=== PATIENT | male | born 1950 | race Caucasian/White ===

== ENCOUNTER → 2018-06-29 19:28 | Outpatient (REF) | payer MEDICARE, SELFPAY ==
[2018-06-29 20:46] LABS: ALT 40 U/L (12-78); AST 42 U/L (15-37); Albumin 3.5 g/dL (3.4-5.0); Alkaline Phosphatase 82 U/L (46-116); Anion Gap 8.3 mmol/L (3-11); BUN 4 mg/dL (7-18); Bilirubin, Total 0.6 mg/dL (0.2-1.0); CO2 26.7 mmol/L (21.0-32.0); CREATININE 0.82 mg/dL (0.70-1.30); Chloride 97 mmol/L (98-107); Cholesterol 141 mg/dL (50-200); Glucose 97 mg/dL (70-100); HDL Cholesterol 43 mg/dL (40-60); LDL CHOLESTEROL 88 mg/dL (<100); Potassium 4.3 mmol/L (3.5-5.1); Sodium 132 mmol/L (136-145); Total Protein 7.6 g/dL (6.4-8.2); Triglyceride 96 mg/dL (30-150)
[2018-07-01 10:02] LABS: Hepatitis C Ab w Rflx HCV PCR Negative (NEGAT)
== END ==
LOC: LBN 19:28
PROVIDERS: PCP Internal Medicine; Visit Provider Internal Medicine
DX: E78.5 Hyperlipidemia, unspecified (principal); I10 Essential (primary) hypertension; K76.89 Other specified diseases of liver; Z11.59 Encounter for screening for other viral diseases
CPT/HCPCS: 80053; 80061; 83721; 86803

== ENCOUNTER 2019-02-22 00:32 | Outpatient (CLI) | payer MEDICARE, SELFPAY ==
--- NOTE | 2019-02-22 07:14 | DI.US_ITS ---
SYMPTOM/DIAGNOSIS: SCREENING FOR AAA, MEDICARE ANNUAL WELLNESS VISIT, Z00.00 AORTA ULTRASOUND: The proximal abdominal aorta measures 2.5 by 2.2 cm. The mid abdominal aorta measures 2 by 2.4 cm. and the distal aorta measures 1.8 by 2 cm. The right iliac measures 1.3 by 1.2 cm. and the left iliac measures 1.1 by 1.1 cm. IMPRESSION: No evidence of an aortic aneurysm.
== END 2019-02-22 00:52 ==
PROVIDERS: PCP Internal Medicine; Visit Provider Internal Medicine
DX: Z13.6 Encounter for screening for cardiovascular disorders (principal)
CPT/HCPCS: 76706

== ENCOUNTER 2019-05-31 10:32 | Outpatient (REF) | payer MEDICARE, SELFPAY ==
[2019-05-31 12:36] LABS: HCT 44.7 % (40.0-50.0); HGB 14.8 g/dL (13.5-17.5); Mean Corp. HGB Concentration 33.1 g/dL (32.0-36.0); Mean Corpuscular Volume 99.8 fL (80-95); Mean Platelet Volume 10.9 fL (8.0-11.0); Platelet Count 333 x1000/uL (130-400); RBC 4.48 m/cumm (4.50-6.00); RBC Distribution Width 13.3 % (11.8-14.1); White Blood Cell Count 7.79 k/cumm (4.4-10.8)
[2019-05-31 13:27] LABS: ALT 42 U/L (12-78); AST 38 U/L (15-37); Albumin 3.5 g/dL (3.4-5.0); Alkaline Phosphatase 87 U/L (46-116); Anion Gap 11.5 mmol/L (3-11); BUN 4 mg/dL (7-18); Bilirubin, Total 0.5 mg/dL (0.2-1.0); CO2 23.5 mmol/L (21.0-32.0); CREATININE 0.72 mg/dL (0.70-1.30); Calculated LDL 75 mg/dL; Chloride 102 mmol/L (98-107); Cholesterol 139 mg/dL (50-200); Glucose 96 mg/dL (70-100); HDL Cholesterol 47 mg/dL (40-60); Potassium 4.6 mmol/L (3.5-5.1); Sodium 137 mmol/L (136-145); TSH 1.24 uIU/mL (0.36-3.74); Total Protein 7.5 g/dL (6.4-8.2); Triglyceride 85 mg/dL (30-150); Vitamin B12 289 pg/mL (193-986)
== END 2019-05-31 10:52 ==
LOC: LBN 10:32
PROVIDERS: PCP Internal Medicine; Visit Provider Internal Medicine
DX: E78.5 Hyperlipidemia, unspecified (principal); I10 Essential (primary) hypertension; F10.10 Alcohol abuse, uncomplicated; K76.89 Other specified diseases of liver; L30.9 Dermatitis, unspecified; R20.0 Anesthesia of skin; R20.2 Paresthesia of skin; E78.00 Pure hypercholesterolemia, unspecified
CPT/HCPCS: 80053; 80061; 83721; 85027; 82607; 84443

== ENCOUNTER 2019-08-31 10:23 | Outpatient (CLI) | payer MEDICARE, SELFPAY ==
--- NOTE | 2019-09-04 08:25 | W.HOLTRPT ---
Holter Monitor Report Holter Monitor Note: Is a 48-hour Holter monitor ordered for indication of syncope. ?Patient was predominantly normal sinus rhythm with an average heart rate of 85 bpm. ?There were 5 episodes of supraventricular tachycardia. The longest lasted 23 beats at a rate of 171 bpm. ?There were moderate (2%) PACs with no runs of multiple PACs in a row. ?There were no episodes of ventricular tachycardia. There were moderate (3%) single ventricular ectopic beats and 380 couplets. ?There was one episode of atrial fibrillation lasting 2 minutes and 1 second. ?There were no pauses greater than 3 seconds and no evidence of high degree heart block. ?There were no patient triggered events Date of service: 09/04/19 Time of Service: 08:25
== END 2019-08-31 10:43 ==
PROVIDERS: PCP Internal Medicine; Visit Provider Internal Medicine
DX: R55 Syncope and collapse (principal); I48.91 Unspecified atrial fibrillation; I47.1 Supraventricular tachycardia; I49.1 Atrial premature depolarization; I49.3 Ventricular premature depolarization
CPT/HCPCS: 93225

== ENCOUNTER 2019-09-03 15:04 | Outpatient (CLI) | payer MEDICARE, SELFPAY | END 2019-09-03 15:24 | PROVIDERS: PCP Internal Medicine; Visit Provider Internal Medicine | DX: R55 Syncope and collapse (principal); I47.1 Supraventricular tachycardia; I49.1 Atrial premature depolarization; I49.3 Ventricular premature depolarization; I48.91 Unspecified atrial fibrillation | CPT/HCPCS: 93226 ==

== ENCOUNTER 2019-09-04 08:25 | Outpatient (CLI) | payer MEDICARE, SELFPAY | END 2019-09-04 08:45 | PROVIDERS: PCP Internal Medicine; Referring Provider Internal Medicine; Visit Provider Internal Medicine Cardiovascular Disease | DX: R55 Syncope and collapse (principal); I47.1 Supraventricular tachycardia; I49.1 Atrial premature depolarization; I49.3 Ventricular premature depolarization; I48.91 Unspecified atrial fibrillation | CPT/HCPCS: 93227 ==

== ENCOUNTER 2019-09-18 01:20 | Outpatient (CLI) | payer MEDICARE, SELFPAY ==
--- NOTE | 2019-09-18 08:15 | DI.US_ITS ---
EXAM: US CAROTID CLINICAL HISTORY: syncope, R55 TECHNIQUE: Ultrasound performed using standard protocol. COMPARISON: No exams were available for comparison FINDINGS: Calcific plaque is seen in both common carotid bulbs and extending into the external carotid artery o n the right. There is mild diastolic velocity elevation in the right distal internal carotid artery. There is no stenosis greater than 50 percent in either internal carotid artery. The right vertebra l artery shows antegrade flow. The left vertebral artery shows retrograde flow. IMPRESSION: Calcific plaque in the common carotid bulbs. No significant internal carotid artery stenosis. Retro grade flow is demonstrated in the left vertebral artery.
--- NOTE | 2019-09-18 10:05 | DI.MRI_ITS ---
EXAM: MR LUMBAR SPINE WO CLINICAL HISTORY: radicular pain, previous back surgery, M54.10, Z98.890. TECHNIQUE: Multiplanar multisequence MRI was performed. COMPARISON: MRI - LUMBAR SPINE WO CONTRAST from 04/26/2009 FINDINGS: Loss of disc height, disc desiccation and broad-based disc osteophytes are again noted at L1-2. Find ings appear more prominent when compared to the previous exam. There is mild central canal stenosis and mild right neural foraminal narrowing. At L2-3, there is disc desiccation, broad-based disc bulging and loss of disc height eccentric to the right. There are facet degenerative changes and ligamentous hypertrophy, which combine to produce a severe amount of central canal stenosis. There is also severe bilateral neural foraminal narrowing. At L3-4, there are broad-based disc osteophytes projecting circumferentially. There are facet degene rative changes combining to produce severe central canal stenosis and severe bilateral neural foramin al narrowing. At L4-5, there is a right laminectomy. There is moderate loss of disc height and broad-based disc os teophytes. There are facet degenerative changes combining to produce a mild degree of central canal stenosis. There is severe bilateral neural foraminal narrowing. At L5-S1, there is a left laminectomy. There is loss of disc height and broad-based disc osteophytes . There is severe bilateral neural foraminal narrowing but no significant central canal stenosis. IMPRESSION: Severe central canal stenosis L2-3 and L3-4. Severe bilateral neural foraminal narrowing from L2-3 t hrough L5-S1.
== END 2019-09-18 01:40 ==
PROVIDERS: PCP Internal Medicine; Visit Provider Internal Medicine
DX: M54.17 Radiculopathy, lumbosacral region (principal); M48.061 Spinal stenosis, lumbar region without neurogenic claudication; M51.17 Intervertebral disc disorders with radiculopathy, lumbosacral region; M25.78 Osteophyte, vertebrae; R55 Syncope and collapse; I65.23 Occlusion and stenosis of bilateral carotid arteries
CPT/HCPCS: 72148; 93880

== ENCOUNTER 2019-11-29 01:17 | Outpatient (CLI) | payer MEDICARE, SELFPAY ==
--- NOTE | 2019-11-29 08:35 | DI.RAD_ITS ---
EXAM: XR RIBS RT W PA LAT CHEST INDICATION: right chest pain, wheezing, R07.9, R06.2. COMPARISON: No exams were available for comparison TECHNIQUE: 2D digital imaging was performed. FINDINGS: Heart size is within normal limits. The aorta is tortuous. Lungs are clear. No pneumothorax is se en. Four views of the right ribs were performed. There is a mildly displaced 8th rib fracture. Dege nerative changes are noted at the AC joint. There is a small calcification near the greater tuberosi ty which could indicate calcific tendinosis. There are no thoracic compression fractures. IMPRESSION: Right 8th rib fracture.
== END 2019-11-29 01:37 ==
PROVIDERS: PCP Internal Medicine; Visit Provider Internal Medicine
DX: R07.9 Chest pain, unspecified (principal); R06.2 Wheezing; S22.31XA Fracture of one rib, right side, initial encounter for closed fracture
CPT/HCPCS: 71046; 71100

== ENCOUNTER 2019-11-29 12:27 | Outpatient (REF) | payer MEDICARE, SELFPAY ==
[2019-11-29 19:30] LABS: HCT 41.2 % (40.0-50.0); HGB 13.7 g/dL (13.5-17.5); Mean Corp. HGB Concentration 33.3 g/dL (32.0-36.0); Mean Corpuscular Hemoglobin 33.1 pg (27.0-33.0); Mean Corpuscular Volume 99.5 fL (80-95); Mean Platelet Volume 10.7 fL (8.0-11.0); Platelet Count 456 x1000/uL (130-400); RBC 4.14 m/cumm (4.50-6.00); RBC Distribution Width 13.2 % (11.8-14.1); White Blood Cell Count 7.48 k/cumm (4.4-10.8)
[2019-11-29 19:43] LABS: ALT 22 U/L (16-63); AST 26 U/L (15-37); Albumin 2.9 g/dL (3.4-5.0); Alkaline Phosphatase 66 U/L (46-116); BUN 8 mg/dL (7-18); Bilirubin, Total 0.2 mg/dL (0.2-1.0); CREATININE 0.65 mg/dL (0.70-1.30); Calcium 8.7 mg/dL (8.5-10.1); Chloride 105 mmol/L (98-107); Glucose 93 mg/dL (74-106); Potassium 4.8 mmol/L (3.5-5.1); Sodium 140 mmol/L (136-145); Total Protein 6.7 g/dL (6.4-8.2)
== END 2019-11-29 12:47 ==
LOC: LBN 12:27
PROVIDERS: PCP Internal Medicine; Visit Provider Internal Medicine
DX: R55 Syncope and collapse (principal); I95.9 Hypotension, unspecified
CPT/HCPCS: 80053; 85027

== ENCOUNTER 2019-12-30 01:32 | Outpatient (CLI) | payer MEDICARE, SELFPAY ==
--- NOTE | 2019-12-30 10:30 | DI.US_ITS ---
APPROVED REPORT EXAM: Comprehensive 2D, Doppler, and color-flow Echocardiogram Patient Location: Out-Patient Telecommunications Field Engineer: Vaishali Walsh RDCS (AE) Indications: Syncope, New Hypotension, Assess for WMA Conclusion Left Ventricle : The left ventricle is normal size. Left ventricular systolic function is mildly dec reased. There is normal left ventricular wall thickness. There are segmental wall motion abnormalit ies as described below. The left ventricular diastolic function is normal. LVEF is 45-49%. Right Ventricle : Right ventricle is not well visualized. Atria : The left atrium size is normal. The right atrium size is normal. Valves: There are no hemodynamically significant valvular lesions. Great Vessels : The ascending aorta is normal in size. The ascending aorta size is dilated. IVC is n ormal in size and collapses >50% with inspiration. Mid RVSP is 21-24 mmHg. There is no prior echocardiogram available for comparison. Wall motion Left Ventricle The left ventricle is normal size. Left ventricular systolic function is mildly decreased. There is n ormal left ventricular wall thickness. The basal anteroseptal wall is mildly hypokinetic. The basal a nterior wall is mildly hypokinetic. The basal inferoseptal wall is mildly hypokinetic. The mid horace septal wall is mildly hypokinetic. The mid anterior wall is mildly hypokinetic. The mid inferoseptal wall is mildly hypokinetic. The left ventricular diastolic function is normal. LVEF is 45-49%. Right Ventricle Right ventricle is not well visualized. Atria The left atrium size is normal. The right atrium size is normal. Aortic Valve Aortic valve is grossly normal in structure. Aortic valve is probably trileaflet. There is no aortic valvular stenosis. No aortic regurgitation is present. Mitral Valve The mitral valve is normal in structure. Mild mitral regurgitation. Tricuspid Valve The tricuspid valve is normal in structure. There is no tricuspid valve stenosis. Trace tricuspid reg urgitation. Pulmonic Valve Pulmonic valve is not well visualized. There is no pulmonic valvular stenosis. Trace pulmonic regurgi tation. Great Vessels The aortic root is normal in size. The aortic root size is normal. The ascending aorta is normal in s ize. The ascending aorta size is dilated. IVC is normal in size and collapses >50% with inspiration. Mid RVSP is 21-24 mmHg. Pericardium There is no pericardial effusion. 2D Dimensions IVSD d PLAX 1.03 cm M: 0.6-1.2 LV Vol A2C d MOD 96.4 mL LVPW d PLAX 1.02 cm M: 0.6 - 1.2 LV Vol A4C d MOD 107.6 mL LVID d PLAX 4.83 cm M: 4.2 - 5.8 LA vol/ BSA A2C s A-L 26.9 mL/m2 LVDs 3.80 cm M: 2.5 - 4.0 LA vol/ BSA A4C s A-L 32.1 mL/m2 Ao Root d 3.65 cm M: 3.1 - 3.7 LA Vol/ BSA Biplane s A-L 31.5 mL/m2 RA Area A4C 17.74 cm2 LA Area A4C s MOD 22.27 cm2 RA Vol/ BSA A4C s A-L 20.4 mL/m2 LA Area A2C s MOD 18.97 cm2 Ao Asc Diam d 3.80 cm M: 2.6 - 3.4 LV EF A4C MOD 49.9 % LV EF Teichholz 42.5 % LV EF A2C MOD 47.1 % LVEF (Elliott's) 48.38 % M: 52 - 72 LV EF Biplane MOD 48.4 % LV Volume 75.30 mL M: 62 - 150 LV Volume Index 32.59 mL/m2 M: 34 - 74 LV Vol Biplane MOD 105.2 mL FS 20.90 % LV Diastology MV E' medial 0.069 (>0.07 m/s) E/A Ratio 0.6 LV E/e MED 8.60 (<14) MV E Vmax 0.60 (0.4-1.3 m/s) MV E' lateral 0.045 (>0.1 m/s) MV A Vmax 1.00 (0.4-1.3 m/s) LV E/e LAT 13.30 (<14) MV E/A Ratio 0.59 MV E/E' medial 8.63 MV E/E' lateral 13.32 Aortic Valve LVOT Area 3.70 cm2 AoV Area Vmax 2.25 cm2 LVOT Vmax 1.05 m/s AoV Area/ BSA (Vmax) 0.97 cm2/m2 LVOT Mean Kvng. 0.67 m/s SOBIA Mean Kvng. 1.99 cm2 LVOT Peak Grad 4.4 mmHg SOBIA Mean Kvng. Index 0.86 cm2/m2 LVOT Mean Grad 2.1 mmHg LVOT VTI 0.208 m LVOT Diam s 2.15 cm (M/F) 1.5-2.5 AoV Vmax 1.73 (0.5-1.3 m/s) Velocity Ratio 0.60 AoV Mean Kvng. 1.24 m/s AoV Peak Grad 11.9 mmHg LVOT SV 76.77 mL AoV Mean Grad 6.8 (<5 mmHg) AoV VTI 0.345 (0.18-0.25 m) AoV Area VTI 2.23 (2.5-4.5 cm2) AoV Area/ BSA (VTI) 0.96 cm/m2 Mitral Valve MV DT 416 (160-240 msec) MV PHT 121 msec MV Area PHT 1.82 cm2 Pulmonary Valve PV Vmax 0.88 (0.5-1.5 m/s) RVOT Peak Gr. 1.25 mmHg PV Peak Grad 3.1 mmHg RVOT Mean Gr. 0.65 mmHg PV Mean Grad 1.4 mmHg RVOT VTI 0.101 m PV VTI 0.156 m RVOT Vmax 0.56 m/s Tricuspid Valve TR Peak Grad 21.4 mmHg TR Vmax 2.31 m/s RA Pressure 3.00 mmHg RVSP (TR) 24.4 mmHg
== END 2019-12-30 01:52 ==
PROVIDERS: PCP Internal Medicine; Visit Provider Internal Medicine
DX: R55 Syncope and collapse (principal); I95.9 Hypotension, unspecified; I50.1 Left ventricular failure, unspecified
CPT/HCPCS: 93306

== ENCOUNTER 2020-07-16 14:37 | Outpatient (REF) | payer MEDICARE, SELFPAY | END 2020-07-16 14:57 | LOC: LBO 14:37 | PROVIDERS: PCP Internal Medicine; Visit Provider Internal Medicine | DX: N39.0 Urinary tract infection, site not specified (principal) | CPT/HCPCS: 87086 ==

== ENCOUNTER 2020-07-24 01:26 | Outpatient (CLI) | payer MEDICARE, SELFPAY ==
--- NOTE | 2020-07-24 07:00 | DI.CT_ITS ---
EXAM: CT ABDOMEN PELVIS WO CLINICAL HISTORY: gross hematuria,R31.0. TECHNIQUE: Imaging Protocol: Axial computed tomography images with coronal and sagittal reformatted images were created and reviewed. COMPARISON: No exams were available for comparison FINDINGS: Mild patient motion artifact. ABDOMEN: Lung Bases: No acute process is seen in the lung bases. Liver: Normal density. No measurable mass. Gallbladder and biliary tract: No radiodense calculus or biliary ductal dilation. Pancreas: Normal density, no abnormal calcifications or inflammatory process. Spleen: Normal. Kidneys: Normal size, contour and axis.There is a 3 mm calcification in the right renal pelvis. This may represent a nonobstructing stone or vascular calcification. No other renal calculi are identifi ed. There is no evidence of hydronephrosis. No masses seen. Adrenal glands: No mass is seen. Nonspecific calcification is seen at the right adrenal gland. Lymph nodes: Within normal limits. Abdominal Aorta: Abdominal portion non-dilated. Atherosclerosis. PELVIS: Bladder:The urinary bladder is distended. There is diffuse thickening of the wall of the urinary iris dder. There does appear to be some asymmetric thickening of the wall of the urinary bladder anterior ly and to the right. Mass cannot be excluded. Bowel: No obstruction or bowel wall thickening. Normal appendix is visualized. Colonic diverticulosi s but no evidence of acute diverticulitis. Peritoneal cavity: No ascites, collection or mesenteric inflammatory response Reproductive organs: Within normal limits. Bones: Degenerative changes. Soft Tissues: Small fat containing umbilical hernia. Bilateral fat containing inguinal hernia. IMPRESSION: 1. 3 mm calcification in the right renal pelvis. Nonobstructing stone versus vascular calcification. 2. No hydronephrosis. 3. Question of asymmetric thickening of the wall of the urinary bladder anteriorly and to the right. Mass cannot be excluded. Ultrasound or CT urography should be considered for further evaluation. RADIATION DOSE DELIVERED: 1,040.15mGy.cm Total DLP DATA REPOSITORY: All CT scans at this facility are submitted to the National Radiology Data Registry (NRDR) Dose Index Registry (DIR) with the [employer] (A[employer]). RADIATION OPTIMIZATION: All CT scans at this facility use at least one of these dose optimization te chniques: automated exposure control; mA and/or kV adjustment per patient size (includes targeted exa ms where dose is matched to clinical indication); or iterative reconstruction.
== END 2020-07-24 01:46 ==
PROVIDERS: PCP Internal Medicine; Visit Provider Internal Medicine
DX: R93.41 Abnormal radiologic findings on diagnostic imaging of renal pelvis, ureter, or bladder (principal); N32.89 Other specified disorders of bladder
CPT/HCPCS: 74176

== ENCOUNTER 2020-09-09 00:37 | Outpatient (CLI) | payer MEDICARE, SELFPAY ==
--- NOTE | 2020-09-09 08:15 | DI.CTLCSR_ITS ---
EXAM: CT CHEST LUNG CANCER SCREEN CLINICAL HISTORY: Screening for lung cancer,CURRENT SMOKER, F17.210 TECHNIQUE: COMPARISON: No exams were available for comparison FINDINGS: CT examination of the chest was performed utilizing low-dose lung cancer screening protocol. Images obtained through the upper show unremarkable appearance of visualized portions liver, spleen pancreas adrenals, kidneys. Note is made of coronary artery calcification. There is ectasia of the ascending aorta 44 millimeter s. There is no significant mediastinal or hilar adenopathy. There are emphysematous changes of the lungs and a few areas of scarring in the lung bases. There ar e a couple of 4 millimeter pulmonary nodules in the right lung. These are noncalcified. No pleural effusion. No pleural based mass. IMPRESSION: 4 millimeter intrapulmonary nodules, noncalcified, in the right lung. Lung RADS Cat 2 - Benign Appearance / Behavior: Nodules with a very low likelihood of becoming a clin ically active cancer due to size or lack of growth Continue annual screening with LD CT in 12 months. RADIATION DOSE DELIVERED: 109.66mGy.cm Total DLP
== END 2020-09-09 00:57 ==
PROVIDERS: PCP Internal Medicine; Visit Provider Internal Medicine
DX: F17.210 Nicotine dependence, cigarettes, uncomplicated (principal); R91.8 Other nonspecific abnormal finding of lung field
CPT/HCPCS: G0297

== ENCOUNTER → 2020-09-24 15:06 | Outpatient (BNVA) | payer MEDICARE, SELFPAY | PROVIDERS: PCP Internal Medicine; Referring Provider Internal Medicine; Visit Provider Nurse Practitioner Gerontology | DX: R31.0 Gross hematuria (principal); Z11.59 Encounter for screening for other viral diseases; I10 Essential (primary) hypertension | CPT/HCPCS: 99204 ==

== ENCOUNTER 2020-10-07 02:19 | Outpatient (CLI) | payer MEDICARE, SELFPAY ==
[2020-10-08 23:24] LABS: COVID-19 RT-PCR Result NEGATIVE (Negative)
== END 2020-10-07 02:39 ==
PROVIDERS: PCP Internal Medicine; Visit Provider Nurse Practitioner Gerontology
DX: Z11.59 Encounter for screening for other viral diseases (principal)
CPT/HCPCS: U0003

== ENCOUNTER 2020-10-18 03:30 | Outpatient (CLI) | payer MEDICARE, SELFPAY ==
[2020-10-21 12:09] LABS: COVID-19 RT-PCR Result NEGATIVE (Negative)
== END 2020-10-18 03:50 ==
PROVIDERS: PCP Internal Medicine; Visit Provider Internal Medicine Cardiovascular Disease
DX: Z11.59 Encounter for screening for other viral diseases (principal); Z01.810 Encounter for preprocedural cardiovascular examination
CPT/HCPCS: U0003

== ENCOUNTER → 2020-10-22 00:25 | Outpatient (CLI) | payer MEDICARE, SELFPAY ==
--- NOTE | 2020-10-22 07:30 | DI.NM_ITS ---
APPROVED REPORT Exam: Pharmacologic Patient Location: Out-Patient Room/Bed: Stress Nurse: Shannan Avila RN BMI: 30.07 Baseline Rhythm: Sinus Rhythm Comment: frequent PACs, occasional PVC Indications: Pre-op, angina, h/o abnormal echocardiogram, syncopal episodes. Medical History Medical History: HTN, HLD, Smoker, Orthostatic hypotension, Syncope, Angina, Arthritis, Chronic back pain. Cardiac Medications: Albuterol sulfate PRN, Budesonide-formoterol inhaler, Aspirin, Atorvastatin, Lis inopril. Allergies: No known drug allergies Cardiac Risk Factors: HTN, Hyperlipidemia, FHX of CAD, Smoking (current) Previous Cardiac Procedures: None. Pretest Chest Pain Characteristics: No chest pain Exercise History: Sedentary Physical Disabilities: Back, Legs Lung Sounds: Diminished, end-expiratory rhonchi Heart Sounds: Irregular Stress Test Details Test: Exercise stress converted to pharmacologic stress due to failure to obtain a diagnostic stress test. Reason for pharmacologic stress test: physical limitation. Nuclear Acquisition: Rest Tc-99m/Stress Tc-99m 1 day Rest Isotope: Tc-99m Sestamibi. Dose: 10.9 Date: 10/22/2020 Injection Time: 1035 Stress Isotope: Tc-99m Sestamibi. Dose: 32.1 Date: 10/22/2020 Injection Time: 1155 HR Resting HR Supine: 71 bpm Max Heart Rate (APMHR): 152 bpm Resting HR Standin bpm Target HR (85% APMHR): 129 bpm Max HR Achieved: 124 bpm % of APMHR: 81 Recovery HR: 95 bpm HR response to stress: Normal HR response to stress BP Resting BP Supine: 136/80 mmHg Resting BP Standin/76 mmHg Max BP: 144/86 mmHg Recovery BP: 132/80 mmHg BP response to stress: Normal blood pressure response to stress. ECG Resting ECG: Sinus Rhythm Ectopy: frequent PACs, occasional PVC, fusion beats Stress ECG: Sinus Tachycardia, Sinus Bradycardia, Sinus Rhythm, Clear, ST Change: No significant ST segment changes noted. Arrhythmia: frequent PACs, occasional PVC, fusion beats Recovery ECG: Sinus Rhythm Recovery ST Change: No significant ST segment changes noted. Recovery Arrhythmia: frequent PACs, occasional PVC, fusion beats Clinical Reason for Termination: Leg pain, dyspnea Stress Symptoms: Leg Fatigue, Dyspnea Exercise duration: 2 min33 sec Highest Stage Reached: Stage 1: 1.7 mph at 10% grade. Exercise capacity: 4.64 METs Stress ECG Conclusion 1. The patient exercised for 2 minutes and 30 seconds (5 METS). This was converted to a pharmacologi nuria stress test. 2. The patient no symptoms suggestive of ischemia. 3. The EKG portion of this exam is nondiagnostic. Stress Test Summary STAGE Time (mins) Speed (mph) Grade (%) HR BP SYMPTOMS METS Supine 71 136/80 Standing 88 118/76 1 3 1.7 10 119 4.6 1 min post Lexiscan injection 100 144/86 3 min post Lexiscan injection 95 130/78 6 min post Lexiscan injection 95 132/80 MPI Conclusion The patient's ejection fraction was 49% with stress. There were no wall motion abnormalities. There is no evidence of ischemia on the imaging portion of the exam. This represents a normal SPECT stress test.
[2020-10-22] MEDS: Regadenoson 0.4 MG/5 ML SYR IVP (12:22)
== END ==
PROVIDERS: PCP Internal Medicine; Visit Provider Family Medicine
DX: I20.8 Other forms of angina pectoris (principal); R55 Syncope and collapse; Z01.818 Encounter for other preprocedural examination; R93.1 Abnormal findings on diagnostic imaging of heart and coronary circulation; I10 Essential (primary) hypertension; E78.5 Hyperlipidemia, unspecified; Z82.49 Family history of ischemic heart disease and other diseases of the circulatory system; F17.210 Nicotine dependence, cigarettes, uncomplicated
CPT/HCPCS: 78452; 93016; 93018; 93017; J2785

== ENCOUNTER 2020-11-25 04:45 | Outpatient (CLI) | payer MEDICARE, SELFPAY ==
[2020-11-26 14:37] LABS: COVID-19 RT-PCR UVMMC Result Negative (Negative)
== END 2020-11-25 05:05 ==
PROVIDERS: PCP Internal Medicine; Visit Provider Nurse Practitioner Gerontology
DX: Z11.52 Encounter for screening for COVID-19 (principal)
CPT/HCPCS: U0003

== ENCOUNTER 2020-11-28 08:16 | Day surgery (SDC) | payer MEDICARE, SELFPAY ==
--- NOTE | 2020-11-27 09:05 | NUR.NOTE ---
Pt. pre-op call completed, pt. educated to be NPO after midnight, water until 0500am. Informed patient that he may take his Gabapentin, Tamsulosin, Fluoxetine, with a small sip of water and his symbicort inhaler. Pt. educated come in thru main entrance, make sure he has a mask on, and to have a ride home set up in place prior to arrival. Pt. informed that he will have to be dropped off, and cannot have anybody accompany him due to COVID restrictions. Pt. stated understand on all that was stated above. Nursing Note:
[2020-11-28] VITALS (8 sets, daily range): BP systolic 62–112; BP diastolic 42–77; PULSE 66–78; RESP 12–20; TEMP 36.2–36.8; O2SAT 91–99
--- NOTE | 2020-11-28 08:34 | HPE_ITS ---
Date of service: 11/28/20 Time of Service: 08:35 Assessment and Plan Assessment and plan (1) Gross hematuria: Status: Acute Assessment and plan: For cystoscopy with bilateral retrograde pyelogram and possible TUR bladder tumor History of Present Illness History of Present Illness Chief Complaint: Gross hematuria Narrative: Juan Jose is a 70-year-old male referred to urology by [facility] internal medicine for gross hematuria. Patient reports that he had one episode of gross hematuria about a month ago. He reports there is no clots with the gross hematuria. He notes he has not seen any in his urine since but has been tested with urinalysis and has been found to have large quantities of microscopic hematuria. He notes that he has also had an abnormal weight loss over the past year. He does not report any long bone pain. He is not having any abnormal bleeding or bruising. He notes that he has some daytime and nighttime frequency but does not have trouble initiating his stream or feel that he does not empty completely. Juan Jose reports that he had imaging done through his primary care's office. Juan Jose states that his PCP did talk to him about the results and there is concern for further investigation of the bladder wall. Review of Systems Narrative: No fevers or chills No vision change. 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 (01/19/12) Tongue cancer Has had tongue resection x 2014 Per patient they took about half the tongue Surgical History History of back surgery 1988 Family History (Updated 10/07/20 @ 15:03 by Rashaun Jain) Mother , Pt reports mother of Old Age Diabetes Lung cancer Father Diabetes Stroke Sister Diabetes Brother Diabetes Social History Smoking/Tobacco Use Status: Current every day Tobacco Type: cigarettes Tobacco: How many years used: 53 Quit status: not considering quitting Smoking risk assessment performed?: Yes Alcohol Intake: current Alcohol Intake frequency: 3 or more drinks per day Alcohol type: beer and hard liquor Drug use: Occasionally Substance use type: marijuana Adopted: No Caregiver/Support person: No Foster care: No Household members: none Housing: house Number of Children: 0 Communication Needs: Corrective Lenses Education Level: high school current occupation: disabled Current gender identity: male What is your relationship status?: How often do you talk on the phone with friends or family?: three or more times per week Panel score (0-1 are the most socially isolated patients): 1 What type of physical activity do you participate in: none Seatbelt use: always 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 Working smoke detector in home: Yes Fire extinguisher in home: Yes Carbon monox detector in home: Yes Do you feel safe at home: Yes Additional Social history: lives alone Meds Home Medications and Allergies Home Medications Medication Instructions Recorded Confirmed Type diphenhydramine HCl [Benadryl] 25 mg PO PRN cap 05/03/17 11/27/20 History inhalational spacing device #1 each 11/21/19 11/27/20 Rx albuterol sulfate 90 mcg/actuation 2 puff IH QID PRN #3 unit 01/11/20 11/27/20 Rx aerosol inhaler budesonide-formoterol HFA 160 2 puff IH BID #3 unit 03/12/20 11/27/20 Rx mcg-4.5 mcg/actuation aerosol inhaler blood pressure monitor #1 each 03/13/20 11/27/20 Rx aspirin 81 mg tablet,delayed 81 mg PO DAILY #90 tab 05/15/20 11/27/20 Rx release atorvastatin 40 mg tablet 40 mg PO DAILY #90 tab-cap 05/15/20 11/27/20 Rx fluoxetine 40 mg capsule 40 mg PO DAILY #90 tab-cap 05/15/20 11/27/20 Rx gabapentin 600 mg tablet 600 mg PO QID #150 tab 05/15/20 11/27/20 Rx lisinopril 20 mg tablet 20 mg PO DAILY #90 tab-cap 05/15/20 11/27/20 Rx thiamine HCl (vitamin B1) 100 mg 100 mg PO DAILY #90 tab 05/15/20 11/27/20 Rx tablet tamsulosin 0.4 mg capsule 0.4 mg PO DAILY #90 tab-cap 05/22/20 11/27/20 Rx triamcinolone acetonide 0.1 % 1 applic TOPICAL BID #30 gm 07/16/20 11/27/20 Rx topical cream Allergies Allergy/AdvReac Type Severity Reaction Status Date / Time No Known Drug Allergies Allergy Verified 11/28/20 08:48 Exam Narrative Exam Narrative: I reviewed his noncontrast CT scan on the PACS system. There is no evidence of a solid renal mass. There is thickening of the bladder but no definite mass. There are vascular calcifications and a possible very small nonobstructing stone in the right kidney. Const General: cooperative and not in distress Resp Effort & Inspection: normal respiratory effort Auscultation: clear to auscultation bilaterally Cardio Rate: regular rate Rhythm: regular rhythm Neuro General: patient alert, patient awake and patient oriented x3 COVID-19 Screening Have you, or household traveled for leisure in last 14 days?: No Had IN PERSON contact w/suspected or confirmed C-19 person: No
[2020-11-28] MEDS: Lactated Ringers 1,000 ML 80 ML IV (09:08)
[2020-11-28] MEDS: ceFAZolin 1 GM/50 ML BAG IVPB (09:31)
[2020-11-28] MEDS: Lidocaine 2% Jelly 6 ML SYR (09:44)
--- NOTE | 2020-11-28 09:45 | PAPNONF_PTH ---
PATIENT: Juan Jose Lowe LOC: [facility] U#:[id number] AGE/SX: 70/M ROOM: RE11/28/[address]: Chinmay Freitas MD : 1950 BED: DIS: 11/28/2020 SPEC #: [id number] RECD: 11/28/20 12:42 STATUS: SABAS REElizabeth #: [id number] MARK: 11/28/20 09:[address]: Chinmay Freitas DEPT: [facility] Cytology RECD BY: Milagros Boudreaux ENTERED: 11/28/20 12:42 SP TYPE: LUCY HICKMAN DR: Yovana Wade MD Tissues: 1 - BODY FLUID CYTO(SPUTUM/URINE)[facility] Procedures: BODY FLUID CYTO(URINE/SPUTUM) Comments: [id number] (TOTAL VOLUME = 100 ml's) (50 ml's URINE & 50 ml's CYTOLYT ADDED IN 2 CONTAINERS)
--- NOTE | 2020-11-28 09:55 | DI.RAD_ITS ---
EXAM: XR RETROGRADE IN OR CLINICAL HISTORY: Gross hematuria. TECHNIQUE: 2D digital imaging was performed. COMPARISON: No exams were available for comparison FINDINGS: Fluoroscopy was provided during urologic procedure. Image reveals bilateral retrograde injections wi th no hydronephrosis nor hydroureter. Total Hollis B time 26 seconds; total cumulative dose 6.85mGy IMPRESSION: DATA REPOSITORY: RADIATION DOSE DELIVERED:
--- NOTE | 2020-11-28 09:59 | BLADDER_PTH ---
PATIENT: Juan Jose Lowe LOC: [facility] U#:[id number] AGE/SX: 70/M ROOM: RE11/28/[address]: Chinmay Freitas MD : 1950 BED: DIS: 11/28/2020 SPEC #: [id number] RECD: 11/28/20 12:37 STATUS: LUIS ALFREDOHema REQ #: [id number] MARK: 11/28/20 09:[address]: Chinmay Freitas DEPT: Surgical Specimen RECD BY: Milagros Boudreaux ENTERED: 11/28/20 12:38 SP TYPE: Bladder OTHR DR: Yovana Wade MD Tissues: 1 - BLADDER BIOPSY Procedures: GROSS AND MICRO LEVEL 4 Comments: [id number]
[2020-11-28] MEDS: Omnipaque 300 MG/ML 50 ML BTL (10:00)
--- NOTE | 2020-11-28 10:09 | W.PM.DSUDISC ---
Discharge Plan Disposition Patient Disposition: HOME Condition: Stable Discharge Details Reason For Visit: Hematuria Attending Provider: Chinmay Freitas Primary Care Provider: Yovana Wade Home Meds and New Rx's Prescriptions: No Action triamcinolone acetonide 0.1 % cream 1 applic Topical BID Qty: 30 RF: 1 (DME) Aerochamber MV Spacer See Rx Instructions .ROUTE .MEDSUPPLY Qty: 1 RF: 0 budesonide-formoterol [Symbicort] 160-4.5 mcg/actuation HFA aerosol inhaler 2 puff IH BID Qty: 3 RF: 3 (DME) blood pressure monitor [Blood Pressure Kit] Kit See Rx Instructions .ROUTE .MEDSUPPLY Qty: 1 RF: 0 tamsulosin 0.4 mg capsule 0.4 mg PO DAILY Qty: 90 RF: 3 diphenhydramine HCl [Benadryl] 25 MG capsule 25 mg PO PRN RF: 0 albuterol sulfate 90 mcg/actuation HFA aerosol inhaler 2 puff IH QID PRN (Reason: shortness of breath or wheezing) Qty: 3 RF: 3 aspirin 81 mg tablet,delayed release (DR/EC) 81 mg PO DAILY Qty: 90 RF: 3 atorvastatin 40 mg tablet 40 mg PO DAILY Qty: 90 RF: 3 lisinopril 20 mg tablet 20 mg PO DAILY Qty: 90 RF: 3 thiamine HCl (vitamin B1) 100 mg tablet 100 mg PO DAILY Qty: 90 RF: 3 fluoxetine 40 mg capsule 40 mg PO DAILY Qty: 90 RF: 3 gabapentin 600 mg tablet 600 mg PO QID Qty: 150 RF: 11 Discharge Instructions Additional Instructions: Followup 2 weeks for surgical pathology (cytology and bladder biopsy - both reports need to be available) Activity:: Activity as Tolerated Shower/Bathe:: 24 hours Diet:: As Tolerated Discharge Orders Discharge Orders: Discharge Order (Routine); Ordered 11/28/20 Ordered By: Chinmay Freitas Discharge Data Discharge Comment: pt must void prior to discharge DS: Diagnosis Discharge Diagnosis (1) Gross hematuria: Status: Acute
--- NOTE | 2020-11-28 10:14 | W.PM.OP ---
Date of service: 11/28/20 Time of Service: 10:14 Operative Note Operative Note DATE OF PROCEDURE: 11/28/20 PRE-OP DIAGNOSIS: Gross hematuria POST-OP DIAGNOSIS: same PROCEDURE: Cystoscopy, bilateral retrograde pyelogram, bladder biopsy with fulguration SURGEON: Chinmay Freitas ANESTHESIA: other (General without intubation) ESTIMATED BLOOD LOSS: 25 PATHOLOGY: other (1. Urine for cytology 2. Bladder biopsies) COMPLICATIONS: None Patient was transported to: same day Patient's condition: stable Indications: This is a 70-year-old gentleman who has a history of gross hematuria. He had a noncontrast CT scan which showed thickening of the bladder wall. The patient has a long history of tobacco abuse. He presents now for cystoscopy with bilateral retrograde pyelograms to complete his hematuria work-up. We are prepared to do transurethral resection of any visible bladder tumor. Findings: Diffuse erythema and cobblestone appearance of right sided bladder mucosa Procedure Description: Patient was brought to the operating room on 11/28/2020. After successful induction of general anesthesia without intubation, he was placed in the dorsal lithotomy position. He was given preoperative IV antibiotics. His genitalia was prepped and draped. 2% Xylocaine jelly was instilled into the urethra to act as a local anesthetic. A 23 [place]an rigid cystoscope was passed through the urethra into the bladder. The urine that was initially encountered was collected and sent to the lab for cytology exam. The urethra and bladder were inspected with a 30 degree lens. The pendulous, bulbous and membranous urethra was appeared normal with no strictures. The prostatic urethra showed some lateral lobe enlargement but no mucosal abnormalities. The bladder neck was entered and the bladder mucosa was inspected. Both ureteral orifice ease appeared normal. No blood was seen coming from either side. Each ureteral orifice was cannulated with a 6 [place]an access catheter. Retrograde films were obtained by injecting Omnipaque through the access catheter under fluoroscopic guidance. No filling defects were seen in either ureter or in the collecting systems. The remainder of the bladder was then inspected. On the right side of the bladder, there was diffuse erythema and cobblestone appearance worrisome for carcinoma in situ. We then used a cold cup biopsy forceps to biopsy 3 separate areas of the erythematous mucosa. The biopsy sites and the remainder of the mucosa was then cauterized using bipolar Bugbee electrode. Each of the biopsies was sent to pathology for permanent section. Patient tolerated this procedure well with no complications. His follow-up plans will depend on the cytology and biopsy results.
[2020-11-28] MEDS: Phenazopyridine 200 MG TAB PO ×2 (11:20)
== END 2020-11-28 12:15 | disposition home or self-care (01) ==
PROVIDERS: PCP Internal Medicine; Visit Provider Urology
PROC: (CPT 74450; principal; 2020-11-28 09:15)
PROC: 0TBB8ZZ Excision of Bladder, Via Natural or Artificial Opening Endoscopic (ICD-10-PCS; CPT 52224; 2020-11-28 09:15)
DX: R31.0 Gross hematuria (principal); D41.4 Neoplasm of uncertain behavior of bladder
CPT/HCPCS: 52224; 52005; 88305; NC; 74420; 88104; J0690; J1885; J2001; J2405; J2704; Q9967

== ENCOUNTER → 2020-12-13 15:04 | Outpatient (BNVA) | payer MEDICARE, SELFPAY | PROVIDERS: PCP Internal Medicine; Referring Provider Internal Medicine; Visit Provider Urology | DX: C67.9 Malignant neoplasm of bladder, unspecified (principal); Z86.008 Personal history of in-situ neoplasm of other site | CPT/HCPCS: 99214 ==

== ENCOUNTER → 2021-01-06 14:01 | Outpatient (BNVA) | payer MEDICARE, SELFPAY | PROVIDERS: PCP Internal Medicine; Referring Provider Internal Medicine; Visit Provider Nurse Practitioner Gerontology | DX: C67.9 Malignant neoplasm of bladder, unspecified (principal); Z51.11 Encounter for antineoplastic chemotherapy | CPT/HCPCS: 51720; 81003; J9031 ==

== ENCOUNTER → 2021-01-14 14:06 | Outpatient (BNVA) | payer MEDICARE, SELFPAY | PROVIDERS: PCP Internal Medicine; Referring Provider Internal Medicine; Visit Provider Nurse Practitioner Gerontology | DX: C67.9 Malignant neoplasm of bladder, unspecified (principal) | CPT/HCPCS: 51720; J9031 ==

== ENCOUNTER → 2021-01-21 14:05 | Outpatient (BNVA) | payer MEDICARE, SELFPAY | PROVIDERS: PCP Internal Medicine; Referring Provider Internal Medicine; Visit Provider Nurse Practitioner Gerontology | DX: C67.9 Malignant neoplasm of bladder, unspecified (principal); Z51.11 Encounter for antineoplastic chemotherapy | CPT/HCPCS: 51720; 81003; J9031 ==

== ENCOUNTER → 2021-01-28 14:09 | Outpatient (BNVA) | payer MEDICARE, SELFPAY | PROVIDERS: PCP Internal Medicine; Referring Provider Internal Medicine; Visit Provider Nurse Practitioner Gerontology | DX: C67.9 Malignant neoplasm of bladder, unspecified (principal) | CPT/HCPCS: 51720; 81003; 99214; J9031 ==

== ENCOUNTER → 2021-02-04 14:06 | Outpatient (BNVA) | payer MEDICARE, SELFPAY | PROVIDERS: PCP Internal Medicine; Referring Provider Internal Medicine; Visit Provider Urology | DX: C67.9 Malignant neoplasm of bladder, unspecified (principal) | CPT/HCPCS: 51720; 81003; 99213; J9031 ==

== ENCOUNTER → 2021-02-11 14:01 | Outpatient (BNVA) | payer MEDICARE, SELFPAY | PROVIDERS: PCP Internal Medicine; Referring Provider Internal Medicine; Visit Provider Urology | DX: C67.9 Malignant neoplasm of bladder, unspecified (principal) | CPT/HCPCS: 51720; 81003; 99213; J9031 ==

== ENCOUNTER 2021-03-14 08:56 | Day surgery (SDC) | payer MEDICARE, SELFPAY ==
[2021-03-14 09:32] VITALS: BP 109/70; PULSE 86; RESP 16; TEMP 36.5; O2SAT 93
--- NOTE | 2021-03-14 09:52 | W.ANESPRE ---
General Info Date of Service Date Performed: 03/14/21 Height: 6 ft 0.25 in Weight: 102.6 kg Body Mass Index (BMI): 30.4 Surgical Procedure: Operation Date: 03/14/21 11:40 Proposed Procedures Side Surgeon p Cataract Extraction with IOL Implant Left Vitor Argueta MD Meds Allergies and Home Medications Allergies Allergy/AdvReac Type Severity Reaction Status Date / Time No Known Drug Allergies Allergy Verified 03/14/21 09:25 Home Medication Medication Instructions Recorded diphenhydramine HCl [Benadryl] 25 mg PO PRN cap 05/03/17 inhalational spacing device #1 each 11/21/19 blood pressure monitor #1 each 03/13/20 aspirin 81 mg tablet,delayed 81 mg PO DAILY #90 tab 05/15/20 release atorvastatin 40 mg tablet 40 mg PO DAILY #90 tab-cap 05/15/20 fluoxetine 40 mg capsule 40 mg PO DAILY #90 tab-cap 05/15/20 gabapentin 600 mg tablet 600 mg PO QID #150 tab 05/15/20 thiamine HCl (vitamin B1) 100 mg 100 mg PO DAILY #90 tab 05/15/20 tablet triamcinolone acetonide 0.1 % 1 applic TOPICAL BID #30 gm 07/16/20 topical cream albuterol sulfate 90 mcg/actuation 2 puff IH QID PRN #3 unit 02/18/21 aerosol inhaler budesonide-formoterol HFA 160 2 puff IH BID #3 unit 02/18/21 mcg-4.5 mcg/actuation aerosol inhaler tamsulosin 0.4 mg capsule 0.4 mg PO DAILY #90 tab-cap 02/18/21 lisinopril 10 mg PO DAILY 03/14/21 Current Visit Medications: Current Medications Generic Name Dose Route Start Last Admin Trade Name Freq PRN Reason Stop Dose Admin Acetaminophen 1,000 mg 03/14/21 06:00 Acetaminophen 500 Mg Tab PO Q4H PRN PRN Miscellaneous Medication 0 ml 03/14/21 06:00 Prednisolone 1%, Moxifloxacin 0.5%, Nepafenac 0.1% 5ml Btl OS DIRECTED [facility] Miscellaneous Medication 0 ml 03/14/21 06:00 03/14/21 09:42 Tropicam./Phenyleph. 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 Bladder cancer C67.9 Hypertensive retinopathy of both eyes H35.033 Abnormal liver function 09/14/13 K76.89 Alcohol abuse 11/29/14 F10.10 Depressive disorder, not elsewhere classified 01/19/12 F32.9 Essential hypertension 02/10/13 I10 Lumbago 02/03/13 M54.5 Lichen simplex chronicus 11/26/16 L28.0 Neurodermatitis 11/12/15 L28.0 Obesity, unspecified 01/19/12 E66.9 Other abnormal glucose 01/19/12 R73.09 Other and unspecified hyperlipidemia 02/03/13 E78.5 Tobacco dependence syndrome 01/19/12 F17.200 Radicular pain M54.10 Syncope R55 Central stenosis of spinal canal M48.00 Foraminal stenosis of lumbosacral region M48.07 Regional wall motion abnormality of heart R93.1 BPH loc w urin obs/LUTS N40.1 Medical History Medical History Bladder cancer Heel bone fracture with ORIF, and Hx of revision History of carcinoma in situ of bladder Low back pain without sciatica (02/03/13) 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 states he recently had a 3 minute episode of right eye blindness. He did see his PCP for this. He states question of heart or mini stroke that he is following up with PCP. I advised him if he has these symptoms, he should seek immediate medical care as stroke may be a higher risk for him. His recent carotid study was normal. Surgical History Surgical History History of back surgery 1988 History of right cataract surgery 2012 Dr Argueta (per pt) Hx of inguinal hernia surgery 1970 Hx of lumbosacral spine surgery x 2 per pt. date not known Tobacco Smoking/Tobacco Use Status: Current every day Tobacco Type: cigarettes Tobacco: How many years used: 53 Quit Status: not considering quitting Alcohol Alcohol Intake: current Alcohol intake frequency: 3 or more drinks per day Alcohol type: beer and hard liquor Substance Use Substance use: Occasionally Substance use type: marijuana Details: 8-10 beers a day; no marijauna today Vital Signs and Lab Results Vital Signs Most Recent Vital Signs in EMR: Most Recent Vital Signs Temp Pulse Resp BP Pulse Ox 36.5 C 86 16 109/70 93 03/14/21 09:32 03/14/21 09:32 03/14/21 09:32 03/14/21 09:32 03/14/21 09:32 Lab Results Blood Type / Crossmatch: No Data to Display Complete Blood Count: No Data to Display Complete Metabolic Panel: No Data to Display Liver Function Panel: No Data to Display Coagulation Panel: No Data to Display Cardiac Panel: No Data to Display Arterial Blood Gas: No Data to Display Venous Blood Gas: No Data to Display Pancreas Panel: No Data to Display Thyroid Panel: No Data to Display Infectious Disease: No Data to Display Blood Cultures: No Data to Display Toxicology Panel: No Data to Display Imaging and Studies Imaging and Studies EKG Summary:: 10/08/20: Conclusion Sinus rhythm...normal P axis, V-rate? 60- 99 Paired ventricular premature complexes...sequence of 2 V complexes Stress Test Summary:: 10/22/20: MPI Conclusion The patient's ejection fraction was 49% with stress. There were no wall motion abnormalities. There is no evidence of ischemia on the imaging portion of the exam. This represents a normal SPECT stress test. Echocardiogram Summary:: 12/30/19: Conclusion Left Ventricle : The left ventricle is normal size.? Left ventricular systolic function is mildly decreased.? There is normal left ventricular wall thickness.? There are segmental wall motion abnormalities as described below. The left ventricular diastolic function is normal. LVEF is 45-49%. Right Ventricle : Right ventricle is not well visualized. Atria : The left atrium size is normal. The right atrium size is normal. Valves: There are no hemodynamically significant valvular lesions. Great Vessels : The ascending aorta is normal in size. The ascending aorta size is dilated.? IVC is normal in size and collapses >50% with inspiration.? Mid RVSP is 21-24 mmHg. There is no prior echocardiogram available for comparison. Anesthesia Assessment and Plan Anesthesia History Personal History: No History of Anesthesia Complications Family History: No Family History of Anesthesia Complications Exercise Tolerance Exercise Tolerance: Metabolic Equivalents>4 Pertinent Negatives Pertinent Negatives: No Symptoms of GERD Cardiac & Pulmonary Exam Cardiac Exam: Normal S1/S2 Heart Sounds Pulmonary Exam: Clear Bilateral Breath Sounds Airway Exam Known Difficult Airway: No Mallampati Class: 2 Mouth Opening: Normal (> 3cm) Thyromental Distance: Greater than 3 cm Neck Range of Motion: Full ROM Neck Circumference: Thick Teeth Condition: Normal Dentition and Other (Missing teeth) ASA Classification ASA Score: ASA 3 Emergency Case?: No NPO Status NPO Status: NPO Clears >2 hours, Solids >8 hours Anesthesia Plan Resuscitation Status: Full Code Anesthesia Technique: MAC Anesthesia Airway Planned: Natural Airway Monitors Used: Standard Monitors
[2021-03-14 10:19] VITALS: BMI 30.4
[2021-03-14] MEDS: Povidone-Iodine Ophth 30 ML BTL (10:36)
[2021-03-14] MEDS: Lidocaine 2% Jelly 6 ML SYR (10:37)
[2021-03-14] MEDS: Lidocaine 1% Pres-Free 5 ML VIAL (10:38)
[2021-03-14] MEDS: Duovisc Viscoelastic System EACH 1 EACH (10:38)
[2021-03-14] MEDS: Balanced Salt Soln.-PLUS 500 ML BAG (10:39)
[2021-03-14] MEDS: Tetracaine 0.5% 4 ML BTL OS (10:39)
[2021-03-14 11:05] VITALS: BP 155/94; PULSE 69; RESP 18; TEMP 36.4; O2SAT 94
--- NOTE | 2021-03-14 11:05 | W.PM.DSUDISC ---
Discharge Plan Disposition Patient Disposition: HOME Condition: Good Discharge Details Attending Provider: Vitor Argueta Primary Care Provider: Yovana Wade Home Meds and New Rx's Prescriptions: No Action triamcinolone acetonide 0.1 % cream 1 applic Topical BID Qty: 30 RF: 1 (DME) Aerochamber MV Spacer See Rx Instructions .ROUTE .MEDSUPPLY Qty: 1 RF: 0 (DME) blood pressure monitor [Blood Pressure Kit] Kit See Rx Instructions .ROUTE .MEDSUPPLY Qty: 1 RF: 0 tamsulosin 0.4 mg capsule 0.4 mg PO DAILY Qty: 90 RF: 3 albuterol sulfate 90 mcg/actuation HFA aerosol inhaler 2 puff IH QID PRN (Reason: shortness of breath or wheezing) Qty: 3 RF: 3 diphenhydramine HCl [Benadryl] 25 MG capsule 25 mg PO PRN RF: 0 aspirin 81 mg tablet,delayed release (DR/EC) 81 mg PO DAILY Qty: 90 RF: 3 atorvastatin 40 mg tablet 40 mg PO DAILY Qty: 90 RF: 3 thiamine HCl (vitamin B1) 100 mg tablet 100 mg PO DAILY Qty: 90 RF: 3 fluoxetine 40 mg capsule 40 mg PO DAILY Qty: 90 RF: 3 gabapentin 600 mg tablet 600 mg PO QID Qty: 150 RF: 11 budesonide-formoterol [Symbicort] 160-4.5 mcg/actuation HFA aerosol inhaler 2 puff IH BID Qty: 3 RF: 3 lisinopril 20 mg tablet 10 mg PO DAILY RF: 0 Discharge Instructions Stand Alone Forms: Post-op Block Cataract, Post-op Topical Cataract, Press Ganey (DSU) Discharge Orders Discharge Orders: Discharge Order (Routine); Ordered 03/14/21 Ordered By: Vitor Argueta DS: Diagnosis Discharge Diagnosis (1) Cortical cataract of left eye: Status: Resolved (2) Nuclear sclerotic cataract of left eye: Status: Resolved (3) Posterior subcapsular age-related cataract of left eye: Status: Resolved
--- NOTE | 2021-03-14 11:06 | ROE_ITS ---
Date of service: 03/14/21 Time of Service: 11:06 Operative Note Operative Note DATE OF PROCEDURE: 03/14/21 PRE-OP DIAGNOSIS: Nuclear/cortical/posterior subcapsular cataract, left eye POST-OP DIAGNOSIS: same PROCEDURE: Cataract extraction using phacoemulsification with intraocular lens implant, left eye SURGEON: Vitor Argueta ANESTHESIA TYPE: Local By Surgeon and MAC Refer to Anesthesia Record PATHOLOGY: none sent COMPLICATIONS: None Patient was transported to: same day Patient's condition: stable Implants: Miguel A and Miguel A Vision / [employer] Tecnis [id number] Indications: Progressive decreased vision due to cataract, left eye Procedure Description: CATARACT SURGERY OPERATIVE REPORT PREOPERATIVE DIAGNOSIS: Nuclear/cortical/posterior subcapsular cataract, left eye POSTOPERATIVE DIAGNOSIS: Same OPERATION: Cataract extraction using phacoemulsification with posterior chamber intraocular lens implant, left eye. IOL: IOL Immigration Law Specialist/Model: [employer] / TAM Tecnis ZCB00 IOL Power: + 22.0 diopters IOL Serial Number: [id number] Optic Diameter: 6.0mm Haptic/Overall Diameter: 13.0mm PHACO INFO: [employer] Vision System with OZil and Active Fluidics Cumulative Dispersed Energy (CDE): 13.57 seconds SURGEON: Vitor Argueta MD, ROSALIND ANESTHESIA: Monitored Anesthesia Care (MAC), with local sub-tenon's anesthetic infiltration COMPLICATIONS: None SPECIMENS: None INDICATIONS FOR PROCEDURE: The patient is a 70-year-old gentleman with history of diminished visual acuity in his left eye who was noted to have a significant nuclear/cortical/posterior subcataract in the left eye. The option of cataract surgery was offered to the patient and he felt he was symptomatic enough that he wished to proceed. PROCEDURE: The correct surgical eye was identified and marked as the left eye and the pupil was dilated in the preoperative area using mydriatics and cycloplegics. The dilated pupil size was 7.0 mm. He elected to proceed without oral sedation. The patient was brought to the operating room where cardiopulmonary monitoring was instituted and surgical time-out was performed, confirming the correct operative eye and IOL power. Topical anesthesia was administered and ophthalmic povidone-iodine 5% was instilled into the conjunctival fornices. Lidocaine gel was applied to the cornea and the lawson-ocular area was prepped with Betadine 10% solution and draped in the usual sterile fashion for intraocular surgery, including an aperture drape. A Tegaderm transparent film dressing was cut in half and used to cover the lashes and lid margins. Care was taken to sequester the lashes and lid margins under the Tegaderm dressing. A lid speculum was placed between the lids of the operative eye and the Arielle-Ryley operating microscope was maneuvered into position. Hoang scissors were then used to make a conjunctival buttonhole approximately 6mm posterior to the limbus in the inferonasal quadrant. Blunt dissection was carried out to expose bare sclera, and a blunt-tipped sub-tenon?s anesthesia cannula was introduced and passed posteriorly along the globe where non- preserved plain lidocaine was injected into posterior sub-Tenon?s space. A sideport knife was used to make a paracentesis port superior/superiortemporally. Intraocular phenylephrine/lidocaine was injected into the anterior chamber. The anterior chamber was then filled with viscoelastic. A 2.4mm keratome knife was used to create a half-thickness groove at the limbus and then to construct a three-plane near-clear corneal tunnel extending 2.0mm into clear cornea in the temporal position. . A flap was raised on the anterior capsule and capsulorhexis forceps were used to complete a continuous curvilinear capsulorhexis of 5.0 mm. Balanced salt solution was then used to perform cortical cleaving hydr odissection and nuclear hydrodelineation until the lens could be freely rotated within the capsular bag. The lens nucleus was then disassembled and removed within the capsular bag and iris plane using phacoemulsification. Residual cortical material was removed using the 45-degree angled silicone I/A tip with 0.3mm port. The posterior capsule was carefully polished to remove as much residual lens epithelial cells as safely possible. The capsular bag was then inflated and the anterior chamber deepened with viscoelastic. The lens implant described above was inserted into the capsular bag using the TAM [place] Injector. A Kuglen hook was used to dial the IOL into position. Residual viscoelastic was then removed first from posterior to the IOL, then from the anterior chamber using the I/A handpiece. The lens implant was noted to center nicely within the capsular bag. The incisions were stromally hydrated, and the anterior chamber was reformed using BSS. Then 0.5cc of moxifloxacin 1 .0mg/ml were injected into the capsular bag and anterior chamber. The incisions were checked with a Weck spear and found to be secure. Several drops of ophthalmic povidone-iodine 5% were then applied to the eye followed by two drops of Imprimis combination prednisolone/moxifloxacin/nepafenac solution. The drapes were removed and a clear plastic protective eye shield was placed over the eye. The patient was then returned to Same Day Surgery in stable condition.
--- NOTE | 2021-03-14 11:08 | W.ANESPOSTOP ---
Postoperative Evaluation Date, Time and Location Date Performed: 03/14/21 Time Performed: 11:08 Patient Location: Day Surgery Unit Vital Signs Most Recent Imported Vital Signs: Most Recent Vital Signs Temp Pulse Resp BP Pulse Ox 36.5 C 86 16 109/70 93 03/14/21 09:32 03/14/21 09:32 03/14/21 09:32 03/14/21 09:32 03/14/21 09:32 Most Recent Manually Entered Vital Signs: Adult Blood Pressure: 155/94 Heart Rate: 69 Respirations: 18 Oxygen Saturation (%): 94 Temperature (C): 36.4 C Pain Score (0-10 Scale): 0 Pain Score Most Recent Pain Score: Most Recent Pain Score Pain Level 2 03/14/21 09:32 Assessment Mental Status: Awake (Alert & Oriented to Patient Baseline) Airway and Respiratory Function: Patent airway with normal (patient baseline) respiratory exam Cardiovascular Function: Hemodynamically Stable Hydration Status: Adequately Hydrated Nausea & Vomiting: No Nausea or Vomiting Pain: Pt. Denies Any Pain Peripheral Nerve Block: Patient did not receive a nerve block
[2021-03-14 11:09] VITALS: BP 155/94; PULSE 69; RESP 18; TEMPC 36.4; O2SAT 94
== END 2021-03-14 11:40 | disposition home or self-care (01) ==
PROVIDERS: PCP Internal Medicine; Visit Provider Ophthalmology
PROC: (CPT 66984; principal; 2021-03-14 11:30)
DX: H25.042 Posterior subcapsular polar age-related cataract, left eye (principal); I10 Essential (primary) hypertension; E78.5 Hyperlipidemia, unspecified; F17.210 Nicotine dependence, cigarettes, uncomplicated
CPT/HCPCS: 66984; V2632

== ENCOUNTER 2021-04-15 01:44 | Outpatient (CLI) | payer MEDICARE, SELFPAY ==
[2021-04-15 11:50] LABS: Source Nasal/Nares
[2021-04-15 17:47] LABS: COVID-19 PCR Negative (Negative)
== END 2021-04-15 01:45 | disposition home or self-care (01) ==
PROVIDERS: PCP Internal Medicine; Visit Provider Urology
DX: Z20.822 Contact with and (suspected) exposure to COVID-19 (principal); Z01.818 Encounter for other preprocedural examination
CPT/HCPCS: 87635

== ENCOUNTER 2021-04-17 06:07 | Day surgery (SDC) | payer MEDICARE, SELFPAY ==
[2021-04-17 06:25] VITALS: BP 140/84; PULSE 77; RESP 16; TEMP 36.9; O2SAT 95
[2021-04-17] MEDS: Lactated Ringers 1,000 ML 80 ML IV (06:50)
--- NOTE | 2021-04-17 06:51 | W.PM.HP.N ---
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 On his initial transurethral resection, the initial pathology interpretation was done with carcinoma in situ with no involvement of muscularis. Additional studies were more consistent with high-grade urothelial cell carcinoma involving the lamina propria. Muscularis propria was not identified in the specimen. The patient elected not to have a repeat transurethral resection immediately. He was treated with an induction series of intravesical BCG. He presents now for cystoscopy with transurethral resection of any visible tumor and of his previous tumor site. He is not seeing any gross hematuria Review of Systems Narrative: No fevers or chills Vision changes related to cataracts. No dysphasia No diabetes or thyroid dysfunction Chronic cough. No sputum production or hemoptysis No chest pain or palpitations No nausea, vomiting, hepatitis, ulcers, jaundice, diarrhea or constipation No seizures, strokes or peripheral neuropathy No bleeding disorders or anemia Chronic back pain managed with gabapentin. 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 date not known Family History Mother , Pt reports mother of Old Age Diabetes Lung cancer Father Diabetes Stroke Sister Diabetes Brother Diabetes Social History (Updated 03/04/21 @ 13:42 by Michelle Petit LPN) Smoking/Tobacco Use Status: Current every day Tobacco Type: cigarettes Tobacco: How many years used: 53 Quit status: not considering quitting Smoking risk assessment performed?: Yes Alcohol Intake: current Alcohol Intake frequency: 3 or more drinks per day Alcohol type: beer and hard liquor Drug use: Occasionally Substance use type: marijuana Adopted: No Caregiver/Support person: No Foster care: No Household members: none Housing: house Number of Children: 0 Communication Needs: Corrective Lenses Education Level: high school current occupation: disabled Current gender identity: male What is your relationship status?: How often do you talk on the phone with friends or family?: three or more times per week Panel score (0-1 are the most socially isolated patients): 1 What type of physical activity do you participate in: none Seatbelt use: always Drive intox or ride w/intox recycle driver: No Working smoke detector in home: Yes Fire extinguisher in home: Yes Carbon monox detector in home: Yes Do you feel safe at home: Yes Additional Social history: lives alone Meds Allergies and Home Medications Allergies Allergy/AdvReac Type Severity Reaction Status Date / Time No Known Drug Allergies Allergy Verified 04/15/21 15:16 Home Medications Medication Instructions Recorded Confirmed Type diphenhydramine HCl [Benadryl] 25 mg PO PRN cap 05/03/17 04/17/21 History inhalational spacing device #1 each 11/21/19 04/15/21 Rx blood pressure monitor #1 each 03/13/20 04/15/21 Rx aspirin 81 mg tablet,delayed 81 mg PO DAILY #90 tab 05/15/20 04/17/21 Rx release atorvastatin 40 mg tablet 40 mg PO DAILY #90 tab-cap 05/15/20 04/17/21 Rx fluoxetine 40 mg capsule 40 mg PO DAILY #90 tab-cap 05/15/20 04/17/21 Rx gabapentin 600 mg tablet 600 mg PO QID #150 tab 05/15/20 04/17/21 Rx thiamine HCl (vitamin B1) 100 mg 100 mg PO DAILY #90 tab 05/15/20 04/17/21 Rx tablet triamcinolone acetonide 0.1 % 1 applic TOPICAL BID #30 gm 07/16/20 04/17/21 Rx topical cream albuterol sulfate 90 mcg/actuation 2 puff IH QID PRN #3 unit 02/18/21 04/17/21 Rx aerosol inhaler budesonide-formoterol HFA 160 2 puff IH BID #3 unit 02/18/21 04/17/21 Rx mcg-4.5 mcg/actuation aerosol inhaler tamsulosin 0.4 mg capsule 0.4 mg PO DAILY #90 tab-cap 02/18/21 04/17/21 Rx lisinopril 10 mg PO DAILY 03/14/21 04/17/21 History Exam Narrative Exam Narrative: Current distress. He is cooperative. His vital signs are documented elsewhere His chest wall motion is normal. He is not short of breath at rest. His lungs are clear His abdomen is obese but soft with no masses Cardiac exam shows a regular rate and rhythm. He is awake and alert Results Last Vital Signs Temp 36.9 C 04/17/21 06:25 Pulse 77 04/17/21 06:25 Resp 16 04/17/21 06:25 BP 140/84 04/17/21 06:25 Pulse Ox 95 04/17/21 06:25
--- NOTE | 2021-04-17 07:10 | W.ANESPRE ---
General Info Date of Service Date Performed: 04/17/21 Height: 6 ft 1 in Weight: 102.6 kg Body Mass Index (BMI): 29.8 Surgical Procedure: Operation Date: 04/17/21 07:40 Proposed Procedures Side Surgeon p Transurethral Resection Bladder Tumor Chinmay Freitas MD Meds Allergies and Home Medications Allergies Allergy/AdvReac Type Severity Reaction Status Date / Time No Known Drug Allergies Allergy Verified 04/15/21 15:16 Home Medication Medication Instructions Recorded diphenhydramine HCl [Benadryl] 25 mg PO PRN cap 05/03/17 inhalational spacing device #1 each 11/21/19 blood pressure monitor #1 each 03/13/20 aspirin 81 mg tablet,delayed 81 mg PO DAILY #90 tab 05/15/20 release atorvastatin 40 mg tablet 40 mg PO DAILY #90 tab-cap 05/15/20 fluoxetine 40 mg capsule 40 mg PO DAILY #90 tab-cap 05/15/20 gabapentin 600 mg tablet 600 mg PO QID #150 tab 05/15/20 thiamine HCl (vitamin B1) 100 mg 100 mg PO DAILY #90 tab 05/15/20 tablet triamcinolone acetonide 0.1 % 1 applic TOPICAL BID #30 gm 07/16/20 topical cream albuterol sulfate 90 mcg/actuation 2 puff IH QID PRN #3 unit 02/18/21 aerosol inhaler budesonide-formoterol HFA 160 2 puff IH BID #3 unit 02/18/21 mcg-4.5 mcg/actuation aerosol inhaler tamsulosin 0.4 mg capsule 0.4 mg PO DAILY #90 tab-cap 02/18/21 lisinopril 10 mg PO DAILY 03/14/21 Current Visit Medications: Current Medications Generic Name Dose Route Start Last Admin Trade Name Freq PRN Reason Stop Dose Admin Ringer's Solution 1,000 mls @ 80 mls/hr 04/17/21 06:00 04/17/21 06:50 IV 05/16/21 23:59 80 mls/hr INFUSION REAGAN Administration Cefazolin Sodium/Dextrose 2 gm in 50 mls @ 100 mls/hr 04/17/21 06:00 Ancef Duplex IVPB 04/17/21 16:00 PREOP REAGAN IV Miscellaneous Supplies 1 each 04/17/21 06:00 Iv Access IV 05/16/21 23:59 DIRECTED REAGAN Sodium Chloride 0 ml 04/17/21 06:00 Normal Saline Flush 10 Ml Syr IV 05/16/21 23:59 PRN PRN Sodium Chloride 0 ml 04/17/21 06:00 Normal Saline 10 Ml Vial IJ 05/16/21 23:59 DIRECTED PRN Sterile Water 0 ml 04/17/21 06:00 Water,Injection,Sterile 10 Ml Vial IJ 05/16/21 23:59 DIRECTED PRN PFSH Active Problems Active Problems: Problem Status Onset Code Posterior subcapsular age-related cataract of left eye H25.042 Nuclear sclerotic cataract of left eye H25.12 Cortical cataract of left eye H26.9 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 Z86.008 Bladder cancer C67.9 Hypertensive retinopathy of both eyes H35.033 Abnormal liver function 09/14/13 K76.89 Alcohol abuse 11/29/14 F10.10 Depressive disorder, not elsewhere classified 01/19/12 F32.9 Essential hypertension 02/10/13 I10 Lumbago 02/03/13 M54.5 Lichen simplex chronicus 11/26/16 L28.0 Neurodermatitis 11/12/15 L28.0 Obesity, unspecified 01/19/12 E66.9 Other abnormal glucose 01/19/12 R73.09 Other and unspecified hyperlipidemia 02/03/13 E78.5 Tobacco dependence syndrome 01/19/12 F17.200 Radicular pain M54.10 Syncope R55 Central stenosis of spinal canal M48.00 Foraminal stenosis of lumbosacral region M48.07 Regional wall motion abnormality of heart R93.1 BPH loc w urin obs/LUTS N40.1 Medical History Medical History Bladder cancer Heel bone fracture with ORIF, and Hx of revision History of carcinoma in situ of bladder Low back pain without sciatica (02/03/13) 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 date not known Tobacco Smoking/Tobacco Use Status: Current every day Tobacco Type: cigarettes Tobacco: How many years used: 53 Quit Status: not considering quitting Alcohol Alcohol Intake: current Alcohol intake frequency: 3 or more drinks per day Alcohol type: beer and hard liquor Substance Use Substance use: Occasionally Substance use type: marijuana Vital Signs and Lab Results Vital Signs Most Recent Vital Signs in EMR: Most Recent Vital Signs Temp Pulse Resp BP Pulse Ox 36.9 C 77 16 140/84 95 04/17/21 06:25 04/17/21 06:25 04/17/21 06:25 04/17/21 06:25 04/17/21 06:25 Lab Results Blood Type / Crossmatch: No Data to Display Complete Blood Count: No Data to Display Complete Metabolic Panel: No Data to Display Liver Function Panel: No Data to Display Coagulation Panel: No Data to Display Cardiac Panel: No Data to Display Arterial Blood Gas: No Data to Display Venous Blood Gas: No Data to Display Pancreas Panel: No Data to Display Thyroid Panel: No Data to Display Infectious Disease: Coronavirus (COVID-19)(PCR) Negative (Negative) 04/15/21 11:03 04/15/21 Coronavirus 2019 Source Nasal/nares 04/15/21 11:03 04/15/21 Blood Cultures: No Data to Display Toxicology Panel: No Data to Display Imaging and Studies Imaging and Studies EKG Summary: DATE/TIME OF SERVICE: 10/08/20 1433 Conclusion Sinus rhythm...normal P axis, V-rate 60- 99 Paired ventricular premature complexes...sequence of 2 V complexes Stress Test Summary: 10/22/20: Stress ECG Conclusion 1. The patient exercised for 2 minutes and 30 seconds (5 METS). This was converted to a pharmacological stress test. 2. The patient no symptoms suggestive of ischemia. 3. The EKG portion of this exam is nondiagnostic. Echocardiogram Summary: Date of Exam: 12/30/19 Indications: Syncope, New Hypotension, Assess for WMA Conclusion Left Ventricle : The left ventricle is normal size. Left ventricular systolic function is mildly decreased. There is normal left ventricular wall thickness. There are segmental wall motion abnormalities as described below. The left ventricular diastolic function is normal. LVEF is 45-49%. Right Ventricle : Right ventricle is not well visualized. Atria : The left atrium size is normal. The right atrium size is normal. Valves: There are no hemodynamically significant valvular lesions. Great Vessels : The ascending aorta is normal in size. The ascending aorta size is dilated. IVC is normal in size and collapses >50% with inspiration. Mid RVSP is 21-24 mmHg. There is no prior echocardiogram available for comparison. Carotid Artery Summary:: Date of Exam: 09/18/19 IMPRESSION: Calcific plaque in the common carotid bulbs. No significant internal carotid artery stenosis. Retrograde flow is demonstrated in the left vertebral artery. Anesthesia Assessment and Plan Anesthesia History Personal History: No History of Anesthesia Complications Family History: No Family History of Anesthesia Complications Exercise Tolerance Exercise Tolerance: Metabolic Equivalents>4 Pertinent Negatives Pertinent Negatives: No Symptoms of GERD Cardiac & Pulmonary Exam Cardiac Exam: Normal S1/S2 Heart Sounds Pulmonary Exam: Clear Bilateral Breath Sounds Airway Exam Known Difficult Airway: No Mallampati Class: 2 Mouth Opening: Normal (> 3cm) Thyromental Distance: Greater than 3 cm Neck Range of Motion: Full ROM Neck Circumference: Thick Teeth Condition: Normal Dentition and Other (Missing teeth) ASA Classification ASA Score: ASA 3 Emergency Case?: No NPO Status NPO Status: NPO Clears >2 hours, Solids >8 hours Anesthesia Plan Resuscitation Status: Full Code Anesthesia Technique: General Anesthesia Airway Planned: Natural Airway Monitors Used: Standard Monitors
[2021-04-17 07:17] VITALS: BMI 29.8
[2021-04-17] MEDS: ceFAZolin 2 GM/50 ML BAG IVPB (07:36)
--- NOTE | 2021-04-17 07:59 | BLADDER_PTH ---
PATIENT: Juan Jose Lowe LOC: [facility] U#:[id number] AGE/SX: 71/M ROOM: RE04/17/[address]: Chinmay Freitas MD : 1950 BED: DIS: 04/17/2021 SPEC #: [id number] RECD: 04/17/21 12:18 STATUS: SABAS RE #: [id number] MARK: 04/17/21 07:[address]: Chinmay Freitas DEPT: Surgical Specimen RECD BY: Milagros Boudreaux ENTERED: 04/17/21 12:26 SP TYPE: Bladder OTHR DR: Yovana Wade MD Tissues: 1 - BLADDER BIOPSY Procedures: GROSS AND MICRO LEVEL 5 Comments: [id number]
[2021-04-17] MEDS: Lidocaine 2% Jelly 6 ML SYR (08:00)
--- NOTE | 2021-04-17 08:06 | W.PM.DSUDISC ---
Discharge Plan Disposition Patient Disposition: HOME Condition: Stable Discharge Details Reason For Visit: bladder cancer Attending Provider: Chinmay Freitas Primary Care Provider: Yovana Wade Home Meds and New Rx's Prescriptions: No Action triamcinolone acetonide 0.1 % cream 1 applic Topical BID Qty: 30 RF: 1 (DME) Aerochamber MV Spacer See Rx Instructions .ROUTE .MEDSUPPLY Qty: 1 RF: 0 (DME) blood pressure monitor [Blood Pressure Kit] Kit See Rx Instructions .ROUTE .MEDSUPPLY Qty: 1 RF: 0 tamsulosin 0.4 mg capsule 0.4 mg PO DAILY Qty: 90 RF: 3 albuterol sulfate 90 mcg/actuation HFA aerosol inhaler 2 puff IH QID PRN (Reason: shortness of breath or wheezing) Qty: 3 RF: 3 diphenhydramine HCl [Benadryl] 25 MG capsule 25 mg PO PRN RF: 0 aspirin 81 mg tablet,delayed release (DR/EC) 81 mg PO DAILY Qty: 90 RF: 3 atorvastatin 40 mg tablet 40 mg PO DAILY Qty: 90 RF: 3 thiamine HCl (vitamin B1) 100 mg tablet 100 mg PO DAILY Qty: 90 RF: 3 fluoxetine 40 mg capsule 40 mg PO DAILY Qty: 90 RF: 3 gabapentin 600 mg tablet 600 mg PO QID Qty: 150 RF: 11 budesonide-formoterol [Symbicort] 160-4.5 mcg/actuation HFA aerosol inhaler 2 puff IH BID Qty: 3 RF: 3 lisinopril 20 mg tablet 10 mg PO DAILY RF: 0 Discharge Instructions Additional Instructions: followup 1 to 2 weeks for pathology results Activity:: Activity as Tolerated Shower/Bathe:: 24 hours Diet:: As Tolerated Discharge Orders Discharge Orders: Discharge Order (Routine); Ordered 04/17/21 Ordered By: Chinmay Freitas DS: Diagnosis Discharge Diagnosis (1) Bladder cancer: Status: Acute (2) History of carcinoma in situ of bladder: Status: Acute
--- NOTE | 2021-04-17 08:09 | W.PM.OP ---
Date of service: 04/17/21 Time of Service: 08:09 Operative Note Operative Note DATE OF PROCEDURE: 04/17/21 PRE-OP DIAGNOSIS: Bladder cancer POST-OP DIAGNOSIS: same PROCEDURE: cystoscopy with transurethral resection bladder tumor SURGEON: Chinmay Freitas ANESTHESIA TYPE: General:No Airway Refer to Anesthesia Record ESTIMATED BLOOD LOSS: 10 PATHOLOGY: other (bladder tumor) COMPLICATIONS: None Patient was transported to: same day Patient's condition: stable Indications: This is a 71-year-old gentleman who was previously seen with hematuria. When I did his initial cystoscopy, we identified edematous changes to the bladder mucosa on the right anterior bladder wall. I took biopsies from this area then cauterized the remainder. The initial biopsies were interpreted as carcinoma in situ with no involvement of muscularis. Reexamination of these areas were felt to be more senior account representative of high-grade urothelial cell carcinoma involving the lamina propria. Muscularis was not identified. We recommended a repeat transurethral resection, but the patient elected to have an induction series of BCG before being agreeable to a repeat resection. He presents for cystoscopy with transurethral resection of bladder tissue. Findings: necrotic tissue at site of previous biopsy and fulguration (right anterior bladder wall) measuring @ 3 cm in largest dimension Procedure Description: Patient was brought to the operating room on 04/17/2021. After successful induction of general anesthesia without intubation, he was placed in the dorsal lithotomy position. His genitalia was prepped and draped. He was given preoperative IV antibiotics. 2% Xylocaine jelly was instilled into the urethra to act as a local anesthetic. A 26 [place] resectoscope sheath was then passed through the urethra into the bladder the urethra and bladder were inspected with a 30 degree lens and visual obturator. The pendulous, bulbar and membranous urethra's appeared normal with no strictures. The prostatic urethra showed some lateral lobe enlargement but no papillary or nodular lesions on the prostatic urethra. The bladder neck was entered and the bladder mucosa was inspected. No papillary or nodular lesions were identified. There was a necrotic area of mucosa on the right anterior bladder wall at the site of his previous resection. The tissue surrounding this area appeared thickened. I then used an [employer] resectoscope to perform transurethral resection of the necrotic area and the surrounding tissue. A 3 cm section bladder was excised transurethrally. The resected tissue was evacuated and sent to pathology for permanent section. I then cauterized the base of the resection site. No active bleeding was seen. The bladder was then emptied and the scope was removed. He tolerated this procedure well with no complications.
[2021-04-17 08:13] VITALS: BP 88/67; PULSE 74; RESP 17; TEMP 36.3; O2SAT 94
[2021-04-17] MEDS: Phenazopyridine 200 MG TAB PO (08:30)
[2021-04-17 08:43] VITALS: BP 125/78; PULSE 77; RESP 20; TEMP 36.4; O2SAT 98
--- NOTE | 2021-04-17 09:10 | W.ANESPOSTOP ---
Postoperative Evaluation Date, Time and Location Date Performed: 04/17/21 Time Performed: 09:11 Patient Location: Day Surgery Unit Vital Signs Most Recent Imported Vital Signs: Most Recent Vital Signs Temp Pulse Resp BP Pulse Ox 36.3 C L 74 17 88/67 L 94 04/17/21 08:13 04/17/21 08:13 04/17/21 08:13 04/17/21 08:13 04/17/21 08:13 Pain Score Most Recent Pain Score: Most Recent Pain Score Pain Level 0 04/17/21 08:13 Assessment Mental Status: Awake (Alert & Oriented to Patient Baseline) Airway and Respiratory Function: Patent airway with normal (patient baseline) respiratory exam Cardiovascular Function: Hemodynamically Stable Hydration Status: Adequately Hydrated Nausea & Vomiting: No Nausea or Vomiting Pain: Pt. Denies Any Pain Peripheral Nerve Block: Patient did not receive a nerve block
== END 2021-04-17 09:30 | disposition home or self-care (01) ==
PROVIDERS: PCP Internal Medicine; Visit Provider Urology
PROC: 0TBB8ZZ Excision of Bladder, Via Natural or Artificial Opening Endoscopic (ICD-10-PCS; CPT 52235; principal; 2021-04-17 07:30)
DX: C67.3 Malignant neoplasm of anterior wall of bladder (principal)
CPT/HCPCS: 52235; 88305; 88307; J0690; J1100; J1885; J2405; J2704

== ENCOUNTER → 2021-05-02 14:56 | Outpatient (BNVA) | payer MEDICARE, SELFPAY | PROVIDERS: PCP Internal Medicine; Referring Provider Internal Medicine; Visit Provider Urology | DX: C67.9 Malignant neoplasm of bladder, unspecified (principal) | CPT/HCPCS: 99213; 99214 ==

== ENCOUNTER 2021-05-20 01:52 | Outpatient (CLI) | payer MEDICARE, SELFPAY ==
--- NOTE | 2021-05-20 07:00 | DI.CT_ITS ---
Exam(s) CT CHEST/ABD/PEL W EXAM: CT CHEST/ABD/PEL W CLINICAL HISTORY: r/o mets,muscle invasive bladder cancer,C67.9. TECHNIQUE: Imaging Protocol: Axial computed tomography images with coronal and sagittal reformatted images were created and reviewed CONTRAST MATERIAL: Intravenous: Omnipaque 350 Contrast volume:100 ml Oral: yes / COMPARISON: CT CT ABDOMEN PELVIS WO from 07/24/[address] CHEST LUNG CANCER SCREEN from 09/09/2020 FINDINGS: CHEST: Exam is somewhat limited by respiratory motion and poor pulmonary inflation. Tracheobronchial tree: Patent where visualized. Mediastinum and Cindy: No dominant adenopathy or fluid collection. Pulmonary parenchyma: No consolidation or dominant measurable mass. Stable 4 millimeter nodule right middle lobe. Mild emphysematous changes with some posterior blebs. Pleura: No effusion or pneumothorax. Lymph nodes: Within normal limits. Aorta: Thoracic portion non-dilated. Heart: Tott-lp-ppqvspog enlargement. Moderate to severe coronary artery calcifications. Bones: Prominent flowing osteophytes.. No lytic or blastic lesions. ABDOMEN: Liver: Normal density. No measurable mass. Gallbladder and biliary tract: No radiodense calculus or dilation. Pancreas: Normal density, no abnormal calcifications or inflammatory process. Spleen: Normal. Kidneys: Normal size, contour and axis. No radiodense stones or obstructive uropathy. No masses seen. Adrenal glands: No masses seen. Aorta: Abdominal portion non-dilated. Moderate to severe atherosclerotic changes. Lymph nodes: A few tiny periaortic lymph nodes are seen, largest measuring 10 millimeters. Soft tissues: Small fatty containing umbilical hernia. PELVIS: Bladder: Bladder wall thickening with an irregular appearance, eccentric toward the anterior and rig ht, consistent with patient's history of invasive bladder cancer. No stones. Bowel: Diverticulosis descending and sigmoid colon. Appendix normal. No obstruction or bowel wall thi ckening. Peritoneal cavity: No ascites, collection or mesenteric inflammatory response. Bones: Severe degenerative disc changes and facet degenerative changes... Reproductive organs: Within normal limits. Small fatty containing bilateral inguinal hernias, right greater than left. IMPRESSION: 1. Stable 4 millimeter nodule in the right middle lobe. No new nodules. No adenopathy or infiltrates. 2. Irregular bladder wall thickening consistent with the patient's history of invasive bladder carcin josh. Minimally enlarged para-aortic lymph nodes, equivocal for metastatic disease. RADIATION DOSE DELIVERED: 2,184.37mGy.cm Total DLP DATA REPOSITORY: All CT scans at this facility are submitted to the National Radiology Data Registry (NRDR) Dose Index Registry (DIR) with the [employer] (A[employer]). RADIATION OPTIMIZATION: All CT scans at this facility use at least one of these dose optimization te chniques: automated exposure control; mA and/or kV adjustment per patient size (includes targeted exa ms where dose is matched to clinical indication); or iterative reconstruction.
[2021-05-20 07:56] LABS: CREATININE 0.9 mg/dL (0.70-1.30)
[2021-05-20] MEDS: Omnipaque 350 MG/ML 100 ML BTL IJ (09:30)
[2021-05-20] MEDS: Normal Saline - Diluent 50 ML VIAL IV (09:31)
== END 2021-05-20 02:12 ==
LOC: DI 01:52
PROVIDERS: PCP Internal Medicine; Visit Provider Urology
DX: R59.0 Localized enlarged lymph nodes (principal); R91.1 Solitary pulmonary nodule; N32.89 Other specified disorders of bladder; C67.9 Malignant neoplasm of bladder, unspecified
CPT/HCPCS: 74177; 99214; 71260; 82565; J3490

== ENCOUNTER 2021-08-12 03:36 | Outpatient (CLI) | payer MEDICARE, SELFPAY ==
[2021-08-12 13:49] LABS: Abs Immature Grans 0.02 10^3/uL (0.0-0.06); Absolute Basophil Count 0.07 10^3/uL (0.0-0.2); Absolute Eosinophil Count 0.13 10^3/uL (0.0-0.7); Absolute Lymphocyte Count 2.08 10^3/uL (1.2-3.4); Absolute Monocyte Count 0.92 10^3/uL (0.1-0.8); Basophils % 0.9; Eosinophils % 1.6; HCT 45.1 % (40.0-50.0); HGB 14.9 g/dL (13.5-17.5); Immature Grans % 0.2; Lymphocytes % 25.9; MPV 10.4 fL (8.0-11.0); Monocytes % 11.5; Neutrophils % 59.9; Nucleated RBC 0 %; Platelet Count 240 10^3/uL (130-400); RBC 4.51 10^6/uL (4.36-5.78); RDW 12.8 % (11.8-14.1); RDW-SD 47.1 fL; WBC 8.02 10^3/uL (4.4-10.8)
[2021-08-12 14:02] LABS: ALT 29 U/L (16-63); AST 26 U/L (15-37); Albumin 3.3 g/dL (3.4-5.0); Alkaline Phosphatase 69 U/L (46-116); Anion Gap 5.8 mmol/L (3-11); BUN 7 mg/dL (7-18); CO2 27.2 mmol/L (21.0-32.0); CREATININE 0.9 mg/dL (0.70-1.30); Calcium 8.5 mg/dL (8.5-10.1); Chloride 104 mmol/L (98-107); Glucose 101 mg/dL (74-106); Potassium 4.3 mmol/L (3.5-5.1); Sodium 137 mmol/L (136-145); Total Protein 7.6 g/dL (6.4-8.2)
[2021-08-12 14:06] LABS: Bilirubin, Total < 0.1 mg/dL (0.2-1.0)
== END 2021-08-12 03:37 | disposition home or self-care (01) ==
LOC: LBO 03:36
PROVIDERS: PCP Internal Medicine; Visit Provider Internal Medicine
DX: C67.9 Malignant neoplasm of bladder, unspecified (principal)
CPT/HCPCS: 36415; 80053; 85025

== ENCOUNTER 2021-08-26 01:06 | Outpatient (RCR) | payer MEDICARE, SELFPAY ==
[2021-08-19] MEDS: Normal Saline Flush 10 ML SYR IVP (08:30)
[2021-08-19 08:45] LABS: Abs Immature Grans 0.04 10^3/uL (0.0-0.06); Absolute Basophil Count 0.07 10^3/uL (0.0-0.2); Absolute Eosinophil Count 0.19 10^3/uL (0.0-0.7); Absolute Lymphocyte Count 2.19 10^3/uL (1.2-3.4); Absolute Monocyte Count 0.92 10^3/uL (0.1-0.8); Absolute Neutrophil Count 5.02 10^3/uL (1.2-6.7); Basophils % 0.8; Eosinophils % 2.3; HCT 43.8 % (40.0-50.0); HGB 14.3 g/dL (13.5-17.5); Immature Grans % 0.5; MCH 32.8 pg (27.0-33.0); MCHC 32.6 % (32.0-36.0); MCV 100.5 fL (80-95); MPV 10.7 fL (8.0-11.0); Monocytes % 10.9; Neutrophils % 59.5; Nucleated RBC 0 %; Platelet Count 220 10^3/uL (130-400); RBC 4.36 10^6/uL (4.36-5.78); RDW 12.6 % (11.8-14.1); RDW-SD 46.8 fL; WBC 8.43 10^3/uL (4.4-10.8)
[2021-08-19 09:08] LABS: ALT 26 U/L (16-63); AST 23 U/L (15-37); Albumin 3.3 g/dL (3.4-5.0); Alkaline Phosphatase 68 U/L (46-116); Anion Gap 6.7 mmol/L (3-11); BUN 8 mg/dL (7-18); Bilirubin, Total 0.3 mg/dL (0.2-1.0); CO2 28.3 mmol/L (21.0-32.0); CREATININE 1.1 mg/dL (0.70-1.30); Calcium 8.6 mg/dL (8.5-10.1); Chloride 105 mmol/L (98-107); Glucose 103 mg/dL (74-106); Magnesium 2.2 mg/dL (1.8-2.4); Potassium 4.5 mmol/L (3.5-5.1); Sodium 140 mmol/L (136-145); Total Protein 7.3 g/dL (6.4-8.2)
[2021-08-26 13:27] LABS: Abs Immature Grans 0.02 10^3/uL (0.0-0.06); Absolute Basophil Count 0.05 10^3/uL (0.0-0.2); Absolute Eosinophil Count 0.09 10^3/uL (0.0-0.7); Absolute Lymphocyte Count 1.81 10^3/uL (1.2-3.4); Absolute Monocyte Count 0.39 10^3/uL (0.1-0.8); Absolute Neutrophil Count 2.88 10^3/uL (1.2-6.7); Eosinophils % 1.7; HCT 43.5 % (40.0-50.0); HGB 14.5 g/dL (13.5-17.5); Immature Grans % 0.4; Lymphocytes % 34.5; MCH 32.7 pg (27.0-33.0); MCHC 33.3 % (32.0-36.0); MCV 98.2 fL (80-95); Monocytes % 7.4; Nucleated RBC 0 %; Platelet Count 165 10^3/uL (130-400); RBC 4.43 10^6/uL (4.36-5.78); RDW 12.2 % (11.8-14.1); RDW-SD 44.3 fL; WBC 5.24 10^3/uL (4.4-10.8)
[2021-08-26] MEDS: Normal Saline Flush 10 ML SYR IVP (13:28)
[2021-08-26 14:36] LABS: ALT 68 U/L (16-63); AST 45 U/L (15-37); Albumin 3.5 g/dL (3.4-5.0); Alkaline Phosphatase 71 U/L (46-116); Anion Gap 9.8 mmol/L (3-11); BUN 11 mg/dL (7-18); Bilirubin, Total 0.4 mg/dL (0.2-1.0); CO2 26.2 mmol/L (21.0-32.0); CREATININE 0.8 mg/dL (0.70-1.30); Calcium 9.1 mg/dL (8.5-10.1); Chloride 101 mmol/L (98-107); Glucose 92 mg/dL (74-106); Magnesium 1.9 mg/dL (1.8-2.4); Potassium 4.5 mmol/L (3.5-5.1); Sodium 137 mmol/L (136-145); Total Protein 7.8 g/dL (6.4-8.2)
== END 2021-08-31 23:59 | disposition home or self-care (01) ==
LOC: INF 01:06
PROVIDERS: PCP Internal Medicine; Visit Provider Internal Medicine
DX: C67.9 Malignant neoplasm of bladder, unspecified (principal); Z45.2 Encounter for adjustment and management of vascular access device
CPT/HCPCS: 36591; 80053; 83735; 85025

== ENCOUNTER 2021-09-24 13:31 | Outpatient (CLI) | payer OTHER, SELFPAY ==
--- NOTE | 2021-09-24 11:15 | DI.RAD_ITS ---
Exam(s) XR CERVICAL SPINE COMP 4-5V EXAM: XR CERVICAL SPINE COMP 4-5V CLINICAL HISTORY: Neck pain M54.2 CERVICALGIA TECHNIQUE: COMPARISON: No exams were available for comparison FINDINGS: Eight views were obtained. There are severe hypertrophic endplate degenerative changes of the cervic al spine, most prominent in lower cervical region where anterior osteophytes appear fused from C4 thr ough C7. There is marked loss of disc height at C5-6 and C6-7 and also at C7-T1. There are associat ed moderate facet hypertrophic changes throughout the cervical region. Neural foramina appear mostly well maintained, with question of mild narrowing of neural foramina bilaterally at C5-6 and C6-7. No erosive or destructive lesion seen. No fracture identified. IMPRESSION: Severe hypertrophic degenerative changes of lower cervical spine as described above. The anterior hy pertrophic bone appears fused from C4 through C7. RADIATION DOSE DELIVERED: Total DLP
== END 2021-09-24 13:51 ==
PROVIDERS: PCP Internal Medicine; Visit Provider Internal Medicine
DX: M54.2 Cervicalgia (principal); M47.812 Spondylosis without myelopathy or radiculopathy, cervical region
CPT/HCPCS: 72050

== ENCOUNTER 2021-09-30 02:08 | Outpatient (RCR) | payer OTHER, SELFPAY ==
[2021-09-09] MEDS: Normal Saline Flush 10 ML SYR IVP (08:36)
[2021-09-09 08:42] LABS: RBC 4.07 10^6/uL (4.36-5.78); WBC 5.99 10^3/uL (4.4-10.8)
[2021-09-09 08:43] LABS: Absolute Basophil Count 0.04 10^3/uL (0.0-0.2); Absolute Lymphocyte Count 2.21 10^3/uL (1.2-3.4); Absolute Neutrophil Count 2.52 10^3/uL (1.2-6.7); Basophils % 0.7; Eosinophils % 1.7; HCT 40.6 % (40.0-50.0); HGB 13.3 g/dL (13.5-17.5); Immature Grans % 0.3; Lymphocytes % 36.9; MCH 32.7 pg (27.0-33.0); MCHC 32.8 % (32.0-36.0); MCV 99.8 fL (80-95); MPV 9.7 fL (8.0-11.0); Monocytes % 18.4; Platelet Count 399 10^3/uL (130-400); RDW 13.2 % (11.8-14.1); RDW-SD 46.6 fL
[2021-09-09 08:44] LABS: Abs Immature Grans 0.02 10^3/uL (0.0-0.06)
[2021-09-09 08:56] LABS: Albumin 3.4 g/dL (3.4-5.0); BUN 9 mg/dL (7-18); Bilirubin, Total 0.2 mg/dL (0.2-1.0); CREATININE 0.9 mg/dL (0.70-1.30); Calcium 8.8 mg/dL (8.5-10.1); Glucose 97 mg/dL (74-106); Total Protein 7.5 g/dL (6.4-8.2)
[2021-09-09 08:57] LABS: ALT 34 U/L (16-63); AST 25 U/L (15-37); Alkaline Phosphatase 67 U/L (46-116); Anion Gap 9.4 mmol/L (3-11); CO2 26.6 mmol/L (21.0-32.0); Chloride 102 mmol/L (98-107); Magnesium 1.9 mg/dL (1.8-2.4); Potassium 4.5 mmol/L (3.5-5.1); Sodium 138 mmol/L (136-145)
[2021-09-16] MEDS: Normal Saline Flush 10 ML SYR IVP (13:18)
[2021-09-16 13:39] LABS: Abs Immature Grans 0.03 10^3/uL (0.0-0.06); Absolute Basophil Count 0.07 10^3/uL (0.0-0.2); Absolute Eosinophil Count 0.02 10^3/uL (0.0-0.7); Absolute Lymphocyte Count 1.96 10^3/uL (1.2-3.4); Absolute Monocyte Count 0.49 10^3/uL (0.1-0.8); Absolute Neutrophil Count 2.81 10^3/uL (1.2-6.7); Basophils % 1.3; Eosinophils % 0.4; HCT 37.4 % (40.0-50.0); HGB 12.5 g/dL (13.5-17.5); Immature Grans % 0.6; Lymphocytes % 36.4; MCHC 33.4 % (32.0-36.0); MCV 98.7 fL (80-95); MPV 10.3 fL (8.0-11.0); Monocytes % 9.1; Neutrophils % 52.2; Nucleated RBC 0 %; Platelet Count 362 10^3/uL (130-400); RBC 3.79 10^6/uL (4.36-5.78); RDW 13.2 % (11.8-14.1); RDW-SD 46.5 fL; WBC 5.38 10^3/uL (4.4-10.8)
[2021-09-16 13:48] LABS: ALT 49 U/L (16-63); AST 32 U/L (15-37); Albumin 3.1 g/dL (3.4-5.0); Alkaline Phosphatase 70 U/L (46-116); Anion Gap 7.2 mmol/L (3-11); BUN 7 mg/dL (7-18); Bilirubin, Total 0.4 mg/dL (0.2-1.0); CO2 27.8 mmol/L (21.0-32.0); CREATININE 0.8 mg/dL (0.70-1.30); Calcium 8.7 mg/dL (8.5-10.1); Chloride 103 mmol/L (98-107); Glucose 90 mg/dL (74-106); Magnesium 1.9 mg/dL (1.8-2.4); Potassium 4.6 mmol/L (3.5-5.1); Sodium 138 mmol/L (136-145); Total Protein 7.2 g/dL (6.4-8.2)
[2021-09-30] MEDS: Normal Saline Flush 10 ML SYR IVP (08:29)
[2021-09-30 08:32] LABS: Abs Immature Grans 0.02 10^3/uL (0.0-0.06); Absolute Basophil Count 0.04 10^3/uL (0.0-0.2); Absolute Eosinophil Count 0.16 10^3/uL (0.0-0.7); Absolute Lymphocyte Count 1.99 10^3/uL (1.2-3.4); Basophils % 0.8; Eosinophils % 3.1; HCT 36.6 % (40.0-50.0); Immature Grans % 0.4; Lymphocytes % 38.2; MCH 32.8 pg (27.0-33.0); MCHC 32.8 % (32.0-36.0); MPV 10.7 fL (8.0-11.0); Monocytes % 17.3; Neutrophils % 40.2; Nucleated RBC 0 %; Platelet Count 214 10^3/uL (130-400); RBC 3.66 10^6/uL (4.36-5.78); RDW 14.5 % (11.8-14.1); RDW-SD 51.4 fL; WBC 5.21 10^3/uL (4.4-10.8)
[2021-09-30 08:47] LABS: ALT 19 U/L (16-63); AST 19 U/L (15-37); Albumin 3.2 g/dL (3.4-5.0); Alkaline Phosphatase 65 U/L (46-116); Anion Gap 7.8 mmol/L (3-11); BUN 6 mg/dL (7-18); Bilirubin, Total 0.2 mg/dL (0.2-1.0); CO2 27.2 mmol/L (21.0-32.0); CREATININE 0.8 mg/dL (0.70-1.30); Calcium 8.6 mg/dL (8.5-10.1); Chloride 103 mmol/L (98-107); Glucose 113 mg/dL (74-106); Potassium 4.1 mmol/L (3.5-5.1); Sodium 138 mmol/L (136-145)
== END 2021-09-30 23:59 | disposition home or self-care (01) ==
LOC: INF 02:08
PROVIDERS: PCP Internal Medicine; Visit Provider Internal Medicine
DX: C67.9 Malignant neoplasm of bladder, unspecified (principal); Z45.2 Encounter for adjustment and management of vascular access device
CPT/HCPCS: 36591; 80053; 83735; 85025

== ENCOUNTER 2021-10-22 15:21 | Outpatient (REF) | payer OTHER, SELFPAY ==
[2021-10-24 16:02] LABS: COVID-19 RT-PCR UVMMC Result Negative (Negative)
== END 2021-10-22 15:22 | disposition home or self-care (01) ==
LOC: LBN 15:21
PROVIDERS: PCP Internal Medicine; Visit Provider Internal Medicine
DX: Z20.822 Contact with and (suspected) exposure to COVID-19 (principal)
CPT/HCPCS: U0003

== ENCOUNTER 2021-10-28 02:23 | Outpatient (RCR) | payer OTHER, SELFPAY ==
[2021-10-07] MEDS: Normal Saline Flush 10 ML SYR IVP (09:43)
[2021-10-07 10:30] LABS: Abs Immature Grans 0.04 10^3/uL (0.0-0.06); Absolute Basophil Count 0.06 10^3/uL (0.0-0.2); Absolute Eosinophil Count 0.05 10^3/uL (0.0-0.7); Absolute Lymphocyte Count 1.57 10^3/uL (1.2-3.4); Absolute Monocyte Count 0.33 10^3/uL (0.1-0.8); Absolute Neutrophil Count 1.17 10^3/uL (1.2-6.7); Basophils % 1.9; Eosinophils % 1.6; HCT 36.9 % (40.0-50.0); Immature Grans % 1.2; Lymphocytes % 48.8; MCHC 32.5 % (32.0-36.0); MCV 101.4 fL (80-95); Monocytes % 10.2; Neutrophils % 36.3; Nucleated RBC 0 %; Platelet Count 272 10^3/uL (130-400); RBC 3.64 10^6/uL (4.36-5.78); RDW 14.3 % (11.8-14.1); RDW-SD 52.1 fL; WBC 3.22 10^3/uL (4.4-10.8)
[2021-10-07 10:41] LABS: ALT 29 U/L (16-63); AST 29 U/L (15-37); Albumin 3.2 g/dL (3.4-5.0); Alkaline Phosphatase 62 U/L (46-116); Anion Gap 8.2 mmol/L (3-11); BUN 6 mg/dL (7-18); Bilirubin, Total 0.3 mg/dL (0.2-1.0); CO2 27.8 mmol/L (21.0-32.0); CREATININE 0.7 mg/dL (0.70-1.30); Calcium 8.7 mg/dL (8.5-10.1); Chloride 103 mmol/L (98-107); Glucose 111 mg/dL (74-106); Magnesium 1.9 mg/dL (1.8-2.4); Potassium 4.2 mmol/L (3.5-5.1); Sodium 139 mmol/L (136-145); Total Protein 7.1 g/dL (6.4-8.2)
[2021-10-13] MEDS: Heparin 500 UNITS/5 ML SYRINGE IV (12:45)
[2021-10-13] MEDS: Normal Saline Flush 10 ML SYR IVP (12:45)
[2021-10-13 13:01] LABS: Abs Immature Grans 0.02 10^3/uL (0.0-0.06); Absolute Basophil Count 0.07 10^3/uL (0.0-0.2); Absolute Eosinophil Count 0.09 10^3/uL (0.0-0.7); Absolute Lymphocyte Count 1.79 10^3/uL (1.2-3.4); Absolute Monocyte Count 0.76 10^3/uL (0.1-0.8); Absolute Neutrophil Count 2.75 10^3/uL (1.2-6.7); Basophils % 1.3; Eosinophils % 1.6; HGB 11.9 g/dL (13.5-17.5); Immature Grans % 0.4; Lymphocytes % 32.7; MCH 32.8 pg (27.0-33.0); MCHC 32.2 % (32.0-36.0); MCV 101.9 fL (80-95); MPV 11.2 fL (8.0-11.0); Monocytes % 13.9; Neutrophils % 50.1; Nucleated RBC 0 %; Platelet Count 165 10^3/uL (130-400); RBC 3.63 10^6/uL (4.36-5.78); RDW 15.5 % (11.8-14.1); RDW-SD 57.2 fL; WBC 5.48 10^3/uL (4.4-10.8)
[2021-10-13 13:22] LABS: ALT 19 U/L (16-63); AST 19 U/L (15-37); Albumin 3.3 g/dL (3.4-5.0); Alkaline Phosphatase 60 U/L (46-116); Anion Gap 6.4 mmol/L (3-11); BUN 7 mg/dL (7-18); Bilirubin, Total 0.3 mg/dL (0.2-1.0); CO2 26.6 mmol/L (21.0-32.0); CREATININE 0.8 mg/dL (0.70-1.30); Calcium 8.8 mg/dL (8.5-10.1); Chloride 103 mmol/L (98-107); Glucose 99 mg/dL (74-106); Potassium 4.6 mmol/L (3.5-5.1); Sodium 136 mmol/L (136-145)
[2021-10-21] MEDS: Normal Saline Flush 10 ML SYR IVP (08:14)
[2021-10-21 08:20] LABS: Abs Immature Grans 0.01 10^3/uL (0.0-0.06); Absolute Basophil Count 0.05 10^3/uL (0.0-0.2); Absolute Eosinophil Count 0.16 10^3/uL (0.0-0.7); Absolute Lymphocyte Count 1.69 10^3/uL (1.2-3.4); Absolute Neutrophil Count 1.57 10^3/uL (1.2-6.7); Basophils % 1.4; Eosinophils % 4.3; HCT 34.5 % (40.0-50.0); Immature Grans % 0.3; Lymphocytes % 45.9; MCH 33.1 pg (27.0-33.0); MCHC 31.9 % (32.0-36.0); MCV 103.9 fL (80-95); Monocytes % 5.4; Neutrophils % 42.7; Nucleated RBC 0 %; Platelet Count 177 10^3/uL (130-400); RBC 3.32 10^6/uL (4.36-5.78); RDW 15.3 % (11.8-14.1); RDW-SD 58.2 fL; WBC 3.68 10^3/uL (4.4-10.8)
[2021-10-21 08:33] LABS: ALT 17 U/L (16-63); AST 18 U/L (15-37); Albumin 3.2 g/dL (3.4-5.0); Alkaline Phosphatase 64 U/L (46-116); Anion Gap 5.8 mmol/L (3-11); BUN 8 mg/dL (7-18); Bilirubin, Total 0.3 mg/dL (0.2-1.0); CO2 28.2 mmol/L (21.0-32.0); CREATININE 0.9 mg/dL (0.70-1.30); Calcium 8.6 mg/dL (8.5-10.1); Chloride 104 mmol/L (98-107); Glucose 155 mg/dL (74-106); Potassium 4.3 mmol/L (3.5-5.1); Sodium 138 mmol/L (136-145); Total Protein 6.9 g/dL (6.4-8.2)
[2021-10-28] MEDS: Normal Saline Flush 10 ML SYR IVP (08:17)
[2021-10-28 08:25] LABS: Abs Immature Grans 0.02 10^3/uL (0.0-0.06); Absolute Basophil Count 0.03 10^3/uL (0.0-0.2); Absolute Eosinophil Count 0.25 10^3/uL (0.0-0.7); Absolute Lymphocyte Count 1.86 10^3/uL (1.2-3.4); Absolute Monocyte Count 0.81 10^3/uL (0.1-0.8); Absolute Neutrophil Count 2.21 10^3/uL (1.2-6.7); Basophils % 0.6; Eosinophils % 4.8; HCT 34.8 % (40.0-50.0); Immature Grans % 0.4; Lymphocytes % 35.9; MCH 32.9 pg (27.0-33.0); MCHC 31.6 % (32.0-36.0); MCV 104.2 fL (80-95); MPV 10.8 fL (8.0-11.0); Monocytes % 15.6; Neutrophils % 42.7; Nucleated RBC 0 %; Platelet Count 155 10^3/uL (130-400); RBC 3.34 10^6/uL (4.36-5.78); RDW 16.9 % (11.8-14.1); RDW-SD 64.2 fL; WBC 5.18 10^3/uL (4.4-10.8)
[2021-10-28 08:43] LABS: AST 15 U/L (15-37); Alkaline Phosphatase 63 U/L (46-116); Anion Gap 7.3 mmol/L (3-11); BUN 6 mg/dL (7-18); Bilirubin, Total 0.2 mg/dL (0.2-1.0); CO2 27.7 mmol/L (21.0-32.0); CREATININE 0.8 mg/dL (0.70-1.30); Calcium 8.4 mg/dL (8.5-10.1); Chloride 105 mmol/L (98-107); Glucose 128 mg/dL (74-106); Magnesium 2.1 mg/dL (1.8-2.4); Potassium 4.2 mmol/L (3.5-5.1); Sodium 140 mmol/L (136-145); Total Protein 6.8 g/dL (6.4-8.2)
[2021-10-28 08:55] LABS: ALT 12 U/L (16-63)
== END 2021-10-31 23:59 | disposition home or self-care (01) ==
LOC: INF 02:23
PROVIDERS: PCP Internal Medicine; Visit Provider Internal Medicine
DX: C67.9 Malignant neoplasm of bladder, unspecified (principal); Z45.2 Encounter for adjustment and management of vascular access device
CPT/HCPCS: 36591; 80053; 83735; 85025

== ENCOUNTER 2021-11-24 03:19 | Outpatient (CLI) | payer OTHER, SELFPAY ==
[2021-11-24 21:52] LABS: COVID-19 RT-PCR UVMMC Result Negative (Negative)
== END 2021-11-24 03:20 | disposition home or self-care (01) ==
LOC: LBO 03:19
PROVIDERS: PCP Internal Medicine; Visit Provider Family Medicine
DX: Z20.822 Contact with and (suspected) exposure to COVID-19 (principal); Z01.818 Encounter for other preprocedural examination
CPT/HCPCS: U0003; U0005

== ENCOUNTER 2021-12-19 17:27 | Outpatient (REF) | payer OTHER, SELFPAY ==
[2021-12-19 15:19] LABS: Absolute Eosinophil Count 0.63 10^3/uL (0.0-0.7); Absolute Monocyte Count 0.81 10^3/uL (0.1-0.8); Basophils % 0.8; Eosinophils % 8.4; HGB 11.4 g/dL (13.5-17.5); Immature Grans % 0.4; Lymphocytes % 19.9; MCH 34.8 pg (27.0-33.0); MCHC 32.6 % (32.0-36.0); MCV 106.7 fL (80-95); Monocytes % 10.8; Neutrophils % 59.7; Nucleated RBC 0 %; Platelet Count 301 10^3/uL (130-400); RBC 3.28 10^6/uL (4.36-5.78); RDW-SD 55.4 fL; WBC 7.53 10^3/uL (4.4-10.8)
[2021-12-19 15:33] LABS: Absolute Basophil Count 0.03 10^3/uL (0.0-0.2); Anion Gap 7.6 mmol/L (3-11); BUN 9 mg/dL (7-18); CO2 24.4 mmol/L (21.0-32.0); Calcium 8.4 mg/dL (8.5-10.1); Chloride 103 mmol/L (98-107); Glucose 86 mg/dL (74-106); Potassium 4.5 mmol/L (3.5-5.1); Sodium 135 mmol/L (136-145)
[2021-12-19 15:34] LABS: Diff Comment Agrees w/ Instrument; Macrocytosis 1+
== END 2021-12-19 17:28 | disposition home or self-care (01) ==
LOC: LBN 17:27
PROVIDERS: PCP Internal Medicine; Visit Provider Internal Medicine
DX: E87.1 Hypo-osmolality and hyponatremia (principal); C79.10 Secondary malignant neoplasm of unspecified urinary organs
CPT/HCPCS: 80048; 85025

== ENCOUNTER 2022-01-27 02:19 | Outpatient (RCR) | payer OTHER, SELFPAY ==
[2021-12-30] MEDS: Normal Saline Flush 10 ML SYR IVP (08:32)
[2021-12-30 08:45] LABS: Abs Immature Grans 0.02 10^3/uL (0.0-0.06); Absolute Basophil Count 0.03 10^3/uL (0.0-0.2); Absolute Eosinophil Count 0.49 10^3/uL (0.0-0.7); Absolute Lymphocyte Count 1.55 10^3/uL (1.2-3.4); Absolute Monocyte Count 0.63 10^3/uL (0.1-0.8); Absolute Neutrophil Count 3.96 10^3/uL (1.2-6.7); Basophils % 0.4; Eosinophils % 7.3; HCT 37.2 % (40.0-50.0); HGB 11.9 g/dL (13.5-17.5); Immature Grans % 0.3; Lymphocytes % 23.2; MCV 106.3 fL (80-95); MPV 10.8 fL (8.0-11.0); Monocytes % 9.4; Neutrophils % 59.4; Nucleated RBC 0 %; Platelet Count 183 10^3/uL (130-400); RDW 14.1 % (11.8-14.1); RDW-SD 55.4 fL; WBC 6.68 10^3/uL (4.4-10.8)
[2021-12-30 09:07] LABS: ALT 15 U/L (16-63); AST 26 U/L (15-37); Albumin 2.7 g/dL (3.4-5.0); Alkaline Phosphatase 93 U/L (46-116); Anion Gap 7.2 mmol/L (3-11); BUN 8 mg/dL (7-18); Bilirubin, Total 0.2 mg/dL (0.2-1.0); CO2 26.8 mmol/L (21.0-32.0); CREATININE 1.2 mg/dL (0.70-1.30); Calcium 8.6 mg/dL (8.5-10.1); Chloride 106 mmol/L (98-107); FREE T4 0.88 ng/dL (0.76-1.46); Glucose 114 mg/dL (74-106); Potassium 4.5 mmol/L (3.5-5.1); Sodium 140 mmol/L (136-145); TSH 2.19 uIU/mL (0.36-3.74); Total Protein 6.5 g/dL (6.4-8.2)
[2022-01-27] MEDS: Normal Saline Flush 10 ML SYR IVP (12:17)
[2022-01-27 12:24] LABS: Abs Immature Grans 0.03 10^3/uL (0.0-0.06); Absolute Basophil Count 0.05 10^3/uL (0.0-0.2); Absolute Eosinophil Count 0.16 10^3/uL (0.0-0.7); Absolute Lymphocyte Count 1.99 10^3/uL (1.2-3.4); Absolute Monocyte Count 0.72 10^3/uL (0.1-0.8); Absolute Neutrophil Count 3.11 10^3/uL (1.2-6.7); Basophils % 0.8; Eosinophils % 2.6; HCT 40.2 % (40.0-50.0); HGB 12.7 g/dL (13.5-17.5); Immature Grans % 0.5; Lymphocytes % 32.8; MCH 33.7 pg (27.0-33.0); MCHC 31.6 % (32.0-36.0); MCV 106.6 fL (80-95); MPV 10.5 fL (8.0-11.0); Monocytes % 11.9; Neutrophils % 51.4; Nucleated RBC 0 %; Platelet Count 211 10^3/uL (130-400); RBC 3.77 10^6/uL (4.36-5.78); RDW 13.4 % (11.8-14.1); RDW-SD 53.2 fL; WBC 6.06 10^3/uL (4.4-10.8)
[2022-01-27 12:51] LABS: ALT 20 U/L (16-63); AST 21 U/L (15-37); Alkaline Phosphatase 91 U/L (46-116); Anion Gap 4.2 mmol/L (3-11); BUN 10 mg/dL (7-18); Bilirubin, Total 0.4 mg/dL (0.2-1.0); CO2 27.8 mmol/L (21.0-32.0); Calcium 8.5 mg/dL (8.5-10.1); Chloride 105 mmol/L (98-107); Glucose 114 mg/dL (74-106); Potassium 4.4 mmol/L (3.5-5.1); Sodium 137 mmol/L (136-145); TSH 1.19 uIU/mL (0.36-3.74); Total Protein 7.3 g/dL (6.4-8.2)
== END 2022-01-29 23:59 | disposition home or self-care (01) ==
LOC: INF 02:19
PROVIDERS: PCP Internal Medicine; Visit Provider Internal Medicine
DX: C67.9 Malignant neoplasm of bladder, unspecified (principal); Z45.2 Encounter for adjustment and management of vascular access device
CPT/HCPCS: 36591; 80053; 84439; 84443; 85025

== ENCOUNTER 2022-02-24 04:47 | Outpatient (RCR) | payer OTHER, SELFPAY ==
[2022-02-24 09:54] LABS: Abs Immature Grans 0.03 10^3/uL (0.0-0.06); Absolute Basophil Count 0.06 10^3/uL (0.0-0.2); Absolute Eosinophil Count 0.14 10^3/uL (0.0-0.7); Absolute Lymphocyte Count 2.34 10^3/uL (1.2-3.4); Absolute Monocyte Count 0.74 10^3/uL (0.1-0.8); Absolute Neutrophil Count 4.14 10^3/uL (1.2-6.7); Basophils % 0.8; Eosinophils % 1.9; HCT 43.1 % (40.0-50.0); HGB 13.9 g/dL (13.5-17.5); Immature Grans % 0.4; Lymphocytes % 31.4; MCH 33.5 pg (27.0-33.0); MCHC 32.3 % (32.0-36.0); MCV 103.9 fL (80-95); MPV 10.9 fL (8.0-11.0); Monocytes % 9.9; Neutrophils % 55.6; Platelet Count 232 10^3/uL (130-400); RBC 4.15 10^6/uL (4.36-5.78); RDW 13.6 % (11.8-14.1); RDW-SD 52.4 fL; WBC 7.45 10^3/uL (4.4-10.8)
[2022-02-24] MEDS: Normal Saline Flush 10 ML SYR IVP (10:13)
[2022-02-24 10:16] LABS: ALT 24 U/L (16-63); AST 27 U/L (15-37); Albumin 3.4 g/dL (3.4-5.0); Alkaline Phosphatase 88 U/L (46-116); Anion Gap 7.3 mmol/L (3-11); BUN 9 mg/dL (7-18); Bilirubin, Total 0.6 mg/dL (0.2-1.0); CO2 27.7 mmol/L (21.0-32.0); CREATININE 0.8 mg/dL (0.70-1.30); Chloride 102 mmol/L (98-107); FREE T4 0.83 ng/dL (0.76-1.46); Glucose 134 mg/dL (74-106); Potassium 4.2 mmol/L (3.5-5.1); Sodium 137 mmol/L (136-145); TSH 2.02 uIU/mL (0.36-3.74); Total Protein 7.8 g/dL (6.4-8.2)
== END 2022-02-28 23:59 | disposition home or self-care (01) ==
LOC: INF 04:47
PROVIDERS: PCP Internal Medicine; Visit Provider Internal Medicine
DX: C67.9 Malignant neoplasm of bladder, unspecified (principal); Z45.2 Encounter for adjustment and management of vascular access device
CPT/HCPCS: 36591; 80053; 84439; 84443; 85025

== ENCOUNTER 2022-03-24 02:27 | Outpatient (RCR) | payer OTHER, SELFPAY ==
[2022-03-24] MEDS: Normal Saline Flush 10 ML SYR IVP (10:39)
[2022-03-24 10:56] LABS: Abs Immature Grans 0.03 10^3/uL (0.0-0.06); Absolute Basophil Count 0.04 10^3/uL (0.0-0.2); Absolute Eosinophil Count 0.12 10^3/uL (0.0-0.7); Absolute Lymphocyte Count 1.98 10^3/uL (1.2-3.4); Absolute Monocyte Count 0.75 10^3/uL (0.1-0.8); Absolute Neutrophil Count 4.57 10^3/uL (1.2-6.7); Basophils % 0.5; Eosinophils % 1.6; HCT 42.6 % (40.0-50.0); HGB 13.7 g/dL (13.5-17.5); Immature Grans % 0.4; Lymphocytes % 26.4; MCH 33.3 pg (27.0-33.0); MCHC 32.2 % (32.0-36.0); MCV 103 fL (80-95); MPV 11.2 fL (8.0-11.0); Neutrophils % 61.1; Platelet Count 244 10^3/uL (130-400); RBC 4.12 10^6/uL (4.36-5.78); RDW 14.2 % (11.8-14.1); RDW-SD 53.8 fL; WBC 7.49 10^3/uL (4.4-10.8)
[2022-03-24 11:17] LABS: ALT 31 U/L (16-63); AST 31 U/L (15-37); Albumin 3.3 g/dL (3.4-5.0); Alkaline Phosphatase 93 U/L (46-116); Anion Gap 6.1 mmol/L (3-11); BUN 12 mg/dL (7-18); Bilirubin, Total 0.4 mg/dL (0.2-1.0); CO2 27.9 mmol/L (21.0-32.0); CREATININE 1.2 mg/dL (0.70-1.30); Calcium 8.7 mg/dL (8.5-10.1); Chloride 107 mmol/L (98-107); FREE T4 0.73 ng/dL (0.76-1.46); Glucose 111 mg/dL (74-106); Potassium 4.4 mmol/L (3.5-5.1); Sodium 141 mmol/L (136-145); TSH 1.09 uIU/mL (0.36-3.74); Total Protein 7.7 g/dL (6.4-8.2)
== END 2022-03-31 23:59 | disposition home or self-care (01) ==
LOC: INF 02:27
PROVIDERS: PCP Internal Medicine; Visit Provider Internal Medicine
DX: C67.9 Malignant neoplasm of bladder, unspecified (principal); Z45.2 Encounter for adjustment and management of vascular access device
CPT/HCPCS: 36591; 80053; 84439; 84443; 85025

== ENCOUNTER 2022-03-26 02:26 | Outpatient (CLI) | payer OTHER, SELFPAY ==
--- NOTE | 2022-03-26 08:45 | DI.US_ITS ---
Exam(s) US HERNIA EXAM: US HERNIA CLINICAL HISTORY: possible hernia, K46.9. TECHNIQUE: Ultrasound was performed using standard protocol. COMPARISON: CT CT CHEST/ABD/PEL W from 05/20/2021 FINDINGS: Sonographic assessment utilizing grayscale and color Doppler imaging was performed and targeted to th e area of clinical concern. There is a complex cystic lesion in the right inguinal region measuring 9 x 2.3 x 4.6 cm. No interna l blood flow is seen. This was not present on the CT scan from 05/20/2021. The CT scan did show a mo derate size fat containing right inguinal hernia. IMPRESSION: 9 cm complex cystic lesion in the right inguinal region. This appears to be new since 05/20/2021. A CT scan of the pelvis should be considered for further evaluation. DATA REPOSITORY:
== END 2022-03-26 02:46 ==
PROVIDERS: PCP Internal Medicine; Visit Provider Internal Medicine
DX: R19.03 Right lower quadrant abdominal swelling, mass and lump; K46.9 Unspecified abdominal hernia without obstruction or gangrene
CPT/HCPCS: 76857

== ENCOUNTER 2022-04-21 00:40 | Outpatient (RCR) | payer OTHER, SELFPAY ==
[2022-04-21] MEDS: Normal Saline Flush 10 ML SYR IVP (09:52)
[2022-04-21 10:03] LABS: Abs Immature Grans 0.04 10^3/uL (0.0-0.06); Absolute Basophil Count 0.04 10^3/uL (0.0-0.2); Absolute Eosinophil Count 0.12 10^3/uL (0.0-0.7); Absolute Lymphocyte Count 2.07 10^3/uL (1.2-3.4); Absolute Monocyte Count 0.71 10^3/uL (0.1-0.8); Absolute Neutrophil Count 4.45 10^3/uL (1.2-6.7); Basophils % 0.5; Eosinophils % 1.6; HCT 41.8 % (40.0-50.0); HGB 13.9 g/dL (13.5-17.5); Immature Grans % 0.5; Lymphocytes % 27.9; MCH 34.3 pg (27.0-33.0); MCHC 33.3 % (32.0-36.0); MCV 103 fL (80-95); MPV 11.2 fL (8.0-11.0); Monocytes % 9.6; Neutrophils % 59.9; Platelet Count 222 10^3/uL (130-400); RBC 4.05 10^6/uL (4.36-5.78); RDW 14.3 % (11.8-14.1); RDW-SD 54.9 fL; WBC 7.43 10^3/uL (4.4-10.8)
[2022-04-21 10:32] LABS: ALT 40 U/L (16-63); AST 40 U/L (15-37); Albumin 3.4 g/dL (3.4-5.0); Alkaline Phosphatase 73 U/L (46-116); Anion Gap 8.6 mmol/L (3-11); BUN 14 mg/dL (7-18); Bilirubin, Total 0.4 mg/dL (0.2-1.0); CO2 26.4 mmol/L (21.0-32.0); CREATININE 1.3 mg/dL (0.70-1.30); Calcium 8.8 mg/dL (8.5-10.1); Chloride 104 mmol/L (98-107); Estimated GFR 54.57 (mL/min/1.73m2); FREE T4 0.77 ng/dL (0.76-1.46); Glucose 110 mg/dL (74-106); Potassium 4.2 mmol/L (3.5-5.1); Sodium 139 mmol/L (136-145); TSH 2.02 uIU/mL (0.36-3.74); Total Protein 7.6 g/dL (6.4-8.2)
== END 2022-04-30 23:59 | disposition home or self-care (01) ==
LOC: INF 00:40
PROVIDERS: PCP Internal Medicine; Visit Provider Internal Medicine
DX: C67.9 Malignant neoplasm of bladder, unspecified (principal); Z45.2 Encounter for adjustment and management of vascular access device
CPT/HCPCS: 36591; 80053; 84439; 84443; 85025

== ENCOUNTER → 2022-05-12 01:45 | Outpatient (CLI) | payer OTHER, SELFPAY ==
--- NOTE | 2022-05-12 07:15 | DI.CTLCSR_ITS ---
Exam(s) CT CHEST LUNG CANCER SCREEN EXAM: CT CHEST LUNG CANCER SCREEN CLINICAL HISTORY: Screening for lung cancer,current smoker, f17.210 TECHNIQUE: Imaging Protocol: Axial computed tomography images with coronal and sagittal reformatted images were created and reviewed COMPARISON: CT CT CHEST LUNG CANCER SCREEN from 09/09/[address] CHEST/ABD/PEL W from 05/20/2021 FINDINGS: Tracheobronchial tree: Patent where visualized. Mediastinum and Cindy: No dominant adenopathy or fluid collection. Pulmonary parenchyma: No consolidation or dominant measurable mass. There is scarring seen in the remberto g bases. Lung Nodules: There are stable pulmonary nodules. The largest is in the right middle lobe measures 4 mm. Pleura: No effusion or pneumothorax. Heart: The heart is not dilated. Coronary artery calcifications and/or vascular stents are present. No pericardial effusion is seen. Aorta: Thoracic aorta non-dilated.Atherosclerosis is present. Upper abdomen: Unremarkable. Bones: Within normal limits. There are old healed bilateral rib fractures. Soft Tissues: Unremarkable. The tip of the patient's indwelling central venous catheter is in good po sition in the superior vena cava. IMPRESSION: Stable pulmonary nodules. The largest measures 4 mm. Lung RADS Cat 2 - Benign Appearance / Behavior: Nodules with a very low likelihood of becoming a clin ically active cancer due to size or lack of growth Lung-RADS 1.0 CATEGORIES: Category 0 - Prior chest CT exam(s) being located for comparison. Category 1 - Annual screening in 12 months. No nodules or definitely benign nodules. Category 2 - Annual screening in 12 months. Benign appearance. Nodules with low likelihood of becomin g active cancer. Category 3 - 6-month follow-up. Probably benign. Short-term follow-up suggested. Nodules with low lik elihood of becoming active cancer. Category 4A - 3-month follow-up and CT/PET if >8 mm in size. Suspicious finding. Findings which requi re additional testing. Category 4B - Findings which require additional testing and tissue sampling. Category 4X - Category 3 or 4 nodules with additional features or imaging findings that increases the suspicion of malignancy. Modifier S- Potentially clinically significant findings (non lung cancer) RADIATION DOSE DELIVERED: 101.3mGy.cm Total DLP 2.21mGy CTDIvol DATA REPOSITORY: All CT scans at this facility are submitted to the National Radiology Data Registry (NRDR) Dose Index Registry (DIR) with the [employer] (ACR). RADIATION OPTIMIZATION: All CT scans at this facility use at least one of these dose optimization te chniques: automated exposure control; mA and/or kV adjustment per patient size (includes targeted exa ms where dose is matched to clinical indication); or iterative reconstruction.
== END ==
PROVIDERS: PCP Internal Medicine; Visit Provider Internal Medicine
DX: Z12.2 Encounter for screening for malignant neoplasm of respiratory organs (principal); F17.210 Nicotine dependence, cigarettes, uncomplicated; R91.8 Other nonspecific abnormal finding of lung field
CPT/HCPCS: 71271

== ENCOUNTER 2022-05-19 01:18 | Outpatient (RCR) | payer OTHER, SELFPAY ==
[2022-05-19] MEDS: Normal Saline Flush 10 ML SYR IVP (09:25)
[2022-05-19 09:49] LABS: Abs Immature Grans 0.05 10^3/uL (0.0-0.06); Absolute Basophil Count 0.07 10^3/uL (0.0-0.2); Absolute Eosinophil Count 0.09 10^3/uL (0.0-0.7); Absolute Lymphocyte Count 1.98 10^3/uL (1.2-3.4); Absolute Monocyte Count 0.72 10^3/uL (0.1-0.8); Absolute Neutrophil Count 5.09 10^3/uL (1.2-6.7); Basophils % 0.9; Eosinophils % 1.1; HCT 42.8 % (40.0-50.0); HGB 13.9 g/dL (13.5-17.5); Immature Grans % 0.6; Lymphocytes % 24.8; MCH 34.2 pg (27.0-33.0); MCHC 32.5 % (32.0-36.0); MCV 105 fL (80-95); Neutrophils % 63.6; Platelet Count 220 10^3/uL (130-400); RBC 4.07 10^6/uL (4.36-5.78); RDW 13.8 % (11.8-14.1); RDW-SD 53.7 fL
[2022-05-19 10:19] LABS: ALT 40 U/L (16-63); AST 38 U/L (15-37); Albumin 3.5 g/dL (3.4-5.0); Alkaline Phosphatase 68 U/L (46-116); Anion Gap 8.3 mmol/L (3-11); BUN 10 mg/dL (7-18); Bilirubin, Total 0.5 mg/dL (0.2-1.0); CO2 27.7 mmol/L (21.0-32.0); Calcium 9.1 mg/dL (8.5-10.1); Chloride 104 mmol/L (98-107); FREE T4 0.82 ng/dL (0.76-1.46); Glucose 112 mg/dL (74-106); Potassium 4.2 mmol/L (3.5-5.1); Sodium 140 mmol/L (136-145); TSH 1.29 uIU/mL (0.36-3.74); Total Protein 7.7 g/dL (6.4-8.2)
== END 2022-05-31 23:59 | disposition home or self-care (01) ==
LOC: INF 01:18
PROVIDERS: PCP Internal Medicine; Visit Provider Internal Medicine
DX: C67.9 Malignant neoplasm of bladder, unspecified (principal); Z45.2 Encounter for adjustment and management of vascular access device
CPT/HCPCS: 36591; 80053; 84439; 84443; 85025

== ENCOUNTER 2022-06-17 02:07 | Outpatient (RCR) | payer OTHER, SELFPAY ==
[2022-06-17] MEDS: Normal Saline Flush 10 ML SYR IVP (10:11)
[2022-06-17 10:21] LABS: Abs Immature Grans 0.06 10^3/uL (0.0-0.06); Absolute Basophil Count 0.07 10^3/uL (0.0-0.2); Absolute Eosinophil Count 0.09 10^3/uL (0.0-0.7); Absolute Lymphocyte Count 2.12 10^3/uL (1.2-3.4); Absolute Monocyte Count 0.76 10^3/uL (0.1-0.8); Absolute Neutrophil Count 5.19 10^3/uL (1.2-6.7); Basophils % 0.8; Eosinophils % 1.1; HCT 43.9 % (40.0-50.0); HGB 14.3 g/dL (13.5-17.5); Immature Grans % 0.7; Lymphocytes % 25.6; MCH 34.3 pg (27.0-33.0); MCHC 32.6 % (32.0-36.0); MCV 105 fL (80-95); MPV 11.1 fL (8.0-11.0); Monocytes % 9.2; Neutrophils % 62.6; Platelet Count 222 10^3/uL (130-400); RBC 4.17 10^6/uL (4.36-5.78); RDW 13.7 % (11.8-14.1); RDW-SD 53.3 fL; WBC 8.29 10^3/uL (4.4-10.8)
[2022-06-17 10:45] LABS: ALT 44 U/L (16-63); AST 40 U/L (15-37); Albumin 3.5 g/dL (3.4-5.0); Alkaline Phosphatase 66 U/L (46-116); Anion Gap 8.9 mmol/L (3-11); BUN 10 mg/dL (7-18); Bilirubin, Total 0.3 mg/dL (0.2-1.0); CO2 28.1 mmol/L (21.0-32.0); CREATININE 1.1 mg/dL (0.70-1.30); Chloride 105 mmol/L (98-107); FREE T4 0.85 ng/dL (0.76-1.46); Glucose 117 mg/dL (74-106); Potassium 4.3 mmol/L (3.5-5.1); Sodium 142 mmol/L (136-145); TSH 1.45 uIU/mL (0.36-3.74); Total Protein 7.9 g/dL (6.4-8.2)
== END 2022-07-01 23:59 | disposition home or self-care (01) ==
LOC: INF 02:07
PROVIDERS: PCP Internal Medicine; Visit Provider Internal Medicine
DX: C67.9 Malignant neoplasm of bladder, unspecified (principal); Z45.2 Encounter for adjustment and management of vascular access device
CPT/HCPCS: 36591; 80053; 84439; 84443; 85025

== ENCOUNTER 2022-07-14 03:16 | Outpatient (RCR) | payer OTHER, SELFPAY ==
[2022-07-14] MEDS: Normal Saline Flush 10 ML SYR IVP (10:08)
[2022-07-14 10:20] LABS: Abs Immature Grans 0.04 10^3/uL (0.0-0.06); Absolute Basophil Count 0.08 10^3/uL (0.0-0.2); Absolute Eosinophil Count 0.13 10^3/uL (0.0-0.7); Absolute Lymphocyte Count 2.43 10^3/uL (1.2-3.4); Absolute Monocyte Count 0.87 10^3/uL (0.1-0.8); Absolute Neutrophil Count 4.97 10^3/uL (1.2-6.7); Basophils % 0.9; Eosinophils % 1.5; HCT 43.7 % (40.0-50.0); HGB 14.1 g/dL (13.5-17.5); Immature Grans % 0.5; Lymphocytes % 28.5; MCH 34.1 pg (27.0-33.0); MCHC 32.3 % (32.0-36.0); MCV 106 fL (80-95); MPV 11.3 fL (8.0-11.0); Monocytes % 10.2; Neutrophils % 58.4; Platelet Count 196 10^3/uL (130-400); RBC 4.13 10^6/uL (4.36-5.78); RDW 13.4 % (11.8-14.1); RDW-SD 52.5 fL; WBC 8.52 10^3/uL (4.4-10.8)
[2022-07-14 10:49] LABS: ALT 42 U/L (16-63); AST 45 U/L (15-37); Albumin 3.2 g/dL (3.4-5.0); Alkaline Phosphatase 72 U/L (46-116); Anion Gap 6.6 mmol/L (3-11); BUN 14 mg/dL (7-18); Bilirubin, Total 0.3 mg/dL (0.2-1.0); CO2 28.4 mmol/L (21.0-32.0); CREATININE 1.3 mg/dL (0.70-1.30); Calcium 8.6 mg/dL (8.5-10.1); Chloride 106 mmol/L (98-107); FREE T4 0.75 ng/dL (0.76-1.46); Glucose 114 mg/dL (74-106); Potassium 4.4 mmol/L (3.5-5.1); Sodium 141 mmol/L (136-145); TSH 1.19 uIU/mL (0.36-3.74); Total Protein 7.5 g/dL (6.4-8.2)
== END 2022-07-31 23:59 | disposition home or self-care (01) ==
LOC: INF 03:16
PROVIDERS: PCP Internal Medicine; Visit Provider Internal Medicine
DX: C67.9 Malignant neoplasm of bladder, unspecified (principal); Z45.2 Encounter for adjustment and management of vascular access device
CPT/HCPCS: 36591; 80053; 84439; 84443; 85025

== ENCOUNTER 2022-07-29 15:43 | Outpatient (CLI) | payer OTHER, SELFPAY ==
--- NOTE | 2022-07-29 15:30 | RT.EKG_ITS ---
APPROVED REPORT Exam: Resting ECG Reason for Exam: assess rhythm Patient Location: O HR:114 bpm ECG Measurements Heart Rate 114 AXIS ME 148 P 63 QRSd 87 QRS 28 QT 335 T -4 QTc 462 Conclusion Sinus tachycardia...rate> 99 Multiform ventricular premature complexes...short R-R, variable morphology
== END 2022-07-29 15:44 | disposition home or self-care (01) ==
LOC: DI.KIM 15:46
PROVIDERS: PCP Nurse Practitioner Adult Health; Visit Provider Nurse Practitioner Adult Health
DX: R42 Dizziness and giddiness (principal); R55 Syncope and collapse; R94.31 Abnormal electrocardiogram [ECG] [EKG]; R00.0 Tachycardia, unspecified; I49.3 Ventricular premature depolarization
CPT/HCPCS: 93010

== ENCOUNTER 2022-08-04 02:00 | Outpatient (CLI) | payer OTHER, SELFPAY ==
[2022-08-04 13:20] LABS: HCT 43.6 % (40.0-50.0); HGB 14.1 g/dL (13.5-17.5); MCH 34.2 pg (27.0-33.0); MCHC 32.3 % (32.0-36.0); MCV 106 fL (80-95); MPV 10.8 fL (8.0-11.0); Platelet Count 198 10^3/uL (130-400); RBC 4.12 10^6/uL (4.36-5.78); RDW 13.4 % (11.8-14.1); RDW-SD 53.1 fL; WBC 8.52 10^3/uL (4.4-10.8)
[2022-08-04 14:03] LABS: ALT 53 U/L (16-63); AST 43 U/L (15-37); Albumin 3.5 g/dL (3.4-5.0); Alkaline Phosphatase 65 U/L (46-116); Anion Gap 7.4 mmol/L (3-11); BUN 15 mg/dL (7-18); Bilirubin, Total 0.3 mg/dL (0.2-1.0); CO2 28.6 mmol/L (21.0-32.0); Calcium 9.3 mg/dL (8.5-10.1); Chloride 104 mmol/L (98-107); Estimated GFR 80.97 (mL/min/1.73m2); Folate 5.5 ng/mL (8.6-20.0); Glucose 111 mg/dL (74-106); Potassium 4.4 mmol/L (3.5-5.1); Sodium 140 mmol/L (136-145); Total Protein 7.6 g/dL (6.4-8.2); Vitamin B12 287 pg/mL (193-986)
[2022-08-07 15:36] LABS: Thiamine (Vitamin B1), WB 230 nmol/L (70-180)
== END 2022-08-04 02:01 | disposition home or self-care (01) ==
LOC: LBO 02:00
PROVIDERS: PCP Nurse Practitioner Adult Health; Visit Provider Nurse Practitioner Adult Health
DX: F10.10 Alcohol abuse, uncomplicated (principal); R55 Syncope and collapse; R42 Dizziness and giddiness; K76.89 Other specified diseases of liver; D52.8 Other folate deficiency anemias
CPT/HCPCS: 36415; 80053; 85027; 82607; 82746; 84425

== ENCOUNTER → 2022-08-05 13:50 | Outpatient (BNVA) | payer OTHER, SELFPAY | PROVIDERS: PCP Nurse Practitioner Adult Health; Referring Provider Internal Medicine; Visit Provider Surgery | DX: Z12.11 Encounter for screening for malignant neoplasm of colon (principal) ==

== ENCOUNTER 2022-08-11 09:39 | Outpatient (RCR) | payer OTHER, SELFPAY ==
[2022-08-11] MEDS: Normal Saline Flush 10 ML SYR IVP (10:10)
[2022-08-11 10:17] LABS: Abs Immature Grans 0.05 10^3/uL (0.0-0.06); Absolute Basophil Count 0.06 10^3/uL (0.0-0.2); Absolute Eosinophil Count 0.13 10^3/uL (0.0-0.7); Absolute Lymphocyte Count 2.03 10^3/uL (1.2-3.4); Absolute Monocyte Count 0.72 10^3/uL (0.1-0.8); Absolute Neutrophil Count 4.53 10^3/uL (1.2-6.7); Basophils % 0.8; Eosinophils % 1.7; HCT 44.4 % (40.0-50.0); HGB 14.5 g/dL (13.5-17.5); Immature Grans % 0.7; MCH 34.3 pg (27.0-33.0); MCHC 32.7 % (32.0-36.0); MCV 105 fL (80-95); Monocytes % 9.6; Neutrophils % 60.2; Platelet Count 193 10^3/uL (130-400); RBC 4.23 10^6/uL (4.36-5.78); RDW 13.4 % (11.8-14.1); RDW-SD 52.3 fL; WBC 7.52 10^3/uL (4.4-10.8)
[2022-08-11 10:41] LABS: ALT 40 U/L (16-63); AST 39 U/L (15-37); Albumin 3.4 g/dL (3.4-5.0); Alkaline Phosphatase 67 U/L (46-116); Anion Gap 7.3 mmol/L (3-11); BUN 13 mg/dL (7-18); Bilirubin, Total 0.4 mg/dL (0.2-1.0); CO2 28.7 mmol/L (21.0-32.0); Calcium 8.9 mg/dL (8.5-10.1); Chloride 105 mmol/L (98-107); Estimated GFR 80.97 (mL/min/1.73m2); FREE T4 0.67 ng/dL (0.76-1.46); Glucose 99 mg/dL (74-106); Potassium 4.3 mmol/L (3.5-5.1); Sodium 141 mmol/L (136-145); TSH 1.11 uIU/mL (0.36-3.74); Total Protein 7.5 g/dL (6.4-8.2)
== END 2022-08-31 23:59 | disposition home or self-care (01) ==
LOC: INF 09:39
PROVIDERS: PCP Nurse Practitioner Adult Health; Visit Provider Internal Medicine
DX: C67.9 Malignant neoplasm of bladder, unspecified (principal); Z45.2 Encounter for adjustment and management of vascular access device
CPT/HCPCS: 36415; 36591; 80053; 84439; 84443; 85025

== ENCOUNTER 2022-08-20 10:05 | Day surgery (SDC) | payer OTHER, SELFPAY ==
--- NOTE | 2022-08-20 06:02 | W.COLOREPORT ---
Colonoscopy Report Date of procedure: 08/20/22 Pre-op diagnosis general: Screening colonoscopy for routine health maintenance Post-op diagnosis procedure note: other (Diverticulosis, colon polyp) Procedure: Screening colonoscopy Surgeon: Rashard Valentin Anesthesia Type: General:No Airway Estimated blood loss (mL): 10 Pathology: other (Rectal polyp at 30 cm) Complications: None Disposition: same day Indications: Juan Jose is a 9-year-old male here for his first screening colonoscopy. Prep: Miralax/Dulcolax Procedure Start Time: 11:18 Procedure End Time: 11:46 Retraction Time: 25 Procedure Description: After the induction of monitored anesthetic care, and with the patient in left lateral decubitus position, I began by performing an external anorectal exam.? Perineum and skin were normal, as was the anal verge.? There was mild evidence of external hemorrhoids in the form of a fibrous skin tag.? Next, I performed a digital rectal exam.? I did not appreciate any abnormal findings.? Next, I advanced a colonoscope into the rectal vault.? I performed retroflexion.? The hemorrhoidal complex was a little bit prominent.? Using insufflation, I then advanced the colonoscope beyond the rectal folds and into the sigmoid colon before advancing towards the cecum.? There was extensive sigmoid diverticulosis the quality of the prep was marginal, but I was able to irrigate the visual mcdowell clear.? The scope was noted to be in the cecum by identification of the ileocecal valve and appendiceal orifice.? I then began withdrawing the colonoscope using repeated irrigation as necessary for full evaluation of the colonic mucosa. ?Once the scope was withdrawn to the level of the rectum, great care was taken to examine portions of the rectal folds.?Around 30 cm from the anal verge I identified a 0.5 centimeters polyp. ?It appeared sessile in character. ?I was able to remove this with a cold forceps. ?I examined the site, and there was minimal bleeding. ?Once this was completed, I continued to withdraw the scope and examine the remainder of the colonic mucosa. Finally, the scope was withdrawn and the patient was brought to the same-day surgery recovery unit as the anesthetic wore off. ?The findings and instructions were shared with the patient prior to discharge.
--- NOTE | 2022-08-20 06:04 | W.PM.DSUDISC ---
Discharge Plan Disposition Patient Disposition: HOME Condition: Good Discharge Details Reason For Visit: screening colonoscopy Attending Provider: Rashard Valentin Primary Care Provider: Celia Gresham Home Meds and New Rx's Prescriptions: Continued triamcinolone acetonide 0.1 % cream 1 applic Topical BID Qty: 30 1RF Rx Instructions: APPLY to dorsum of hands and arms, and cover with tubigrip overnight; dispense large tub quantity miconazole nitrate 2 % powder 1 applic topical BID PRN (Reason: intertrigo) Qty: 85 5RF (DME) ostomy supplies [facility] See Rx Instructions .Route Rx Instructions: As directed (DME) catheter bag 0 .Route .MEDSUPPLY Label Comments: BARD #[id number] (DME) Convatec Sensicare Barrier Wipe 0 .Route .MEDSUPPLY Label Comments: Convate #[id number] (DME) Adapt Ring 0 .Route .MEDSUPPLY Label Comments: Boomer Adapt RING #[id number] [employer] Medical Adhesive Remover topical (DME) Aerochamber MV Spacer See Rx Instructions .ROUTE .MEDSUPPLY Qty: 1 0RF Rx Instructions: As directed with MDI (DME) Alisha Wafer, Cera Plus #8805 3/4 See Rx Instructions .Route .MEDSUPPLY Qty: 2 11RF Rx Instructions: 2 different Cera Plus #8805 components (DME) Convatec Adhesive Release [place] 413,499 See Rx Instructions .Route .MEDSUPPLY Qty: 1 11RF Rx Instructions: As directed (DME) Convatec Night Drainage Container Set #[id number] See Rx Instructions .Route .MEDSUPPLY Qty: 1 11RF Rx Instructions: As directed (DME) Alisha Appliance Pouch #[id number] 1 inch See Rx Instructions .Route .MEDSUPPLY Qty: 5 11RF Rx Instructions: As directed (DME) Boomer Urostomy Drain Tube Adapter See Rx Instructions .Route .MEDSUPPLY Qty: 2 11RF Rx Instructions: for attachement of urostomy bag to wolf bag at night (DME) Alisha Wafer, Cera Plus #8805 3/4 See Rx Instructions .Route .MEDSUPPLY Qty: 1 5RF Rx Instructions: As directed atorvastatin 40 mg tablet 40 mg PO DAILY Qty: 90 3RF aspirin 81 mg tablet,delayed release (DR/EC) 81 mg PO DAILY Qty: 90 3RF thiamine HCl (vitamin B1) 100 mg tablet 100 mg PO DAILY Qty: 90 3RF nivolumab 40 mg/4 mL solution IV duloxetine 60 mg capsule,delayed release(DR/EC) 60 mg PO DAILY (DME) Hearing aids See Rx Instructions .Route .MEDSUPPLY Qty: 2 0RF Rx Instructions: As directed gabapentin 600 mg tablet See Rx Instructions .ROUTE .COMPLEX Qty: 150 3RF Dose Instruction: TAKE ONE TABLET BY MOUTH FOUR TIMES A DAY Rx Instructions: TAKE ONE TABLET BY MOUTH FOUR TIMES A DAY acetaminophen [Tylenol Arthritis Pain] 650 mg tablet extended release 650 mg PO Q8H PRN (Reason: pains) Qty: 100 0RF Rx Instructions: Joint pain--take lowest effective dose albuterol sulfate 90 mcg/actuation HFA aerosol inhaler See Rx Instructions .ROUTE .COMPLEX Qty: 25.5 12RF Dose Instruction: INHALE TWO PUFFS BY MOUTH FOUR TIMES A DAY NEEDED FOR SHORTNESS OF BREATH OR WHEEZING Rx Instructions: INHALE TWO PUFFS BY MOUTH FOUR TIMES A DAY NEEDED FOR SHORTNESS OF BREATH OR WHEEZING Discontinued bisacodyl [Dulcolax (bisacodyl)] 5 mg tablet,delayed release (DR/EC) 5 mg PO ONCE Qty: 4 0RF Rx Instructions: Take according to provider's instructions for colonoscopy prep. polyethylene glycol 3350 17 gram/dose powder 17 g PO ONCE Qty: 238 0RF Rx Instructions: To be taken as directed by prescriber's office for colonoscopy prep. Discharge Instructions Instructions: Colorectal Polyps (GEN) Additional Instructions: 1. If tolerated, consume a soft, low fiber diet for 1-2 days. 2[address] Do not drive, drink alcohol, operate machinery, make critical decisions, or do activities that require coordination or balance for 24 hours. 3. Because air was put into your colon during the procedure, expelling air from your rectum (passing gas or farting) is normal. 4. You may not have a bowel movement for 1-3 days because of the colonoscopy prep. This is normal. 5. Go directly to the emergency room if you notice any of the following: Develop chills (warm to touch), or if you have a thermometer and your temperature is above 101 Difficulty breathing or difficultly swallowing Persistent vomiting Severe abdominal pain, other than gas cramps Severe chest pain Black, tarry stools Any bleeding ? exceeding one tablespoon 6. Call your physician if the site where your intravenous was started becomes red, swollen, painful, and warm to touch. 7. Your physician has reviewed your pre-procedure medications. Please continue to take those medications as previously ordered. You will be given specific information/education regarding any changes to your medications before leaving. Activity:: Activity as Tolerated Diet:: As Tolerated Discharge Orders Discharge Orders: Discharge Order (Routine); Ordered 08/20/22 Ordered By: Rashard Valentin DS: Diagnosis Discharge Diagnosis (1) Rectal polyp: Status: Acute Asessment and Plan: I will contact you with results of the biopsy
--- NOTE | 2022-08-20 10:23 | ANES.PREOP_ITS ---
General Info Date of Service Date Performed: 08/20/22 Height: 6 ft 1 in Weight: 97.069 kg Body Mass Index (BMI): 28.2 Surgical Procedure: Operation Date: 08/20/22 11:20 Proposed Procedure Side Surgeon katherin Valentin MD Meds Allergies and Home Medications Allergies Allergy/AdvReac Type Severity Reaction Status Date / Time No Known Drug Allergies Allergy Verified 08/20/22 10:56 Home Medication Medication Instructions Recorded inhalational spacing device #1 ea 11/21/19 (Aerochamber MV spacer) triamcinolone acetonide 0.1 % 1 applic topical BID #30 grams 07/16/20 topical cream Adapt Ring 12/17/21 Convatec Sensicare Barrier Wipe 12/17/21 catheter bag 12/17/21 miconazole nitrate 2 % topical 1 applic topical BID PRN 12/17/21 powder intertrigo #85 grams ostomy supplies 1 /12/17/21 Hearing aids #2 ea 03/31/22 Alisha Medical Adhesive Remover topical 04/08/22 Convatec Adhesive Release S [place] #1 ea 04/28/22 Convatec Night Drainage Container #1 ea 04/28/22 Set #[id number] Alisha Appliance Pouch #46075 #5 ea 04/28/22 Alisha Urostomy Drain Tube #2 ea 04/28/22 Adapter Blackwell Wafer, Cera Plus #8805 #1 pkg 04/28/22 aspirin 81 mg tablet,delayed 81 mg PO DAILY #90 tabs 04/28/22 release atorvastatin 40 mg tablet 40 mg PO DAILY #90 tab-caps 04/28/22 thiamine HCl (vitamin B1) 100 mg 100 mg PO DAILY #90 tabs 04/28/22 tablet Alihsa Wafer, Cera Plus #8805 #2 pkgs 05/02/22 gabapentin 600 mg tablet See Rx Instructions .Route 05/28/22 .COMPLEX #150 tabs acetaminophen 650 mg 650 mg PO Q8H PRN pains #100 tabs 07/24/22 tablet,extended release (Tylenol Arthritis Pain) albuterol sulfate 90 mcg/actuation See Rx Instructions .Route 08/05/22 aerosol inhaler .COMPLEX #25.5 grams duloxetine 60 mg capsule,delayed 60 mg PO DAILY 08/05/22 release nivolumab 40 mg/4 mL intravenous IV 08/05/22 solution Current Visit Medications: Current Medications Generic Name Dose Route Start Last Admin Trade Name Freq PRN Reason Stop Dose Admin Hyoscyamine Sulfate 0.125 mg 08/20/22 06:06 Hyoscyamine 0.125 Mg Sl/Oral/Chew SL DIRECTED PRN Ringer's Solution 1,000 mls @ 80 mls/hr 08/20/22 06:00 IV 09/18/22 23:59 [facility] IV Miscellaneous Supplies 1 each 08/20/22 06:00 Iv Access IV 09/18/22 23:59 DIRECTED REAGAN Ondansetron HCl 4 mg 08/20/22 06:06 Ondansetron 4 Mg/2 Ml Vial IVP Q4H PRN PRN Nausea / Vomiting Sodium Chloride 0 ml 08/20/22 06:00 Normal Saline Flush 10 Ml Syr IV 09/18/22 23:59 PRN PRN Sodium Chloride 0 ml 08/20/22 06:00 Normal Saline 10 Ml Vial IJ 09/18/22 23:59 DIRECTED PRN Sterile Water 0 ml 08/20/22 06:00 Water,Injection,Sterile 10 Ml Vial IJ 09/18/22 23:59 DIRECTED PRN PFSH Active Problems Active Problems: Problem Status Onset Code Folate deficiency E53.8 Pre-syncope ~08/2022 R55 Metastatic urothelial carcinoma C79.10 Bladder cancer ~04/2021 C67.9 Alcohol abuse 11/29/14 F10.10 Tobacco dependence syndrome 01/19/12 F17.200 Central stenosis of spinal canal M48.00 Foraminal stenosis of lumbosacral region M48.07 Radicular pain M54.10 Depressive disorder, not elsewhere classified 01/19/12 F32.9 Neurodermatitis 11/12/15 L28.0 Hypertensive retinopathy of both eyes H35.033 Sensorineural hearing loss, bilateral H90.3 Abnormal liver function 09/14/13 K76.89 Lichen simplex chronicus 11/26/16 L28.0 Other and unspecified hyperlipidemia 02/03/13 E78.5 Medical History Medical History Alcohol use disorder, moderate, in early remission drinking again Drug induced neutropenia (~10/07/21) 10/07/21 [facility]c Note 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 Essential hypertension (02/10/13) Heel bone fracture with ORIF, and Hx of revision History of carcinoma in situ of bladder Low back pain without sciatica (02/03/13) Lumbago (02/03/13) 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 date not known Nuclear sclerotic cataract of left eye Posterior subcapsular age-related cataract of left eye Status post surgical removal and fulguration of bladder neoplasm (~11/2020) 04/23/21 [facility] [place] Tobacco Smoking/Tobacco Use Status: Former Tobacco Use Alcohol Alcohol Intake: current Alcohol intake frequency: 3 or more drinks per day Alcohol type: beer Substance Use Substance use: Occasionally Substance use type: marijuana Vital Signs and Lab Results Lab Results Blood Type / Crossmatch: No Data to Display Complete Blood Count: White Blood Count 7.52 10^3/uL (4.4-10.8) 08/11/22 10:05 Red Blood Count 4.23 10^6/uL (4.36-5.78) L 08/11/22 10:05 Hemoglobin 14.5 g/dL (13.5-17.5) 08/11/22 10:05 Hematocrit 44.4 % (40.0-50.0) 08/11/22 10:05 Platelet Count 193 10^3/uL (130-400) 08/11/22 10:05 Complete Metabolic Panel: Sodium 141 mmol/L (136-145) 08/11/22 10:05 Potassium 4.3 mmol/L (3.5-5.1) 08/11/22 10:05 Chloride 105 mmol/L (98-107) 08/11/22 10:05 Carbon Dioxide 28.7 mmol/L (21.0-32.0) 08/11/22 10:05 BUN 13 mg/dL (7-18) 08/11/22 10:05 Creatinine 1.0 mg/dL (0.70-1.30) 08/11/22 10:05 Est GFR (CKD-EPI 2020) 80.97 (mL/min/1.73m2) 08/11/22 10:05 Calcium 8.9 mg/dL (8.5-10.1) 08/11/22 10:05 Albumin 3.4 g/dL (3.4-5.0) 08/11/22 10:05 Glucose 99 mg/dL (74-106) 08/11/22 10:05 Liver Function Panel: Alanine Aminotransferase (ALT/SGPT) 40 U/L (16-63) 08/11/22 10: 05 Aspartate Amino Transf (AST/SGOT) 39 U/L (15-37) H 08/11/22 10: 05 Coagulation Panel: No Data to Display Cardiac Panel: No Data to Display Arterial Blood Gas: No Data to Display Venous Blood Gas: No Data to Display Pancreas Panel: No Data to Display Thyroid Panel: Thyroid Stimulating Hormone (TSH) 1.11 uIU/mL (0.36-3.74) 08/11 10:05 Infectious Disease: No Data to Display Blood Cultures: No Data to Display Toxicology Panel: No Data to Display Imaging and Studies Imaging and Studies Study information below may be from another EMR and interpreted by another provider. Please see original notes in EMR for more complete details. EKG Summary: DATE/TIME OF SERVICE: 10/08/20 1433 Conclusion Sinus rhythm...normal P axis, V-rate 60- 99 Paired ventricular premature complexes...sequence of 2 V complexes Stress Test Summary: 10/22/20: Stress ECG Conclusion 1. The patient exercised for 2 minutes and 30 seconds (5 METS). This was converted to a pharmacological stress test. 2. The patient no symptoms suggestive of ischemia. 3. The EKG portion of this exam is nondiagnostic. Echocardiogram Summary: Date of Exam: 12/30/19 Indications: Syncope, New Hypotension, Assess for WMA Conclusion Left Ventricle : The left ventricle is normal size. Left ventricular systolic function is mildly decreased. There is normal left ventricular wall thickness. There are segmental wall motion abnormalities as described below. The left ventricular diastolic function is normal. LVEF is 45-49%. Right Ventricle : Right ventricle is not well visualized. Atria : The left atrium size is normal. The right atrium size is normal. Valves: There are no hemodynamically significant valvular lesions. Great Vessels : The ascending aorta is normal in size. The ascending aorta size is dilated. IVC is normal in size and collapses >50% with inspiration. Mid RVSP is 21-24 mmHg. There is no prior echocardiogram available for comparison. Carotid Artery Summary:: Date of Exam: 09/18/19 IMPRESSION: Calcific plaque in the common carotid bulbs. No significant internal carotid artery stenosis. Retrograde flow is demonstrated in the left vertebral artery. Anesthesia Assessment and Plan Anesthesia History Personal History: No History of Anesthesia Complications Family History: No Family History of Anesthesia Complications Exercise Tolerance Exercise Tolerance: Metabolic Equivalents>4 Pertinent Negatives Pertinent Negatives: No Symptoms of GERD Cardiac & Pulmonary Exam Cardiac Exam: Normal S1/S2 Heart Sounds Pulmonary Exam: Clear Bilateral Breath Sounds Implantable Cardiac Device Does patient have a Pacemaker or an ICD?: No Airway Exam Known Difficult Airway: No Mallampati Class: 2 Mouth Opening: Normal (> 3cm) Thyromental Distance: Greater than 3 cm Neck Range of Motion: Full ROM Neck Circumference: Thick Teeth Condition: Normal Dentition and Other (Missing teeth) ASA Classification ASA Score: ASA 3 Emergency Case?: No NPO Status NPO Status: NPO Clears >2 hours, Solids >8 hours Anesthesia Plan Resuscitation Status: Full Code Anesthesia Technique: General Anesthesia Airway Planned: Natural Airway Monitors Used: Standard Monitors
[2022-08-20 10:25] VITALS: BMI 28.2
[2022-08-20 10:56] VITALS: BP 119/74; PULSE 95; RESP 17; TEMP 36.7; O2SAT 100
[2022-08-20] MEDS: Lactated Ringers 1,000 ML 80 ML IV (11:00)
--- NOTE | 2022-08-20 11:45 | BOWEL_PTH ---
PATIENT: Juan Jose Lowe LOC: [facility] U#:[id number] AGE/SX: 72/M ROOM: RE08/20/[address]: Rashard Valentin MD : [id number] BED: DIS: 08/20/2022 SPEC #: [id number] RECD: 08/20/22 12:47 STATUS: SABAS REQ #: [id number] MARK: 08/20/22 11:[address]: Rashard Valentin DEPT: Surgical Specimen RECD BY: Milagros Boudreaux ENTERED: 08/20/22 12:48 SP TYPE: Bowel OTHR DR: Celia Gresham APRN Tissues: 1 - BIOPSY BOWEL Procedures: GROSS AND MICRO LEVEL 4 Comments: [id number]
[2022-08-20 11:55] VITALS: BP 100/80; PULSE 96; RESP 17; TEMP 36.7; O2SAT 95
--- NOTE | 2022-08-20 12:07 | W.ANESPOSTOP ---
Postoperative Evaluation Date, Time and Location Date Performed: 08/20/22 Time Performed: 12:07 Patient Location: Day Surgery Unit Vital Signs Most Recent Imported Vital Signs: Most Recent Vital Signs Temp Pulse Resp BP Pulse Ox 36.7 C 96 H 17 100/80 95 08/20/22 11:55 08/20/22 11:55 08/20/22 11:55 08/20/22 11:55 08/20/22 11:55 Pain Score Most Recent Pain Score: Most Recent Pain Score Pain Level 0 08/20/22 11:55 Assessment Mental Status: Awake (Alert & Oriented to Patient Baseline) Airway and Respiratory Function: Patent airway with normal (patient baseline) respiratory exam Cardiovascular Function: Hemodynamically Stable Hydration Status: Adequately Hydrated Nausea & Vomiting: No Nausea or Vomiting Pain: Pt. Denies Any Pain Peripheral Nerve Block: Patient did not receive a nerve block
[2022-08-20 12:20] VITALS: BP 114/100; PULSE 83; RESP 17; TEMP 36.7; O2SAT 96
== END 2022-08-20 12:45 | disposition home or self-care (01) ==
LOC: SUR 10:06
PROVIDERS: PCP Nurse Practitioner Adult Health; Visit Provider Surgery
PROC: 0DJD8ZZ Inspection of Lower Intestinal Tract, Via Natural or Artificial Opening Endoscopic (ICD-10-PCS; CPT 45378; principal; 2022-08-20 11:15)
DX: Z12.11 Encounter for screening for malignant neoplasm of colon (principal); K62.1 Rectal polyp; K57.30 Diverticulosis of large intestine without perforation or abscess without bleeding
CPT/HCPCS: 45380; 88305

== ENCOUNTER 2022-08-21 12:54 | Outpatient (RCR) | payer OTHER, SELFPAY ==
--- NOTE | 2022-08-21 12:45 | HOLTER_ITS ---
APPROVED REPORT Conclusion This is a 48-hour Holter monitor ordered for dizziness Predominant rhythm is sinus with an average heart rate of 92. Minimum was 71, maximum 138 There were occasional ventricular ectopic beats. These comprised 5.9% of total. There were rare cou plets and triplets. There was one 6 beat run of nonsustained ventricular tachycardia. Some episodes labeled ventricular tachycardia were possibly SVT with aberrancy There were rare to occasional atrial premature beats. There were multiple self-limited atrial runs. There appeared to be an episode of paroxysmal atrial flutter that lasted several minutes, rate appro ximately 150. There was no high-grade AV block, no pauses greater than 3 seconds No patient symptoms were reported
== END 2022-08-31 23:59 | disposition home or self-care (01) ==
LOC: CARDOPNVT 12:54
PROVIDERS: PCP Nurse Practitioner Adult Health; Visit Provider Nurse Practitioner Adult Health
DX: R55 Syncope and collapse (principal); I47.29 Other ventricular tachycardia; I48.92 Unspecified atrial flutter; R42 Dizziness and giddiness
CPT/HCPCS: 93227; 93225; 93226

== ENCOUNTER 2022-09-08 03:08 | Outpatient (RCR) | payer OTHER, SELFPAY ==
[2022-09-08] MEDS: Normal Saline Flush 10 ML SYR IVP (09:44)
[2022-09-08 09:54] LABS: Abs Immature Grans 0.05 10^3/uL (0.0-0.06); Absolute Basophil Count 0.08 10^3/uL (0.0-0.2); Absolute Eosinophil Count 0.11 10^3/uL (0.0-0.7); Absolute Monocyte Count 0.82 10^3/uL (0.1-0.8); Absolute Neutrophil Count 5.12 10^3/uL (1.2-6.7); Eosinophils % 1.3; HCT 43.6 % (40.0-50.0); HGB 14.1 g/dL (13.5-17.5); Immature Grans % 0.6; Lymphocytes % 26.3; MCH 34.3 pg (27.0-33.0); MCHC 32.3 % (32.0-36.0); MCV 106 fL (80-95); MPV 11.3 fL (8.0-11.0); Monocytes % 9.8; Platelet Count 205 10^3/uL (130-400); RBC 4.11 10^6/uL (4.36-5.78); RDW 13.5 % (11.8-14.1); RDW-SD 53.2 fL; WBC 8.38 10^3/uL (4.4-10.8)
[2022-09-08 10:22] LABS: ALT 47 U/L (16-63); AST 46 U/L (15-37); Albumin 3.6 g/dL (3.4-5.0); Alkaline Phosphatase 64 U/L (46-116); Anion Gap 8.7 mmol/L (3-11); BUN 12 mg/dL (7-18); Bilirubin, Total 0.4 mg/dL (0.2-1.0); CO2 27.3 mmol/L (21.0-32.0); Chloride 105 mmol/L (98-107); Estimated GFR 80.97 (mL/min/1.73m2); FREE T4 0.67 ng/dL (0.76-1.46); Glucose 123 mg/dL (74-106); Potassium 4.2 mmol/L (3.5-5.1); Sodium 141 mmol/L (136-145); TSH 1.39 uIU/mL (0.36-3.74); Total Protein 7.7 g/dL (6.4-8.2)
== END 2022-09-30 23:59 | disposition home or self-care (01) ==
LOC: INF 03:08
PROVIDERS: PCP Nurse Practitioner Adult Health; Visit Provider Internal Medicine
DX: C67.9 Malignant neoplasm of bladder, unspecified (principal); Z45.2 Encounter for adjustment and management of vascular access device
CPT/HCPCS: 36591; 80053; 84439; 84443; 85025

== ENCOUNTER → 2022-10-12 02:32 | Outpatient (CLI) | payer OTHER, SELFPAY ==
--- NOTE | 2022-10-12 10:00 | DI.RAD_ITS ---
Exam(s) XR CHEST 2V PA LATERAL EXAM: XR CHEST 2V PA LATERAL CLINICAL HISTORY: cough,? acute process,leukocytosis,acute exac of reactive airway disease,. TECHNIQUE: 2D digital imaging was performed. COMPARISON: CR XR RIBS RT W PA LAT CHEST from 11/29/2019 FINDINGS: 2 views: There is now a right supra clavi in Port-A-Cath in good position with distal tip in the SVC. Heart size is upper normal. The mediastinum is not widened. Lungs are clear. No infiltrates nor pleural effusions. No new pulmonary nodules evident. Visualized bones unremarkable. IMPRESSION: No acute pulmonary findings.Right-sided Port-A-Cath noted which appears to be in good position. DATA REPOSITORY: RADIATION DOSE DELIVERED:
== END ==
PROVIDERS: PCP Nurse Practitioner Adult Health; Visit Provider Nurse Practitioner Adult Health
DX: R05.8 Other specified cough (principal); J45.901 Unspecified asthma with (acute) exacerbation; D72.829 Elevated white blood cell count, unspecified; Z95.828 Presence of other vascular implants and grafts
CPT/HCPCS: 71046

== ENCOUNTER 2022-10-13 01:50 | Outpatient (RCR) | payer OTHER, SELFPAY ==
[2022-10-06] MEDS: Normal Saline Flush 10 ML SYR IVP (10:06)
[2022-10-06 10:12] LABS: Abs Immature Grans 0.16 10^3/uL (0.0-0.06); Absolute Basophil Count 0.08 10^3/uL (0.0-0.2); Absolute Eosinophil Count 0.06 10^3/uL (0.0-0.7); Absolute Monocyte Count 1.51 10^3/uL (0.1-0.8); Absolute Neutrophil Count 11.17 10^3/uL (1.2-6.7); Basophils % 0.5; Eosinophils % 0.4; HCT 39.9 % (40.0-50.0); HGB 12.9 g/dL (13.5-17.5); Immature Grans % 1.1; Lymphocytes % 13.8; MCH 33.8 pg (27.0-33.0); MCHC 32.3 % (32.0-36.0); MCV 105 fL (80-95); MPV 10.4 fL (8.0-11.0); Neutrophils % 74.2; Platelet Count 384 10^3/uL (130-400); RBC 3.82 10^6/uL (4.36-5.78); RDW 13.2 % (11.8-14.1); RDW-SD 50.9 fL; WBC 15.05 10^3/uL (4.4-10.8)
[2022-10-06 10:33] LABS: Absolute Lymphocyte Count 2.08 10^3/uL (1.2-3.4)
[2022-10-06 10:35] LABS: Diff Comment Diff Reviewed; RBC Morphology Normal
[2022-10-06 10:43] LABS: ALT 36 U/L (16-63); AST 33 U/L (15-37); Albumin 2.7 g/dL (3.4-5.0); Alkaline Phosphatase 77 U/L (46-116); Anion Gap 7.2 mmol/L (3-11); BUN 9 mg/dL (7-18); Bilirubin, Total 0.4 mg/dL (0.2-1.0); CO2 28.8 mmol/L (21.0-32.0); Calcium 9.1 mg/dL (8.5-10.1); Chloride 103 mmol/L (98-107); Estimated GFR 80.97 (mL/min/1.73m2); FREE T4 0.96 ng/dL (0.76-1.46); Glucose 141 mg/dL (74-106); Potassium 4.2 mmol/L (3.5-5.1); Sodium 139 mmol/L (136-145); Total Protein 7.8 g/dL (6.4-8.2)
[2022-10-13] MEDS: Normal Saline Flush 10 ML SYR IVP (07:42)
[2022-10-13 07:51] LABS: Abs Immature Grans 0.19 10^3/uL (0.0-0.06); Absolute Basophil Count 0.08 10^3/uL (0.0-0.2); Absolute Eosinophil Count 0.14 10^3/uL (0.0-0.7); Absolute Lymphocyte Count 2.71 10^3/uL (1.2-3.4); Absolute Monocyte Count 0.68 10^3/uL (0.1-0.8); Absolute Neutrophil Count 5.97 10^3/uL (1.2-6.7); Basophils % 0.8; Eosinophils % 1.4; HCT 41.6 % (40.0-50.0); HGB 13.4 g/dL (13.5-17.5); Immature Grans % 1.9; Lymphocytes % 27.7; MCH 34.2 pg (27.0-33.0); MCHC 32.2 % (32.0-36.0); MCV 106 fL (80-95); MPV 9.9 fL (8.0-11.0); Neutrophils % 61.2; Platelet Count 343 10^3/uL (130-400); RBC 3.92 10^6/uL (4.36-5.78); RDW 13.6 % (11.8-14.1); RDW-SD 53.1 fL; WBC 9.77 10^3/uL (4.4-10.8)
[2022-10-13 08:17] LABS: ALT 36 U/L (16-63); AST 26 U/L (15-37); Albumin 2.9 g/dL (3.4-5.0); Alkaline Phosphatase 59 U/L (46-116); Anion Gap 5.5 mmol/L (3-11); BUN 10 mg/dL (7-18); Bilirubin, Total 0.3 mg/dL (0.2-1.0); CO2 30.5 mmol/L (21.0-32.0); Calcium 8.9 mg/dL (8.5-10.1); Chloride 102 mmol/L (98-107); Estimated GFR 80.97 (mL/min/1.73m2); FREE T4 0.76 ng/dL (0.76-1.46); Glucose 106 mg/dL (74-106); Potassium 4.4 mmol/L (3.5-5.1); Sodium 138 mmol/L (136-145); TSH 2.86 uIU/mL (0.36-3.74); Total Protein 7.3 g/dL (6.4-8.2)
== END 2022-10-31 23:59 | disposition home or self-care (01) ==
LOC: INF 01:50
PROVIDERS: PCP Nurse Practitioner Adult Health; Visit Provider Internal Medicine
DX: C67.9 Malignant neoplasm of bladder, unspecified (principal); Z45.2 Encounter for adjustment and management of vascular access device; Z79.899 Other long term (current) drug therapy
CPT/HCPCS: 36591; 80053; 84439; 84443; 85025

== ENCOUNTER → 2022-10-29 12:30 | Outpatient (BNVA) | payer OTHER, MEDICARE, SELFPAY | PROVIDERS: PCP Nurse Practitioner Adult Health; Referring Provider Nurse Practitioner Adult Health; Visit Provider Internal Medicine Cardiovascular Disease | DX: I47.1 Supraventricular tachycardia (principal); J44.9 Chronic obstructive pulmonary disease, unspecified; F17.210 Nicotine dependence, cigarettes, uncomplicated; F10.10 Alcohol abuse, uncomplicated; C67.9 Malignant neoplasm of bladder, unspecified; R42 Dizziness and giddiness | CPT/HCPCS: 93005; 99202; 99214 ==

== ENCOUNTER 2022-10-29 12:40 | Outpatient (CLI) | payer OTHER, MEDICARE, SELFPAY ==
--- NOTE | 2022-10-29 12:30 | RT.EKG_ITS ---
APPROVED REPORT Exam: Resting ECG Reason for Exam: evaluation of svt Patient Location: O HR:69 bpm ECG Measurements Heart Rate 69 AXIS NJ 134 P 60 QRSd 103 QRS 33 QT 425 T 18 QTc 456 Conclusion Sinus rhythm...normal P axis, V-rate 50- 99 Normal Electrocardiogram
== END 2022-10-29 12:41 | disposition home or self-care (01) ==
LOC: DI.CARD 12:41
PROVIDERS: PCP Nurse Practitioner Adult Health; Visit Provider Internal Medicine Cardiovascular Disease
DX: I47.1 Supraventricular tachycardia (principal); R55 Syncope and collapse
CPT/HCPCS: 93010

== ENCOUNTER 2022-11-10 02:37 | Outpatient (RCR) | payer OTHER, SELFPAY ==
[2022-11-10] MEDS: Normal Saline Flush 10 ML SYR IVP (09:52)
[2022-11-10 10:20] LABS: Abs Immature Grans 0.04 10^3/uL (0.0-0.06); Absolute Basophil Count 0.05 10^3/uL (0.0-0.2); Absolute Eosinophil Count 0.12 10^3/uL (0.0-0.7); Absolute Lymphocyte Count 1.79 10^3/uL (1.2-3.4); Absolute Monocyte Count 0.82 10^3/uL (0.1-0.8); Absolute Neutrophil Count 5.58 10^3/uL (1.2-6.7); Basophils % 0.6; Eosinophils % 1.4; HCT 41.4 % (40.0-50.0); HGB 13.3 g/dL (13.5-17.5); Immature Grans % 0.5; Lymphocytes % 21.3; MCHC 32.1 % (32.0-36.0); MCV 106 fL (80-95); MPV 11.5 fL (8.0-11.0); Monocytes % 9.8; Neutrophils % 66.4; Platelet Count 209 10^3/uL (130-400); RBC 3.91 10^6/uL (4.36-5.78); RDW 14.2 % (11.8-14.1); RDW-SD 55.6 fL
[2022-11-10 10:41] LABS: ALT 33 U/L (16-63); AST 34 U/L (15-37); Albumin 3.3 g/dL (3.4-5.0); Alkaline Phosphatase 77 U/L (46-116); Anion Gap 6.8 mmol/L (3-11); BUN 10 mg/dL (7-18); Bilirubin, Total 0.3 mg/dL (0.2-1.0); CO2 27.2 mmol/L (21.0-32.0); Calcium 8.8 mg/dL (8.5-10.1); Chloride 107 mmol/L (98-107); Estimated GFR 80.97 (mL/min/1.73m2); FREE T4 0.79 ng/dL (0.76-1.46); Glucose 134 mg/dL (74-106); Potassium 4.4 mmol/L (3.5-5.1); Sodium 141 mmol/L (136-145); TSH 1.26 uIU/mL (0.36-3.74); Total Protein 7.5 g/dL (6.4-8.2)
== END 2022-12-01 23:59 | disposition home or self-care (01) ==
LOC: INF 02:37
PROVIDERS: PCP Nurse Practitioner Adult Health; Visit Provider Internal Medicine
DX: C67.9 Malignant neoplasm of bladder, unspecified (principal); Z45.2 Encounter for adjustment and management of vascular access device
CPT/HCPCS: 36591; 80053; 84439; 84443; 85025

== ENCOUNTER 2022-12-08 03:31 | Outpatient (RCR) | payer OTHER, SELFPAY ==
[2022-12-08] MEDS: Normal Saline Flush 10 ML SYR IVP (13:40)
[2022-12-08 14:01] LABS: Abs Immature Grans 0.03 10^3/uL (0.0-0.06); Absolute Basophil Count 0.06 10^3/uL (0.0-0.2); Absolute Eosinophil Count 0.13 10^3/uL (0.0-0.7); Absolute Lymphocyte Count 2.52 10^3/uL (1.2-3.4); Absolute Monocyte Count 0.84 10^3/uL (0.1-0.8); Absolute Neutrophil Count 5.88 10^3/uL (1.2-6.7); Basophils % 0.6; Eosinophils % 1.4; HCT 43.4 % (40.0-50.0); HGB 13.9 g/dL (13.5-17.5); Immature Grans % 0.3; Lymphocytes % 26.6; MCH 33.1 pg (27.0-33.0); MCV 103 fL (80-95); Monocytes % 8.9; Neutrophils % 62.2; Platelet Count 217 10^3/uL (130-400); RDW-SD 53.7 fL; WBC 9.46 10^3/uL (4.4-10.8)
[2022-12-08 14:23] LABS: ALT 37 U/L (16-63); AST 49 U/L (15-37); Albumin 3.4 g/dL (3.4-5.0); Alkaline Phosphatase 70 U/L (46-116); Anion Gap 5.3 mmol/L (3-11); BUN 13 mg/dL (7-18); Bilirubin, Total 0.4 mg/dL (0.2-1.0); CO2 29.7 mmol/L (21.0-32.0); Calcium 8.9 mg/dL (8.5-10.1); Chloride 106 mmol/L (98-107); Estimated GFR 80.97 (mL/min/1.73m2); FREE T4 0.68 ng/dL (0.76-1.46); Glucose 109 mg/dL (74-106); Potassium 4.3 mmol/L (3.5-5.1); Sodium 141 mmol/L (136-145); Total Protein 7.5 g/dL (6.4-8.2)
== END 2022-12-29 23:59 | disposition home or self-care (01) ==
LOC: INF 03:31
PROVIDERS: PCP Nurse Practitioner Adult Health; Visit Provider Internal Medicine
DX: C67.9 Malignant neoplasm of bladder, unspecified (principal); Z45.2 Encounter for adjustment and management of vascular access device
CPT/HCPCS: 36591; 80053; 84439; 84443; 85025

== ENCOUNTER 2023-01-05 03:08 | Outpatient (RCR) | payer OTHER, SELFPAY ==
[2023-01-05] MEDS: Normal Saline Flush 10 ML SYR IVP (10:00)
[2023-01-05 10:17] LABS: Abs Immature Grans 0.05 10^3/uL (0.0-0.06); Absolute Basophil Count 0.09 10^3/uL (0.0-0.2); Absolute Eosinophil Count 0.15 10^3/uL (0.0-0.7); Absolute Lymphocyte Count 2.36 10^3/uL (1.2-3.4); Absolute Monocyte Count 0.89 10^3/uL (0.1-0.8); Eosinophils % 1.7; HCT 45.7 % (40.0-50.0); HGB 14.8 g/dL (13.5-17.5); Immature Grans % 0.6; Lymphocytes % 26.4; MCH 33.6 pg (27.0-33.0); MCHC 32.4 % (32.0-36.0); MCV 104 fL (80-95); MPV 11.2 fL (8.0-11.0); Neutrophils % 60.3; Platelet Count 203 10^3/uL (130-400); RBC 4.41 10^6/uL (4.36-5.78); RDW 14.4 % (11.8-14.1); RDW-SD 54.8 fL; WBC 8.94 10^3/uL (4.4-10.8)
[2023-01-05 10:42] LABS: ALT 41 U/L (16-63); AST 39 U/L (15-37); Albumin 3.6 g/dL (3.4-5.0); Alkaline Phosphatase 70 U/L (46-116); Anion Gap 10.5 mmol/L (3-11); BUN 11 mg/dL (7-18); Bilirubin, Total 0.6 mg/dL (0.2-1.0); CO2 27.5 mmol/L (21.0-32.0); Calcium 9.3 mg/dL (8.5-10.1); Chloride 103 mmol/L (98-107); Estimated GFR 80.97 (mL/min/1.73m2); Glucose 110 mg/dL (74-106); Potassium 4.5 mmol/L (3.5-5.1); Sodium 141 mmol/L (136-145); TSH 1.26 uIU/mL (0.36-3.74); Total Protein 7.9 g/dL (6.4-8.2)
== END 2023-01-29 23:59 | disposition home or self-care (01) ==
LOC: INF 03:08
PROVIDERS: PCP Nurse Practitioner Adult Health; Visit Provider Internal Medicine
DX: C67.9 Malignant neoplasm of bladder, unspecified (principal); Z45.2 Encounter for adjustment and management of vascular access device; Z79.899 Other long term (current) drug therapy
CPT/HCPCS: 36591; 80053; 84439; 84443; 85025

== ENCOUNTER 2023-03-02 06:45 | Outpatient (RCR) | payer OTHER, SELFPAY ==
[2023-03-02] MEDS: Normal Saline Flush 10 ML SYR IVP (14:11)
[2023-03-02] MEDS: Heparin 500 UNITS/5 ML SYRINGE IV (14:11)
[2023-03-02 14:15] LABS: Abs Immature Grans 0.06 10^3/uL (0.0-0.06); Absolute Basophil Count 0.09 10^3/uL (0.0-0.2); Absolute Eosinophil Count 0.11 10^3/uL (0.0-0.7); Absolute Monocyte Count 0.77 10^3/uL (0.1-0.8); Absolute Neutrophil Count 6.36 10^3/uL (1.2-6.7); Eosinophils % 1.2; HCT 46.3 % (40.0-50.0); HGB 15.2 g/dL (13.5-17.5); Immature Grans % 0.6; Lymphocytes % 21.3; MCH 33.9 pg (27.0-33.0); MCHC 32.8 % (32.0-36.0); MCV 103 fL (80-95); MPV 11.1 fL (8.0-11.0); Monocytes % 8.2; Neutrophils % 67.7; Platelet Count 200 10^3/uL (130-400); RBC 4.49 10^6/uL (4.36-5.78); RDW 13.9 % (11.8-14.1); RDW-SD 53.7 fL; WBC 9.39 10^3/uL (4.4-10.8)
[2023-03-02 14:30] LABS: ALT 37 U/L (16-63); AST 38 U/L (15-37); Albumin 3.5 g/dL (3.4-5.0); Alkaline Phosphatase 64 U/L (46-116); Anion Gap 7.6 mmol/L (3-11); BUN 8 mg/dL (7-18); Bilirubin, Total 0.6 mg/dL (0.2-1.0); CO2 27.4 mmol/L (21.0-32.0); CREATININE 0.9 mg/dL (0.70-1.30); Calcium 9.3 mg/dL (8.5-10.1); Chloride 107 mmol/L (98-107); Estimated GFR 91.88 (mL/min/1.73m2); Glucose 105 mg/dL (74-106); Potassium 4.5 mmol/L (3.5-5.1); Sodium 142 mmol/L (136-145); Total Protein 7.8 g/dL (6.4-8.2)
[2023-03-04 17:27] LABS: PSA, Ultrasensitive <0.01 ng/mL (<= 6.5)
== END 2023-03-31 23:59 | disposition home or self-care (01) ==
LOC: INF 06:45
PROVIDERS: PCP Nurse Practitioner Adult Health; Visit Provider Internal Medicine
DX: C61 Malignant neoplasm of prostate (principal); Z45.2 Encounter for adjustment and management of vascular access device
CPT/HCPCS: 36591; 80053; 84153; 85025

== ENCOUNTER 2023-04-08 15:51 | Emergency (ER) | payer OTHER, SELFPAY ==
[2023-04-08 15:55] VITALS: BP 118/78; PULSE 72; RESP 16; TEMP 36.6; O2SAT 93
--- NOTE | 2023-04-08 16:14 | W.ED.GENAD ---
Discharge Plan Disposition Patient Disposition: Home Discharge Details Clinical Impression: Bright red rectal bleeding Primary Care Provider: Celia Gresham ED Provider: Clementina Marie Home Meds and New Rx's Prescriptions: New pantoprazole [Protonix] [address] for susp in packet 40 mg PO DAILY 14 Days Qty: 30 0RF Rx Instructions: Take one daily x 14 days No Action miconazole nitrate 2 % powder 1 applic topical BID PRN (Reason: intertrigo) Qty: 85 5RF (DME) [facility] See Rx Instructions .Route Rx Instructions: As directed (DME) catheter bag 0 .Route .MEDSUPPLY Patient Comments: [facility] #[id number] ([facility] [place] Convate Sensicare Barrier Wipe 0 .Route .MEDSUPPLY Patient Comments: [facility] #[id number] ([facility] [place]) Adapt Ring 0 .Route .MEDSUPPLY Patient Comments: [employer] Adapt RING #[id number] [employer] Adhesive Remover topical (DME) Aerochamber MV Spacer See Rx Instructions .ROUTE .MEDSUPPLY Qty: 1 0RF Rx Instructions: As directed with MDI (DME) [employer] Wafer, Cera Plus #[id number] 3/4 See Rx Instructions .Route .MEDSUPPLY Qty: 2 11RF Rx Instructions: 2 different Cera Plus #[id number] components (DME) Convatec Adhesive Release [place] [phone] See Rx Instructions .Route .MEDSUPPLY Qty: 1 11RF Rx Instructions: As directed (DME) Convatec Night Drainage Container Set #[id number] See Rx Instructions .Route .MEDSUPPLY Qty: 1 11RF Rx Instructions: As directed (DME) [employer]liance Pouch #[id number] 1 inch See Rx Instructions .Route .MEDSUPPLY Qty: 5 11RF Rx Instructions: As directed (DME) Alisha Urostomy Drain Tube Adapter See Rx Instructions .Route .MEDSUPPLY Qty: 2 11RF Rx Instructions: for attachement of urostomy bag to wolf bag at night (DME) Alisha Wafer, Cera Plus #[id number] 3/4 See Rx Instructions .Route .MEDSUPPLY Qty: 1 5RF Rx Instructions: As directed nivolumab 40 mg/4 mL solution IV metoprolol succinate 100 mg tablet extended release 24 hr 100 mg PO DAILY Rx Instructions: Lightheadedness & SVT triamcinolone acetonide 0.1 % cream 1 applic Topical BID Qty: 30 1RF Rx Instructions: Apply thin layer to L ear and skin on back on head twice per day for 1 week, then as needed fluticasone propion-salmeterol [Advair Diskus] 250-50 mcg/dose blister with device 1 inh inhalation BID Qty: 60 11RF Rx Instructions: Chronic bronchitis; RINSE MOUTH AFTER USE (DME) Hearing aids See Rx Instructions .Route .MEDSUPPLY Qty: 2 0RF Rx Instructions: As directed albuterol sulfate 90 mcg/actuation HFA aerosol inhaler See Rx Instructions .ROUTE .COMPLEX Qty: 25.5 12RF Dose Instruction: INHALE TWO PUFFS BY MOUTH FOUR TIMES A DAY NEEDED FOR SHORTNESS OF BREATH OR WHEEZING Rx Instructions: INHALE TWO PUFFS BY MOUTH FOUR TIMES A DAY NEEDED FOR SHORTNESS OF BREATH OR WHEEZING duloxetine 60 mg capsule,delayed release(DR/EC) 60 mg PO DAILY Qty: 90 3RF acetaminophen [Tylenol Arthritis Pain] 650 mg tablet extended release 1,300 mg PO BID MDD 2600mg/24h PRN (Reason: pains) Qty: 120 11RF Rx Instructions: Joint pain aspirin 81 mg tablet,delayed release (DR/EC) 81 mg PO DAILY Qty: 90 3RF atorvastatin 40 mg tablet 40 mg PO DAILY Qty: 90 3RF thiamine HCl (vitamin B1) 100 mg tablet 100 mg PO DAILY Qty: 90 3RF gabapentin 600 mg tablet See Rx Instructions .ROUTE .COMPLEX Qty: 150 3RF Dose Instruction: TAKE ONE TABLET BY MOUTH FOUR TIMES A DAY Rx Instructions: TAKE ONE TABLET BY MOUTH FOUR TIMES A DAY Discharge Instructions Instructions: Rectal Bleeding (ED) Additional Instructions: Please follow-up with general surgery regarding the colonoscopy to evaluate the source for rectal bleeding. You are placed on care management follow-up list to assist you in getting an appointment. At this time your labs are within normal limits. You do have a small amount of blood on the Hemoccult stool specimen. Take Protonix once a day to decrease the acid production in your stomach, decreased Tylenol use and alcohol use if possible. Return to the ER for any worsening dizziness lightheadedness, abdominal pain, large amounts of rectal bleeding or any concerns. Follow up with primary care provider in 3-5 days. Return to ED sooner if any worsening or concerns. Increase oral fluids. Referrals: Celia Gresham NP [Primary Care Provider] - 5 days Casie Delvalle DO [OSTEOPATHIC DOCTOR] - 2 weeks Medical Decision Making 72-year-old male presents to the ER with a chief complaint of bright red rectal bleeding over the last 3 days. He reports that it is with the first bowel movement of the day and painful. He also reports some generalized abdominal discomfort. He is a daily drinker, does have a history of tobacco dependence, bladder cancer has a urostomy,, tongue cancer, PSVT, rectal polyp hypertension. He does take aspirin daily. He also endorses daily Tylenol. Work-up ordered including CBC CMP PT, will consider CT imaging after rectal exam. Differential diagnosis includes not limited to hemorrhoids, fistula, GI bleed, CBC largely within normal limits RBC slightly low at 3.97 hemoglobin hematocrit within normal limits, abdomen is soft nontender with palpation. Guaiac stool is positive no hemorrhoids noted. At this time I do not feel that CT imaging is absolutely necessary. Will refer patient to general surgery for outpatient colonoscopy within the next 1 to 2 weeks. Pending additional labs. Pending labs are within normal limits, AST slightly elevated 42, albumin 3.2, Patient and family are requesting to be discharged and wondering how long remainder of stay will be as they would like to get home for dinner. Patient to be discharged home with a referral to general surgery for outpatient colonoscopy discussed strict return instructions and home care. Patient was given Protonix 40 mg daily for the next 2 weeks. Discussed decreasing Tylenol and alcohol. Patient was discharged in hemodynamically stable condition. This text was generated using hetrasation system, please disregard any oddities of phrase or misspellings. Medical Records Medical records reviewed: Yes I reviewed the patient's medical records. Medical records narrative: patient had a PET scan March 02 which showed no acute intra-abdominal abnormality. Did have a colonoscopy in August 2022 which showed some diverticulosis and a small rectal polyp which was removed. Lab Data Lab results reviewed: Yes I reviewed the patient's lab results. Labs: Laboratory Tests Range/Units 04/08/23 04/08/23 04/08/23 16:06 16:36 16:36 WBC (4.4-10.8) 10^3/uL 8.94 RBC (4.36-5.78) 10^6/uL 3.97 L Hgb (13.5-17.5) g/dL 13.7 Hct (40.0-50.0) % 41.6 MCV (80-95) fL 105 H MCH (27.0-33.0) pg 34.5 H MCHC (32.0-36.0) % 32.9 RDW (11.8-14.1) % 13.7 Plt Count (130-400) 10^3/uL 164 MPV (8.0-11.0) fL 10.9 Immature Gran % 0.4 Neutrophils % 67.1 Lymphocytes % 20.9 Monocytes % 9.4 Eosinophils % 1.5 Basophils % 0.7 Nucleated RBC % (0.0-0.3) % 0.0 Absolute Neutrophils (1.2-6.7) 10^3/uL 6.00 Absolute Lymphocytes (1.2-3.4) 10^3/uL 1.87 Absolute Monocytes (0.1-0.8) 10^3/uL 0.84 H Absolute Eosinophils (0.0-0.7) 10^3/uL 0.13 Absolute Basophils (0.0-0.2) 10^3/uL 0.06 PT (9.3-11.0) sec INR (0.9-1.1) Sodium (136-145) mmol/L 138 Potassium (3.5-5.1) mmol/L 4.1 Chloride (98-107) mmol/L 104 Carbon Dioxide (21.0-32.0) mmol/L 26.9 Anion Gap (3-11) mmol/L 7.1 BUN (7-18) mg/dL 8 Creatinine (0.70-1.30) mg/dL 0.8 Est GFR (CKD-EPI 2020) (mL/min/1.73m2) 95.21 Glucose (74-106) mg/dL 103 Calcium (8.5-10.1) mg/dL 8.9 Magnesium (1.8-2.4) mg/dL 2.0 Total Bilirubin (0.2-1.0) mg/dL 0.5 AST (15-37) U/L 42 H ALT (16-63) U/L 37 Alkaline Phosphatase (46-116) U/L 61 Troponin I Cancelled Total Protein (6.4-8.2) g/dL 7.0 Albumin (3.4-5.0) g/dL 3.2 L Range/Units 04/08/23 04/08/23 16:36 19:06 WBC (4.4-10.8) 10^3/uL RBC (4.36-5.78) 10^6/uL Hgb (13.5-17.5) g/dL Hct (40.0-50.0) % MCV (80-95) fL MCH (27.0-33.0) pg MCHC (32.0-36.0) % RDW (11.8-14.1) % Plt Count (130-400) 10^3/uL MPV (8.0-11.0) fL Immature Gran % Neutrophils % Lymphocytes % Monocytes % Eosinophils % Basophils % Nucleated RBC % (0.0-0.3) % Absolute Neutrophils (1.2-6.7) 10^3/uL Absolute Lymphocytes (1.2-3.4) 10^3/uL Absolute Monocytes (0.1-0.8) 10^3/uL Absolute Eosinophils (0.0-0.7) 10^3/uL Absolute Basophils (0.0-0.2) 10^3/uL PT (9.3-11.0) sec 9.5 INR (0.9-1.1) 0.9 Sodium (136-145) mmol/L Potassium (3.5-5.1) mmol/L Chloride (98-107) mmol/L Carbon Dioxide (21.0-32.0) mmol/L Anion Gap (3-11) mmol/L BUN (7-18) mg/dL Creatinine (0.70-1.30) mg/dL Est GFR (CKD-EPI 2020) (mL/min/1.73m2) Glucose (74-106) mg/dL Calcium (8.5-10.1) mg/dL Magnesium (1.8-2.4) mg/dL Total Bilirubin (0.2-1.0) mg/dL AST (15-37) U/L ALT (16-63) U/L Alkaline Phosphatase (46-116) U/L Troponin I Cancelled Total Protein (6.4-8.2) g/dL Albumin (3.4-5.0) g/dL HPI General Mode of arrival: ambulatory. Date/Time Provider Initiated Documentation: 04/08/23 15:57. Limitations to Documentation: no limitations. Information obtained by: patient, RN notes reviewed and old records reviewed. HPI Narrative: 72-year-old male presents to the ER with a chief complaint of bright red rectal bleeding over the last 3 days. He reports that it is with the first bowel movement of the day and painful. He also reports some generalized abdominal discomfort. He is a daily drinker, does have a history of tobacco dependence, bladder cancer has a urostomy,, tongue cancer, PSVT, rectal polyp hypertension. He does take aspirin daily. He also endorses daily Tylenol. Related Data Home Medications Medication Instructions Recorded Confirmed inhalational spacing device #1 ea 11/21/19 03/08/23 (Aerochamber MV spacer) Adapt Ring 12/17/21 03/08/23 Convatec Sensicare Barrier Wipe 12/17/21 03/08/23 catheter bag 12/17/21 12/07/22 miconazole nitrate 2 % topical 1 applic topical BID PRN 12/17/21 03/08/23 powder intertrigo #85 grams ostomy supplies 1 /12/17/21 03/08/23 Hearing aids #2 ea 03/31/22 03/08/23 [employer] Medical Adhesive Remover topical 04/08/22 03/08/23 Convate Adhesive Release [place] #1 ea 04/28/22 03/08/23 Convate Night Drainage Container #1 ea 04/28/22 03/08/23 Set #[id number] [employer] Pouch #[id number] #5 ea 04/28/22 03/08/23 [employer]well Urostomy Drain Tube #2 ea 04/28/22 03/08/23 Adapter Alisha Wafer, Cera Plus #8805 #1 pkg 04/28/22 03/08/23 Alisha Wafer, Cera Plus #8805 #2 pkgs 05/02/22 03/08/23 albuterol sulfate 90 mcg/actuation See Rx Instructions .Route 08/05/22 03/08/23 aerosol inhaler .COMPLEX #25.5 grams nivolumab 40 mg/4 mL intravenous IV 08/05/22 03/08/23 solution duloxetine 60 mg capsule,delayed 60 mg PO DAILY #90 caps 09/16/22 03/08/23 release metoprolol succinate 100 mg 100 mg PO DAILY 10/29/22 03/08/23 tablet,extended release 24 hr triamcinolone acetonide 0.1 % 1 applic topical BID #30 grams 11/04/22 03/08/23 topical cream acetaminophen 650 mg 1,300 mg PO BID PRN pains #120 tabs 11/16/22 03/08/23 tablet,extended release (Tylenol Arthritis Pain) aspirin 81 mg tablet,delayed 81 mg PO DAILY #90 tabs 01/06/23 03/08/23 release atorvastatin 40 mg tablet 40 mg PO DAILY #90 tab-caps 01/06/23 01/14/23 thiamine HCl (vitamin B1) 100 mg 100 mg PO DAILY #90 tabs 01/06/23 03/08/23 tablet gabapentin 600 mg tablet See Rx Instructions .Route 03/01/23 03/08/23 .COMPLEX #150 tabs fluticasone 250 mcg-salmeterol 50 1 inh inhalation BID #60 ea 03/08/23 03/08/23 mcg/dose blistr powdr for inhalation (Advair Diskus) pantoprazole 40 mg granules 40 mg PO DAILY 14 days #30 ea 04/08/23 delayed-release for susp in packet (Protonix) Previous Rx's Medication Instructions Recorded inhalational spacing device #1 ea 11/21/19 (Aerochamber MV spacer) miconazole nitrate 2 % topical 1 applic topical BID PRN 12/17/21 powder intertrigo #85 grams Hearing aids #2 ea 03/31/22 Convatec Adhesive Release [place] #1 ea 04/28/22 Convatec Night Drainage Container #1 ea 04/28/22 Set #[id number] [employer] Pouch #[id number] #5 ea 04/28/22 Alisha Urostomy Drain Tube #2 ea 04/28/22 Adapter Alisha Wafer, Cera Plus #8805 #1 pkg 04/28/22 Alisha Wafer, Cera Plus #8805 #2 pkgs 05/02/22 albuterol sulfate 90 mcg/actuation See Rx Instructions .Route 08/05/22 aerosol inhaler .COMPLEX #25.5 grams duloxetine 60 mg capsule,delayed 60 mg PO DAILY #90 caps 09/16/22 release triamcinolone acetonide 0.1 % 1 applic topical BID #30 grams 11/04/22 topical cream acetaminophen 650 mg 1,300 mg PO BID PRN pains #120 tabs 11/16/22 tablet,extended release (Tylenol Arthritis Pain) aspirin 81 mg tablet,delayed 81 mg PO DAILY #90 tabs 01/06/23 release atorvastatin 40 mg tablet 40 mg PO DAILY #90 tab-caps 01/06/23 thiamine HCl (vitamin B1) 100 mg 100 mg PO DAILY #90 tabs 01/06/23 tablet gabapentin 600 mg tablet See Rx Instructions .Route 03/01/23 .COMPLEX #150 tabs fluticasone 250 mcg-salmeterol 50 1 inh inhalation BID #60 ea 03/08/23 mcg/dose blistr powdr for inhalation (Advair Diskus) pantoprazole 40 mg granules 40 mg PO DAILY 14 days #30 ea 04/08/23 delayed-release for susp in packet (Protonix) Allergies Allergy/AdvReac Type Severity Reaction Status Date / Time No Known Drug Allergies Allergy Verified 03/08/23 10:17 General Stated Complaint: GI Bleed HOSSEIN: 3 Review of Systems All systems reviewed & are unremarkable except as noted in HPI and below Gastrointestinal Gastrointestinal: Reports as per HPI, Reports abdominal pain, Reports hematochezia, Reports change in bowel habits, Reports excessive flatus, Denies nausea and Denies vomiting PFSH All Active Problems (Updated 04/08/23 @ 17:12 by Clementina Marie, JUSTINE) Bright red rectal bleeding (Acute) Degenerative arthritis of cervical spine (Chronic ~2020) Impacted cerumen, left ear (Acute) Impairment of speech discrimination (Acute) Prostate cancer (Chronic) Incidental finding on cystoprostatectomy spce [place] 3+3 stage T2 PSVT (paroxysmal supraventricular tachycardia) (Acute ~2018) Lightheadedness (Acute ~06/2022) Rectal polyp (Acute ~08/20/22) hyperplastic Folate deficiency (Acute) Pre-syncope (Acute ~08/2022) Metastatic urothelial carcinoma (Acute) 05/19/22 Dr Murdock, pt proceeding with treatment and F/u in 4w Bladder cancer (Acute ~04/2021) Stage 111A,node positive 10/2021: neoadjuvant chemotx 11/2021: S/P total cystectomy w/ ileal conduit 03/2022: adjuvant chemo tx Alcohol abuse (Chronic 11/29/14) Tobacco dependence syndrome (Acute 01/19/12) rolls his own 30-40 per day Central stenosis of spinal canal (Chronic) Severe central canal stenosis L2-3, L3-4 Foraminal stenosis of lumbosacral region (Chronic) (B) L2-3 through L5-S1 Radicular pain (Acute) Depressive disorder, not elsewhere classified (Chronic 01/19/12) Major depressive disorder, recurrent episode, mild [place] [facility] note Neurodermatitis (Acute 11/12/15) Hypertensive retinopathy of both eyes (Chronic) Sensorineural hearing loss, bilateral (Acute) Abnormal liver function (Acute 09/14/13) Etoh? related Lichen simplex chronicus (Acute 11/26/16) Other and unspecified hyperlipidemia (Acute 02/03/13) PCEq 20% LDL baseline 181 Medical History Alcohol use disorder, moderate, in early remission drinking again Drug induced neutropenia (~10/07/21) 10/07/21 [facility] Hem[facility]Onc Note 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 Essential hypertension (02/10/13) Heel bone fracture with ORIF, and Hx of revision History of carcinoma in situ of bladder Low back pain without sciatica (02/03/13) Lumbago (02/03/13) 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 (01/19/12) Regional wall motion abnormality of heart Supraventricular tachycardia (~11/2021) post op Syncope Tongue cancer Has had tongue resection x 2014 Per patient they took about half the tongue Verbalizes suicidal thoughts (~09/2022) Xanthoma Surgical History Cortical cataract of left eye H/O total cystectomy (~11/26/21) Cystectomy, complete with ileal conduit History of back surgery (~1988) 1988 History of colonoscopy with polypectomy (~08/20/22) History of right cataract surgery (~2012) 2012 Dr Argueta (per pt) Hx of inguinal hernia surgery (~1969) 1970 Hx of lumbosacral spine surgery x 2 per pt. date not known Nuclear sclerotic cataract of left eye Posterior subcapsular age-related cataract of left eye Status post surgical removal and fulguration of bladder neoplasm (~11/2020) 04/23/21 [place] Family History Mother , Pt reports mother of Old Age Diabetes Lung cancer Father Diabetes Stroke Sister Diabetes Brother Diabetes Social History Smoking/Tobacco Use Status: Current every day Tobacco Type: cigarettes Years smoked: 53 Tobacco: How many years used: 53 Quit status: not considering quitting Smoking risk assessment performed?: Yes Alcohol Intake: current Alcohol Intake frequency: 3 or more drinks per day Alcohol type: beer Drug use: Daily Substance use type: marijuana Adopted: No Caregiver/Support person: No Foster care: No Household members: none Housing: house Number of Children: 0 Communication Needs: Corrective Lenses Education Level: high school current occupation: disabled Current gender identity: male What is your relationship status?: How often do you talk on the phone with friends or family?: three or more times per week Panel score (0-1 are the most socially isolated patients): 1 What type of physical activity do you participate in: none Seatbelt use: always Drive intox or ride w/intox pharmacy delivery driver: No Working smoke detector in home: Yes Fire extinguisher in home: Yes Carbon monox detector in home: Yes Do you feel safe at home: Yes Do you feel safe in your relationship?: Yes Additional Social history: lives alone Exam Narrative Exam Narrative: Constitutional: Alert and oriented x3. Appears stated age. Normal body habitus. Head: Normocephalic, no trauma. Eyes: Pupils PERRL, Red reflex noted, EOM's intact. Eyelids symmetrical without lesions, discharge, or swelling. ENT: Bilateral TM's WNL, External ear normal to inspection, no mastoid TTP, swelling, or erythema, Nasal turbinates WNL, no nasal discharge. Normal dentition, Posterior pharynx WNL, no exudate. Chest: RRR, Normal S1, S2, distal pulses intact. Resp: Lungs clear to auscultation bilaterally, no wheezes, rales, or rhonchi. Abdomen: Soft, non-distended, hypoactive bowel sounds all 4 quadrants, urostomy noted periumbilical with urine that is clear appearing in the urostomy bag, abdomen is soft and nontender with palpation all 4 quadrants. Musculoskeletal: Normal gait, 5/5 strength to all four extremities. Skin: Multiple healing bruises noted, there is a lesion noted on his right anterior forearm with surrounding erythema. Capillary refill less than 2 sec. Neurologic: Cranial nerves II-XII intact. Alert and oriented x 3. Motor: No deficits noted. Sensory: Intact bilaterally all 4 extremities. Reflexes: DTR's intact bilaterally.. Hematologic/Lymphatic: No ecchymosis, no lymphadenopathy. Course Vital Signs Vital signs: Vital Signs Temperature 36.6 C 04/08/23 15:55 Pulse 72 04/08/23 15:55 Respiratory Rate 16 04/08/23 15:55 Blood Pressure 118/78 04/08/23 15:55 Pulse Oximetry 93 04/08/23 15:55 Temperature 36.6 C 04/08/23 15:55 Temperature Source Oral 04/08/23 15:55 Pulse 72 04/08/23 15:55 Respiratory Rate 16 04/08/23 15:55 Blood Pressure 118/78 04/08/23 15:55 Pulse Oximetry 93 04/08/23 15:55 Oxygen Delivery Method Room Air 04/08/23 15:55 Oxygen Flow Rate 0 04/08/23 15:55 Pain Level 2 04/08/23 15:55 Procedures Stool Hemoccult Procedural Steps Taken: stool placed in appropriate test area, developer placed on stool and control areas and controls appropriately positive and negative Hemoccult result: positive Additional Comments: Rectal exam performed, brown soft stool, no hemorrhoid noted, guaic positive
[2023-04-08] MEDS: Normal Saline-STERILE FIELD 0.9% 10 ML SYR (16:34)
[2023-04-08 16:43] LABS: Abs Immature Grans 0.04 10^3/uL (0.0-0.06); Absolute Basophil Count 0.06 10^3/uL (0.0-0.2); Absolute Eosinophil Count 0.13 10^3/uL (0.0-0.7); Absolute Lymphocyte Count 1.87 10^3/uL (1.2-3.4); Absolute Monocyte Count 0.84 10^3/uL (0.1-0.8); Basophils % 0.7; Eosinophils % 1.5; HCT 41.6 % (40.0-50.0); HGB 13.7 g/dL (13.5-17.5); Immature Grans % 0.4; Lymphocytes % 20.9; MCH 34.5 pg (27.0-33.0); MCHC 32.9 % (32.0-36.0); MCV 105 fL (80-95); MPV 10.9 fL (8.0-11.0); Monocytes % 9.4; Neutrophils % 67.1; Platelet Count 164 10^3/uL (130-400); RBC 3.97 10^6/uL (4.36-5.78); RDW 13.7 % (11.8-14.1); RDW-SD 53.2 fL; WBC 8.94 10^3/uL (4.4-10.8)
[2023-04-08 16:53] LABS: INR 0.9 (0.9-1.1); Prothrombin Time 9.5 sec (9.3-11.0)
[2023-04-08 17:03] LABS: ALT 37 U/L (16-63); AST 42 U/L (15-37); Albumin 3.2 g/dL (3.4-5.0); Alkaline Phosphatase 61 U/L (46-116); Anion Gap 7.1 mmol/L (3-11); BUN 8 mg/dL (7-18); Bilirubin, Total 0.5 mg/dL (0.2-1.0); CO2 26.9 mmol/L (21.0-32.0); CREATININE 0.8 mg/dL (0.70-1.30); Calcium 8.9 mg/dL (8.5-10.1); Chloride 104 mmol/L (98-107); Estimated GFR 95.21 (mL/min/1.73m2); Glucose 103 mg/dL (74-106); Potassium 4.1 mmol/L (3.5-5.1); Sodium 138 mmol/L (136-145)
--- NOTE | 2023-04-08 17:12 | NUR.NOTE ---
Nursing Note: PT needs follow up with general surgery in one week for rectal bleeding. Mellissa, ED
[2023-04-08 17:19] VITALS: BP 110/58; PULSE 70; RESP 18; TEMP 36.5; O2SAT 95
[2023-04-08] MEDS: Pantoprazole 40 MG TABCR PO (17:23)
== END 2023-04-08 17:37 | disposition home or self-care (01) ==
PROVIDERS: Emergency Provider Registered Nurse Emergency; PCP Nurse Practitioner Adult Health
DX: K62.5 Hemorrhage of anus and rectum (principal); R10.9 Unspecified abdominal pain
CPT/HCPCS: 36415; 80053; 99283; 83735; 84484; 85025; 85610; 99284

== ENCOUNTER → 2023-04-22 13:18 | Outpatient (BNVA) | payer OTHER, SELFPAY | PROVIDERS: PCP Nurse Practitioner Adult Health; Referring Provider Nurse Practitioner Adult Health; Visit Provider Surgery | DX: K62.5 Hemorrhage of anus and rectum (principal); K62.1 Rectal polyp; F17.210 Nicotine dependence, cigarettes, uncomplicated | CPT/HCPCS: 99213; 99215 ==

== ENCOUNTER → 2023-06-03 13:01 | Outpatient (BNVA) | payer OTHER, SELFPAY | PROVIDERS: PCP Nurse Practitioner Adult Health; Referring Provider Nurse Practitioner Adult Health; Visit Provider Surgery | DX: K62.5 Hemorrhage of anus and rectum (principal); K62.1 Rectal polyp | CPT/HCPCS: 99212; 99213 ==

== ENCOUNTER → 2023-08-10 01:07 | Outpatient (CLI) | payer OTHER, SELFPAY ==
--- NOTE | 2023-08-10 | DI.CT_ITS ---
Exam(s) CT CHEST/ABD/PEL W EXAM: CT CHEST/ABD/PEL W CLINICAL HISTORY: BLADDER CANCER C67.9 ? STATUS OF DISEASE TECHNIQUE: Imaging Protocol: Axial computed tomography images with coronal and sagittal reformatted images were created and reviewed CONTRAST MATERIAL: Intravenous: Omnipaque 350 contrast volume:100 mL Oral: Yes COMPARISON: CT CT CHEST/ABD/PEL W from 05/20/[address] CHEST LUNG CANCER SCREEN from 05/12/2022 FINDINGS: CHEST: Tracheobronchial tree: Patent where visualized. Pulmonary parenchyma: There are stable pulmonary nodules. On the left (series 5, image 305), on the r ight, (series 5, image 393). There is pulmonary fibrosis in the bases. Bilateral basilar atelectati c changes are seen. No focal consolidating infiltrates are present. Visualized thyroid gland: Unremarkable. Mediastinum and Cindy: Stable hilar lymph nodes. The esophagus is unremarkable. Pleura: No effusion or pneumothorax. Heart: Mild cardiomegaly. Three vessel coronary artery calcification and/or stents. No pericardial effusion. Pulmonary arteries: No pulmonary emboli to the segmental level. Aorta: Thoracic aorta non-dilated. Atherosclerosis. No evidence of dissection. There is heavy calci fication of the proximal left subclavian artery with near complete occlusion. Lymph nodes: No axillary adenopathy. Tubes, Catheters, and Lines: There is a right-sided port in place. Soft tissues: Unremarkable. Bones:Within normal limits for the patient's age. There are old healed bilateral rib fractures. ABDOMEN: Liver: Normal density. No measurable mass. Portal, Superior Mesenteric, and Splenic Veins: Unremarkable. Gallbladder and Biliary Tract: No radiodense calculus or dilation. Pancreas: Normal density, no abnormal calcifications or inflammatory process. Spleen: Normal. Adrenals: No masses seen. Kidneys: Normal size, contour and axis. No radiodense stones or obstructive uropathy. Two tiny densit ies in the right kidney. They are too small for further characterization. Abdominal Aorta: Abdominal portion non-dilated. Atherosclerosis. There is dense calcification of the left internal iliac artery with marked stenosis. Bowel: There is diverticulosis of the colon without evidence of diverticulitis. There is no evidence of bowel obstruction or bowel wall thickening. Appendix is unremarkable. Peritoneal Cavity: No ascites, collection or mesenteric inflammatory response. No free air. Lymph Nodes: Within normal limits. Bones: Within normal limits for the patient's age. Soft Tissues: Unremarkable. PELVIS: Bladder: Status post cystectomy. There is an ileal pouch in the right abdomen. Reproductive Organs: Status post prostatectomy. Lymph Nodes: Within normal limits. Bones: Within normal limits for the patient's age. IMPRESSION: 1. Stable appearance of the chest. Stable pulmonary nodules. 2. No evidence of abdominal pelvic metastatic disease. 3. Marked atherosclerosis with near complete occlusion of the origin of the left subclavian artery an d the left internal iliac artery. 4. Unremarkable CT scan of the chest. RADIATION DOSE DELIVERED: Total DLP DATA REPOSITORY: All CT scans at this facility are submitted to the National Radiology Data Registry (NRDR) Dose Index Registry (DIR) with the [employer] (ACR). RADIATION OPTIMIZATION: All CT scans at this facility use at least one of these dose optimization te chniques: automated exposure control; mA and/or kV adjustment per patient size (includes targeted exa ms where dose is matched to clinical indication); or iterative reconstruction.
[2023-08-10] MEDS: Barium Sulfate 2% W/V-Berry Smoothie 450 ML BTL 900 ML PO (11:35)
[2023-08-10] MEDS: Omnipaque 350 MG/ML 100 ML BTL IJ (13:30)
[2023-08-10] MEDS: Normal Saline - Diluent 50 ML VIAL IJ (13:30)
== END ==
PROVIDERS: PCP Nurse Practitioner Adult Health; Visit Provider Nurse Practitioner Family
DX: R91.8 Other nonspecific abnormal finding of lung field (principal); C67.5 Malignant neoplasm of bladder neck; I77.1 Stricture of artery
CPT/HCPCS: 74177; 71260; J3490

== ENCOUNTER 2023-08-10 01:29 | Outpatient (RCR) | payer OTHER, SELFPAY ==
[2023-08-10] MEDS: Normal Saline Flush 10 ML SYR IVP (11:25)
[2023-08-10] MEDS: Heparin 500 UNITS/5 ML SYRINGE IV (11:26)
[2023-08-10 11:44] LABS: ALT 25 U/L (16-63); AST 25 U/L (15-37); Albumin 3.2 g/dL (3.4-5.0); Alkaline Phosphatase 77 U/L (46-116); Anion Gap 7.9 mmol/L (3-11); BUN 8 mg/dL (7-18); Bilirubin, Total 0.4 mg/dL (0.2-1.0); CO2 27.1 mmol/L (21.0-32.0); Calcium 9.3 mg/dL (8.5-10.1); Chloride 104 mmol/L (98-107); Estimated GFR 80.47 (mL/min/1.73m2); Glucose 119 mg/dL (74-106); Potassium 4.3 mmol/L (3.5-5.1); Sodium 139 mmol/L (136-145); Total Protein 7.3 g/dL (6.4-8.2)
== END 2023-08-31 23:59 | disposition home or self-care (01) ==
LOC: INF 01:29
PROVIDERS: PCP Nurse Practitioner Adult Health; Visit Provider Internal Medicine
DX: C67.9 Malignant neoplasm of bladder, unspecified (principal); C61 Malignant neoplasm of prostate; C79.10 Secondary malignant neoplasm of unspecified urinary organs; Z45.2 Encounter for adjustment and management of vascular access device
CPT/HCPCS: 36591; 80053

== ENCOUNTER 2023-09-21 10:20 | Outpatient (RCR) | payer OTHER, SELFPAY ==
[2023-09-21 11:43] LABS: Abs Immature Grans 0.06 10^3/uL (0.0-0.06); Absolute Basophil Count 0.05 10^3/uL (0.0-0.2); Absolute Eosinophil Count 0.11 10^3/uL (0.0-0.7); Absolute Lymphocyte Count 1.75 10^3/uL (1.2-3.4); Absolute Neutrophil Count 6.48 10^3/uL (1.2-6.7); Basophils % 0.5; Eosinophils % 1.2; HCT 43.1 % (40.0-50.0); Immature Grans % 0.6; Lymphocytes % 18.7; MCH 33.7 pg (27.0-33.0); MCHC 32.5 % (32.0-36.0); MCV 104 fL (80-95); MPV 11.7 fL (8.0-11.0); Monocytes % 9.6; Neutrophils % 69.4; Platelet Count 154 10^3/uL (130-400); RBC 4.16 10^6/uL (4.36-5.78); RDW-SD 53.5 fL; WBC 9.35 10^3/uL (4.4-10.8)
[2023-09-21 11:58] LABS: ALT 27 U/L (16-63); AST 28 U/L (15-37); Alkaline Phosphatase 71 U/L (46-116); Anion Gap 5.9 mmol/L (3-11); BUN 13 mg/dL (7-18); Bilirubin, Total 0.4 mg/dL (0.2-1.0); CO2 25.1 mmol/L (21.0-32.0); Calcium 9.2 mg/dL (8.5-10.1); Chloride 106 mmol/L (98-107); Estimated GFR 80.47 (mL/min/1.73m2); Glucose 106 mg/dL (74-106); Potassium 4.7 mmol/L (3.5-5.1); Sodium 137 mmol/L (136-145)
[2023-09-24 13:50] LABS: PSA, Ultrasensitive <0.01 ng/mL (<= 6.5)
== END 2023-09-30 23:59 | disposition home or self-care (01) ==
LOC: INF 10:20
PROVIDERS: PCP Nurse Practitioner Adult Health; Visit Provider Internal Medicine
DX: C67.9 Malignant neoplasm of bladder, unspecified (principal); C61 Malignant neoplasm of prostate; Z79.899 Other long term (current) drug therapy
CPT/HCPCS: 80053; 84153; 85025

== ENCOUNTER 2023-11-03 04:05 | Outpatient (RCR) | payer OTHER, SELFPAY ==
[2023-11-03] MEDS: Heparin 500 UNITS/5 ML SYRINGE IV (13:12)
[2023-11-03] MEDS: Normal Saline Flush 10 ML SYR IVP (13:12)
== END 2023-12-01 23:59 | disposition home or self-care (01) ==
LOC: INF 04:05
PROVIDERS: PCP Nurse Practitioner Adult Health; Visit Provider Internal Medicine
DX: C67.9 Malignant neoplasm of bladder, unspecified (principal); C61 Malignant neoplasm of prostate; C79.10 Secondary malignant neoplasm of unspecified urinary organs; Z45.2 Encounter for adjustment and management of vascular access device
CPT/HCPCS: 96523; J1642

== ENCOUNTER 2023-11-04 15:47 | Outpatient (REF) | payer OTHER, SELFPAY ==
[2023-11-04 18:53] LABS: BUN 10 mg/dL (7-18); C-Reactive Protein 0.09 mg/dL (0.0-0.3); CREATININE 0.9 mg/dL (0.70-1.30); Calcium 9.3 mg/dL (8.5-10.1); Chloride 102 mmol/L (98-107); Estimated GFR 91.31 (mL/min/1.73m2); Glucose 115 mg/dL (74-106); Sodium 136 mmol/L (136-145)
== END 2023-11-04 15:48 | disposition home or self-care (01) ==
LOC: LBN 15:47
PROVIDERS: PCP Nurse Practitioner Adult Health; Visit Provider Nurse Practitioner Adult Health
DX: G45.3 Amaurosis fugax (principal)
CPT/HCPCS: 80048; 86140

== ENCOUNTER → 2023-11-10 01:41 | Outpatient (CLI) | payer OTHER, SELFPAY ==
--- NOTE | 2023-11-10 08:00 | DI.US_ITS ---
Exam(s) US CAROTID EXAM: US CAROTID CLINICAL HISTORY: ? OCCLUSION,AMAUROSIS FUGAX RT EYE,g45.3. TECHNIQUE: Ultrasound carotids performed using grayscale, color-flow, and spectral Doppler imaging. COMPARISON: US US CAROTID from 09/18/2019 FINDINGS: RIGHT CAROTID ARTERY: Plaque: Moderate calcific plaque is seen in the carotid bulb and proximal internal carotid artery. Velocity elevation: None. LEFT CAROTID ARTERY: Plaque: Mild to moderate calcific plaque is seen in the carotid bulb and proximal internal carotid ar kerline. Velocity elevation: None. VERTEBRAL ARTERIES: There is again seen retrograde flow in the left vertebral artery. Measurements: R Bulb: 24.5cm/s PS / 6.5cm/s ED R CCA: 37.5cm/s PS / 10.9cm/s ED R ECA: The right ECA was not visualized. No flow is seen. R ICA Prox: 56.7cm/s PS / 21.2cm/s ED R ICA Mid: 98.3cm/s PS / 28.2cm/s ED R ICA Distal: 46.3cm/s PS /15.9cm/s ED R Vert: 78.7cm/s PS / 18.2cm/s ED R SVR: 2.6 R DVR: 2.6 L Bulb: 34.4cm/s PS / 10.8cm/s ED L CCA: 52.5cm/s PS / 11.5cm/s ED L ECA: 104.5cm/s PS / 18.1cm/s ED L ICA Prox: 55.9cm/s PS / 15.5cm/s ED L ICA Mid: 51.2cm/s PS / 16.9cm/s ED L ICA Distal: 71.9cm/s PS / 23.1cm/s ED L Vert: 67.2cm/s PS / 9.2cm/s ED L SVR: 1.4 L DVR: 2 IMPRESSION: 1. No hemodynamically significant internal carotid artery stenosis. 2. Persistent retrograde flow in the left vertebral artery. 3. The right external carotid artery cannot be visualized. This may reflect occlusion. MRA or CT an giography of the neck should be considered for further evaluation. Criteria for Carotid Stenosis: Normal: ICA PSV <125 cm/s no plaque or intimal thickening is visible. <50% stenosis: ICA PSV <125 cm/s and plaque or intimal thickening is visible. 50-69% stenosis: ICA PSV is 125-250 cm/s and plaque is visible. >70% stenosis to near occlusion: ICA PSV >250 cm/s with visible plaque and luminal narrowing. DATA REPOSITORY:
== END ==
PROVIDERS: PCP Nurse Practitioner Adult Health; Visit Provider Nurse Practitioner Adult Health
DX: G45.3 Amaurosis fugax (principal)
CPT/HCPCS: 93880

== ENCOUNTER → 2023-12-08 01:19 | Outpatient (CLI) | payer OTHER, SELFPAY ==
[2023-12-08] MEDS: Normal Saline - Diluent 50 ML VIAL IJ (13:29)
[2023-12-08] MEDS: Omnipaque 350 MG/ML 500 ML BTL-Imaging package 85 ML IJ (13:30)
--- NOTE | 2023-12-08 13:55 | DI.CT_ITS ---
Exam(s) CT BRAIN NECK CTA EXAM: CT BRAIN NECK CTA CLINICAL HISTORY: PAD,AMAUROSIS FUGAS, G45.3,I73.9,US INDETERMINATE ON RT CAROTID. TECHNIQUE: Imaging Protocol: Axial CT angiography was performed with multi-slice acquisition and mu lti-planar and/or 3D reconstructions. CONTRAST MATERIAL: Intravenous: Omnipaque 350 Contrast volume:structured data in ml COMPARISON: CT CT CHEST/ABD/PEL W from 08/10/2023 FINDINGS: CTA Neck W: Aortic arch anatomy: The aortic arch anatomy is conventional. There is no stenosis at the origin of the brachiocephalic and left common carotid arteries off the aortic arch. However, there is heavily calcified plaque at the origin of the left subclavian artery and this vessel is occluded just beyond its origin and proximal to the takeoff point of the left vertebral artery. However, there is opacifi cation of the entire left vertebral artery which exhibits normal luminal diameter as it is sends in t he foramen transverse area and contributes to the formation of the basilar artery at the skull base. Anterior circulation: Both common carotid arteries ascend with normal luminal diameters. There is calcified plaque at the carotid bulbs and proximal internal carotid arteries. Estimated at 60 percent stenosis on the right side and 20 percent stenosis on the left side The internal carotid arteries above this level in the upper neck are patent and are also demonstrated to be patent in the skull base-carotid canals. Posterior circulation: Both vertebral arteries originated conventional fashion off the subclavian arteries. Both vertebral arteries exhibit normal luminal diameters within the foramen transversarium. However, as described above the left subclavian artery is occluded proximal to the takeoff point of the left vertebral artery. This may be causing subclavian steal syndrome and the direction of flow in left ve rtebral artery cannot be assumed to be antegrade. Both vertebral arteries contribute to the formation of the basilar artery at the skull base. CTA Brain W: Anterior circulation: Both internal carotid arteries are patent in the skull base-carotid canals as well as within the cave rnous sinuses. Both ophthalmic arteries are opacified and originated conventional fashion off the in tra cavernous internal carotid arteries. The supraclinoid aspects of the ICAs are patent. Both A1 segments are patent as are the anterior cer ebral arteries and there is no evidence of aneurysm at the level of the anterior communicating artery . Both middle cerebral arteries are patent with no evidence of significant stenosis nor intraluminal th rombus. There also no aneurysms of these vessels. Posterior circulation: The basilar artery ascends with normal luminal diameter. Distally gives off superior cerebellar angella kana. And above this level terminates as patent bilateral posterior cerebral arteries. There is a p osterior communicating artery noted on the right side of the [id number]-cc-Dubnsu. There is no evidence of aneurysm at the tip of the basilar artery nor elsewhere in the [id number]-[id number]-Ryub is. CT BRAIN: There is no evidence of intracranial hemorrhage, mass effect, or shift of midline structures. There are no extra-axial fluid collections. Ventricles are not enlarged or shifted. There are no ring enh ancing lesions in the brain and no abnormal meningeal enhancement. There is a lacunar infarct in the right caudate nucleus measuring 4 by 5 mm.. There is moderate amount of bilateral periventricular h ypodensity consistent with chronic small vessel disease. IMPRESSION: 1. There is calcified plaque at the level the carotid bifurcations and proximal ICAs bilaterally. Th ere appears to be approximately 60 percent stenosis on the right side at this level and [address] enosis on the left side. 2. Although both vertebral arteries are patent, there is occlusion of the left subclavian artery just beyond its takeoff point off the distal aortic arch and proximal to the takeoff point of the left grigsby bclavian artery. Therefore there may be subclavian steal syndrome here and the flow direction of blo od in the left vertebral artery may be variable and possibly retrograde, particularly if the left arm is being utilized. Correlation with any clinical/neurologic findings of subclavian steal syndrome r ecommended. 3. Patent intracranial arteries. No high-grade stenosis nor occlusion. No aneurysm seen. 4. Small lacunar infarct noted in the right caudate nucleus measuring approximately 5 by 4 mm size. No hemorrhage. 5. No ring enhancing lesions in the brain and no abnormal meningeal enhancement. 6. RADIATION DOSE DELIVERED: 2,421.9mGy.cm Total DLP DATA REPOSITORY: All CT scans at this facility are submitted to the National Radiology Data Registry (NRDR) Dose Index Registry (DIR) with the [employer] (ACR). RADIATION OPTIMIZATION: All CT scans at this facility use at least one of these dose optimization te chniques: automated exposure control; mA and/or kV adjustment per patient size (includes targeted exa ms where dose is matched to clinical indication); or iterative reconstruction.
== END ==
PROVIDERS: PCP Nurse Practitioner Adult Health; Visit Provider Nurse Practitioner Adult Health
DX: I65.23 Occlusion and stenosis of bilateral carotid arteries
CPT/HCPCS: 70496; 70498

== ENCOUNTER 2023-12-08 02:24 | Outpatient (RCR) | payer OTHER, SELFPAY ==
[2023-12-08] MEDS: Normal Saline Flush 10 ML SYR IVP (12:47)
== END 2023-12-30 23:59 | disposition home or self-care (01) ==
LOC: INF 02:24
PROVIDERS: PCP Nurse Practitioner Adult Health; Visit Provider Internal Medicine
DX: C67.9 Malignant neoplasm of bladder, unspecified (principal); C61 Malignant neoplasm of prostate; Z45.2 Encounter for adjustment and management of vascular access device
CPT/HCPCS: 96523

== ENCOUNTER 2024-03-21 04:57 | Outpatient (RCR) | payer OTHER, SELFPAY ==
[2024-03-21] MEDS: Normal Saline Flush 10 ML SYR IVP (10:39)
[2024-03-21 10:51] LABS: Abs Immature Grans 0.03 10^3/uL (0.0-0.06); Absolute Basophil Count 0.09 10^3/uL (0.0-0.2); Absolute Eosinophil Count 0.17 10^3/uL (0.0-0.7); Absolute Lymphocyte Count 2.42 10^3/uL (1.2-3.4); Absolute Monocyte Count 0.96 10^3/uL (0.1-0.8); Absolute Neutrophil Count 5.99 10^3/uL (1.2-6.7); Basophils % 0.9 %; Eosinophils % 1.8 %; HCT 46.4 % (40.0-50.0); HGB 15.1 g/dL (13.5-17.5); Immature Grans % 0.3 %; Lymphocytes % 25.1 %; MCH 34.2 pg (27.0-33.0); MCHC 32.5 % (32.0-36.0); MCV 105 fL (80-95); MPV 11.1 fL (8.0-11.0); Monocytes % 9.9 %; Platelet Count 194 10^3/uL (130-400); RBC 4.41 10^6/uL (4.36-5.78); RDW 13.2 % (11.8-14.1); RDW-SD 51.7 fL; WBC 9.66 10^3/uL (4.4-10.8)
[2024-03-21 10:59] LABS: Diff Comment RBC Morph Reviewed
[2024-03-21 11:02] LABS: Macrocytosis 1+
[2024-03-21 11:05] LABS: ALT 28 U/L (16-63); AST 26 U/L (15-37); Albumin 3.6 g/dL (3.4-5.0); Alkaline Phosphatase 69 U/L (46-116); Anion Gap 10.9 mmol/L (3-11); BUN 7 mg/dL (7-18); Bilirubin, Total 0.9 mg/dL (0.2-1.0); CO2 27.1 mmol/L (21.0-32.0); Calcium 9.5 mg/dL (8.5-10.1); Chloride 104 mmol/L (98-107); Estimated GFR 80.47 (mL/min/1.73m2); Glucose 103 mg/dL (74-106); Sodium 142 mmol/L (136-145); Total Protein 7.6 g/dL (6.4-8.2)
[2024-03-21 11:20] LABS: Calculated LDL 67 mg/dL (<100); Cholesterol 145 mg/dL (<200); Folate 5.6 ng/mL (8.6-20.0); HDL Cholesterol 47 mg/dL (40-60); Triglyceride 158 mg/dL (<150)
[2024-03-22] MEDS: Normal Saline Flush 10 ML SYR IVP (15:10)
[2024-03-23 12:48] LABS: PSA, Ultrasensitive <0.01 ng/mL (<= 6.5)
== END 2024-03-31 23:59 | disposition home or self-care (01) ==
LOC: INF 04:57
PROVIDERS: Nurse Practitioner; PCP Nurse Practitioner Adult Health; Visit Provider Internal Medicine
DX: C67.9 Malignant neoplasm of bladder, unspecified (principal); Z79.899 Other long term (current) drug therapy; Z45.2 Encounter for adjustment and management of vascular access device; E78.5 Hyperlipidemia, unspecified; E53.8 Deficiency of other specified B group vitamins
CPT/HCPCS: 36591; 80053; 80061; 84153; 96523; 82746; 85025

== ENCOUNTER → 2024-03-22 04:16 | Outpatient (CLI) | payer OTHER, SELFPAY ==
--- NOTE | 2024-03-22 | DI.CT_ITS ---
Exam(s) CT CHEST/ABD/PEL W EXAM: CT CHEST/ABD/PEL W CLINICAL HISTORY: C67.9 CA of urinary bladder, HX muscle invasive Bladder CA; Surveillance. TECHNIQUE: Imaging Protocol: Axial computed tomography images with coronal and sagittal reformatted images were created and reviewed CONTRAST MATERIAL: Intravenous: Omnipaque 350 Contrast volume:100 ml Oral: Yes. Oral contrast was also administered for bowel opacification. COMPARISON: CT CT CHEST/ABD/PEL W from 08/10/[address] BRAIN NECK CTA from 12/08/2023 FINDINGS: CHEST: LUNGS: Small 3 millimeter nodule in the right middle lobe is unchanged. However, there is a new nodu le in the right lower lobe which measures 8 by 6 mm now evident.. No additional new right lung findi ngs nor pleural effusion. In the opposite-left lung there are no new significant focal findings. No new nodules and no pleural effusion. There are no findings in the trachea and mainstem bronchi. MEDIASTINUM: There is no hilar nor mediastinal adenopathy. Partially included thyroid gland appears unremarkable. CARDIAC: Heart size is normal. There is no pericardial effusion.There is enlargement of the ascendin g thoracic aorta which exhibits diameter 4.1 cm. No dissection. The diameter of the aortic arch and descending thoracic aorta are upper normal. There is again noted significant atherosclerotic narrow ing of the proximal left subclavian artery with critical stenosis at this level, this being proximal to the takeoff point of the left vertebral artery. This may result in subclavian steal syndrome. No significant stenosis at the takeoff points of the other great vessels off of the aortic arch. OSSEOUS: No significant osseous lesions.No acute fractures.. Healed fractures of the posterior aspec t of the left 9th rib and right 8th rib noted. ABDOMEN: There is no ascites. LIVER: There are no significant focal hepatic lesions nor dilatation of intrahepatic ducts. GALLBLADDER/BILIARY: No obvious gallbladder pathology. CBD is not dilated. PANCREAS: No evidence of pancreatic mass nor dilatation of the pancreatic duct. SPLEEN: Spleen is not enlarged. There are no intrasplenic lesions. Splenic and portal veins are lovell nt. ADRENALS: Calcification in the medial limb of the right adrenal gland is again noted. There are no a drenal masses. KIDNEYS: No new calculi nor hydronephrosis. No solid renal masses. No hydronephrosis. Again noted is evidence of cystectomy and ileal loop diversion. Nodes significantly dilated ureters. ABDOMINAL AORTA: Calcified but not enlarged. Iliac arteries also calcified but not enlarged. LYMPH NODES: There is no retroperitoneal nor paraaortic adenopathy. ABDOMINAL WALL/GI: Right inguinal hernia noted. Small part of a non compromise appearing small bowel loop is noted at the right inguinal ring level. This is not edematous and there is no transition po int at this level. No evidence of bowel obstruction. PELVIS: LYMPH NODES: There is no intrapelvic nor inguinal adenopathy. GI: No evidence of appendicitis.Diverticula seen in the left side of the colon and sigmoid but no pancho dence of acute diverticulitis. URINARY BLADDER: Surgically absent. See above. REPRODUCTIVE: Prostate also surgically absent. OSSEOUS: No fractures. No significant osseous lesions. IMPRESSION: 1. There is a new 8 x 6 mm noncalcified nodule in the right lower lobe. First consideration is for m etastatic disease, given the history here. No other pulmonary findings nor pleural effusions. 2. Critical stenosis again noted in the proximal left subclavian artery, this proximal to the takeoff point of the left vertebral artery. This can result in subclavian steal syndrome. 3. Again noted is evidence of prior radical cystectomy/prostatectomy with creation of ileal diversion loop which appears satisfactory without evidence of obstruction of either urinary tract. Both kidne ys appear unremarkable. 4. Small right inguinal hernia. A small bowel loop is at the right inguinal ring level but is not ed ematous and there is no evidence of bowel obstruction. 5. No new significant osseous findings. Healed bilateral rib fractures noted. RADIATION DOSE DELIVERED: 1,867.02mGy.cm Total DLP DATA REPOSITORY: All CT scans at this facility are submitted to the National Radiology Data Registry (NRDR) Dose Index Registry (DIR) with the [employer] (ACR). RADIATION OPTIMIZATION: All CT scans at this facility use at least one of these dose optimization te chniques: automated exposure control; mA and/or kV adjustment per patient size (includes targeted exa ms where dose is matched to clinical indication); or iterative reconstruction.
[2024-03-22] MEDS: Barium Sulfate 2% W/V-Berry Smoothie 450 ML BTL PO ×2 (12:45→12:46)
[2024-03-22] MEDS: Omnipaque 350 MG/ML 100 ML BTL IJ (14:50)
[2024-03-22] MEDS: Normal Saline - Diluent 50 ML VIAL IJ (14:51)
== END ==
PROVIDERS: PCP Nurse Practitioner Adult Health; Visit Provider Nurse Practitioner
DX: R91.8 Other nonspecific abnormal finding of lung field (principal); C67.9 Malignant neoplasm of bladder, unspecified
CPT/HCPCS: 74177; 71260; J3490

== ENCOUNTER 2024-05-29 02:36 | Outpatient (CLI) | payer OTHER, SELFPAY ==
[2024-05-29 13:01] LABS: ESR 17 mm/hr (0-20)
[2024-05-29 13:50] LABS: C-Reactive Protein < 0.50 mg/dL (<or=0.5)
== END 2024-05-29 02:37 | disposition home or self-care (01) ==
LOC: LBO 02:37
PROVIDERS: PCP Nurse Practitioner Adult Health; Referring Provider Nurse Practitioner Adult Health; Visit Provider Nurse Practitioner Adult Health
DX: G45.3 Amaurosis fugax (principal)
CPT/HCPCS: 36415; 85652; 86140

== ENCOUNTER → 2024-06-01 08:38 | Outpatient (BNVA) | payer OTHER, SELFPAY | PROVIDERS: PCP Nurse Practitioner Adult Health; Visit Provider Psychiatry & Neurology Neurology | DX: R26.89 Other abnormalities of gait and mobility (principal); G62.9 Polyneuropathy, unspecified; I95.1 Orthostatic hypotension; M48.07 Spinal stenosis, lumbosacral region; F10.20 Alcohol dependence, uncomplicated; R41.3 Other amnesia; G43.109 Migraine with aura, not intractable, without status migrainosus | CPT/HCPCS: 99215; G2212 ==

== ENCOUNTER 2024-06-21 17:32 | Outpatient (REF) | payer OTHER, SELFPAY ==
[2024-06-21 20:37] LABS: Abs Immature Grans 0.04 10^3/uL (0.0-0.06); Absolute Basophil Count 0.07 10^3/uL (0.0-0.2); Absolute Eosinophil Count 0.07 10^3/uL (0.0-0.7); Absolute Monocyte Count 1.09 10^3/uL (0.1-0.8); Absolute Neutrophil Count 7.98 10^3/uL (1.2-6.7); Basophils % 0.6 %; Eosinophils % 0.6 %; HCT 44.2 % (40.0-50.0); HGB 14.5 g/dL (13.5-17.5); Immature Grans % 0.4 %; Lymphocytes % 18.6 %; MCH 33.6 pg (27.0-33.0); MCHC 32.8 % (32.0-36.0); MCV 103 fL (80-95); MPV 11.9 fL (8.0-11.0); Monocytes % 9.6 %; Neutrophils % 70.2 %; Platelet Count 219 10^3/uL (130-400); RBC 4.31 10^6/uL (4.36-5.78); RDW 13.2 % (11.8-14.1); RDW-SD 50.3 fL; WBC 11.37 10^3/uL (4.4-10.8)
[2024-06-21 20:41] LABS: Absolute Lymphocyte Count 2.11 10^3/uL (1.2-3.4); ESR 36 mm/hr (0-20)
[2024-06-21 20:49] LABS: C-Reactive Protein 1.28 mg/dL (<or=0.5)
== END 2024-06-21 17:33 | disposition home or self-care (01) ==
LOC: LBN 17:32
PROVIDERS: PCP Nurse Practitioner Adult Health; Visit Provider Nurse Practitioner Adult Health
DX: L97.529 Non-pressure chronic ulcer of other part of left foot with unspecified severity (principal)
CPT/HCPCS: 85652; 85025; 86140

== ENCOUNTER → 2024-06-27 08:32 | Outpatient (BNVA) | payer OTHER, SELFPAY | PROVIDERS: PCP Nurse Practitioner Adult Health; Referring Provider Nurse Practitioner Adult Health; Visit Provider Podiatrist | DX: Z51.89 Encounter for other specified aftercare (principal); I96 Gangrene, not elsewhere classified; I70.222 Atherosclerosis of native arteries of extremities with rest pain, left leg; L03.116 Cellulitis of left lower limb | CPT/HCPCS: 99214 ==

== ENCOUNTER 2024-06-27 09:10 | Inpatient (IN) | payer OTHER, SELFPAY ==
[2024-06-27 09:26] VITALS: BP 114/63; PULSE 65; RESP 16; TEMP 36.8; O2SAT 94
--- NOTE | 2024-06-27 09:51 | W.ED.GENAD ---
Discharge Plan Disposition Patient Disposition: Admit to [facility] Condition: Stable Discharge Details Clinical Impression: Gangrene of toe of left foot Admit Date/Time: 06/27/24 11:59 Admit Provider: Trevor Henry Attending Provider: Trevor Henry Primary Care Provider: Celia Gresham ED Provider: Clementina Marie Discharge Data Discharge Date/Time-TO BE ENTERED AT DEPARTURE: 06/27/24 12:24 HPI General Mode of arrival: ambulatory. Date/Time Provider Initiated Documentation: 06/27/24 09:26. Limitations to Documentation: no limitations. Information obtained by: patient, RN/MD, RN notes reviewed and old records reviewed. HPI Narrative: 74 year old male presents to the ER with cc of left 5th toe wound, and turning black which he noticed 4 or 5 weeks ago. Sent here from podiatry office for labs and specialist consultation. He reports some tenderness. Denies any fever or chills, he is a daily smoker endorses Marijuana, He has been taking Bactrim x 3 days. He does have an Urostomy, Hx of HTN, SVT, Bladder CA, Tongue CA, Lumbago, Hx of trauma to left foot and ankle, Inguinal hernia repair. Related Data Home Medications ?Medication ?Instructions ?Recorded ?Confirmed inhalational spacing device #1 ea 11/21/19 06/27/24 (Aerochamber MV spacer) Adapt Ring 12/17/21 06/27/24 Convatec Sensicare Barrier Wipe 12/17/21 06/27/24 catheter bag 12/17/21 06/27/24 ostomy supplies 1 11/0412/17/21 06/27/24 Hearing aids #2 ea 03/31/22 06/27/24 Alisha Medical Adhesive Remover topical 04/08/22 06/27/24 Convatec Adhesive Release [place] #1 ea 04/28/22 06/27/24 Convatec Night Drainage Container #1 ea 04/28/22 06/27/24 Set #[id number] [place] Urostomy Drain Tube #2 ea 04/28/22 06/27/24 Adapter Alisha Wafer, Cera Plus #[id number] #1 pkg 04/28/22 06/27/24 Alisha Wafer, Cera Plus #[id number] #2 pkgs 05/02/22 06/27/24 nivolumab 40 mg/4 mL intravenous IV 08/05/22 06/27/24 solution albuterol sulfate 90 mcg/actuation See Rx Instructions .Route 08/09/23 06/27/24 aerosol inhaler .COMPLEX #25.5 grams duloxetine 60 mg capsule,delayed See Rx Instructions .Route 08/23/23 06/27/24 release .COMPLEX #90 caps acetaminophen 650 mg See Rx Instructions .Route 10/27/23 06/27/24 tablet,extended release .COMPLEX #120 tabs thiamine HCl (vitamin B1) 100 mg See Rx Instructions .Route 01/06/24 06/27/24 tablet .COMPLEX #90 tabs fluticasone 250 mcg-salmeterol 50 1 inh inhalation BID #60 ea 01/10/24 06/27/24 mcg/dose blistr powdr for inhalation (Advair Diskus) folic acid 1 mg tablet 1 mg PO DAILY #90 tabs 01/10/24 06/27/24 gabapentin 600 mg tablet See Rx Instructions .Route 01/12/24 06/27/24 .COMPLEX #90 tabs atorvastatin 40 mg tablet See Rx Instructions .Route 02/16/24 06/27/24 .COMPLEX #90 tabs [place] [employer] Pouch #[id number] #5 ea 05/17/24 06/27/24 magnesium oxide 400 mg PO DAILY #90 tabs 06/01/24 06/27/24 mecobalamin (vitamin B12) 1,000 1,000 mcg PO DAILY #90 tabs 06/01/24 06/27/24 mcg chewable tablet (B12 Active) sulfamethoxazole 800 1 tab PO BID #20 tabs 06/21/24 06/27/24 mg-trimethoprim 160 mg tablet (Bactrim DS) metoprolol succinate 100 mg 100 mg PO DAILY 06/27/24 06/27/24 tablet,extended release 24 hr Previous Rx's ?Medication ?Instructions ?Recorded inhalational spacing device #1 ea 11/21/19 (Aerochamber MV spacer) Hearing aids #2 ea 03/31/22 Convatec Adhesive Release [place] #1 ea 04/28/22 Convatec Night Drainage Container #1 ea 04/28/22 Set #[id number] Alisha Urostomy Drain Tube #2 ea 04/28/22 Adapter [place] Wafer, Cera Plus #[id number] #1 pkg 04/28/22 Alisha Wafer, Cera Plus #[id number] #2 pkgs 05/02/22 albuterol sulfate 90 mcg/actuation See Rx Instructions .Route 08/09/23 aerosol inhaler .COMPLEX #25.5 grams duloxetine 60 mg capsule,delayed See Rx Instructions .Route 08/23/23 release .COMPLEX #90 caps acetaminophen 650 mg See Rx Instructions .Route 10/27/23 tablet,extended release .COMPLEX #120 tabs thiamine HCl (vitamin B1) 100 mg See Rx Instructions .Route 01/06/24 tablet .COMPLEX #90 tabs fluticasone 250 mcg-salmeterol 50 1 inh inhalation BID #60 ea 01/10/24 mcg/dose blistr powdr for inhalation (Advair Diskus) folic acid 1 mg tablet 1 mg PO DAILY #90 tabs 01/10/24 gabapentin 600 mg tablet See Rx Instructions .Route 01/12/24 .COMPLEX #90 tabs atorvastatin 40 mg tablet See Rx Instructions .Route 02/16/24 .COMPLEX #90 tabs [employer] Pouch #[id number] #5 ea 05/17/24 magnesium oxide 400 mg PO DAILY #90 tabs 06/01/24 mecobalamin (vitamin B12) 1,000 1,000 mcg PO DAILY #90 tabs 06/01/24 mcg chewable tablet (B12 Active) sulfamethoxazole 800 1 tab PO BID #20 tabs 06/21/24 mg-trimethoprim 160 mg tablet (Bactrim DS) Allergies Allergy/AdvReac Type Severity Reaction Status Date / Time aspirin AdvReac Intermediate GI Bleeding Verified 06/27/24 09:30 General Stated Complaint: Cellulitis HOSSEIN: 3 Review of Systems All systems reviewed & are unremarkable except as noted in HPI and below Integumentary/Breasts Skin/Breast: Reports as per HPI, Reports skin swelling, Reports skin ulcer and Reports wounds Exam Narrative Exam Narrative: Constitutional: Alert and oriented x3. Appears stated age. Normal body habitus. Head: Normocephalic, no trauma. Eyes: Pupils PERRL, Red reflex noted, EOM's intact. Eyelids symmetrical without lesions, discharge, or swelling. ENT: Bilateral TM's WNL, External ear normal to inspection, no mastoid TTP, swelling, or erythema, Nasal turbinates WNL, no nasal discharge. Normal dentition, Posterior pharynx WNL, no exudate. Chest: RRR, Normal S1, S2, distal pulses intact. Resp: Lungs clear to auscultation bilaterally, no wheezes, rales, or rhonchi. Abdomen: Soft, non-distended, Normoactive bowel sounds all 4 quads. Musculoskeletal: Normal gait, Moves all 4 extremities without difficulty. Skin: Left little toe appears black, eschar tissue unable to fully classify the extent of the wound. Capillary refill less than 2 sec. Neurologic: Cranial nerves II-XII intact. Alert and oriented x 3. Motor: No deficits noted. Sensory: Intact bilaterally all 4 extremities. Hematologic/Lymphatic: No ecchymosis, no lymphadenopathy. Extrem Left lower extremity: foot Ankle/foot/toe images: 1. Black digit, Course Vital Signs Vital signs: Vital Signs Temperature 36.8 C 06/27/24 09:26 Pulse 65 06/27/24 09:26 Respiratory Rate 16 06/27/24 09:26 Blood Pressure 114/63 06/27/24 09:26 Pulse Oximetry 94 06/27/24 09:26 Temperature 36.8 C 06/27/24 09:26 Temperature Source Temporal Artery Scan 06/27/24 09:26 Pulse 65 06/27/24 09:26 Respiratory Rate 16 06/27/24 09:26 Blood Pressure 114/63 06/27/24 09:26 Blood Pressure Position Sitting 06/27/24 09:26 Pulse Oximetry 94 06/27/24 09:26 Oxygen Delivery Method Room Air 06/27/24 09:26 Oxygen Flow Rate 0 06/27/24 09:26 Lab/Test Results Lab/Test Results: 06/27/24 09:30 Blood Blood Culture - Pending 06/27/24 09:30 Blood Blood Culture - Pending Medical Decision Making 74 year old male presents to the ER with cc of left 5th toe wound, and turning black which he noticed 4 or 5 weeks ago. Sent here from podiatry office for labs and specialist consultation. He reports some tenderness. Denies any fever or chills, he is a daily smoker endorses Marijuana, He has been taking Bactrim x 3 days. He does have an Urostomy, Hx of HTN, SVT, Bladder CA, Tongue CA, Lumbago, Hx of trauma to left foot and ankle, Inguinal hernia repair. Workup ordered including CBC, CMP, Blood cultures x2, ESR and CRP. Xray of left foot ordered. 1051: [facility] Transfer center called to consult with Vascular surgery, they will call back. 1125: Spoke with Dr. Mnedez at [facility] vascular MD. Who accepts patient for transfer however she does recommend admission here with IV antibiotics at capacity at this time. Will page hospitalist. 1139: Spoke with Dr. Henry who agrees to accept patient for admission, pending [facility] bed availability. Discussed plan of care with patient who verbalized understanding and is in agreement with the plan. Remained hemodynamically stable throughout the remainder of his stay. This text was generated using [employer] system, please disregard any oddities of phrase or misspellings. Medical Records Medical records reviewed: Yes I reviewed the patient's medical records. Imaging Data Radiologic Study: Imaging: X-Ray Radiologist's impression: EXAM: XR FOOT LT COMPLETE CLINICAL HISTORY: R/O Subcutaneous air. TECHNIQUE: 2D digital imaging was performed. COMPARISON: CR LEFT FOOT LIMITED from 10/29/2009 FINDINGS: 3 views There is no evidence of acute fracture nor diastasis of the Lisfranc joint. Great toe metatarsophalangeal joint appears unremarkable. Some vascular calcifications noted on the dorsal aspect of the foot. The hindfoot exhibits similar appearance in 2008 with evidence of prior probable fracture of the calcaneus with height loss but appearing unchanged and there is partial fusion across the subtalar joint. On the undersurface of the foot there is some calcification in the plantar fascia. IMPRESSION: Findings as above but with minimal change from October 2009. Lab Data Lab results reviewed: Yes I reviewed the patient's lab results. Labs: 06/27/24 10:41 Blood Blood Culture - Pending 06/27/24 09:47 Blood Blood Culture - Pending Laboratory Tests Range/Units 06/27/24 09:47 WBC (4.4-10.8) 10^3/uL 9.40 RBC (4.36-5.78) 10^6/uL 4.44 Hgb (13.5-17.5) g/dL 14.9 Hct (40.0-50.0) % 46.4 MCV (80-95) fL 105 H MCH (27.0-33.0) pg 33.6 H MCHC (32.0-36.0) % 32.1 RDW (11.8-14.1) % 13.2 Plt Count (130-400) 10^3/uL 270 MPV (8.0-11.0) fL 10.4 Immature Gran % % 0.4 Neutrophils % % 67.9 Lymphocytes % % 19.6 Monocytes % % 9.8 Eosinophils % % 1.7 Basophils % % 0.6 Nucleated RBC % (0.0-0.3) % 0.0 Absolute Neutrophils (1.2-6.7) 10^3/uL 6.38 Absolute Lymphocytes (1.2-3.4) 10^3/uL 1.84 Absolute Monocytes (0.1-0.8) 10^3/uL 0.92 H Absolute Eosinophils (0.0-0.7) 10^3/uL 0.16 Absolute Basophils (0.0-0.2) 10^3/uL 0.06 ESR (0-20) mm/hr 44 H Sodium (136-145) mmol/L 140 Potassium (3.5-5.1) mmol/L 4.3 Chloride (98-107) mmol/L 104 Carbon Dioxide (21.0-32.0) mmol/L 28.0 Anion Gap (3-11) mmol/L 8.0 BUN (7-18) mg/dL 8 Creatinine (0.70-1.30) mg/dL 1.1 Est GFR (CKD-EPI 2020) (mL/min/1.73m2) 71.32 Glucose (74-106) mg/dL 104 Calcium (8.5-10.1) mg/dL 9.3 Magnesium (1.8-2.4) mg/dL 2.0 Total Bilirubin (0.2-1.0) mg/dL 0.29 AST (15-37) U/L 22 ALT (16-63) U/L 18 Alkaline Phosphatase (46-116) U/L 96 C-Reactive Protein (<or=0.5) mg/dL 1.94 H Total Protein (6.4-8.2) g/dL 7.7 Albumin (3.4-5.0) g/dL 2.9 L Quality:SDOH Health Related Social Needs: No Data to Display PFSH All Active Problems Nicotine dependence (Acute) Alcohol withdrawal (Acute) DVT (deep venous thrombosis) (Chronic) Gangrene of toe of left foot (Acute) Cellulitis (Acute) Critical limb ischemia of left lower extremity (Acute) Gangrene of left foot (Acute) Ocular migraine (Acute) Memory deficit (Acute) Alcoholism (Acute) Peripheral neuropathy (Acute) Orthostatic hypotension (Acute) Imbalance (Acute) Hyperglycemia (Acute) Carotid artery stenosis (Acute) Subclavian arterial stenosis (Acute ~12/2023) RIGHT [facility] Vascular Surgery 02/23/24 Impacted cerumen, bilateral (Acute) Stenosis of both vertebral arteries (Acute ~12/2023) Left subclavian artery occlusion (Acute ~12/2023) Amaurosis fugax of right eye (Acute ~11/2023) PAD (peripheral artery disease) (Acute ~08/2023) CT Degenerative arthritis of cervical spine (Chronic ~2020) Impairment of speech discrimination (Acute) Prostate cancer (Chronic) Incidental finding on cystoprostatectomy spce Doris 3+3 stage T2 PSVT (paroxysmal supraventricular tachycardia) (Acute ~2018) Rectal polyp (Acute ~08/20/22) hyperplastic Folate deficiency (Acute) Metastatic urothelial carcinoma (Acute ~2021) 05/19/22 Dr Murdock, pt proceeding with treatment and F/u in 4w Bladder cancer (Acute ~04/2021) Stage 111A,node positive 10/2021: neoadjuvant chemotx 11/2021: S/P total cystectomy w/ ileal conduit 03/2022: adjuvant chemo tx Alcohol abuse (Chronic 11/29/14) Tobacco dependence syndrome (Acute 01/19/12) rolls his own 30-40 per day Central stenosis of spinal canal (Chronic ~2018) Severe central canal stenosis L2-3, L3-4 Foraminal stenosis of lumbosacral region (Chronic) (B) L2-3 through L5-S1 Radicular pain (Acute) Depressive disorder, not elsewhere classified (Chronic 01/19/12) Major depressive disorder, recurrent episode, mild per [facility] Hem Onc 09/16/21 note Neurodermatitis (Acute 11/12/15) Hypertensive retinopathy of both eyes (Chronic) Sensorineural hearing loss, bilateral (Acute) Abnormal liver function (Acute 09/14/13) Etoh? 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 Tongue cancer Has had tongue resection x 2015 Per patient they took about half the tongue Regional wall motion abnormality of heart Syncope 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 (01/19/12) Low back pain without sciatica (02/03/13) Lumbago (02/03/13) Essential hypertension (02/10/13) Surgical History History of urostomy (~2021) History of colonoscopy with polypectomy (~08/20/22) H/O total cystectomy (~11/26/21) Cystectomy, complete with ileal conduit Status post surgical removal and fulguration of bladder neoplasm (~11/2020) 04/23/21 TURBT [facility] Posterior subcapsular age-related cataract of left eye Nuclear sclerotic cataract of left eye Cortical cataract of left eye Hx of lumbosacral spine surgery x 2 per pt. date not known Hx of inguinal hernia surgery (~1969) 1969 History of right cataract surgery (~2012) 2012 Dr Argueta (per pt) History of back surgery (~1988) 1988 Family History Mother , Pt reports mother of Old Age Diabetes Lung cancer Father Diabetes Stroke Sister Diabetes Brother Diabetes Social History Smoking/Tobacco Use Status: Current every day Tobacco Type: cigarettes Years smoked: 53 Tobacco: How many years used: 53 Quit status: not considering quitting Counseling given: counseling >3 minutes (pre-contemplative) Smoking risk assessment performed?: Yes Alcohol Intake: current Alcohol Intake frequency: 3 or more drinks per day Alcohol type: beer Drug use: Daily Substance use type: marijuana Details: patient stated he drink eight 16oz beers a day BrodieRN 06/24/24 Adopted: No Caregiver/Support person: No Foster care: No Household members: none Housing: house Number of Children: 0 Communication Needs: Corrective Lenses Education Level: high school Do you need help understanding health information?: Always current occupation: disabled Pets and animals: Yes Pets and animals: cat(s) Sexually active: No Do you think of yourself as: straight/heterosexual Current gender identity: male What is your relationship status?: How often do you talk on the phone with friends or family?: once per week How often do you get together with friends or relatives?: once per week Do you belong to any clubs or organized social groups?: no Panel score (0-1 are the most socially isolated patients): 0 What type of physical activity do you participate in: other Details: Stationary Bike Duration: < 15 minutes/day Frequency: 1-2 times per week Seatbelt use: always Helmet use: No (No need for it) Drive intox or ride w/intox tier truck driver: No Working smoke detector in home: Yes Fire extinguisher in home: Yes Carbon monox detector in home: Yes Do you feel safe at home: Yes Do you feel safe in your relationship?: Yes Additional Social history: lives alone
[2024-06-27 09:56] LABS: Abs Immature Grans 0.04 10^3/uL (0.0-0.06); Absolute Basophil Count 0.06 10^3/uL (0.0-0.2); Absolute Eosinophil Count 0.16 10^3/uL (0.0-0.7); Absolute Lymphocyte Count 1.84 10^3/uL (1.2-3.4); Absolute Monocyte Count 0.92 10^3/uL (0.1-0.8); Absolute Neutrophil Count 6.38 10^3/uL (1.2-6.7); Basophils % 0.6 %; Eosinophils % 1.7 %; HCT 46.4 % (40.0-50.0); HGB 14.9 g/dL (13.5-17.5); Immature Grans % 0.4 %; Lymphocytes % 19.6 %; MCH 33.6 pg (27.0-33.0); MCHC 32.1 % (32.0-36.0); MCV 105 fL (80-95); MPV 10.4 fL (8.0-11.0); Monocytes % 9.8 %; Neutrophils % 67.9 %; Platelet Count 270 10^3/uL (130-400); RBC 4.44 10^6/uL (4.36-5.78); RDW 13.2 % (11.8-14.1)
[2024-06-27 09:57] LABS: ESR 44 mm/hr (0-20)
--- NOTE | 2024-06-27 10:24 | DI.RAD_ITS ---
Exam(s) XR FOOT LT COMPLETE EXAM: XR FOOT LT COMPLETE CLINICAL HISTORY: R/O Subcutaneous air. TECHNIQUE: 2D digital imaging was performed. COMPARISON: CR LEFT FOOT LIMITED from 10/29/2009 FINDINGS: 3 views There is no evidence of acute fracture nor diastasis of the Lisfranc joint. Great toe metatarsophala ngeal joint appears unremarkable. Some vascular calcifications noted on the dorsal aspect of the kenneth t. The hindfoot exhibits similar appearance in 2008 with evidence of prior probable fracture of the calc aneus with height loss but appearing unchanged and there is partial fusion across the subtalar joint. On the undersurface of the foot there is some calcification in the plantar fascia. IMPRESSION: Findings as above but with minimal change from October 2009. DATA REPOSITORY: RADIATION DOSE DELIVERED:
[2024-06-27 10:28] LABS: ALT 18 U/L (16-63); AST 22 U/L (15-37); Albumin 2.9 g/dL (3.4-5.0); Alkaline Phosphatase 96 U/L (46-116); BUN 8 mg/dL (7-18); Bilirubin, Total 0.29 mg/dL (0.2-1.0); C-Reactive Protein 1.94 mg/dL (<or=0.5); CREATININE 1.1 mg/dL (0.70-1.30); Calcium 9.3 mg/dL (8.5-10.1); Chloride 104 mmol/L (98-107); Estimated GFR 71.32 (mL/min/1.73m2); Glucose 104 mg/dL (74-106); Potassium 4.3 mmol/L (3.5-5.1); Sodium 140 mmol/L (136-145); Total Protein 7.7 g/dL (6.4-8.2)
[2024-06-27] MEDS: VANCOMYCIN/WATER (PEG) 1.5 GM/300 ML BAG IV (10:53)
--- NOTE | 2024-06-27 11:39 | W.PM.HP.N ---
Date of service: 06/27/24 Time of Service: 11:39 Assessment and Plan Assessment and plan (1) Gangrene of toe of left foot: Status: Acute Assessment and plan: Referred from Podiatry this AM Left 5th toe dry gangrene Vancomycin IV Cefepime Accepted in [facility] by Dr Mendez from vascular but unable to transfer in today d/t capacity Blood C&S pending PT consult Podiatry consult (2) Cellulitis: Status: Acute Assessment and plan: As abvoe (3) Critical limb ischemia of left lower extremity: Status: Acute Assessment and plan: As above (4) DVT (deep venous thrombosis): Status: Chronic Assessment and plan: SCD's (5) Alcohol withdrawal: Status: Acute Assessment and plan: Stating drinking to 16 ounces alcoholic drink a day used to drink an additional 2 gallons of vodka Per week but stopped. EtOH withdrawal protocol initiated with phenobarbital load (6) Nicotine dependence: Status: Acute Assessment and plan: Nicotine replacement therapy initiated. Discussed with Dr. Henry History of Present Illness History of Present Illness Chief Complaint: left foot gangrene Narrative: This 74-year-old male patient with a past medical history of alcohol abuse, nicotine dependence, THC dependence, carotid in subclavian artery sclerosis, SVT, hypertension, past neoplasm of the tongue, hard of hearing, bladder cancer with current urostomy presented to the ED at [facility] after being referred by Dr. Hansen from the podiatry service for evaluation of left fifth toe wound appearing to have dry growing gangrene and vascular consultation with [facility]. In the ED the patient reported some tenderness at the site, denied fevers,chills. The patient has been taking Bactrim x 3 days. The workup in the ED was remarkable for a CRP at 1.94 without leukocytosis. Foot x-ray showed no evidence of acute fracture or diastases and vascular calcification noted on the dorsal aspect of the foot as well as some calcification in the plantar fascia. The ED provider consulted [facility] vascular service and spoke to Dr. Jason who accepted the patient for transfer however due to capacity there was no bed available today; recommendation made for IV antibiotics as an inpatient at this time. Hospitalist service was consulted and the patient was admitted to the medical surgical floor for further evaluation and management of dry fifth left toe gangrene with IV antibiotics, while pending transfer to [facility] vascular service. When seen the patient appeared to be agitated, reported feeling angry. The patient mention having been drinking for 65 years and was drinking 2 gallons of vodka per week with 216 ounces of other alcoholic drink daily; recently quit the 2 gallons of vodka a week and add is to 16 ounces the day prior to presentation. The patient denies dizziness, change in vision, chest pain, nausea, vomiting. Patient confirmed that he wants CPR and intubation. Review of Systems All systems reviewed & are unremarkable except as noted in HPI and below PFSH All Active Problems Nicotine dependence (Acute) Alcohol withdrawal (Acute) DVT (deep venous thrombosis) (Chronic) Gangrene of toe of left foot (Acute) Cellulitis (Acute) Critical limb ischemia of left lower extremity (Acute) Gangrene of left foot (Acute) Ocular migraine (Acute) Memory deficit (Acute) Alcoholism (Acute) Peripheral neuropathy (Acute) Orthostatic hypotension (Acute) Imbalance (Acute) Hyperglycemia (Acute) Carotid artery stenosis (Acute) Subclavian arterial stenosis (Acute ~12/2023) RIGHT [facility] Vascular Surgery 02/23/24 Impacted cerumen, bilateral (Acute) Stenosis of both vertebral arteries (Acute ~12/2023) Left subclavian artery occlusion (Acute ~12/2023) Amaurosis fugax of right eye (Acute ~11/2023) PAD (peripheral artery disease) (Acute ~08/2023) CT Degenerative arthritis of cervical spine (Chronic ~2020) Impairment of speech discrimination (Acute) Prostate cancer (Chronic) Incidental finding on cystoprostatectomy spce Doris 3+3 stage T2 PSVT (paroxysmal supraventricular tachycardia) (Acute ~2018) Rectal polyp (Acute ~08/20/22) hyperplastic Folate deficiency (Acute) Metastatic urothelial carcinoma (Acute ~2021) 05/19/22 Dr Murdock, pt proceeding with treatment and F/u in 4w Bladder cancer (Acute ~04/2021) Stage 111A,node positive 10/2021: neoadjuvant chemotx 11/2021: S/P total cystectomy w/ ileal conduit 03/2022: adjuvant chemo tx Alcohol abuse (Chronic 11/29/14) Tobacco dependence syndrome (Acute 01/19/12) rolls his own 30-40 per day Central stenosis of spinal canal (Chronic ~2018) Severe central canal stenosis L2-3, L3-4 Foraminal stenosis of lumbosacral region (Chronic) (B) L2-3 through L5-S1 Radicular pain (Acute) Depressive disorder, not elsewhere classified (Chronic 01/19/12) Major depressive disorder, recurrent episode, mild per [facility] Hem Onc 09/16/21 note Neurodermatitis (Acute 11/12/15) Hypertensive retinopathy of both eyes (Chronic) Sensorineural hearing loss, bilateral (Acute) Abnormal liver function (Acute 09/14/13) Etoh? 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 Tongue cancer Has had tongue resection x 2014 Per patient they took about half the tongue Regional wall motion abnormality of heart Syncope 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 date not known Hx of inguinal hernia surgery (~1969) 1969 History of right cataract surgery (~2012) 2012 Dr Argueta (per pt) History of back surgery (~1988) 1988 Family History Mother , Pt reports mother of Old Age Diabetes Lung cancer Father Diabetes Stroke Sister Diabetes Brother Diabetes Social History Smoking/Tobacco Use Status: Current every day Tobacco Type: cigarettes Years smoked: 53 Tobacco: How many years used: 53 Quit status: not considering quitting Counseling given: counseling >3 minutes (pre-contemplative) Smoking risk assessment performed?: Yes Alcohol Intake: current Alcohol Intake frequency: 3 or more drinks per day Alcohol type: beer Drug use: Daily Substance use type: marijuana Details: patient stated he drink eight 16oz beers a day REKHA Calloway 06/24/24 Adopted: No Caregiver/Support person: No Foster care: No Household members: none Housing: house Number of Children: 0 Communication Needs: Corrective Lenses Education Level: high school Do you need help understanding health information?: Always current occupation: disabled Pets and animals: Yes Pets and animals: cat(s) Sexually active: No Do you think of yourself as: straight/heterosexual Current gender identity: male What is your relationship status?: How often do you talk on the phone with friends or family?: once per week How often do you get together with friends or relatives?: once per week Do you belong to any clubs or organized social groups?: no Panel score (0-1 are the most socially isolated patients): 0 What type of physical activity do you participate in: other Details: Stationary Bike Duration: < 15 minutes/day Frequency: 1-2 times per week Seatbelt use: always Helmet use: No (No need for it) Drive intox or ride w/intox otr 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 Working smoke detector in home: Yes Fire extinguisher in home: Yes Carbon monox detector in home: Yes Do you feel safe at home: Yes Do you feel safe in your relationship?: Yes Additional Social history: lives alone Meds Allergies and Home Medications Allergies Allergy/AdvReac Type Severity Reaction Status Date / Time aspirin AdvReac Intermediate GI Bleeding Verified 06/27/24 09:30 Home Medications ?Medication ?Instructions ?Recorded ?Confirmed ?Type inhalational spacing device #1 ea 11/21/19 06/27/24 Rx (Aerochamber MV spacer) Adapt Ring 12/17/21 06/27/24 History Convatec Sensicare Barrier Wipe 12/17/21 06/27/24 History catheter bag 12/17/21 06/27/24 History ostomy supplies 1 11/0412/17/21 06/27/24 History Hearing aids #2 ea 03/31/22 06/27/24 Rx Alisha Medical Adhesive Remover topical 04/08/22 06/27/24 History Convatec Adhesive Release [place] #1 ea 04/28/22 06/27/24 Rx Convatec Night Drainage Container #1 ea 04/28/22 06/27/24 Rx Set #[id number] Alisha Urostomy Drain Tube #2 ea 04/28/22 06/27/24 Rx Adapter Alisha Wafer, Cera Plus #[id number] #1 pkg 04/28/22 06/27/24 Rx Alisha Wafer, Cera Plus #[id number] #2 pkgs 05/02/22 06/27/24 Rx nivolumab 40 mg/4 mL intravenous IV 08/05/22 06/27/24 History solution albuterol sulfate 90 mcg/actuation See Rx Instructions .Route 08/09/23 06/27/24 Rx aerosol inhaler .COMPLEX #25.5 grams duloxetine 60 mg capsule,delayed See Rx Instructions .Route 08/23/23 06/27/24 Rx release .COMPLEX #90 caps acetaminophen 650 mg See Rx Instructions .Route 10/27/23 06/27/24 Rx tablet,extended release .COMPLEX #120 tabs thiamine HCl (vitamin B1) 100 mg See Rx Instructions .Route 01/06/24 06/27/24 Rx tablet .COMPLEX #90 tabs fluticasone 250 mcg-salmeterol 50 1 inh inhalation BID #60 ea 01/10/24 06/27/24 Rx mcg/dose blistr powdr for inhalation (Advair Diskus) folic acid 1 mg tablet 1 mg PO DAILY #90 tabs 03/11/24 08/27/24 Rx gabapentin 600 mg tablet See Rx Instructions .Route 01/12/24 06/27/24 Rx .COMPLEX #90 tabs atorvastatin 40 mg tablet See Rx Instructions .Route 02/16/24 06/27/24 Rx .COMPLEX #90 tabs Alisha Appliance Pouch #[id number] #5 ea 05/17/24 06/27/24 Rx magnesium oxide 400 mg PO DAILY #90 tabs 06/01/24 06/27/24 Rx mecobalamin (vitamin B12) 1,000 1,000 mcg PO DAILY #90 tabs 06/01/24 06/27/24 Rx mcg chewable tablet (B12 Active) sulfamethoxazole 800 1 tab PO BID #20 tabs 06/21/24 06/27/24 Rx mg-trimethoprim 160 mg tablet (Bactrim DS) metoprolol succinate 100 mg 100 mg PO DAILY 06/27/24 06/27/24 History tablet,extended release 24 hr Exam Narrative Exam Narrative: Constitutional The patient is irritable and labile HENMT: Head is atraumatic, normocephalic, hearing aid in place. Facial structures with normal appearance Eyes: Well aligned, intact ROM Neuro:alert and oriented X3. No neurological focal deficit Resp:Speaks in full sentences w rapid flow, unlabored breathing, clear lung bilaterally Cardio: regular rhythm, S1, S2, no murmur, weak pedal pulse to left foot GI: Abdomen is not distended, soft and non tender, bowel sounds are present Integumentary:Left fith toe is black, light erythema noted in surroundings Extremities: strength 5/5 to bilateral lower and upper extremities Psych: RASS 1, labile mood and irritable affect. Results Labs 06/27/24 09:47 06/27/24 09:47 Labs: Laboratory Results - last 24 hr 06/27/24 09:47 WBC 9.40 RBC 4.44 Hgb 14.9 Hct 46.4 MCV 105 H MCH 33.6 H MCHC 32.1 RDW 13.2 Plt Count 270 MPV 10.4 Immature Gran % 0.4 Neutrophils % 67.9 Lymphocytes % 19.6 Monocytes % 9.8 Eosinophils % 1.7 Basophils % 0.6 Nucleated RBC % 0.0 Absolute Neutrophils 6.38 Absolute Lymphocytes 1.84 Absolute Monocytes 0.92 H Absolute Eosinophils 0.16 Absolute Basophils 0.06 ESR 44 H Sodium 140 Potassium 4.3 Chloride 104 Carbon Dioxide 28.0 Anion Gap 8.0 BUN 8 Creatinine 1.1 Est GFR (CKD-EPI 2020) 71.32 Glucose 104 Calcium 9.3 Magnesium 2.0 Total Bilirubin 0.29 AST 22 ALT 18 Alkaline Phosphatase 96 C-Reactive Protein 1.94 H Total Protein 7.7 Albumin 2.9 L Last Vital Signs Temp 36.8 C 06/27/24 09:26 Pulse 65 06/27/24 09:26 Resp 16 06/27/24 09:26 BP 114/63 06/27/24 09:26 Pulse Ox 94 06/27/24 09:26 PAWSS Have you Been Recently Intoxicated or Drunk Within the Last 30 days?: Yes Have you Ever Experienced Previous Episodes of Alcohol Withdrawal?: Yes Have you ever Experienced Withdrawal Seizures?: No Have you ever Experienced Delirium Tremens(DT)s?: No Result: 2 Time Spent Time spent with Patient: >75 minutes Time was spent: preparing to see the patient(eg.review tests), obtaining and/or reviewing separately otained hiistory, ordering medications,tests, procedures, referring, communicating with other health child care leader, indepentently interpreting results, counseling the patient and care coordination
[2024-06-27 12:09] LABS: Lactate 1.1 mmol/L (0.6-1.4)
--- NOTE | 2024-06-27 12:19 | W.PC.ACHO ---
Registration Status: Primary Language: Preferred Language: ED Information & Data Chief Complaint Cellulitis 06/27/24 09:58 Triage Note x2 wounds on left foot 06/27/24 09:26 drainage, patient stated provider called it gangrene - 5th and 3rd toe. 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 Tongue cancer Regional wall motion abnormality of heart Syncope 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 (01/19/12) Low back pain without sciatica (02/03/13) Lumbago (02/03/13) Essential hypertension (02/10/13) (Last Reviewed 06/27/24 @ 09:57 by Clementina Marie NP) History of urostomy (~2021) History of colonoscopy with polypectomy (~08/20/22) H/O total cystectomy (~11/26/21) Status post surgical removal and fulguration of bladder neoplasm (~11/2020) Posterior subcapsular age-related cataract of left eye Nuclear sclerotic cataract of left eye Cortical cataract of left eye Hx of lumbosacral spine surgery Hx of inguinal hernia surgery (~1969) History of right cataract surgery (~2012) History of back surgery (~1988) Most Recent Vital Signs Temperature 36.8 C 06/27/24 09:26 Temperature Source Temporal Artery Scan 06/27/24 09:26 Pulse 65 06/27/24 09:26 Respiratory Rate 16 06/27/24 09:26 Respiratory Effort Normal, Non-Labored 06/27/24 09:57 Blood Pressure 114/63 06/27/24 09:26 Blood Pressure Position Sitting 06/27/24 09:26 Pulse Oximetry 94 06/27/24 09:26 Oxygen Delivery Method Room Air 06/27/24 09:26 Oxygen Flow Rate 0 06/27/24 09:26 Allergies aspirin Adverse Reaction (Intermediate, Verified 06/27/24 09:30) GI Bleeding 2022 Precautions Isolation Standard precaution 06/27/24 09:57 IV IV Catheter Type [Left Saline Lock Antecubital] IV Catheter Gauge [Left 18 Antecubital] Diagnostics 06/27/24 06/27/24 Range/Units 12:06 09:47 WBC 9.40 (4.4-10.8) 10^3/uL RBC 4.44 (4.36-5.78) 10^6/uL Hgb 14.9 (13.5-17.5) g/dL Hct 46.4 (40.0-50.0) % MCV 105 H (80-95) fL MCH 33.6 H (27.0-33.0) pg MCHC 32.1 (32.0-36.0) % RDW 13.2 (11.8-14.1) % Plt Count 270 (130-400) 10^3/uL MPV 10.4 (8.0-11.0) fL Immature Gran % 0.4 % Neutrophils % 67.9 % Lymphocytes % 19.6 % Monocytes % 9.8 % Eosinophils % 1.7 % Basophils % 0.6 % Nucleated RBC % 0.0 (0.0-0.3) % Absolute Neutrophils 6.38 (1.2-6.7) 10^3/uL Absolute Lymphocytes 1.84 (1.2-3.4) 10^3/uL Absolute Monocytes 0.92 H (0.1-0.8) 10^3/uL Absolute Eosinophils 0.16 (0.0-0.7) 10^3/uL Absolute Basophils 0.06 (0.0-0.2) 10^3/uL ESR 44 H (0-20) mm/hr VBG Lactate 1.1 (0.6-1.4) mmol/L Sodium 140 (136-145) mmol/L Potassium 4.3 (3.5-5.1) mmol/L Chloride 104 (98-107) mmol/L Carbon Dioxide 28.0 (21.0-32.0) mmol/L Anion Gap 8.0 (3-11) mmol/L BUN 8 (7-18) mg/dL Creatinine 1.1 (0.70-1.30) mg/dL Est GFR (CKD-EPI 2020) 71.32 (mL/min/1.73m2) Glucose 104 (74-106) mg/dL Calcium 9.3 (8.5-10.1) mg/dL Magnesium 2.0 (1.8-2.4) mg/dL Total Bilirubin 0.29 (0.2-1.0) mg/dL AST 22 (15-37) U/L ALT 18 (16-63) U/L Alkaline Phosphatase 96 (46-116) U/L C-Reactive Protein 1.94 H (<or=0.5) mg/dL Total Protein 7.7 (6.4-8.2) g/dL Albumin 2.9 L (3.4-5.0) g/dL 06/27/24 10:41 Blood Culture - Pending Blood 06/27/24 09:47 Blood Culture - Pending Blood Intake and Output - 24 Hour Total 06/27/24 09:10 thru 06/27/24 09:26 Weight 89.05 kg Falls Risk Assessment History of Falls Previous History 06/27/24 09:57 Contributing Factors No Factors,Medications 06/27/24 09:57 Ambulatory Aids Uses ambulatory device + 06/27/24 09:57 Tubes/Lines With any additional score 06/27/24 09:57 Gait Evaluation W/any additional score 06/27/24 09:57 Fall Total Score 88 06/27/24 09:57 Level of Risk Maximum Risk 06/27/24 09:57 Problems (Last Reviewed 06/27/24 @ 09:57 by Clementina Marie NP) DVT (deep venous thrombosis) (Chronic) Gangrene of toe of left foot (Acute) Cellulitis (Acute) Critical limb ischemia of left lower extremity (Acute) v v v v v v v v v Sending and/or Receiving Nurses: Please use comment section below to note any information pertinent to the patient hand-off not included above. Information / Comments: Report received from: Bindu Osman RN
[2024-06-27] MEDS: CEFEPIME 2 GM in Normal Saline 100 ML IVPB ×2 (12:43→20:05)
[2024-06-27 12:51] VITALS: BP 148/81; PULSE 63; RESP 17; TEMP 36.2; O2SAT 98
[2024-06-27] MEDS: Gabapentin 300 MG CAP 600 MG PO ×2 (14:20→20:05)
[2024-06-27] MEDS: Acetaminophen 325 MG TAB 650 MG PO ×2 (14:20→20:06)
[2024-06-27] MEDS: Nicotine 21 MG/24 HR PATCH TD (14:20)
[2024-06-27 19:13] VITALS: BP 145/86; PULSE 74; RESP 18; TEMP 36.6; O2SAT 96
--- NOTE | 2024-06-27 19:24 | TELEFU_ITS ---
Date of service: 06/27/24 Time of Service: 14:30 Nutrition Note NOTE: Visited with Magalie briefly to assess nutrition needs as well as obtain order for supper meal this evening, as kitchen staff reports he refused meal, saying the food Sucks. Pt has long medical history with this current admission due to cellulitis/dry gangrene of left foot and alcohol withdrawal. Pt has documented weight loss history since dx of bladder cancer. Recnet weight loss noted of 10.25kg over 5 months time. PT confirms this on interview and states his usual body weight was 268lbs (121kg) before all this happened. He relates he may go 3-4 days without eating - but states he can drink 18 16oz beers per day and 2.5 gallons of vodka per week. Pt is ordered for appropriate etoh withdrawal nutrition replenishment - 1gm FA, 1mg B12, 400mg MgO and 100mg Thiamine). Pt decllined offering of oral nutrition supplement for extra protein/kcals/nutrition. After speaking with him, I was able to get a dinner order from him between tangent topics. Inadequate intake of kcals iin the context of chronic illness/disease and chronic etoh, tobacco and other drug abuse as evidenced by significant weight loss of 10% of body weight over 5 months. Encouraged higher protein/kcal entree choices and refraining from etoh use to help prevent further decline in nutrition status. Will revisit ONS with meals or offered as nourishments between meals if pt agrees. Will monitor intake, weight labs. OFfered pt my card for outpatient support in preventing unintentional weight loss/eating healthy to support his medical treatments. 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 Time Spent in Nutritional Counseling and Treatment: 10 minutes
[2024-06-27] MEDS: Atorvastatin 40 MG TAB PO (20:06)
[2024-06-27] MEDS: Normal Saline Flush 10 ML SYR IVP (20:08)
[2024-06-27] MEDS: Budesonide/Formoterol 160/4.5 6 GM 60 PUFF INH IH (20:46)
[2024-06-27 23:34] VITALS: BP 123/65; PULSE 68; RESP 18; TEMP 36.7; O2SAT 94
[2024-06-27] MEDS: VANCOMYCIN/WATER (PEG) 750 MG/150 ML BAG 150 MG IV (23:57)
[2024-06-28] MEDS: Acetaminophen 325 MG TAB 650 MG PO ×4 (02:32→21:11)
[2024-06-28] MEDS: CEFEPIME 2 GM in Normal Saline 100 ML IVPB ×3 (03:37→21:13)
[2024-06-28 04:01] VITALS: BP 103/92; PULSE 76; RESP 16; TEMP 36.6; O2SAT 96
[2024-06-28 06:52] LABS: Abs Immature Grans 0.05 10^3/uL (0.0-0.06); Absolute Basophil Count 0.06 10^3/uL (0.0-0.2); Absolute Eosinophil Count 0.16 10^3/uL (0.0-0.7); Absolute Lymphocyte Count 2.15 10^3/uL (1.2-3.4); Absolute Monocyte Count 0.94 10^3/uL (0.1-0.8); Absolute Neutrophil Count 6.68 10^3/uL (1.2-6.7); Basophils % 0.6 %; Eosinophils % 1.6 %; HCT 42.7 % (40.0-50.0); HGB 14.2 g/dL (13.5-17.5); Immature Grans % 0.5 %; Lymphocytes % 21.4 %; MCHC 33.3 % (32.0-36.0); MCV 102 fL (80-95); MPV 10.7 fL (8.0-11.0); Monocytes % 9.4 %; Neutrophils % 66.5 %; Platelet Count 246 10^3/uL (130-400); RBC 4.18 10^6/uL (4.36-5.78); RDW 13.2 % (11.8-14.1); RDW-SD 49.8 fL; WBC 10.04 10^3/uL (4.4-10.8)
[2024-06-28 07:08] LABS: Anion Gap 6.9 mmol/L (3-11); BUN 10 mg/dL (7-18); CO2 26.1 mmol/L (21.0-32.0); CREATININE 0.9 mg/dL (0.70-1.30); Chloride 104 mmol/L (98-107); Estimated GFR 90.74 (mL/min/1.73m2); Glucose 93 mg/dL (74-106); Sodium 137 mmol/L (136-145); Vancomycin, Random 13.6 ug/mL
[2024-06-28] MEDS: Budesonide/Formoterol 160/4.5 6 GM 60 PUFF INH IH ×2 (07:28→20:00)
[2024-06-28 07:35] VITALS: BP 162/82; PULSE 78; RESP 18; TEMP 36.2; O2SAT 96
[2024-06-28] MEDS: Normal Saline Flush 10 ML SYR IVP ×3 (09:27→21:12)
[2024-06-28] MEDS: Cyanocobalamin 500 MCG TAB 1000 MCG PO (09:27)
[2024-06-28] MEDS: DULoxetine 30 MG CAP 60 MG PO (09:28)
[2024-06-28] MEDS: Gabapentin 300 MG CAP 600 MG PO ×3 (09:29→21:11)
[2024-06-28] MEDS: Thiamine 100 MG TAB PO (09:31)
[2024-06-28] MEDS: Folic Acid 1 MG TAB PO (09:31)
[2024-06-28] MEDS: Magnesium Oxide 400 MG TAB PO (09:31)
[2024-06-28] MEDS: Metoprolol CR 100 MG TABCR PO (09:31)
[2024-06-28] MEDS: Nicotine 21 MG/24 HR PATCH TD (09:31)
--- NOTE | 2024-06-28 09:47 | INITIAL_ITS ---
Date of service: 06/28/24 Time of Service: 09:47 Care Management Initial Assmt Initial Assessment Reason for Hospitalization: gangrene of toe Functional Status/Living Situation Patient Presentation: Magalie was sitting up in bed when CM met with him. He was very open and friendly and talkative. He appeared alert and oriented but seemed unable to recall many details. He talked at length about his medical history including past injuries and surgeries and the reasons he has been on disability. He owns his own home and has a roommate that lives upstairs. He stated that she is an old friend who has no place to live. Magalie also talked about his marriage and the fact that he stopped drinking for 17 years during the time he and his second were . He had a couple of lapses during that period and his him after the last one. He admits to drinking daily and is not interested in stopping. Magalie has home health nursing and he used to have a homemaker through [facility]. He does not know if he has [employer]. He also stated he used to have a bilingual case manager at [facility] but does not know her name or if he still has services.does not. Town of Residence: [facility] Resides with: Other (adult roomate named Olga) Employment Status: Disabled Instrumental Activities of Daily Living (ADLs): Independent Medications Medication Management: No Issues/Barriers identified Advance Directives Advance Directives: Do you have an Advance Directive: Y 12/16/20 08:43 AD On File at [facility]: Y 12/16/20 08:43 Date Asked 10/08/20 09/24/21 13:32 AD Date Reviewed 03/15/24 03/15/24 14:05 COLST On File at [facility] COLST Date Scanned Code Status Resuscitation Status Full Code Portal Pt does not currently have a portal and education provided: No Insurance Coverage/Financial Issues Insurance: Get[employer] Plans Care Team Visit Care Team Role Provider Type Celia Gresham NP Primary Care Provider NURSE PRACTITIONER Leslee Walker, SIMBAM Other Providers DPM [facility] STAFF PHYSICIAN Amado Viera, YOLANDA Other Providers CERT REG NURSE DEVELOPMENT EXECUTIVE InPatient Jose Raul Briseno Other Providers OTHER Paul Crabtree DPM Other Providers DPEliezer [facility] STAFF PHYSICIAN Clementina Marie, JUSTINE Emergency Provider NURSE PRACTITIONER Trevor Henry, MD Admit Provider [facility] STAFF PHYSICIAN Attending Provider Discharge Potential Discharge Needs: Other (transfer to [facility]) Anticipated Barriers to Discharge: Bed availability Transportation: EMS Plan: Magalie has been accepted in transfer to [facility] and is waiting for an available bed. He has been accepted by on the Vascular Service. He will follow up with facility providers and plan of care and transport via EMS coordinated by nursing automobile leasing supervisor. CM will follow. [facility] All Active Problems Nicotine dependence (Acute) Alcohol withdrawal (Acute) DVT (deep venous thrombosis) (Chronic) Gangrene of toe of left foot (Acute) Cellulitis (Acute) Critical limb ischemia of left lower extremity (Acute) Gangrene of left foot (Acute) Ocular migraine (Acute) Memory deficit (Acute) Alcoholism (Acute) Peripheral neuropathy (Acute) Orthostatic hypotension (Acute) Imbalance (Acute) Hyperglycemia (Acute) Carotid artery stenosis (Acute) Subclavian arterial stenosis (Acute ~12/2023) RIGHT [facility] Vascular Surgery 02/23/24 Impacted cerumen, bilateral (Acute) Stenosis of both vertebral arteries (Acute ~12/2023) Left subclavian artery occlusion (Acute ~12/2023) Amaurosis fugax of right eye (Acute ~11/2023) PAD (peripheral artery disease) (Acute ~08/2023) CT Degenerative arthritis of cervical spine (Chronic ~2020) Impairment of speech discrimination (Acute) Prostate cancer (Chronic) Incidental finding on cystoprostatectomy spce Doris 3+3 stage T2 PSVT (paroxysmal supraventricular tachycardia) (Acute ~2018) Rectal polyp (Acute ~08/20/22) hyperplastic Folate deficiency (Acute) Metastatic urothelial carcinoma (Acute ~2021) 05/19/22 Dr Murdock, pt proceeding with treatment and F/u in 4w Bladder cancer (Acute ~04/2021) Stage 111A,node positive 10/2021: neoadjuvant chemotx 11/2021: S/P total cystectomy w/ ileal conduit 03/2022: adjuvant chemo tx Alcohol abuse (Chronic 11/29/14) Tobacco dependence syndrome (Acute 01/19/12) rolls his own 30-40 per day Central stenosis of spinal canal (Chronic ~2018) Severe central canal stenosis L2-3, L3-4 Foraminal stenosis of lumbosacral region (Chronic) (B) L2-3 through L5-S1 Radicular pain (Acute) Depressive disorder, not elsewhere classified (Chronic 01/19/12) Major depressive disorder, recurrent episode, mild per [facility] Hem Onc 09/16/21 note Neurodermatitis (Acute 11/12/15) Hypertensive retinopathy of both eyes (Chronic) Sensorineural hearing loss, bilateral (Acute) Abnormal liver function (Acute 09/14/13) Etoh? 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 Tongue cancer Has had tongue resection x 2014 Per patient they took about half the tongue Regional wall motion abnormality of heart Syncope 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 (01/19/12) Low back pain without sciatica (02/03/13) Lumbago (02/03/13) Essential hypertension (02/10/13) Surgical History History of urostomy (~2021) History of colonoscopy with polypectomy (~08/20/22) H/O total cystectomy (~11/26/21) Cystectomy, complete with ileal conduit Status post surgical removal and fulguration of bladder neoplasm (~11/2020) 04/23/21 TURBT [facility] Posterior subcapsular age-related cataract of left eye Nuclear sclerotic cataract of left eye Cortical cataract of left eye Hx of lumbosacral spine surgery x 2 per pt. date not known Hx of inguinal hernia surgery (~1969) 1970 History of right cataract surgery (~2012) 2012 Dr Argueta (per pt) History of back surgery (~1988) 1988 Family History Mother , Pt reports mother of Old Age Diabetes Lung cancer Father Diabetes Stroke Sister Diabetes Brother Diabetes Social History Smoking/Tobacco Use Status: Current every day Tobacco Type: cigarettes Years smoked: 53 Tobacco: How many years used: 53 Quit status: not considering quitting Counseling given: counseling >3 minutes (pre-contemplative) Smoking risk assessment performed?: Yes Alcohol Intake: current Alcohol Intake frequency: 3 or more drinks per day Alcohol type: beer Drug use: Daily Substance use type: marijuana Details: patient stated he drink eight 16oz beers a day REKHA Calloway 06/24/24 Adopted: No Caregiver/Support person: No Foster care: No Household members: none Housing: house Number of Children: 0 Communication Needs: Corrective Lenses Education Level: high school Do you need help understanding health information?: Always current occupation: disabled Pets and animals: Yes Pets and animals: cat(s) Sexually active: No Do you think of yourself as: straight/heterosexual Current gender identity: male What is your relationship status?: How often do you talk on the phone with friends or family?: once per week How often do you get together with friends or relatives?: once per week Do you belong to any clubs or organized social groups?: no Panel score (0-1 are the most socially isolated patients): 0 What type of physical activity do you participate in: other Details: Stationary Bike Duration: < 15 minutes/day Frequency: 1-2 times per week Seatbelt use: always Helmet use: No (No need for it) Drive intox or ride w/intox road train driver: No Working smoke detector in home: Yes Fire extinguisher in home: Yes Carbon monox detector in home: Yes Do you feel safe at home: Yes Do you feel safe in your relationship?: Yes Additional Social history: lives alone SDOH(Care Management) Screening Will the Patient Participate in the Screening?: Unable to obtain
[2024-06-28] MEDS: VANCOMYCIN/WATER (PEG) 1 GM/200 ML BAG IV (11:10)
--- NOTE | 2024-06-28 11:13 | PT.INIE ---
PT Notes Visit Reasons: Dry gangrene of the left fifth toe Inpatient Physical Therapy Evaluation Certification Period:? From ?? Through I certify the need for these services as being medically necessary and skilled as furnished under this plan of treatment while under my care. Please sign and return within 14 days if you agree with the plan of care listed below.? Thank you for this referral! ? Referring Physician? Date Referring Doctor:? PT Orders: PT CONSULT for eval for assistive device Precautions: Urostomy; IV line Patient Profile/Admitting Diagnosis:? Patient is a 74-year-old male presented to the ED from the podiatry office on 06/27/2024 with gangrenous left fifth toe. Patient reported he had been on Bactrim for 3 days prior to admission. Workup in the ED revealed cellulitis. Consult with [facility] vascular with recommendation for IV Vanco and transferred to [facility] when bed availability for further management by vascular surgeon. Patient admitted to med surge unit for medical management. Past Medical History:Nicotine dependence (Acute) Alcohol withdrawal (Acute) DVT (deep venous thrombosis) (Chronic) Gangrene of toe of left foot (Acute) Cellulitis (Acute) Critical limb ischemia of left lower extremity (Acute) Gangrene of left foot (Acute) Ocular migraine (Acute) Memory deficit (Acute) Alcoholism (Acute) Peripheral neuropathy (Acute) Orthostatic hypotension (Acute) Imbalance (Acute) Hyperglycemia (Acute) Carotid artery stenosis (Acute) Subclavian arterial stenosis (Acute ~12/2023) RIGHT [facility] Vascular Surgery 02/23/24Impacted cerumen, bilateral (Acute) Stenosis of both vertebral arteries (Acute ~12/2023) Left subclavian artery occlusion (Acute ~12/2023) Amaurosis fugax of right eye (Acute ~11/2023) PAD (peripheral artery disease) (Acute ~08/2023) CTDegenerative arthritis of cervical spine (Chronic ~2020) Impairment of speech discrimination (Acute) Prostate cancer (Chronic) Incidental finding on cystoprostatectomy spce Doris 3+3 stage T2PSVT (paroxysmal supraventricular tachycardia) (Acute ~2018) Rectal polyp (Acute ~08/20/22) hyperplasticFolate deficiency (Acute) Metastatic urothelial carcinoma (Acute ~2021) 05/19/22 Dr Murdock, pt proceeding with treatment and F/u in 4w Bladder cancer (Acute ~04/2021) Stage 111A,node positive 10/2021: neoadjuvant chemotx 11/2021: S/P total cystectomy w/ ileal conduit 03/2022: adjuvant chemo txAlcohol abuse (Chronic 11/29/14) Tobacco dependence syndrome (Acute 01/19/12) rolls his own 30-40 per day Central stenosis of spinal canal (Chronic ~2018) Severe central canal stenosis L2-3, L3-4Foraminal stenosis of lumbosacral region (Chronic) (B) L2-3 through L5-Q5Iyylmxfms pain (Acute) Depressive disorder, not elsewhere classified (Chronic 01/19/12) Major depressive disorder, recurrent episode, mild per [facility] Hem Onc 09/16/21 noteNeurodermatitis (Acute 11/12/15) Hypertensive retinopathy of both eyes (Chronic) Sensorineural hearing loss, bilateral (Acute) Abnormal liver function (Acute 09/14/13) Etoh? related Lichen simplex chronicus (Acute 11/26/16) Other and unspecified hyperlipidemia (Acute 02/03/13) PCEq 20% LDL baseline 181 Medical History Abnormal computed tomography angiography (CTA) of neck (~12/2023) Impacted cerumen, left ear Verbalizes suicidal thoughts (~09/2022) Lightheadedness (~06/2022) Pre-syncope (~08/2022) Supraventricular tachycardia (~11/2021) post op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Drug induced neutropenia (~10/07/21) 10/07/21 [facility] Hem/Onc NoteAlcohol use disorder, moderate, in early remission drinking againHeel bone fracture with ORIF, and Hx of revision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 Tongue cancer Has had tongue resection x 2015 Per patient they took about half the tongueRegional wall motion abnormality of heart Syncope 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 (01/19/12) Low back pain without sciatica (02/03/13) Lumbago (02/03/13) Essential hypertension (02/10/13) Surgical History History of urostomy (~2021) History of colonoscopy with polypectomy (~08/20/22) H/O total cystectomy (~11/26/21) Cystectomy, complete with ileal conduitStatus post surgical removal and fulguration of bladder neoplasm (~11/2020) 04/23/21 [facility]osterior subcapsular age-related cataract of left eye Nuclear sclerotic cataract of left eye Cortical cataract of left eye Hx of lumbosacral spine surgery x 2 per pt. date not known Hx of inguinal hernia surgery (~1969) 1969History of right cataract surgery (~2012) 2012 Dr Argueta (per pt)History of back surgery (~1988) 1988 Social History/Home Situation: Patient reports he lives alone however currently has a homeless woman staying at his house. He reports 4 steps to enter and a flight of stairs to the second floor that he does not use. He wears football cleats people think I am weird but they are comfortable. He reports multiple falls at home including down a flight of stairs and a fall in his kitchen over his 4 wheeled walker.Pt Independent with Urostomy management. Subjective: Patient reports his left toe is . It looks really bad. He denies pain and is agreeable to participate in PT evaluation. Objective: Semireclined in bed with alarm in place and functioning. Urostomy in place. Pt's hearing aides were placed in the charge box as they were not working. Mental Status: Patient is alert and oriented. Pain: denies Vital Signs: 125/88 HR 94 ROM/Strength:Pt with intention tremor BUE. Upper extremities:ROM BUE WNL Strength: 4/5 Lower extremities: ROM WNL except Left 5th Toe not tested d/t gangrene. strength: 3/5 hip knee and ankle Sensation: diminished B feet light touch, impaired proprioception kinesthetic awareness B ankles feet Soft tissue/edema:dry necrotic left lateral 5th toe, left 3rd IP joint scabbed area; Right lateral great toe small red scabbed area Bed Mobility: Supine to sit Independent Tranfers: Sit to stand SBA impulsive and slight LOB to left posteriorly Gait: Ambulated feet 300 feet FWW CGA intermittent LOB with turning. Cues to keep BUE on FWW; deviation: initially increased step height of LLE during swing phase then progressed to reciprocal pattern Stairs: 4 steps with rail CGA reciprocal pattern Balance: Fair - dynamic stand [facility] AM-PAC 6 clicks Basic Mobility Inpatient Short Form: Raw Score:??21? CMS Score:28.77% disability Informed Consent/Education:? Patient instructed in purpose of PT consult and plan of care and is agreeable Assessment:? Patient is a? 74year old male adm on for LLE cellulitis / gangrene 5th toe.? Patient presents with decreased strength, decreased functional mobility, decreased balance and difficulty with ambulation including stairs . The patient would benefit from skilled inpatient services to improve these impairments to maximize function and safety. Patient is assessed as:? ? Moderate 17872? complexity based on the following: History: Pt is 74 yo male presenting with need for IV antibiotics and vascular consult. Pt with impaired strength, motor control, (+) intention tremors, impaired sensation, decreased proprioception and kinesthetic awareness BLE. Examination: see above Presentation: ? Evolving clinical presentation? Decision Making:? Moderate (1-2 history, 2-3 exam, evolving, mod) Physical Therapy Goals: 1 week . Able to perform sit to/from stand with supervision only. Able to walk feet with rolling walker with supervision only. Able to go up and down 2-3 steps with 1 rail with supervision only. Independent with home exercise program Plan of Care/Treatment Plan: 1-2x/day, 7 days/week x 1 week. Plan of care has been reviewed with the CLIP LOADING MACHINE ADJUSTER providing the service under Physical Therapy direction. Initiate Physical Therapy intervention for strengthening, bed mobility, transfers, gait, stairs, balance training, use of assistive device. DISCHARGE RECOMMENDATIONS: SNF vs HHPT Billing Charges: Treatment Units Time Duration Manual Therapy(77640) Hands-on techniques to modulate pain increase joint range of motion reduce or eliminate soft tissue swelling, inflammation, or restriction facilitate relaxation and improve contractile and non-contractile tissue extensibility ? ? Therapeutic Procedures (90525) Instruction in therapeutic exercises to develop strength and endurance, range of motion and flexibility. HEP instruction and review: Provided skilled instruction in proper exercise performance: Provided skilled manual cues to facilitate proper muscle recruitment and/or movement pattern Neurological Re-Education(00173) To improve balance, coordination, kinesthetic and proprioceptive sensations. ? ? Ultrasound(32437) To promote healing. ? ? Gait Training(01499) ? ? Therapeutic Activity(44420) Instruction in dynamic activities with one on one patient contact by the provider to improve functional performance as follows: 2 ?25mins Self Care Training(91767) ? ? E-Stim (Attended)(59565) ? ? Low IE(27566) Mod IE(74009) 1 ? 16minutes ? High IE(08076) ? ? Time Coded Treatment Time ? Total Treatment Time 3 ? 41mins [id number]
[2024-06-28 11:29] VITALS: BP 128/96; PULSE 102; RESP 17; TEMP 36.7; O2SAT 97
--- NOTE | 2024-06-28 12:43 | POCOE_ITS ---
Date of service: 06/28/24 Time of Service: 12:15 Assessment and Plan Assessment and plan (1) Gangrene of toe of left foot: Status: Acute (2) Cellulitis: Status: Acute (3) Critical limb ischemia of left lower extremity: Status: Acute (4) Gangrene of left foot: Status: Acute (5) PAD (peripheral artery disease): Status: Acute Assessment and plan: Patient was seen bedside today. Resting comfortably. There is gangrene with exposed bone noted to the left fifth toe. I recommend transfer to [facility] for revascularization. I can then plan amputation to the fifth toe versus more proximal depending on healing potential/recommendations from vascular. For now, I recommend continued antibiotics. Recommend daily dressing changes by nursing with Betadine and dry sterile dressings. Recommend protected weightbearing in surgical shoe. History of Present Illness Narrative: 74-year-old male patient consulted for left foot pain. Patient was seen in office on 06/28/2024 with a wound to the left fifth toe. Patient appeared confused and was sent to the ER for left foot wound, images, labs,, transfer to [facility] vascular. Patient is seen resting comfortably in bed today reports a new right hallux wound Review of Systems Cardiovascular Comments: Gangrene left foot Integumentary/Breasts Comments: Gangrene to the left fifth toe PFSH All Active Problems Nicotine dependence (Acute) Alcohol withdrawal (Acute) DVT (deep venous thrombosis) (Chronic) Gangrene of toe of left foot (Acute) Cellulitis (Acute) Critical limb ischemia of left lower extremity (Acute) Gangrene of left foot (Acute) Ocular migraine (Acute) Memory deficit (Acute) Alcoholism (Acute) Peripheral neuropathy (Acute) Orthostatic hypotension (Acute) Imbalance (Acute) Hyperglycemia (Acute) Carotid artery stenosis (Acute) Subclavian arterial stenosis (Acute ~12/2023) [place] [facility] [place]24 Impacted cerumen, bilateral (Acute) Stenosis of both vertebral arteries (Acute ~12/2023) Left subclavian artery occlusion (Acute ~12/2023) Amaurosis fugax of right eye (Acute ~11/2023) PAD (peripheral artery disease) (Acute ~08/2023) CT Degenerative arthritis of cervical spine (Chronic ~2020) Impairment of speech discrimination (Acute) Prostate cancer (Chronic) Incidental finding on cystoprostatectomy spce Doris 3+3 stage T2 Rectal polyp (Acute ~08/20/22) hyperplastic Folate deficiency (Acute) Metastatic urothelial carcinoma (Acute ~2021) 05/19/22 Dr Murdock, pt proceeding with treatment and F/u in 4w PSVT (paroxysmal supraventricular tachycardia) (Acute ~2018) Sensorineural hearing loss, bilateral (Acute) Bladder cancer (Acute ~04/2021) Stage 111A,node positive 10/2021: neoadjuvant chemotx 11/2021: S/P total cystectomy w/ ileal conduit 03/2022: adjuvant chemo tx Hypertensive retinopathy of both eyes (Chronic) Foraminal stenosis of lumbosacral region (Chronic) (B) L2-3 through L5-S1 Central stenosis of spinal canal (Chronic ~2018) Severe central canal stenosis L2-3, L3-4 Radicular pain (Acute) Tobacco dependence syndrome (Acute 01/19/12) rolls his own 30-40 per day Other and unspecified hyperlipidemia (Acute 02/03/13) PCEq 20% LDL baseline 181 Neurodermatitis (Acute 11/12/15) Lichen simplex chronicus (Acute 11/26/16) Depressive disorder, not elsewhere classified (Chronic 01/19/12) Major depressive disorder, recurrent episode, mild per [facility] 09/16/21 note Alcohol abuse (Chronic 11/29/14) Abnormal liver function (Acute 09/14/13) Etoh? 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 Tongue cancer Has had tongue resection x 2014 Per patient they took about half the tongue Regional wall motion abnormality of heart Syncope 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 date not known Hx of inguinal hernia surgery (~1969) 1969 History of right cataract surgery (~2012) 2012 Dr Argueta (per pt) History of back surgery (~1988) 1988 Family History Mother , Pt reports mother of Old Age Diabetes Lung cancer Father Diabetes Stroke Sister Diabetes Brother Diabetes Social History Smoking/Tobacco Use Status: Current every day Tobacco Type: cigarettes Years smoked: 53 Tobacco: How many years used: 53 Quit status: not considering quitting Counseling given: counseling >3 minutes (pre-contemplative) Smoking risk assessment performed?: Yes Alcohol Intake: current Alcohol Intake frequency: 3 or more drinks per day Alcohol type: beer Drug use: Daily Substance use type: marijuana Details: patient stated he drink eight 16oz beers a day BrodieRN 06/24/24 Adopted: No Caregiver/Support person: No Foster care: No Household members: none Housing: house Number of Children: 0 Communication Needs: Corrective Lenses Education Level: high school Do you need help understanding health information?: Always current occupation: disabled Pets and animals: Yes Pets and animals: cat(s) Sexually active: No Do you think of yourself as: straight/heterosexual Current gender identity: male What is your relationship status?: How often do you talk on the phone with friends or family?: once per week How often do you get together with friends or relatives?: once per week Do you belong to any clubs or organized social groups?: no Panel score (0-1 are the most socially isolated patients): 0 What type of physical activity do you participate in: other Details: Stationary Bike Duration: < 15 minutes/day Frequency: 1-2 times per week Seatbelt use: always Helmet use: No (No need for it) Drive intox or ride w/intox bus driver/monitor: No Working smoke detector in home: Yes Fire extinguisher in home: Yes Carbon monox detector in home: Yes Do you feel safe at home: Yes Do you feel safe in your relationship?: Yes Additional Social history: lives alone Exam Extrem Other: Vascular: Pedal pulses are 0/4 b/l LE. There is mild edema to b/l LE. Capillary fill time is delayed distal digits bilaterally. Skin temperature is cool to warm bilateral lower extremity. Hair growth absent bilaterally. MSK: Muscle strength is within normal limits and symmetrical to bilateral lower extremity. Ankle alignment is normal and ROM is normal and pain-free. Subtalar joint ROM is normal. Mid-tarsal joint ROM is normal. Metatarsophalangeal joint ROM is normal and pain free bilaterally. Hallux in good alignment and pain-free bilateral. The digits of b/l feet are in normal alignment. There is no pain on palpation to b/l heels. There is normal gait noted Derm: Skin thin and dry bilaterally, some mottling noted to the left foot, gangrenous changes noted to the left fifth toe some redness noted to the left foot.. There are no lesions, growths, subcutaneous nodules or ulcers bilaterally. Gangrene noted to the left fifth toe there is exposed bone. Ischemic ulceration noted to the dorsal aspect of the left third toe. Nails x 9 noted to be thickened, discolored, elongated and with heavy subungual debris. Skin injury noted to the right hallux without any periwound erythema or edema Neuro: Light touch sensation is absent to b/l LE as tested on [facility]. Proprioception is within normal limits b/l LE. There is no evidence of intermetatarsal neuroma bilateral LE. There are no signs of posterior tibial, common peroneal, superficial peroneal, or sural neuritis bilateral LE. Results Last Vital Signs Temp 98.1 F 08/28/24 11:29 Pulse 102 H 06/28/24 11:29 Resp 17 06/28/24 11:29 BP 128/96 H 06/28/24 11:29 Pulse Ox 97 06/28/24 11:29 Labs 06/28/24 06:20 06/28/24 06:20 Labs: Laboratory Results - last 24 hr 06/28/24 06:20 WBC 10.04 RBC 4.18 L Hgb 14.2 Hct 42.7 MCV 102 H MCH 34.0 H MCHC 33.3 RDW 13.2 Plt Count 246 MPV 10.7 Immature Gran % 0.5 Neutrophils % 66.5 Lymphocytes % 21.4 Monocytes % 9.4 Eosinophils % 1.6 Basophils % 0.6 Nucleated RBC % 0.0 Absolute Neutrophils 6.68 Absolute Lymphocytes 2.15 Absolute Monocytes 0.94 H Absolute Eosinophils 0.16 Absolute Basophils 0.06 Sodium 137 Potassium 4.0 Chloride 104 Carbon Dioxide 26.1 Anion Gap 6.9 BUN 10 Creatinine 0.9 Est GFR (CKD-EPI 2020) 90.74 Glucose 93 Calcium 9.0 Random Vancomycin 13.6
--- NOTE | 2024-06-28 14:07 | W.PM.PROGNOT ---
Date of Service Date of service: 06/28/24 Time of Service: 10:20 Assessment and Plan Assessment and plan (1) Gangrene of toe of left foot: Status: Acute Assessment and plan: Left 5th toe dry gangrene Blood C&S: GNR Stop Vancomycin Continue Cefepime Accepted [place] [facility] [place] Mendez from vascular but unable to transfer bed pending PT consult in progress Podiatry consult: Please see notes - Recommendations to continue antibiotics, dressing change, and weight bearing with protective shoes (2) Cellulitis: Status: Acute Assessment and plan: As above (3) Critical limb ischemia of left lower extremity: Status: Acute Assessment and plan: As above and refer to podiatry notes (4) DVT (deep venous thrombosis): Status: Chronic Assessment and plan: Continue the sequential compression device (5) Alcohol withdrawal: Status: Acute Assessment and plan: As previously mentionedETOH consumption of 16 ounces alcoholic drink a day X 2 used to drink an additional 2 gallons of vodka Per week but stopped the vodka . EtOH withdrawal protocol initiated with phenobarbital load soft limit 1200 mg - hard limit 1600mg patient only received the loading dose - CIWA 4-5 overnight and today (6) PSVT (paroxysmal supraventricular tachycardia): Status: Acute Assessment and plan: History of SVT On home dose metoprolol (7) Nicotine dependence: Status: Acute Assessment and plan: Continue nicotine replacement therapy Discussed with Dr. Henry Subjective Subjective Patient reports: no new complaints, tolerating liquids well, tolerating a regular diet, voiding w/o difficulty, flatus, bowel movement and afebrile; denies diarrhea, nausea, vomiting or shortness of breath Exam Narrative Exam Narrative: Constitutional The patient is less irritable this AM, losing his train of though during conversation HENMT: Facial structures with normal appearance Neuro:alert and oriented X3. Resp:Speaks in full sentences w rapid flow, unlabored breathing, clear lung bilaterally Cardio: regular rhythm, S1, S2, no murmur, weak pedal pulse to left foot GI: Abdomen is not distended, soft and non tender, bowel sounds are present Integumentary:Left fifth toe is black w/o pain w tactile stimuli, trace edema to left foot Psych: RASS 1, congruent mood and anxious affect. Objective Last Vital Signs Temp 36.7 C 06/28/24 11:29 Pulse 102 H 06/28/24 11:29 Resp 17 06/28/24 11:29 BP 128/96 H 06/28/24 11:29 Pulse Ox 97 06/28/24 11:29 Laboratory Results - last 24 hr 06/28/24 06:20 WBC 10.04 RBC 4.18 L Hgb 14.2 Hct 42.7 MCV 102 H MCH 34.0 H MCHC 33.3 RDW 13.2 Plt Count 246 MPV 10.7 Immature Gran % 0.5 Neutrophils % 66.5 Lymphocytes % 21.4 Monocytes % 9.4 Eosinophils % 1.6 Basophils % 0.6 Nucleated RBC % 0.0 Absolute Neutrophils 6.68 Absolute Lymphocytes 2.15 Absolute Monocytes 0.94 H Absolute Eosinophils 0.16 Absolute Basophils 0.06 Sodium 137 Potassium 4.0 Chloride 104 Carbon Dioxide 26.1 Anion Gap 6.9 BUN 10 Creatinine 0.9 Est GFR (CKD-EPI 2020) 90.74 Glucose 93 Calcium 9.0 Random Vancomycin 13.6 PAWSS Have you Been Recently Intoxicated or Drunk Within the Last 30 days?: Yes Have you Ever Experienced Previous Episodes of Alcohol Withdrawal?: Yes Have you ever Experienced Withdrawal Seizures?: No Have you ever Experienced Delirium Tremens(DT)s?: No Result: 2 Time Spent with Patient Time Spent with Patient: >50 minutes Time was spent: preparing to see the patient(eg.review tests), obtaining and/or reviewing separately otained hiistory, ordering medications,tests, procedures, referring, communicating with other health rn coronary care unit, indepentently interpreting results, counseling the patient and care coordination
[2024-06-28] MEDS: PHENobarbital 130 MG/ML VIAL IVP (15:19)
[2024-06-28 15:24] VITALS: BP 131/82; PULSE 76; RESP 17; TEMP 36.6; O2SAT 95
[2024-06-28 19:39] VITALS: BP 94/78; PULSE 88; RESP 17; TEMP 36.6; O2SAT 94
[2024-06-28] MEDS: Atorvastatin 40 MG TAB PO (21:11)
[2024-06-28 23:09] VITALS: BP 110/83; PULSE 70; RESP 17; TEMP 36.2; O2SAT 93
[2024-06-29 03:12] VITALS: BP 105/76; PULSE 76; RESP 17; TEMP 36.6; O2SAT 96
[2024-06-29] MEDS: CEFEPIME 2 GM in Normal Saline 100 ML IVPB ×2 (04:29→11:23)
[2024-06-29 07:06] LABS: Abs Immature Grans 0.04 10^3/uL (0.0-0.06); Absolute Basophil Count 0.09 10^3/uL (0.0-0.2); Absolute Eosinophil Count 0.18 10^3/uL (0.0-0.7); Absolute Lymphocyte Count 1.94 10^3/uL (1.2-3.4); Absolute Monocyte Count 0.76 10^3/uL (0.1-0.8); Absolute Neutrophil Count 5.76 10^3/uL (1.2-6.7); Eosinophils % 2.1 %; HCT 45.9 % (40.0-50.0); Immature Grans % 0.5 %; Lymphocytes % 22.1 %; MCH 33.4 pg (27.0-33.0); MCHC 32.7 % (32.0-36.0); MCV 102 fL (80-95); MPV 10.9 fL (8.0-11.0); Monocytes % 8.7 %; Neutrophils % 65.6 %; Platelet Count 229 10^3/uL (130-400); RBC 4.49 10^6/uL (4.36-5.78); RDW 13.2 % (11.8-14.1); RDW-SD 50.3 fL; WBC 8.77 10^3/uL (4.4-10.8)
[2024-06-29 07:17] VITALS: BP 161/93; PULSE 82; RESP 16; TEMP 35.9; O2SAT 99
[2024-06-29 07:48] LABS: Anion Gap 10.2 mmol/L (3-11); BUN 10 mg/dL (7-18); CO2 24.8 mmol/L (21.0-32.0); CREATININE 0.9 mg/dL (0.70-1.30); Calcium 9.5 mg/dL (8.5-10.1); Chloride 104 mmol/L (98-107); Estimated GFR 90.74 (mL/min/1.73m2); Glucose 91 mg/dL (74-106); Potassium 4.3 mmol/L (3.5-5.1); Sodium 139 mmol/L (136-145)
[2024-06-29] MEDS: Budesonide/Formoterol 160/4.5 6 GM 60 PUFF INH IH (08:09)
[2024-06-29] MEDS: Gabapentin 300 MG CAP 600 MG PO ×2 (08:15→13:04)
[2024-06-29] MEDS: Normal Saline Flush 10 ML SYR IVP (08:15)
[2024-06-29] MEDS: Nicotine 21 MG/24 HR PATCH TD (08:15)
[2024-06-29] MEDS: Cyanocobalamin 500 MCG TAB 1000 MCG PO (08:16)
[2024-06-29] MEDS: Magnesium Oxide 400 MG TAB PO (08:16)
[2024-06-29] MEDS: DULoxetine 30 MG CAP 60 MG PO (08:16)
[2024-06-29] MEDS: Folic Acid 1 MG TAB PO (08:16)
[2024-06-29] MEDS: Acetaminophen 325 MG TAB 650 MG PO ×2 (08:16→13:04)
[2024-06-29] MEDS: Thiamine 100 MG TAB PO (08:16)
[2024-06-29] MEDS: Metoprolol CR 100 MG TABCR PO (08:16)
--- NOTE | 2024-06-29 09:34 | W.PM.PROGNOT ---
Date of Service Date of service: 06/29/24 Time of Service: 09:34 Assessment and Plan Assessment and plan (1) Gangrene of toe of left foot: Status: Acute Assessment and plan: Left 5th toe dry gangrene Blood C&S: growing pseudomonas aeruginosa Vancomycin stopped on 06/28 Continue Cefepime Accepted in [facility] [place] by [place] Mendez from vascular but unable to transfer bed pending -Reach out to bed placement and update to vascular for pseudomonas aeruginosa in blood C&S PT consult in progress Podiatry consult: Please see notes - Continue with recommendations for antibiotics, dressing change, and weight bearing with protective shoes (2) Cellulitis: Status: Acute Assessment and plan: As above (3) Critical limb ischemia of left lower extremity: Status: Acute Assessment and plan: As above seen by podiatry on 06/28, please read podiatry notes (4) DVT (deep venous thrombosis): Status: Chronic Assessment and plan: Continue SCD's (5) Alcohol withdrawal: Status: Acute Assessment and plan: As previously mentionedETOH consumption of 16 ounces alcoholic drink a day X 2 used to drink an additional 2 gallons of vodka Per week but stopped the vodka . EtOH withdrawal protocol initiated with phenobarbital load soft limit 1200 mg - hard limit 1600mg : 610 mg total in as of 06/29 at 09:44 patient received the loading dose and PRN x1 - CIWA 3-14 ( 06/28 in PM) overnight and today (6) PSVT (paroxysmal supraventricular tachycardia): Status: Acute Assessment and plan: History of SVT: Continue home dose metoprolol (7) Nicotine dependence: Status: Acute Assessment and plan: On nicotine replacement Discussed with Dr. White Exam Narrative Exam Narrative: Constitutional The patient is less irritable this AM, losing his train of though during conversation HENMT: Facial structures with normal appearance Neuro:alert and oriented X3. Resp:Speaks in full sentences w rapid flow, unlabored breathing, clear lung bilaterally Cardio: regular rhythm, S1, S2, no murmur, weak pedal pulse to left foot GI: Abdomen is not distended, soft and non tender, bowel sounds are present Integumentary:Left fifth toe is black w/o pain w tactile stimuli, trace edema to left foot Psych: RASS 1, congruent mood and anxious affect. Objective Last Vital Signs Temp 35.9 C L 06/29/24 07:17 Pulse 82 06/29/24 07:17 Resp 16 06/29/24 07:17 BP 161/93 H 06/29/24 07:17 Pulse Ox 99 06/29/24 07:17 Laboratory Results - last 24 hr 06/29/24 06:38 WBC 8.77 RBC 4.49 Hgb 15.0 Hct 45.9 MCV 102 H MCH 33.4 H MCHC 32.7 RDW 13.2 Plt Count 229 MPV 10.9 Immature Gran % 0.5 Neutrophils % 65.6 Lymphocytes % 22.1 Monocytes % 8.7 Eosinophils % 2.1 Basophils % 1.0 Nucleated RBC % 0.0 Absolute Neutrophils 5.76 Absolute Lymphocytes 1.94 Absolute Monocytes 0.76 Absolute Eosinophils 0.18 Absolute Basophils 0.09 Sodium 139 Potassium 4.3 Chloride 104 Carbon Dioxide 24.8 Anion Gap 10.2 BUN 10 Creatinine 0.9 Est GFR (CKD-EPI 2020) 90.74 Glucose 91 Calcium 9.5 PAWSS Pt Consumed Any Amount of Alcohol Within the Last 30 days OR had positive KETTY Upon Admission: Yes Have you Been Recently Intoxicated or Drunk Within the Last 30 days?: Yes Have you Ever Experienced Previous Episodes of Alcohol Withdrawal?: Yes Have you ever Experienced Withdrawal Seizures?: No Have you ever Experienced Delirium Tremens(DT)s?: No Result: 2
--- NOTE | 2024-06-29 09:43 | PDOC.CMPRO ---
Date of service: 06/29/24 Time of Service: 09:44 Care Management Progress Note Discharge Potential Discharge Needs: Other (anticipated transfer [place] [facility] [place] Anticipated Barriers to Discharge: Bed availability Transportation: EMS Plan: Anticipate Magalie will be transferred to [facility] [place] when a bed becomes available. He will follow up with facility providers and plan of care and transport via EMS. CM will follow. SDOH(Care Management) Screening Will the Patient Participate in the Screening?: Unable to obtain
--- NOTE | 2024-06-29 10:00 | PTTR_ITS ---
PT Notes Visit Reasons: Dry gangrene of the left fifth toe Inpatient Physical Therapy Treatment Note [facility] Date:06/29/2024 PRECAUTIONS:protective ambulation with post op shoes; urostomy SUBJECTIVE: Pt reports I think I am dying. I have so much going on with me and I still don't know when I am having my toe cut off. Pt reports his buttock is numb in this bed and his back is sore. OBJECTIVE: Pt alert in bed with HOB up and padded bed rails in place. ? PAIN: Sore back pt declined to use numeric pain scale VITALS: monitored by Nursing. Therapeutic Activities (85810k6): Direct one-on-one instruction in dynamic activities to improve functional performance. ? BED MOBILITY/TRANSFERS? Rolling L/R: independent Supine-sit: independent ? Sit-supine: independent? Sit-stand: independent? Stand-sit: independent ? Bed-Chair: Independent step turn without device? Chair-bed: independent step turn without device Provided skilled cues and instruction on performance and technique throughout. Gait Training ([id number]): Direct one-on-one instruction and skilled instruction in: [X] employing an assistive device [X] modified weight-bearing status [X] movement sequencing [X] turning and movement with proper form [X] Provided verbal cues for equipment management and technique [] Provided instruction in gait pattern [] Patient education regarding pacing and breathing techniques to maximize activity tolerance? GAIT? Assistive Device: FWW ? Weight bearing: Protective WB with postop surgical shoes Assist: SBA ? Distance:? 300 feet ? Deviation: reciprocal pattern 1 LOB stagger step when he removed his hand from the FWW while walking ? 2nd Assistive device: none Assist: CGA Distance 25 feet x 2 Deviation : decreased step length B, increased lateral weight shift, highguard position of UE attempting to reach out to soto and furniture for support. ? STAIRS: ? Therapeutic Exercises ([id number]): Direct one-on-one instruction in therapeutic exercises to develop strength, endurance, range of motion and flexibility. ? Exercises BLE 10 reps ? seated LAQ RTB loop with isometric hamstring, Marching, Hip abduction with RTB loop above knee Stand : marching, hip abduction, minisquat at FWW, hip extension, Sit to stand from bed without UE support Provided skilled instruction in proper exercise performance Provided skilled manual cues to facilitate proper muscle recruitment and/or form: [] ASSESSMENT:? Guilherme demonstrates significant decline in stability when he ambulates without AD. He is able to perform step turn transfers without device bed to chair when furniture is in close proximity. He requires intermittent cues to keep both hands on the FWW while he is walking to reduce risk for falls. He reported no discomfort with use of B post op surgical shoes during functional tasks. PLAN: Continue skilled PT for strengthening, balance and functional mobility with least restrictive diet TREATMENT CODE/TIME: 76928,20350 [id number] DISCHARGE RECOMMENDATION: Home with HHPT vs [place] [facility] [place]
[2024-06-29 11:08] VITALS: BP 105/88; PULSE 82; RESP 17; TEMP 36.1; O2SAT 95
--- NOTE | 2024-06-29 14:08 | W.PM.PROGNOT ---
Date of Service Date of service: 06/29/24 Time of Service: 12:00 Assessment and Plan Assessment and plan (1) Gangrene of toe of left foot: Status: Acute (2) Cellulitis: Status: Acute (3) Critical limb ischemia of left lower extremity: Status: Acute (4) Gangrene of left foot: Status: Acute (5) PAD (peripheral artery disease): Status: Acute Assessment and plan: Patient was seen bedside today. Resting comfortably. There is gangrene with exposed bone noted to the left fifth toe. No change noted since yesterday. Transferred to [facility] is pending bed availability. I can plan amputation to the fifth toe versus more proximal depending on healing potential/recommendations from vascular. For now, I recommend continued antibiotics. Recommend daily dressing changes by nursing with Betadine and dry sterile dressings. Recommend protected weightbearing in surgical shoe. Subjective Subjective Interval history since last seen: Seen bedside today resting comfortably. Offers no new pedal complaints. Exam Extrem Other: Vascular: Pedal pulses are 0/4 b/l LE. There is mild edema to b/l LE. Capillary fill time is delayed distal digits bilaterally. Skin temperature is cool to warm bilateral lower extremity. Hair growth absent bilaterally. MSK: Muscle strength is within normal limits and symmetrical to bilateral lower extremity. Ankle alignment is normal and ROM is normal and pain-free. Subtalar joint ROM is normal. Mid-tarsal joint ROM is normal. Metatarsophalangeal joint ROM is normal and pain free bilaterally. Hallux in good alignment and pain-free bilateral. The digits of b/l feet are in normal alignment. There is no pain on palpation to b/l heels. There is normal gait noted Derm: Skin thin and dry bilaterally, some mottling noted to the left foot, gangrenous changes noted to the left fifth toe some redness noted to the left foot.. There are no lesions, growths, subcutaneous nodules or ulcers bilaterally. Gangrene noted to the left fifth toe there is exposed bone. Ischemic ulceration noted to the dorsal aspect of the left third toe. Nails x 9 noted to be thickened, discolored, elongated and with heavy subungual debris. Skin injury noted to the right hallux without any periwound erythema or edema Neuro: Light touch sensation is absent to b/l LE as tested on [facility]. Proprioception is within normal limits b/l LE. There is no evidence of intermetatarsal neuroma bilateral LE. There are no signs of posterior tibial, common peroneal, superficial peroneal, or sural neuritis bilateral LE. Objective Last Vital Signs Temp 97.0 F L 06/29/24 11:08 Pulse 82 06/29/24 11:08 Resp 17 06/29/24 11:08 BP 105/88 06/29/24 11:08 Pulse Ox 95 06/29/24 11:08 Laboratory Results - last 24 hr 06/29/24 06:38 WBC 8.77 RBC 4.49 Hgb 15.0 Hct 45.9 MCV 102 H MCH 33.4 H MCHC 32.7 RDW 13.2 Plt Count 229 MPV 10.9 Immature Gran % 0.5 Neutrophils % 65.6 Lymphocytes % 22.1 Monocytes % 8.7 Eosinophils % 2.1 Basophils % 1.0 Nucleated RBC % 0.0 Absolute Neutrophils 5.76 Absolute Lymphocytes 1.94 Absolute Monocytes 0.76 Absolute Eosinophils 0.18 Absolute Basophils 0.09 Sodium 139 Potassium 4.3 Chloride 104 Carbon Dioxide 24.8 Anion Gap 10.2 BUN 10 Creatinine 0.9 Est GFR (CKD-EPI 2020) 90.74 Glucose 91 Calcium 9.5 PAWSS Pt Consumed Any Amount of Alcohol Within the Last 30 days OR had positive KETTY Upon Admission: Yes Have you Been Recently Intoxicated or Drunk Within the Last 30 days?: Yes Have you Ever Experienced Previous Episodes of Alcohol Withdrawal?: Yes Have you ever Experienced Withdrawal Seizures?: No Have you ever Experienced Delirium Tremens(DT)s?: No Result: 2 Time Spent with Patient Time Spent with Patient: 25-34 minutes Time was spent: preparing to see the patient(eg.review tests), obtaining and/or reviewing separately otained hiistory, referring, communicating with other health home day care provider, indepentently interpreting results, counseling the patient and care coordination
[2024-06-29 15:13] VITALS: BP 114/86; PULSE 78; RESP 18; TEMP 36.6; O2SAT 96
--- NOTE | 2024-06-29 15:33 | PT.INTREAT ---
PT Notes Visit Reasons: Dry gangrene of the left fifth toe Inpatient Physical Therapy Treatment Note [facility] Date:06/29/2024 PRECAUTIONS:protective ambulation with post op shoes; urostomy SUBJECTIVE: Pt reports he is more hopeful this afternoon. He states he saw the doctor and that medicine( pointing to the IV) is going to help this. My friend brought in my night jug Then this can just drain into it. OBJECTIVE: Pt OOB to chair with pneumatic LE on and ostomy to night drainage bottle ? PAIN: declined pain in back. VITALS: monitored by Nursing. Therapeutic Activities ([id number]): Direct one-on-one instruction in dynamic activities to improve functional performance. ? BED MOBILITY/TRANSFERS? Rolling L/R: independent Supine-sit: independent ? Sit-supine: independent? Sit-stand: independent? Stand-sit: independent ? Bed-Chair: Independent step turn without device? Chair-bed: independent step turn without device Provided skilled cues and instruction on performance and technique throughout. Gait Training ([id number]): Direct one-on-one instruction and skilled instruction in: [X] employing an assistive device [X] modified weight-bearing status [X] movement sequencing [X] turning and movement with proper form [X] Provided verbal cues for equipment management and technique [] Provided instruction in gait pattern [] Patient education regarding pacing and breathing techniques to maximize activity tolerance? GAIT? Assistive Device: no device ? Weight bearing: Protective WB with postop surgical shoes Assist: CGA ? Distance:? 200 feet ? Deviation : decreased step length B, increased lateral weight shift, high guard position of UE attempting to reach out to soto and furniture for support. ? STAIRS: 2 steps with rail CGA ? ASSESSMENT:? Guilherme demonstrates significant decline in stability when he ambulates without AD. He is able to perform step turn transfers without device bed to chair when furniture is in close proximity. He requires intermittent cues to keep both hands on the FWW while he is walking to reduce risk for falls. He reported sensation of legs getting weak after ambulating 125' this sensation resolved with a stand rest against wall. After ambulating pt. acknowledged benefit of using the FWW for all ambulation. He again reported no discomfort with use of B post op surgical shoes during functional tasks. PLAN: Continue skilled PT for strengthening, balance and functional mobility with least restrictive diet TREATMENT CODE/TIME: 87706 / [id number] DISCHARGE RECOMMENDATION: Home with HHPT vs Transfer to [facility] [place]
--- NOTE | 2024-06-29 16:15 | PHA.REVIEW2 ---
Pharmacy Admission Review Admission Clinical Review Admission Pharmacy Review: Nicotine dependence (Acute) Alcohol withdrawal (Acute) Gangrene of toe of left foot (Acute) Cellulitis (Acute) Critical limb ischemia of left lower extremity (Acute) Gangrene of left foot (Acute) PAD (peripheral artery disease) (Acute ~08/2023) PSVT (paroxysmal supraventricular tachycardia) (Acute ~2018) aspirin Adverse Reaction (Intermediate, Verified 06/27/24 09:30) GI Bleeding Resuscitation Status Full Code Height 6 ft 1 in Weight 89.05 kg Comments Comments/Follow Ups: Watch VS, lab, for culture results and for med changes. Pharmacy Admission Review Renal Dosing Renal Dosing: BUN 10 mg/dL (7-18) 06/29/24 06:38 Creatinine 0.9 mg/dL (0.70-1.30) 06/29/24 06:38 Medications needing adjustments: Reviewed (Crcl ~84.1 mL/min current meds okay) Anticoagulation Anticoagulation: Hgb 15.0 g/dL (13.5-17.5) 06/29/24 06:38 Hct 45.9 % (40.0-50.0) 06/29/24 06:38 Plt Count 229 10^3/uL (130-400) 06/29/24 06:38 Creatinine 0.9 mg/dL (0.70-1.30) 06/29/24 06:38 DVT Prophylaxis: Reviewed (SCDs ordered ) Opiate Usage Evaluate Pain Scale/Pains Meds: N/A Relevant Labs Relevant Labs: ESR 44 mm/hr (0-20) H 06/27/24 09:47 Sodium 139 mmol/L (136-145) 06/29/24 06:38 Potassium 4.3 mmol/L (3.5-5.1) 06/29/24 06:38 Chloride 104 mmol/L (98-107) 06/29/24 06:38 Magnesium 2.0 mg/dL (1.8-2.4) 06/27/24 09:47 C-Reactive Protein 1.94 mg/dL (<or=0.5) H 06/27/24 09:47 Electrolytes, C-Reactive P, ESR: Reviewed DM Control DM Control: Glucose 91 mg/dL (74-106) 06/29/24 06:38 DM Control: N/A Cardiac Review BP, HR, EF%: Reviewed QTc Review QTc: N/A IV to PO Switch IV Medications: Reviewed Home Meds Home Med List reviewed: Reviewed Relevent Home Meds Not ordered & why?: fluticasone/salmeterol (has budesonide formoterol subbed for this), nivolumab, sulfamethoxazole/trimethoprim (has other antibiotics ordered) Current Meds Current Medication Order Review: Intervened (adjusted cefepime timing per certified family mediator time policy.) Pharmacy Antibiotic Review Pharmacy Antibiotic Activity: C/S review and Reviewed, no change Comments: One blood culture growing pseudomonas. Other no growth at 24 hours. Cefepime continues. Comments Comments/Follow Ups: Watch VS, lab, for culture results and for med changes.
--- NOTE | 2024-06-29 16:38 | W.PM.DS.N ---
Date of service: 06/29/24 Time of Service: 16:38 DS: Diagnosis Discharge Diagnosis (1) Gangrene of toe of left foot: Status: Acute (2) Cellulitis: Status: Acute (3) Critical limb ischemia of left lower extremity: Status: Acute (4) Gangrene of left foot: Status: Acute (5) PAD (peripheral artery disease): Status: Acute Discharge Plan Disposition Patient Disposition: Transfer-Acute Inpatient Care Specific Acute Inpt Facility: [facility] Condition: Serious Discharge Details Reason For Visit: Dry gangrene of the left fifth toe Admit Date/Time: 06/27/24 11:59 Admit Provider: Trevor Henry Attending Provider: Trevor Henry Primary Care Provider: Celia Gresham Hospital Course Hospital Course: This 74-year-old male patient with past medical history of alcohol abuse, nicotine dependence, THC dependence, carotid and subclavian artery sclerosis, SVT, hypertension, past neoplasm of the tongue, hearing deficiency, bladder cancer with chronic urostomy presented to the ED at [facility] on 06/27/2024 after being referred by Dr. Walker from the podiatry service for evaluation of left fifth toe wound with the appearance of dried gangrene with need for vascular consultation [facility]. In the ED the patient, the patient reported tenderness at the site, denied fevers, chills. The patient also reported that he has been taking Bactrim for 3 days. Workup in the ED was significant for CRP at 1.94 without leukocytosis. Imaging showed no evidence of acute fracture or diastasis; vascular calcifications noted on the dorsal aspect of the foot as well as in the plantar fascia. The ED provider contacted vascular service from [facility] and spoke to Dr. Mendez who accepted the patient for transfer however due to capacity no bed were available at the time; recommendation made for IV antibiotic as an inpatient. The patient was admitted to the medical surgical floor by the hospitalist for further evaluation and management of dry gangrene of the fifth left toe with IV antibiotic administration while transferred to [facility] vascular service is awaited. In the ED the patient was started on vancomycin, blood cultures were pending. During the stay, vancomycin was continued and Cefepime IV was added to the antibiotic regimen. On arrival to the floor the patient reported daily drinking for over 65 years, feeling angry and appeared labile. The patient also reported tobacco use as well as THC dependence. Alcohol withdrawal protocol was initiated with phenobarbital. The patient received a loading dose of 6 mg/kg and an additional 130 mg IV push on the second day. Maximum CIWA score was 14 but today CIWA score remained around 3. Nicotine replacement therapy was also initiated. Blood cultures grew gram-negative rods and vancomycin was stopped. Subsequently Pseudomonas aeruginosa resulted from blood culture and cefepime was continued. The patient was seen by podiatry with recommendations to continue antibiotics, dressing change with Betadine and dry sterile dressings, weight bearing with protective shoes while awaiting transfer to [facility] vascular service. The patient remained afebrile, normotensive and will be transferred to [facility] today as a bed became available. Discussed with Dr. White Home Meds and New Rx's Prescriptions: No Action (DME) [place] supplies 1 11[place]04 [facility] [place] See Rx Instructions .Route Rx Instructions: As directed (DME) catheter bag 0 .Route .MEDSUPPLY Patient Comments: [facility] #[id number] (DME[facility] Bar[facility] Wipe 0 .Route .MEDSUPPLY Patient Comments: [facility] #[id number] (DME) [employer] Ring 0 .Route .MEDSUPPLY Patient Comments: [place] [employer] RING #[id number] [place] [facility] Adhesive Remover topical fluticasone propion-salmeterol [Advair Diskus] 250-50 mcg/dose blister with device 1 inh inhalation BID Qty: 60 11RF Rx Instructions: Chronic bronchitis; RINSE MOUTH AFTER USE folic acid 1 mg tablet 1 mg PO DAILY Qty: 90 3RF mecobalamin (vitamin B12) [B12 Active] 1,000 mcg tablet,chewable 1,000 mcg PO DAILY Qty: 90 3RF magnesium oxide 400 mg magnesium tablet 400 mg PO DAILY Qty: 90 3RF (DME) Aerochamber MV Spacer See Rx Instructions .ROUTE .MEDSUPPLY Qty: 1 0RF Rx Instructions: As directed with [facility] (DME) [place] Wafer, Cera Plus #[id number] 01/02 See Rx Instructions .Route .MEDSUPPLY Qty: 2 11RF Rx Instructions: 2 different Cera Plus #[id number] components (DME) [facility] Adhesive Release [employer] [phone] See Rx Instructions .Route .MEDSUPPLY Qty: 1 11RF Rx Instructions: [place] [facility] Night Drainage Container Set #[id number] See Rx Instructions .Route .MEDSUPPLY Qty: 1 11RF Rx Instructions: As directed [place] Alisha Urostomy Drain Tube Adapter See Rx Instructions .Route .MEDSUPPLY Qty: 2 11RF Rx Instructions: for attachement of urostomy bag to wolf bag at night ([facility] Alisha Wafer, Cera Plus #[id number] 3/4 See Rx Instructions .Route .MEDSUPPLY Qty: 1 5RF Rx Instructions: As directed nivolumab 40 mg/4 mL solution IV ([facility] [employer]isha Appliance Pouch #[id number] 1 inch See Rx Instructions .Route .MEDSUPPLY Qty: 5 11RF Rx Instructions: As directed sulfamethoxazole-trimethoprim [Bactrim DS] 800-160 mg tablet 1 tab PO BID Qty: 20 0RF Rx Instructions: Foot/soft tissue infection (DME) Hearing aids See Rx Instructions .Route .MEDSUPPLY Qty: 2 0RF Rx Instructions: As directed albuterol sulfate 90 mcg/actuation HFA aerosol inhaler See Rx Instructions .ROUTE .COMPLEX Qty: 25.5 12RF Dose Instruction: INHALE TWO PUFFS BY MOUTH FOUR TIMES A DAY NEEDED FOR SHORNTESS OF BREATH OR WHEEZING Rx Instructions: INHALE TWO PUFFS BY MOUTH FOUR TIMES A DAY NEEDED FOR SHORNTESS OF BREATH OR WHEEZING duloxetine 60 mg capsule,delayed release(DR/EC) See Rx Instructions .ROUTE .COMPLEX Qty: 90 3RF Dose Instruction: TAKE ONE CAPSULE BY MOUTH EVERY DAY Rx Instructions: TAKE ONE CAPSULE BY MOUTH EVERY DAY acetaminophen 650 mg tablet extended release See Rx Instructions .ROUTE .COMPLEX Qty: 120 11RF Dose Instruction: TAKE TWO TABLETS BY MOUTH TWICE A DAY NEEDED FOR PAIN - MAX DAILY DOSE OF 2600MG IN 24 HOURS Rx Instructions: TAKE TWO TABLETS BY MOUTH TWICE A DAY NEEDED FOR PAIN - MAX DAILY DOSE OF 2600MG IN 24 HOURS thiamine HCl (vitamin B1) 100 mg tablet See Rx Instructions .ROUTE .COMPLEX Qty: 90 3RF Dose Instruction: TAKE ONE TABLET BY MOUTH EVERY DAY Rx Instructions: TAKE ONE TABLET BY MOUTH EVERY DAY gabapentin 600 mg tablet See Rx Instructions .ROUTE .COMPLEX Qty: 90 11RF Dose Instruction: TAKE ONE TABLET BY MOUTH THREE TIMES A DAY Rx Instructions: TAKE ONE TABLET BY MOUTH THREE TIMES A DAY atorvastatin 40 mg tablet See Rx Instructions .ROUTE .COMPLEX Qty: 90 3RF Dose Instruction: TAKE ONE TABLET BY MOUTH EVERY DAY Rx Instructions: TAKE ONE TABLET BY MOUTH EVERY DAY metoprolol succinate 100 mg tablet extended release 24 hr 100 mg PO DAILY Rx Instructions: TAKE ONE TABLET BY MOUTH EVERY DAY FOR LIGHTHEADEDNESS AND SVT Discharge Instructions Stand Alone Forms: Nursing Discharge Form Activity:: Activity as Tolerated Equipment/Supplies:: Walker Diet:: As Tolerated Discharge Orders Discharge Orders: Discharge Order (Routine); Ordered 06/29/24 Ordered By: Bijal Kay DS: Summary Time Spent with Patient providing and/or coordinating discharge services: Greater than 30 minutes Status at Discharge Functional status at discharge: uses cane/walker Overall status at discharge: patient is not back to baseline Mental Status: mental status grossly normal Speech and Movement: speech and movement normal Mood: congruent mood and euphoric mood Affect: normal affect and elated Quality:SDOH Health Related Social Needs: No Data to Display Exam Narrative Exam Narrative: Constitutional The patient is less irritable this AM, losing his train of though during conversation HENMT: Facial structures with normal appearance Neuro:alert and oriented X3. Resp:Speaks in full sentences w rapid flow, unlabored breathing, clear lung bilaterally Cardio: regular rhythm, S1, S2, no murmur, weak pedal pulse to left foot GI: Abdomen is not distended, soft and non tender, bowel sounds are present Integumentary:Left fifth toe is black w/o pain w tactile stimuli, trace edema to left foot with erythema, small black ulceration to 4th toe Psych: RASS 0, congruent to elated mood, normal to euphoric affect. Psych Mental Status: mental status grossly normal Speech and Movement: speech and movement normal Mood: congruent mood and euphoric mood Affect: normal affect and elated DS: Data Vitals/I&O Vitals and I&O: Vital Signs Temperature 36.6 C 06/29/24 15:13 Temperature Source Tympanic 06/29/24 15:13 Pulse 78 06/29/24 15:13 Pulse Rhythm Regular 06/29/24 09:29 Respiratory Rate 18 06/29/24 15:13 Respiratory Effort Normal, Non-Labored 06/29/24 09:29 Respiratory Depth Normal 06/29/24 09:29 Respiratory Pattern Normal 06/29/24 09:29 Blood Pressure 114/86 06/29/24 15:13 Blood Pressure Position Sitting 06/27/24 09:26 Pulse Oximetry 96 06/29/24 15:13 Oxygen Delivery Method Room Air 06/29/24 15:13 Oxygen Flow Rate 0 06/29/24 15:13 Pain Level 2 06/29/24 15:13 Comment RN notified of bp 06/29/24 07:17 Intake & Output 06/28/24 06/29/24 06/29/24 23:59 11:59 23:59 Intake Total 400 / 650 100 / 200 100 / 200 Output Total 1150 / 2475 975 / 975 Balance -750 / -1825 -875 / -775 100 / -775 Intake: IV 400 / 650 100 / 200 100 / 200 Output: Urine 1150 / 2475 975 / 975 Other: Urine Color Yellow Yellow Urine Appearance Clear Clear Urine Odor None Normal Voiding Methods Urostomy Urostomy Data Completed and Pending Labs on day of discharge: Labs from last 24 hours 06/29/24 06:38 WBC 8.77 RBC 4.49 Hgb 15.0 Hct 45.9 MCV 102 H MCH 33.4 H MCHC 32.7 RDW 13.2 Plt Count 229 MPV 10.9 Immature Gran % 0.5 Neutrophils % 65.6 Lymphocytes % 22.1 Monocytes % 8.7 Eosinophils % 2.1 Basophils % 1.0 Nucleated RBC % 0.0 Absolute Neutrophils 5.76 Absolute Lymphocytes 1.94 Absolute Monocytes 0.76 Absolute Eosinophils 0.18 Absolute Basophils 0.09 Sodium 139 Potassium 4.3 Chloride 104 Carbon Dioxide 24.8 Anion Gap 10.2 BUN 10 Creatinine 0.9 Est GFR (CKD-EPI 2020) 90.74 Glucose 91 Calcium 9.5 Preliminary micro results at discharge 06/27/24 10:41 Blood Culture - Preliminary Blood NO GROWTH 48 HOURS 06/27/24 09:47 Blood Culture - Preliminary Blood Pseudomonas aeruginosa PFSH All Active Problems Nicotine dependence (Acute) Alcohol withdrawal (Acute) DVT (deep venous thrombosis) (Chronic) Gangrene of toe of left foot (Acute) Cellulitis (Acute) Critical limb ischemia of left lower extremity (Acute) Gangrene of left foot (Acute) Ocular migraine (Acute) Memory deficit (Acute) Alcoholism (Acute) Peripheral neuropathy (Acute) Orthostatic hypotension (Acute) Imbalance (Acute) Hyperglycemia (Acute) Carotid artery stenosis (Acute) Subclavian arterial stenosis (Acute ~12/2023) RIGHT [facility] Vascular Surgery 02/23/24 Impacted cerumen, bilateral (Acute) Stenosis of both vertebral arteries (Acute ~12/2023) Left subclavian artery occlusion (Acute ~12/2023) Amaurosis fugax of right eye (Acute ~11/2023) PAD (peripheral artery disease) (Acute ~08/2023) CT Degenerative arthritis of cervical spine (Chronic ~2020) Impairment of speech discrimination (Acute) Prostate cancer (Chronic) Incidental finding on cystoprostatectomy spce Doris 3+3 stage T2 PSVT (paroxysmal supraventricular tachycardia) (Acute ~2018) Rectal polyp (Acute ~08/20/22) hyperplastic Folate deficiency (Acute) Metastatic urothelial carcinoma (Acute ~2021) 05/19/22 Dr Murdock, pt proceeding with treatment and F/u in 4w Bladder cancer (Acute ~04/2021) Stage 111A,node positive 10/2021: neoadjuvant chemotx 11/2021: S/P total cystectomy w/ ileal conduit 03/2022: adjuvant chemo tx Alcohol abuse (Chronic 11/29/14) Tobacco dependence syndrome (Acute 01/19/12) rolls his own 30-40 per day Central stenosis of spinal canal (Chronic ~2018) Severe central canal stenosis L2-3, L3-4 Foraminal stenosis of lumbosacral region (Chronic) (B) L2-3 through L5-S1 Radicular pain (Acute) Depressive disorder, not elsewhere classified (Chronic 01/19/12) Major depressive disorder, recurrent episode, mild per [facility] Hem Onc 09/16/21 note Neurodermatitis (Acute 11/12/15) Hypertensive retinopathy of both eyes (Chronic) Sensorineural hearing loss, bilateral (Acute) Abnormal liver function (Acute 09/14/13) Etoh? 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 Posterior subcapsular age-related cataract of left eye Nuclear sclerotic cataract of left eye Cortical cataract of left eye Hx of lumbosacral spine surgery x 2 per pt. date not known Hx of inguinal hernia surgery (~1969) 1969 History of right cataract surgery (~2012) 2012 Dr Argueta (per pt) History of back surgery (~1988) 1988 Family History Mother , Pt reports mother of Old Age Diabetes Lung cancer Father Diabetes Stroke Sister Diabetes Brother Diabetes Social History Smoking/Tobacco Use Status: Current every day Tobacco Type: cigarettes Years smoked: 53 Tobacco: How many years used: 53 Quit status: not considering quitting Counseling given: counseling >3 minutes (pre-contemplative) Smoking risk assessment performed?: Yes Alcohol Intake: current Alcohol Intake frequency: 3 or more drinks per day Alcohol type: beer Drug use: Daily Substance use type: marijuana Details: patient stated he drink eight 16oz beers a day BrodieRN 06/24/24 Adopted: No Caregiver/Support person: No Foster care: No Household members: none Housing: house Number of Children: 0 Communication Needs: Corrective Lenses Education Level: high school Do you need help understanding health information?: Always current occupation: disabled Pets and animals: Yes Pets and animals: cat(s) Sexually active: No Do you think of yourself as: straight/heterosexual Current gender identity: male What is your relationship status?: How often do you talk on the phone with friends or family?: once per week How often do you get together with friends or relatives?: once per week Do you belong to any clubs or organized social groups?: no Panel score (0-1 are the most socially isolated patients): 0 What type of physical activity do you participate in: other Details: Stationary Bike Duration: < 15 minutes/day Frequency: 1-2 times per week Seatbelt use: always Helmet use: No (No need for it) Drive intox or ride w/intox hyster driver: No Working smoke detector in home: Yes Fire extinguisher in home: Yes Carbon monox detector in home: Yes Do you feel safe at home: Yes Do you feel safe in your relationship?: Yes Additional Social history: lives alone Time Spent with Patient Time Spent with Patient: >85 minutes Time was spent: preparing to see the patient(eg.review tests), obtaining and/or reviewing separately otained hiistory, ordering medications,tests, procedures, referring, communicating with other health healthcare specialist, indepentently interpreting results, counseling the patient, care coordination and other (Calling transfer center- call made to update vascular at [facility] re: bacteremia with pseudomonas Aeruginosa)
--- NOTE | 2024-06-29 17:34 | PDOC.CMDIS ---
Date of service: 06/29/24 Time of Service: 17:34 LACE Index Scoring Tool Questions: Length of Stay (in days): 2 Was the patient admitted via the E.D.?: No Comorbidities: PVD, Any Tumor and Liver or Renal Disease E.D. Visits: 1 Answers: Total Score: 8 Risk of Readmission: Low Risk Care Management Discharge Plan Reason for Hospitalization: dry gangrene left 5th toe Discharge Plan: Magalie will be transferred to [facility] to the Vascular service. He will transport via EMS and follow up with the facility providers and plan of care. Patient/Family Education Needs: Follow up plan SDOH Health Related Social Needs: No Data to Display
== END 2024-06-29 17:04 | disposition short-term general hospital (02) | DRG 300 ==
LOC: ER 11:40 → MS 12:26
PROVIDERS: Nurse Practitioner Acute Care; Admitting Provider Family Medicine; Emergency Provider Registered Nurse Emergency; PCP Nurse Practitioner Adult Health; Visit Provider Family Medicine
DX: I70.262 Atherosclerosis of native arteries of extremities with gangrene, left leg (principal); F10.239 Alcohol dependence with withdrawal, unspecified; L97.528 Non-pressure chronic ulcer of other part of left foot with other specified severity; I47.10 Supraventricular tachycardia, unspecified; L03.116 Cellulitis of left lower limb; F33.0 Major depressive disorder, recurrent, mild; F17.210 Nicotine dependence, cigarettes, uncomplicated; F12.90 Cannabis use, unspecified, uncomplicated; I10 Essential (primary) hypertension; C67.9 Malignant neoplasm of bladder, unspecified; M54.50 Low back pain, unspecified; Z86.718 Personal history of other venous thrombosis and embolism; Z85.810 Personal history of malignant neoplasm of tongue; G43.B0 Ophthalmoplegic migraine, not intractable; R41.3 Other amnesia; G62.9 Polyneuropathy, unspecified; I95.1 Orthostatic hypotension; I65.03 Occlusion and stenosis of bilateral vertebral arteries; M47.812 Spondylosis without myelopathy or radiculopathy, cervical region; C61 Malignant neoplasm of prostate; E78.5 Hyperlipidemia, unspecified; H90.3 Sensorineural hearing loss, bilateral; H35.033 Hypertensive retinopathy, bilateral
CPT/HCPCS: 00123; 36415; 80048; 80053; 85652; 87040; 87077; 94640; 96365; 96366; 97110; 97116; 97162; 97530; 99222; 99231; 99285; 73630; 80202; 83605; 83735; 85025; 86140; 87186; 94664; 99223; 99233; 99239; J0692; J2560; J3372

== ENCOUNTER 2024-08-03 18:47 | Outpatient (REF) | payer OTHER, SELFPAY ==
[2024-08-03 19:19] LABS: Abs Immature Grans 0.04 10^3/uL (0.0-0.06); Absolute Basophil Count 0.04 10^3/uL (0.0-0.2); Absolute Eosinophil Count 0.11 10^3/uL (0.0-0.7); Absolute Lymphocyte Count 1.42 10^3/uL (1.2-3.4); Absolute Monocyte Count 0.83 10^3/uL (0.1-0.8); Absolute Neutrophil Count 5.85 10^3/uL (1.2-6.7); Basophils % 0.5 %; Eosinophils % 1.3 %; HCT 40.4 % (40.0-50.0); HGB 12.9 g/dL (13.5-17.5); Immature Grans % 0.5 %; Lymphocytes % 17.1 %; MCH 34.1 pg (27.0-33.0); MCHC 31.9 % (32.0-36.0); MCV 107 fL (80-95); Neutrophils % 70.6 %; Platelet Count 225 10^3/uL (130-400); RBC 3.78 10^6/uL (4.36-5.78); RDW 14.6 % (11.8-14.1); RDW-SD 58.2 fL; WBC 8.29 10^3/uL (4.4-10.8)
[2024-08-03 19:24] LABS: ESR 35 mm/hr (0-20)
[2024-08-03 19:40] LABS: Macrocytosis 2+
[2024-08-03 19:50] LABS: Folate > 20.0 ng/mL (8.6-20.0)
[2024-08-03 19:58] LABS: Vitamin B12 351 pg/mL (193-986)
[2024-08-03 20:44] LABS: C-Reactive Protein < 0.50 mg/dL (<or=0.5)
[2024-08-03 20:45] LABS: Hemoglobin A1C 5.1 % (<5.7)
== END 2024-08-03 18:48 | disposition home or self-care (01) ==
LOC: NCHCN 18:47
PROVIDERS: Psychiatry & Neurology Neurology; PCP Nurse Practitioner Adult Health; Visit Provider Nurse Practitioner Adult Health
DX: M79.89 Other specified soft tissue disorders (principal); E53.8 Deficiency of other specified B group vitamins; G62.9 Polyneuropathy, unspecified
CPT/HCPCS: 85652; 82607; 82746; 83036; 85025; 86140

== ENCOUNTER → 2024-08-07 13:48 | Outpatient (BNVA) | payer OTHER, SELFPAY | PROVIDERS: PCP Nurse Practitioner Adult Health; Referring Provider Nurse Practitioner Adult Health; Visit Provider Psychiatry & Neurology Neurology | DX: G43.109 Migraine with aura, not intractable, without status migrainosus (principal); R26.89 Other abnormalities of gait and mobility; M48.02 Spinal stenosis, cervical region; I95.1 Orthostatic hypotension; G62.9 Polyneuropathy, unspecified; F10.20 Alcohol dependence, uncomplicated; R41.3 Other amnesia | CPT/HCPCS: 99215 ==

== ENCOUNTER 2024-08-21 15:38 | Emergency (ER) | payer OTHER, SELFPAY ==
[2024-08-21 15:40] VITALS: BP 105/71; PULSE 70; RESP 18; TEMP 36; O2SAT 97
--- NOTE | 2024-08-21 21:47 | ED.GENADUL_ITS ---
Discharge Plan Disposition Patient Disposition: Home Condition: Stable Discharge Details Clinical Impression: Visit for wound check, PAD (peripheral artery disease) Primary Care Provider: Celia Gresham ED Provider: Dallas Lora Home Meds and New Rx's Prescriptions: No Action (DME) [facility] See Rx Instructions .Route Rx Instructions: As directed (DME) catheter bag 0 .Route .MEDSUPPLY Patient Comments: [facility] #[id number] (DME) Convate Sensicare Barrier Wipe 0 .Route .MEDSUPPLY Patient Comments: [facility] #[id number] (DME) Adapt Ring 0 .Route .MEDSUPPLY Patient Comments: Alisha Adapt RING #[id number] fluticasone propion-salmeterol [Advair Diskus] 250-50 mcg/dose blister with device 1 inh inhalation BID Qty: 60 11RF Rx Instructions: Chronic bronchitis; RINSE MOUTH AFTER USE folic acid 1 mg tablet 1 mg PO DAILY Qty: 90 3RF mecobalamin (vitamin B12) [B12 Active] 1,000 mcg tablet,chewable 1,000 mcg PO DAILY Qty: 90 3RF magnesium oxide 400 mg magnesium tablet 400 mg PO DAILY Qty: 90 3RF (DME) Aerochamber MV Spacer See Rx Instructions .ROUTE .MEDSUPPLY Qty: 1 0RF Rx Instructions: As directed with MDI ([facility] [place]) Alisha Wafer, Cera Plus #[id number] 3/4 See Rx Instructions .Route .MEDSUPPLY Qty: 2 11RF Rx Instructions: 2 different Cera Plus #[id number] components ([facility] [place]) [facility] Adhesive Release Alva [phone] See Rx Instructions .Route .MEDSUPPLY Qty: 1 11RF Rx Instructions: As directed ([facility] [place]) Convatec Night Drainage Container Set #[id number] See Rx Instructions .Route .MEDSUPPLY Qty: 1 11RF Rx Instructions: As directed (DME) Alisha Urostomy Drain Tube Adapter See Rx Instructions .Route .MEDSUPPLY Qty: 2 11RF Rx Instructions: for attachement of urostomy bag to wolf bag at night (DME) Alisha Wafer, Cera Plus #[id number] 3/4 See Rx Instructions .Route .MEDSUPPLY Qty: 1 5RF Rx Instructions: As directed (DME) Alisha Appliance Pouch #[id number] 1 inch See Rx Instructions .Route .MEDSUPPLY Qty: 5 11RF Rx Instructions: As directed duloxetine 60 mg capsule,delayed release(DR/EC) See Rx Instructions .ROUTE .COMPLEX Qty: 90 3RF Dose Instruction: TAKE ONE CAPSULE BY MOUTH EVERY DAY Rx Instructions: TAKE ONE CAPSULE BY MOUTH EVERY DAY (DME) Hearing aids See Rx Instructions .Route .MEDSUPPLY Qty: 2 0RF Rx Instructions: As directed albuterol sulfate 90 mcg/actuation HFA aerosol inhaler See Rx Instructions .ROUTE .COMPLEX Qty: 25.5 12RF Dose Instruction: INHALE TWO PUFFS BY MOUTH FOUR TIMES A DAY NEEDED FOR SHORNTESS OF BREATH OR WHEEZING Rx Instructions: INHALE TWO PUFFS BY MOUTH FOUR TIMES A DAY NEEDED FOR SHORNTESS OF BREATH OR WHEEZING acetaminophen 650 mg tablet extended release See Rx Instructions .ROUTE .COMPLEX Qty: 120 11RF Dose Instruction: TAKE TWO TABLETS BY MOUTH TWICE A DAY NEEDED FOR PAIN - MAX DAILY DOSE OF 2600MG IN 24 HOURS Rx Instructions: TAKE TWO TABLETS BY MOUTH TWICE A DAY NEEDED FOR PAIN - MAX DAILY DOSE OF 2600MG IN 24 HOURS thiamine HCl (vitamin B1) 100 mg tablet See Rx Instructions .ROUTE .COMPLEX Qty: 90 3RF Dose Instruction: TAKE ONE TABLET BY MOUTH EVERY DAY Rx Instructions: TAKE ONE TABLET BY MOUTH EVERY DAY gabapentin 600 mg tablet See Rx Instructions .ROUTE .COMPLEX Qty: 90 11RF Dose Instruction: TAKE ONE TABLET BY MOUTH THREE TIMES A DAY Rx Instructions: TAKE ONE TABLET BY MOUTH THREE TIMES A DAY atorvastatin 40 mg tablet See Rx Instructions .ROUTE .COMPLEX Qty: 90 3RF Dose Instruction: TAKE ONE TABLET BY MOUTH EVERY DAY Rx Instructions: TAKE ONE TABLET BY MOUTH EVERY DAY multivitamin with minerals Tablet 1 tab PO DAILY Rx Instructions: With 9mg iron and 400mcg tablet rivaroxaban 20 mg tablet 20 mg PO DAILY Rx Instructions: must administer with evening meal metoprolol succinate 100 mg tablet extended release 24 hr 100 mg PO DAILY Rx Instructions: TAKE ONE TABLET BY MOUTH EVERY DAY FOR LIGHTHEADEDNESS AND SVT Discharge Instructions Additional Instructions: wound looks stable today please continue to monitor and keep all follow up appointments Discharge Data Discharge Date/Time-TO BE ENTERED AT DEPARTURE: 08/21/24 16:21 HPI General Date/Time Provider Initiated Documentation: 08/21/24 15:47 . Limitations to Documentation: no limitations . Information obtained by: patient . HPI Narrative: 74-year-old gentleman with past medical history of peripheral artery disease and recent amputation of left small toe presents for evaluation for wound check. He reports that he had surgery at [facility] and has been having home health come take care of it. He is still on antibiotics. He reports the swelling in the left lower extremity is improved. The redness is almost completely resolved. He reports that today home health was concerned because there is green discoloration of the wound and they recommended that he come to the emergency department. He denies any fever or chills. Related Data Home Medications ?Medication ?Instructions ?Recorded ?Confirmed inhalational spacing device #1 ea 11/21/19 08/21/24 (Aerochamber MV spacer) Adapt Ring 12/17/21 08/21/24 Convatec Sensicare Barrier Wipe 12/17/21 08/21/24 catheter bag 12/17/21 08/21/24 ostomy supplies 1 11/0412/17/21 08/21/24 Hearing aids #2 ea 03/31/22 08/21/24 Convatec Adhesive Release Alva #1 ea 04/28/22 08/21/24 Convatec Night Drainage Container #1 ea 04/28/22 08/21/24 Set #[id number] [place] Urostomy Drain Tube #2 ea 04/28/22 08/21/24 Adapter [place] Wafer, Cera Plus #[id number] #1 pkg 04/28/22 08/21/24 [place] Wafer, Cera Plus #[id number] #2 pkgs 05/02/22 08/21/24 albuterol sulfate 90 mcg/actuation See Rx Instructions .Route 08/09/23 08/21/24 aerosol inhaler .COMPLEX #25.5 grams acetaminophen 650 mg See Rx Instructions .Route 10/27/23 08/21/24 tablet,extended release .COMPLEX #120 tabs thiamine HCl (vitamin B1) 100 mg See Rx Instructions .Route 01/06/24 08/21/24 tablet .COMPLEX #90 tabs fluticasone 250 mcg-salmeterol 50 1 inh inhalation BID #60 ea 01/10/24 08/21/24 mcg/dose blistr powdr for inhalation (Advair Diskus) folic acid 1 mg tablet 1 mg PO DAILY #90 tabs 01/10/24 08/21/24 gabapentin 600 mg tablet See Rx Instructions .Route 01/12/24 08/21/24 .COMPLEX #90 tabs atorvastatin 40 mg tablet See Rx Instructions .Route 02/16/24 08/21/24 .COMPLEX #90 tabs [place] Appliance Pouch #[id number] #5 ea 05/17/24 08/21/24 magnesium oxide 400 mg PO DAILY #90 tabs 06/01/24 08/21/24 mecobalamin (vitamin B12) 1,000 1,000 mcg PO DAILY #90 tabs 06/01/24 08/21/24 mcg chewable tablet (B12 Active) metoprolol succinate 100 mg 100 mg PO DAILY 06/27/24 08/21/24 tablet,extended release 24 hr multivitamin with minerals 1 tab PO DAILY 07/17/24 08/21/24 rivaroxaban 20 mg tablet 20 mg PO DAILY 07/17/24 08/21/24 duloxetine 60 mg capsule,delayed See Rx Instructions .Route 08/03/24 08/21/24 release .COMPLEX #90 caps Previous Rx's ?Medication ?Instructions ?Recorded inhalational spacing device #1 ea 11/21/19 (Aerochamber MV spacer) Hearing aids #2 ea 03/31/22 Convatec Adhesive Release Alva #1 ea 04/28/22 Convatec Night Drainage Container #1 ea 04/28/22 Set #[id number] Alisha Urostomy Drain Tube #2 ea 04/28/22 Adapter [place] Wafer, Cera Plus #8805 #1 pkg 04/28/22 Alisha Wafer, Cera Plus #[id number] #2 pkgs 05/02/22 albuterol sulfate 90 mcg/actuation See Rx Instructions .Route 08/09/23 aerosol inhaler .COMPLEX #25.5 grams acetaminophen 650 mg See Rx Instructions .Route 10/27/23 tablet,extended release .COMPLEX #120 tabs thiamine HCl (vitamin B1) 100 mg See Rx Instructions .Route 01/06/24 tablet .COMPLEX #90 tabs fluticasone 250 mcg-salmeterol 50 1 inh inhalation BID #60 ea 01/10/24 mcg/dose blistr powdr for inhalation (Advair Diskus) folic acid 1 mg tablet 1 mg PO DAILY #90 tabs 01/10/24 gabapentin 600 mg tablet See Rx Instructions .Route 01/12/24 .COMPLEX #90 tabs atorvastatin 40 mg tablet See Rx Instructions .Route 02/16/24 .COMPLEX #90 tabs [place] Appliance Pouch #[id number] #5 ea 05/17/24 magnesium oxide 400 mg PO DAILY #90 tabs 06/01/24 mecobalamin (vitamin B12) 1,000 1,000 mcg PO DAILY #90 tabs 06/01/24 mcg chewable tablet (B12 Active) duloxetine 60 mg capsule,delayed See Rx Instructions .Route 08/03/24 release .COMPLEX #90 caps Allergies Allergy/AdvReac Type Severity Reaction Status Date / Time aspirin AdvReac Intermediate GI Bleeding Verified 08/21/24 15:46 General Stated Complaint: Cellulitis HOSSEIN: 3 Exam Narrative Exam Narrative: Review of Systems: All systems reviewed & are unremarkable except as noted in HPI and below Well-developed, no acute distress NCAT Unlabored respiratory effort 1+ swelling in the left lower extremity, no erythema appreciated Wound bed of the left fifth toe with granulation tissue at the bed of the wound, no surrounding cellulitis Course Vital Signs Vital signs: Vital Signs Temperature 36.0 C L 08/21/24 15:40 Pulse 70 08/21/24 15:40 Respiratory Rate 18 08/21/24 15:40 Blood Pressure 105/71 08/21/24 15:40 Pulse Oximetry 97 08/21/24 15:40 Temperature 36.0 C L 08/21/24 15:40 Pulse 70 08/21/24 15:40 Respiratory Rate 18 08/21/24 15:40 Respiratory Effort Normal 08/21/24 15:46 Blood Pressure 105/71 08/21/24 15:40 Pulse Oximetry 97 08/21/24 15:40 Pain Level 0 08/21/24 15:40 Medical Decision Making Evaluation of left postoperative foot wound. Wound appears to be appropriately healing, there is granulation tissue noted without any evidence of superficial infection. There is no signs of cellulitis. The edema in his leg is improving. He is afebrile. At this time there are not significant concerns for a wound infection or poor healing. I do recommend continued follow-up with home health PCP and surgery as scheduled. Quality:SDOH Health Related Social Needs: No Data to Display PFSH All Active Problems Visit for wound check (Acute) Nicotine use disorder (Chronic) Started in 1965 with avg 1.5 PPD (2023: ~60 pack year) Alcohol use disorder (Chronic) Supraventricular tachycardia (Chronic ~11/2021) 2021 & 2023 during hospitalizations at [facility]-->candidate for ablation Gangrene of toe of left foot (Acute) Cellulitis (Acute) Critical limb ischemia of left lower extremity (Acute) Ocular migraine (Acute) Memory deficit (Acute) Peripheral neuropathy (Acute) Orthostatic hypotension (Acute) Imbalance (Acute) Hyperglycemia (Acute) Carotid artery stenosis (Acute) Subclavian arterial stenosis (Acute ~12/2023) RIGHT [facility] Vascular Surgery 02/23/24 Impacted cerumen, bilateral (Acute) Stenosis of both vertebral arteries (Acute ~12/2023) Left subclavian artery occlusion (Acute ~12/2023) Amaurosis fugax of right eye (Acute ~11/2023) PAD (peripheral artery disease) (Acute ~08/2023) CT Degenerative arthritis of cervical spine (Chronic ~2020) Impairment of speech discrimination (Acute) Prostate cancer (Chronic) Incidental finding on cystoprostatectomy spce [place] 3+3 stage T2 Rectal polyp (Acute ~08/20/22) hyperplastic Folate deficiency (Acute) Metastatic urothelial carcinoma (Acute ~2021) 05/19/22 Dr Murdock, pt proceeding with treatment and F/u in 4w Bladder cancer (Acute ~04/2021) Stage 111A,node positive 10/2021: neoadjuvant chemotx 11/2021: S/P total cystectomy w/ ileal conduit 03/2022: adjuvant chemo tx Central stenosis of spinal canal (Chronic ~2018) Severe central canal stenosis L2-3, L3-4 Foraminal stenosis of lumbosacral region (Chronic) (B) L2-3 through L5-S1 Radicular pain (Acute) Depressive disorder, not elsewhere classified (Chronic 01/19/12) Major depressive disorder, recurrent episode, mild per [facility] Hem Onc 09/16/21 note Neurodermatitis (Acute 11/12/15) Hypertensive retinopathy of both eyes (Chronic) Sensorineural hearing loss, bilateral (Acute) Abnormal liver function (Acute 09/14/13) Etoh? related Lichen simplex chronicus (Acute 11/26/16) Other and unspecified hyperlipidemia (Acute 02/03/13) PCEq 20% LDL baseline 181 Medical History DVT (deep venous thrombosis) Gangrene of left foot PSVT (paroxysmal supraventricular tachycardia) (~2018) Abnormal computed tomography angiography (CTA) of neck (~12/2023) Lightheadedness (~06/2022) Pre-syncope (~08/2022) Impacted cerumen, left ear Verbalizes suicidal thoughts (~09/2022) 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 Drug induced neutropenia (~10/07/21) 10/07/21 [facility]/Onc Note Alcohol use disorder, moderate, in early remission drinking again Heel bone fracture with ORIF, and Hx of revision 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 Tongue cancer Has had tongue resection x 2014 Per patient they took about half the tongue Regional wall motion abnormality of heart Syncope 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 (01/19/12) Low back pain without sciatica (02/03/13) Lumbago (02/03/13) Essential hypertension (02/10/13) Surgical History S/P femoral-popliteal bypass surgery (~07/2024) PAD--[facility] Vasc Surg Amputation of fifth toe of left foot (~07/2024) PAD--[facility] Vasc surg History of urostomy (~2021) History of colonoscopy with polypectomy (~08/20/22) H/O total cystectomy (~11/26/21) Cystectomy, complete with ileal conduit Status post surgical removal and fulguration of bladder neoplasm (~11/2020) 04/23/21 TURBT [facility] Posterior subcapsular age-related cataract of left eye Nuclear sclerotic cataract of left eye Cortical cataract of left eye Hx of lumbosacral spine surgery x 2 per pt. date not known Hx of inguinal hernia surgery (~1969) 1969 History of right cataract surgery (~2012) 2012 Dr Argueta (per pt) History of back surgery (~1988) 1988 Family History Mother , Pt reports mother of Old Age Diabetes Lung cancer Father Diabetes Stroke Sister Diabetes Brother Diabetes Social History Smoking/Tobacco Use Status: Current every day Tobacco Type: cigarettes Years smoked: 53 Tobacco: How many years used: 53 Quit status: not considering quitting Counseling given: counseling >3 minutes (pre-contemplative) Smoking risk assessment performed?: Yes Alcohol Intake: current Alcohol Intake frequency: 3 or more drinks per day Alcohol type: beer Drug use: Daily Substance use type: marijuana Details: patient stated he drink eight 16oz beers a day BrodieRN 06/24/24 Adopted: No Caregiver/Support person: No Foster care: No Household members: none Housing: house Number of Children: 0 Communication Needs: Corrective Lenses Education Level: high school Do you need help understanding health information?: Always current occupation: disabled Pets and animals: Yes Pets and animals: cat(s) Sexually active: No Do you think of yourself as: straight/heterosexual Current gender identity: male What is your relationship status?: How often do you talk on the phone with friends or family?: once per week How often do you get together with friends or relatives?: once per week Do you belong to any clubs or organized social groups?: no Panel score (0-1 are the most socially isolated patients): 0 What type of physical activity do you participate in: other Details: Stationary Bike Duration: < 15 minutes/day Frequency: 1-2 times per week Seatbelt use: always Helmet use: No (No need for it) Drive intox or ride w/intox trencher driver: No Working smoke detector in home: Yes Fire extinguisher in home: Yes Carbon monox detector in home: Yes Do you feel safe at home: Yes Do you feel safe in your relationship?: Yes Additional Social history: lives alone
== END 2024-08-21 16:21 | disposition home or self-care (01) ==
PROVIDERS: Emergency Provider Emergency Medicine; PCP Nurse Practitioner Adult Health
DX: Z89.422 Acquired absence of other left toe(s) (principal); Z98.890 Other specified postprocedural states; I73.9 Peripheral vascular disease, unspecified
CPT/HCPCS: 99281; 99282

== ENCOUNTER 2024-08-29 01:21 | Outpatient (CLI) | payer OTHER, SELFPAY ==
--- NOTE | 2024-08-29 06:45 | DI.MRI_ITS ---
Exam(s) MR CERVICAL SPINE WO EXAM: MR CERVICAL SPINE WO CLINICAL HISTORY: imbalance; ? myelopathy,central stenosis spinal canal,m48.00 TECHNIQUE: Multiplanar multisequence MRI of the cervical spine was performed without intravenous con trast. COMPARISON: CT CT BRAIN NECK CTA from 12/08/2023 FINDINGS: CERVICOMEDULLARY JUNCTION: Intact with no evidence of cerebellar tonsillar ectopia. No obvious focal significant abnormality of the odontoid process. No evidence of Chiari 1 malformation. CERVICAL SPINAL CORD: There is no abnormal signal in the cervical spinal cord and no evidence of foca l cord atrophy nor focal cord swelling. There is, however, multilevel spinal canal stenosis as descr ibed below. OSSEOUS:There are no cervical fractures evident. No significant osseous lesions in the cervical vert ebrae. There is straightening of the cervical curvature related to chronic degenerative changes and muscle spasm. INDIVIDUAL LEVELS: C2-3: This level exhibits broad annular bulging which effaces the thecal sac and there is moderate ce ntral spinal canal stenosis at this level. AP measurement of the canal is 6 mm. The annular bulging extends into the floor of the bilateral exiting neural foramina. There are moderate degenerative ch anges in both facet joints at this level. Mild foraminal stenosis evident bilaterally. C3-4: This level exhibits chronic disc space narrowing and Modic type 2 sub endplate fatty marrow shilpi nges. Also Schmorl's node invagination into the inferior endplate of C3.Posteriorly there is broad a nnular bulging also evident at this level, slightly more prominent on the right side. There is moder ate central spinal canal stenosis. AP measurement of the canal at this level is 7 mm and there is ef facement of the thecal sac both anteriorly and posteriorly. There are moderate-advanced degenerative changes in both facet joints. There is moderate-severe foraminal stenosis on the left side in the A P plane. On the right side there is moderate generalized foraminal stenosis. C4-5: This level exhibits minimal disc space narrowing. Are anterior osteophytes. Posteriorly there is annular bulging noted to, slightly more so on the right side. There is mild central spinal canal stenosis with AP measurement of the canal being 8 mm at this level. There is effacement of the ante rior thecal sac and the annular bulging contacts the anterior aspect of the spinal cord at this level . There are moderate degenerative changes in both facet joints.. No Luschka joint osteophytes. No significant foraminal stenosis on the left side. Mild foraminal stenosis on the right side. C5-6: This level exhibits chronic advanced disc space narrowing and anterior osteophytes. Posteriorl y there is prominent broad annular bulging, slightly more prominent left of center where the disc exh ibits 3-4 mm posterior bulging and is approximately 1.5 cm wide.. There is severe central spinal can al stenosis at this level with effacement of the thecal sac and anterior aspect of the spinal cord, t he spinal cord exhibiting diminished AP diameter. The AP diameter of the canal at this level is 5-6 mm. There are moderate degenerative changes in the facet joints at this level. There is small Lusch ka joint osteophytes bilaterally. There is severe spinal canal stenosis on the right side. Also sev ere spinal canal stenosis on the left side. C6-7: This level exhibits chronic advanced disc space narrowing and anterior osteophytes. Posteriorl y there is broad mild symmetrical annular bulging noted without a distinct focal disc herniation.. C entral canal dimensions are lower normal without effacement of the anterior thecal sac evident. AP m easurement of the canal at this level is 9 mm. There are no significant degenerative changes in the facet joints at this level. Small bilateral Luschka joint osteophytes are noted. There is severe bi lateral foraminal stenosis this level C7-T1: This level exhibits moderate disc space narrowing and prominent anterior osteophytes. Posteri michael there is no disc herniation or central canal stenosis. No effacement of the thecal sac and spin al cord. The AP measurement of the canal at this level is 12 mm. There are no Luschka joint osteoph ytes. No significant degenerative changes in the facet joints. There is mild foraminal stenosis theresa aterally at this level. T1-T2: This level exhibits advanced disc space narrowing and anterior osteophytes. Posteriorly there is broad annular bulging and bilateral Luschka joint osteophytes. Broad annular bulging extends pos teriorly 3 mm with mild effacement of the anterior thecal sac but not the spinal cord. There are theresa ateral Luschka joint osteophytes at this level. There are no significant degenerative changes in the facet joints at this level. There is moderate bilateral foraminal stenosis at this level. IMPRESSION: 1. Multilevel chronic degenerative disc disease as described per individual level above. 2. Multilevel central spinal canal stenosis, this being most prominent at C5-6 level with moderate-se christian central spinal canal stenosis with significant effacement of the thecal sac anteriorly and poste riorly and flattening of the spinal cord in the AP dimension at this level. There is severe bilatera l foraminal stenosis also evident at this level. 3. Multilevel degenerative facet arthropathy and multilevel foraminal stenosis as described above. 4. There does not appear to be obvious myelitis signal in the cervical spinal cord nor evidence of s yringomyelia. No incidental Chiari malformation. DATA REPOSITORY:
== END 2024-08-29 01:41 ==
LOC: DI 01:21
PROVIDERS: PCP Nurse Practitioner Adult Health; Visit Provider Psychiatry & Neurology Neurology
DX: M48.02 Spinal stenosis, cervical region (principal)
CPT/HCPCS: 72141

== ENCOUNTER → 2024-10-09 14:28 | Outpatient (BNVA) | payer OTHER, SELFPAY | PROVIDERS: PCP Nurse Practitioner Adult Health; Referring Provider Nurse Practitioner Adult Health; Visit Provider Psychiatry & Neurology Neurology | DX: R26.89 Other abnormalities of gait and mobility (principal); G62.9 Polyneuropathy, unspecified; I95.1 Orthostatic hypotension; F10.20 Alcohol dependence, uncomplicated; M48.02 Spinal stenosis, cervical region; R41.3 Other amnesia; G43.109 Migraine with aura, not intractable, without status migrainosus | CPT/HCPCS: 99214 ==

== ENCOUNTER 2024-11-21 02:08 | Outpatient (RCR) | payer MEDICARE, SELFPAY ==
[2024-11-21 13:01] LABS: Abs Immature Grans 0.04 10^3/uL (0.0-0.06); Absolute Basophil Count 0.07 10^3/uL (0.0-0.2); Absolute Eosinophil Count 0.16 10^3/uL (0.0-0.7); Absolute Lymphocyte Count 2.24 10^3/uL (1.2-3.4); Absolute Monocyte Count 0.89 10^3/uL (0.1-0.8); Absolute Neutrophil Count 6.52 10^3/uL (1.2-6.7); Basophils % 0.7 %; Eosinophils % 1.6 %; HCT 46.3 % (40.0-50.0); Immature Grans % 0.4 %; Lymphocytes % 22.6 %; MCH 32.3 pg (27.0-33.0); MCHC 32.4 % (32.0-36.0); MCV 100 fL (80-95); MPV 11.8 fL (8.0-11.0); Neutrophils % 65.7 %; Platelet Count 232 10^3/uL (130-400); RBC 4.64 10^6/uL (4.36-5.78); RDW 13.5 % (11.8-14.1); WBC 9.92 10^3/uL (4.4-10.8)
[2024-11-21] MEDS: Normal Saline Flush 10 ML SYR IVP (13:13)
[2024-11-21 13:15] LABS: ALT 32 U/L (16-63); AST 26 U/L (15-37); Albumin 3.2 g/dL (3.4-5.0); Alkaline Phosphatase 88 U/L (46-116); Anion Gap 5.6 mmol/L (3-11); BUN 11 mg/dL (7-18); Bilirubin, Total 0.66 mg/dL (0.2-1.0); CO2 29.4 mmol/L (21.0-32.0); CREATININE 0.8 mg/dL (0.70-1.30); Calcium 9.3 mg/dL (8.5-10.1); Chloride 106 mmol/L (98-107); Estimated GFR 94.03 (mL/min/1.73m2); Glucose 110 mg/dL (74-106); Potassium 4.1 mmol/L (3.5-5.1); Sodium 141 mmol/L (136-145); Total Protein 7.6 g/dL (6.4-8.2)
[2024-11-22 17:38] LABS: PSA, Ultrasensitive <0.01 ng/mL (<= 6.5)
== END 2024-12-01 23:59 | disposition home or self-care (01) ==
LOC: INF 02:08
PROVIDERS: PCP Nurse Practitioner Adult Health; Visit Provider Internal Medicine
DX: C79.10 Secondary malignant neoplasm of unspecified urinary organs (principal); C61 Malignant neoplasm of prostate
CPT/HCPCS: 36415; 36591; 80053; 84153; 96523; 85025

== ENCOUNTER 2024-12-06 00:07 | Outpatient (CLI) | payer MEDICARE, SELFPAY ==
--- NOTE | 2024-12-06 | DI.CT_ITS ---
Exam(s) CT CHEST WO EXAM: CT CHEST WO CLINICAL HISTORY: F/u RLL lung nodule, R91.1. TECHNIQUE: Imaging protocol: Axial computed tomography images were obtained and coronal and sagittal reformatted images were created and reviewed. Computer aided detection (CAD) was utilized. CONTRAST MATERIAL: Noncontrast COMPARISON: CT CT CHEST/ABD/PEL W from 03/22/2024 FINDINGS: Pulmonary parenchyma: No consolidation. Significant interval increase in size of previously noted nod ule at the right lower lobe which now measures 2.0 x 1.4 cm compared with 8 x 6 millimeters on the pr ior exam. Other tiny nodules are stable, some of which are perifissural and others are calcified gran ulomas. Interstitial changes: None. Emphysema: None. Tracheobronchial tree: No mucous plugging. No bronchiectasis . Pleura: No effusion or pneumothorax. Heart: The heart is mildly dilated. The coronary arteries are heavily calcified. Aorta: The ascending aorta is measured up to 4.4 cm which is mildly increased from the previous exam where it measured 4.2 cm. Mild atherosclerotic changes. Lymph nodes: No enlarged lymph nodes. Bones: Old rib fractures. Degenerative changes are seen, with prominent bridging osteophytes, eccent ayaan toward the right.. No evidence of compression fracture. Upper abdomen: Unremarkable. Soft tissues: Port over right pectoral muscle. IMPRESSION: Significant interval increase in size of previously noted nodule at the right lower lobe. Biopsy is r ecommended. Unexpected findings RADIATION DOSE DELIVERED: 256.2mGy.cm Total DLP 256.2mGy.cm Total DLP DATA REPOSITORY: All CT scans at this facility are submitted to the National Radiology Data Registry (NRDR) Dose Index Registry (DIR) with the [employer] (A[employer]). RADIATION OPTIMIZATION: All CT scans at this facility use at least one of these dose optimization te chniques: automated exposure control; mA and/or kV adjustment per patient size (includes targeted exa ms where dose is matched to clinical indication); or iterative reconstruction.
== END 2024-12-06 00:27 ==
PROVIDERS: PCP Nurse Practitioner Adult Health; Visit Provider Registered Nurse
DX: R91.1 Solitary pulmonary nodule (principal)
CPT/HCPCS: 71250

== ENCOUNTER 2025-01-04 02:56 | Outpatient (CLI) | payer MEDICARE, SELFPAY ==
[2025-01-04 12:59] LABS: HGB 14.5 g/dL (13.5-17.5)
[2025-01-04 14:58] LABS: Vitamin B12 263 pg/mL (193-986)
[2025-01-05 13:44] LABS: Albumin 55.7 % (55.8-66.1); Albumin g/dL 3.8 g/dL (3.6-5.2); Total Protein 6.8 g/dL (6.3-8.2)
== END 2025-01-04 02:57 | disposition home or self-care (01) ==
PROVIDERS: Psychiatry & Neurology Neurology; PCP Nurse Practitioner Adult Health; Referring Provider Nurse Practitioner Adult Health; Visit Provider Nurse Practitioner Adult Health
DX: Z87.19 Personal history of other diseases of the digestive system (principal); I73.9 Peripheral vascular disease, unspecified; F10.90 Alcohol use, unspecified, uncomplicated; G62.9 Polyneuropathy, unspecified
CPT/HCPCS: 36415; 82607; 84165; 85014; 85018

== ENCOUNTER 2025-03-23 13:23 | Emergency (ER) | payer MEDICARE, SELFPAY ==
--- NOTE | 2025-03-23 13:00 | RT.EKG_ITS ---
APPROVED REPORT Exam: Resting ECG Reason for Exam: chest pain Patient Location: E HR:87 bpm ECG Measurements Heart Rate 87 AXIS IA 161 P 27 QRSd 102 QRS 36 QT 379 T 14 QTc 456 Conclusion Sinus rhythm...normal P axis, V-rate 60- 99 Atrial premature complex...SV complex w/ short R-R interval
[2025-03-23 13:25] VITALS: BP 116/95; PULSE 82; RESP 18; TEMP 36.1; O2SAT 98
[2025-03-23 13:46] VITALS: PULSE 93; RESP 16; O2SAT 98
[2025-03-23] MEDS: Lidocaine 5% Patch 1 PATCH TP (14:23)
--- NOTE | 2025-03-23 14:23 | W.ED.GENAD ---
Discharge Plan Discharge Details Chief Complaint: Chest/Rib Primary Care Provider: Celia Gresham ED Provider: Harsh Moe Home Meds and New Rx's Prescriptions: No Action (DME) ostomy supplies 1 11/04 [facility] See Rx Instructions .Route Rx Instructions: As directed (DME) catheter bag 0 .Route .MEDSUPPLY Patient Comments: [facility] #[id number] (DME) Convatec Sensicare Barrier Wipe 0 .Route .MEDSUPPLY Patient Comments: [facility] #[id number] (DME) Adapt Ring 0 .Route .MEDSUPPLY Patient Comments: [place] Adapt RING #3492 aspirin 81 mg tablet,delayed release (DR/EC) 81 mg PO DAILY Qty: 90 1RF mecobalamin (vitamin B12) [B12 Active] 1,000 mcg tablet,chewable 1,000 mcg PO DAILY Qty: 90 3RF magnesium oxide 400 mg magnesium tablet 400 mg PO DAILY Qty: 90 3RF fluticasone propion-salmeterol [Advair Diskus] 250-50 mcg/dose blister with device 1 inh inhalation BID Qty: 60 11RF Rx Instructions: Chronic bronchitis; RINSE MOUTH AFTER USE albuterol sulfate 90 mcg/actuation HFA aerosol inhaler See Rx Instructions .ROUTE .COMPLEX Qty: 25.5 12RF Dose Instruction: INHALE TWO PUFFS BY MOUTH FOUR TIMES A DAY NEEDED FOR SHORNTESS OF BREATH OR WHEEZING Rx Instructions: INHALE TWO PUFFS BY MOUTH FOUR TIMES A DAY NEEDED FOR SHORNTESS OF BREATH OR WHEEZING (DME) Aerochamber MV Spacer See Rx Instructions .ROUTE .MEDSUPPLY Qty: 1 0RF Rx Instructions: As directed with [facility] (DME) Alisha Wafer, Cera Plus #[id number] 01/02 See Rx Instructions .Route .MEDSUPPLY Qty: 2 11RF Rx Instructions: 2 different Cera Plus #[id number] components (DME) [facility] Adhesive Release Keeler [id number] See Rx Instructions .Route .MEDSUPPLY Qty: 1 11RF Rx Instructions: As directed ([facility] [place]) Convate Night Drainage Container Set #[id number] See Rx Instructions .Route .MEDSUPPLY Qty: 1 11RF Rx Instructions: As directed ([facility] [place] [facility]) Alisha Urostomy Drain Tube Adapter See Rx Instructions .Route .MEDSUPPLY Qty: 2 11RF Rx Instructions: for attachement of urostomy bag to wolf bag at night (DME) Alisha Wafer, Cera Plus #[id number] 01/02 See Rx Instructions .Route .MEDSUPPLY Qty: 1 5RF Rx Instructions: As directed (DME) Alisha Appliance Pouch #[id number] 1 inch See Rx Instructions .Route .MEDSUPPLY Qty: 5 11RF Rx Instructions: As directed duloxetine 60 mg capsule,delayed release(DR/EC) See Rx Instructions .ROUTE .COMPLEX Qty: 90 3RF Dose Instruction: TAKE ONE CAPSULE BY MOUTH EVERY DAY Rx Instructions: TAKE ONE CAPSULE BY MOUTH EVERY DAY (DME) Hearing aids See Rx Instructions .Route .MEDSUPPLY Qty: 2 0RF Rx Instructions: As directed multivitamin with minerals Tablet 1 tab PO DAILY Rx Instructions: With 9mg iron and 400mcg tablet rivaroxaban 20 mg tablet 20 mg PO DAILY Rx Instructions: must administer with evening meal metoprolol succinate 100 mg tablet extended release 24 hr See Rx Instructions .ROUTE .COMPLEX Qty: 90 3RF Dose Instruction: TAKE ONE TABLET BY MOUTH EVERY DAY FOR LIGHTHEADEDNESS AND SVT Rx Instructions: TAKE ONE TABLET BY MOUTH EVERY DAY FOR LIGHTHEADEDNESS AND SVT acetaminophen 650 mg tablet extended release See Rx Instructions .ROUTE .COMPLEX Qty: 120 11RF Dose Instruction: TAKE TWO TABLETS BY MOUTH TWICE A DAY NEEDED FOR PAIN - MAX DAILY DOSE OF 2600MG IN 24 HOURS Rx Instructions: TAKE TWO TABLETS BY MOUTH TWICE A DAY NEEDED FOR PAIN - MAX DAILY DOSE OF 2600MG IN 24 HOURS gabapentin 600 mg tablet See Rx Instructions .ROUTE .COMPLEX Qty: 90 11RF Dose Instruction: TAKE ONE TABLET BY MOUTH THREE TIMES A DAY Rx Instructions: TAKE ONE TABLET BY MOUTH THREE TIMES A DAY thiamine HCl (vitamin B1) 100 mg tablet See Rx Instructions .ROUTE .COMPLEX Qty: 90 3RF Dose Instruction: TAKE ONE TABLET BY MOUTH EVERY DAY Rx Instructions: TAKE ONE TABLET BY MOUTH EVERY DAY atorvastatin 40 mg tablet See Rx Instructions .ROUTE .COMPLEX Qty: 90 3RF Dose Instruction: TAKE ONE TABLET BY MOUTH EVERY DAY Rx Instructions: TAKE ONE TABLET BY MOUTH EVERY DAY folic acid 1 mg tablet See Rx Instructions .ROUTE .COMPLEX Qty: 90 3RF Dose Instruction: TAKE ONE TABLET BY MOUTH EVERY DAY Rx Instructions: TAKE ONE TABLET BY MOUTH EVERY DAY HPI General Mode of arrival: ambulatory. Date/Time Provider Initiated Documentation: 03/23/25 13:33. Limitations to Documentation: no limitations. Information obtained by: patient. HPI Narrative: 74-year-old male with multiple medical problems presents with chief complaint of left chest pain. Patient is poor historian which limits HPI. Patient notes left posterior lateral rib pain and associated shortness of breath. Patient notes chronic pain but that this is an acute exacerbation. He does note he fell a few weeks ago from a ladder and thinks he may have injured the area. No associated cough. Patient has a history of bladder cancer and he is concerned that his pain is secondary to metastatic cancer. Related Data Home Medications ?Medication ?Instructions ?Recorded ?Confirmed inhalational spacing device #1 ea 11/21/19 03/23/25 (Aerochamber MV spacer) Adapt Ring 12/17/21 03/23/25 Convatec Sensicare Barrier Wipe 12/17/21 03/23/25 catheter bag 12/17/21 03/23/25 ostomy supplies 1 11/0412/17/21 03/23/25 Hearing aids #2 ea 03/31/22 03/23/25 Convatec Adhesive Release Keeler #1 ea 04/28/22 03/23/25 Convatec Night Drainage Container #1 ea 04/28/22 03/23/25 Set #[id number] [place] Urostomy Drain Tube #2 ea 04/28/22 03/23/25 Adapter [place] Wafer, Cera Plus #[id number] #1 pkg 04/28/22 03/23/25 Alisha Wafer, Cera Plus #[id number] #2 pkgs 05/02/22 03/23/25 [place] Appliance Pouch #[id number] #5 ea 05/17/24 03/23/25 magnesium oxide 400 mg PO DAILY #90 tabs 06/01/24 03/23/25 mecobalamin (vitamin B12) 1,000 1,000 mcg PO DAILY #90 tabs 06/01/24 03/23/25 mcg chewable tablet (B12 Active) multivitamin with minerals 1 tab PO DAILY 07/17/24 03/23/25 rivaroxaban 20 mg tablet 20 mg PO DAILY 07/17/24 03/23/25 duloxetine 60 mg capsule,delayed See Rx Instructions .Route 08/03/24 03/23/25 release .COMPLEX #90 caps metoprolol succinate 100 mg See Rx Instructions .Route 09/07/24 03/23/25 tablet,extended release 24 hr .COMPLEX #90 tabs aspirin 81 mg tablet,delayed 81 mg PO DAILY #90 tabs 10/12/24 03/23/25 release acetaminophen 650 mg See Rx Instructions .Route 11/06/24 03/23/25 tablet,extended release .COMPLEX #120 tabs gabapentin 600 mg tablet See Rx Instructions .Route 12/25/24 03/23/25 .COMPLEX #90 tabs thiamine HCl (vitamin B1) 100 mg See Rx Instructions .Route 12/25/24 03/23/25 tablet .COMPLEX #90 tabs atorvastatin 40 mg tablet See Rx Instructions .Route 01/03/25 03/23/25 .COMPLEX #90 tabs folic acid 1 mg tablet See Rx Instructions .Route 01/04/25 03/23/25 .COMPLEX #90 tabs albuterol sulfate 90 mcg/actuation See Rx Instructions .Route 01/11/25 03/23/25 aerosol inhaler .COMPLEX #25.5 grams fluticasone 250 mcg-salmeterol 50 1 inh inhalation BID #60 ea 01/11/25 03/23/25 mcg/dose blistr powdr for inhalation (Advair Diskus) Previous Rx's ?Medication ?Instructions ?Recorded inhalational spacing device #1 ea 11/21/19 (Aerochamber MV spacer) Hearing aids #2 ea 03/31/22 Convatec Adhesive Release Keeler #1 ea 04/28/22 Convatec Night Drainage Container #1 ea 04/28/22 Set #[id number] [place] Urostomy Drain Tube #2 ea 04/28/22 Adapter [place] Wafer, Cera Plus #[id number] #1 pkg 04/28/22 [place] Wafer, Cera Plus #[id number] #2 pkgs 05/02/22 Alisha Appliance Pouch #[id number] #5 ea 05/17/24 magnesium oxide 400 mg PO DAILY #90 tabs 06/01/24 mecobalamin (vitamin B12) 1,000 1,000 mcg PO DAILY #90 tabs 06/01/24 mcg chewable tablet (B12 Active) duloxetine 60 mg capsule,delayed See Rx Instructions .Route 08/03/24 release .COMPLEX #90 caps metoprolol succinate 100 mg See Rx Instructions .Route 09/07/24 tablet,extended release 24 hr .COMPLEX #90 tabs aspirin 81 mg tablet,delayed 81 mg PO DAILY #90 tabs 10/12/24 release acetaminophen 650 mg See Rx Instructions .Route 11/06/24 tablet,extended release .COMPLEX #120 tabs gabapentin 600 mg tablet See Rx Instructions .Route 12/25/24 .COMPLEX #90 tabs thiamine HCl (vitamin B1) 100 mg See Rx Instructions .Route 12/25/24 tablet .COMPLEX #90 tabs atorvastatin 40 mg tablet See Rx Instructions .Route 01/03/25 .COMPLEX #90 tabs folic acid 1 mg tablet See Rx Instructions .Route 01/04/25 .COMPLEX #90 tabs albuterol sulfate 90 mcg/actuation See Rx Instructions .Route 01/11/25 aerosol inhaler .COMPLEX #25.5 grams fluticasone 250 mcg-salmeterol 50 1 inh inhalation BID #60 ea 01/11/25 mcg/dose blistr powdr for inhalation (Advair Diskus) Allergies Allergy/AdvReac Type Severity Reaction Status Date / Time aspirin AdvReac Intermediate GI Bleeding Verified 03/23/25 13:43 General Stated Complaint: Chest/Rib HOSSEIN: 3 Review of Systems Respiratory Respiratory: Reports as per HPI Exam Const General: cooperative and no acute distress Orientation: alert and awake HENMT Mouth: moist mucous membranes Eyes Conjunctivae: normal conjunctivae Sclera: normal sclerae Neck Neck: trachea midline and supple Resp Effort & Inspection: able to speak in complete sentences, not labored and no respiratory distress Auscultation: rhonchi and no wheezes Cardio Rate: regular rate and not tachycardic Rhythm: regular rhythm GI Palpation: soft, not firm, no guarding, no masses, not rigid and nontender Skin General skin exam: no rashes or lesions noted Neuro General: patient alert, patient awake and tone normal Cognition: abnormal cognition (some memory deficits) Extrem General: no edema Psych Appearance: grossly normal Course Vital Signs Vital signs: Vital Signs Temperature 36.1 C L 03/23/25 13:25 Pulse 82 03/23/25 13:25 Respiratory Rate 18 03/23/25 13:25 Blood Pressure 116/95 H 03/23/25 13:25 Pulse Oximetry 98 03/23/25 13:25 Temperature 36.1 C L 03/23/25 13:25 Pulse 93 H 05/23/25 13:46 Respiratory Rate 16 03/23/25 13:46 Blood Pressure 116/95 H 03/23/25 13:25 Pulse Oximetry 98 03/23/25 13:46 Oxygen Delivery Method Room Air 03/23/25 13:46 Oxygen Flow Rate 0 03/23/25 13:46 Pain Level 10 03/23/25 13:25 Medical Decision Making 1600 --74-year-old male with multiple medical problems including history of multiple malignancies including prostate cancer, here with acute left lateral chest pain that is pleuritic in nature and associated shortness of breath. Patient is hemodynamically stable and saturating well on room air. Presentation is not consistent with ACS. I considered rib fracture or pneumothorax. Chest x-ray was reviewed and interpreted by radiology: No acute rib fracture or destructive lesion. Old bilateral rib fractures. No acute pulmonary findings. Consider acute pulmonary embolism. Plan to obtain CT of the chest. Lidocaine patch placed for discomfort. Initial labs reviewed and nondiagnostic. Lab Data Lab results reviewed: Yes I reviewed the patient's lab results. Labs: Laboratory Tests Range/Units 03/23/25 14:15 WBC (4.4-10.8) 10^3/uL 10.57 RBC (4.36-5.78) 10^6/uL 4.71 Hgb (13.5-17.5) g/dL 15.2 Hct (40.0-50.0) % 46.2 MCV (80-95) fL 98 H MCH (27.0-33.0) pg 32.3 MCHC (32.0-36.0) % 32.9 RDW (11.8-14.1) % 13.1 Plt Count (130-400) 10^3/uL 232 MPV (8.0-11.0) fL 11.3 H Immature Gran % % 0.4 Neutrophils % % 70.9 Lymphocytes % % 12.9 Monocytes % % 13.2 Eosinophils % % 2.0 Basophils % % 0.6 Nucleated RBC % (0.0-0.3) % 0.0 Absolute Neutrophils (1.2-6.7) 10^3/uL 7.50 H Absolute Lymphocytes (1.2-3.4) 10^3/uL 1.36 Absolute Monocytes (0.1-0.8) 10^3/uL 1.40 H Absolute Eosinophils (0.0-0.7) 10^3/uL 0.21 Absolute Basophils (0.0-0.2) 10^3/uL 0.06 Sodium (136-145) mmol/L 140 Potassium (3.5-5.1) mmol/L 3.8 Chloride (98-107) mmol/L 105 Carbon Dioxide (21.0-32.0) mmol/L 27.5 Anion Gap (3-11) mmol/L 7.5 BUN (7-18) mg/dL 9 Creatinine (0.70-1.30) mg/dL 0.8 Est GFR (CKD-EPI 2020) (mL/min/1.73m2) 94.03 Glucose (74-106) mg/dL 98 Calcium (8.5-10.1) mg/dL 9.5 ABO/Rh A Positive Antibody Screen NEGATIVE Quality:SDOH Health Related Social Needs: Health related social needs details N/A PFSH All Active Problems Impacted cerumen, right ear (Acute) History of GI bleed (Acute) EtOH (chronic) Chronic total occlusion of artery of the extremities (Acute ~08/30/24) Nicotine use disorder (Chronic) Started in 1965 with avg 1.5 PPD (2023: ~60 pack year) Alcohol use disorder (Chronic) Supraventricular tachycardia (Chronic ~11/2021) 2021 & [address] [facility]-->candidate for ablation Gangrene of toe of left foot (Acute) Critical limb ischemia of left lower extremity (Acute) Ocular migraine (Acute) Memory deficit (Acute) Peripheral neuropathy (Acute) Orthostatic hypotension (Acute) Imbalance (Acute) Hyperglycemia (Acute) Carotid artery stenosis (Acute) Subclavian arterial stenosis (Acute ~12/2023) RIGHT [facility] Vascular Surgery 02/23/24 Impacted cerumen, bilateral (Acute) Stenosis of both vertebral arteries (Acute ~12/2023) Left subclavian artery occlusion (Acute ~12/2023) Amaurosis fugax of right eye (Acute ~11/2023) PAD (peripheral artery disease) (Acute ~08/2023) CT Degenerative arthritis of cervical spine (Chronic ~2020) Impairment of speech discrimination (Acute) Prostate cancer (Chronic) Incidental finding on cystoprostatectomy spce Doris 3+3 stage T2 Rectal polyp (Acute ~08/20/22) hyperplastic Folate deficiency (Acute) Metastatic urothelial carcinoma (Acute ~2021) 05/19/22 Dr Murdock, pt proceeding with treatment and F/u in 4w Bladder cancer (Acute ~04/2021) Stage 111A,node positive 10/2021: neoadjuvant chemotx 11/2021: S/P total cystectomy w/ ileal conduit 03/2022: adjuvant chemo tx Central stenosis of spinal canal (Chronic ~2018) Severe central canal stenosis L2-3, L3-4 Foraminal stenosis of lumbosacral region (Chronic) (B) L2-3 through L5-S1 Radicular pain (Acute) Depressive disorder, not elsewhere classified (Chronic 01/19/12) Major depressive disorder, recurrent episode, mild per [facility] Hem Onc 09/16/21 note Neurodermatitis (Acute 11/12/15) Hypertensive retinopathy of both eyes (Chronic) Sensorineural hearing loss, bilateral (Acute) Abnormal liver function (Acute 09/14/13) Etoh? related Lichen simplex chronicus (Acute 11/26/16) Other and unspecified hyperlipidemia (Acute 02/03/13) PCEq 20% LDL baseline 181 Medical History Cellulitis DVT (deep venous thrombosis) Gangrene of left foot PSVT (paroxysmal supraventricular tachycardia) (~2018) Abnormal computed tomography angiography (CTA) of neck (~12/2023) Lightheadedness (~06/2022) Pre-syncope (~08/2022) Impacted cerumen, left ear Verbalizes suicidal thoughts (~09/2022) 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 Drug induced neutropenia (~10/07/21) 10/07/21 [facility]Onc Note Alcohol use disorder, moderate, in early remission drinking again Heel bone fracture with ORIF, and Hx of revision 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 Tongue cancer Has had tongue resection x 2014 Per patient they took about half the tongue Regional wall motion abnormality of heart Syncope 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-Dr George-robotic assisted w/transbronchial cryobiopsies S/P femoral-popliteal bypass surgery (~07/2024) PAD--[facility] Vasc Surg Amputation of fifth toe of left foot (~07/2024) PAD--[facility] Vas surg History of urostomy (~2021) History of colonoscopy with polypectomy (~08/20/22) H/O total cystectomy (~11/26/21) Cystectomy, complete with ileal conduit Status post surgical removal and fulguration of bladder neoplasm (~11/2020) 04/23/[address] [facility] Posterior subcapsular age-related cataract of left eye Nuclear sclerotic cataract of left eye Cortical cataract of left eye Hx of lumbosacral spine surgery x 2 per pt. date not known Hx of inguinal hernia surgery (~1969) 1969 History of right cataract surgery (~2012) 2012 Dr Argueta (per pt) History of back surgery (~1988) 1988 Family History Mother , Pt reports mother of Old Age Diabetes Lung cancer Father Diabetes Stroke Sister Diabetes Brother Diabetes Social History Smoking/Tobacco Use Status: Current every day Tobacco Type: cigarettes Years smoked: 53 Tobacco: How many years used: 53 Quit status: not considering quitting Counseling given: counseling >3 minutes (pre-contemplative) Smoking risk assessment performed?: Yes Alcohol Intake: current Alcohol Intake frequency: 3 or more drinks per day Alcohol type: beer Drug use: Daily Substance use type: marijuana Details: patient stated he drink eight 16oz beers a day BrodieRN 06/24/24 Adopted: No Caregiver/Support person: No Foster care: No Household members: none Housing: house Number of Children: 0 Communication Needs: Corrective Lenses Education Level: high school Do you need help understanding health information?: Always current occupation: disabled Pets and animals: Yes Pets and animals: cat(s) Sexually active: No Do you think of yourself as: straight/heterosexual Current gender identity: male What is your relationship status?: How often do you talk on the phone with friends or family?: once per week How often do you get together with friends or relatives?: once per week How often do you attend mandaen or mandaen services?: decline to answer Do you belong to any clubs or organized social groups?: no Panel score (0-1 are the most socially isolated patients): 0 What type of physical activity do you participate in: decline to answer Duration: decline to answer Frequency: decline to answer Seatbelt use: always Helmet use: No (No need for it) Drive intox or ride w/intox 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
[2025-03-23 14:25] LABS: Abs Immature Grans 0.04 10^3/uL (0.0-0.06); Absolute Basophil Count 0.06 10^3/uL (0.0-0.2); Absolute Eosinophil Count 0.21 10^3/uL (0.0-0.7); Absolute Lymphocyte Count 1.36 10^3/uL (1.2-3.4); Basophils % 0.6 %; HCT 46.2 % (40.0-50.0); HGB 15.2 g/dL (13.5-17.5); Immature Grans % 0.4 %; Lymphocytes % 12.9 %; MCH 32.3 pg (27.0-33.0); MCHC 32.9 % (32.0-36.0); MCV 98 fL (80-95); MPV 11.3 fL (8.0-11.0); Monocytes % 13.2 %; Neutrophils % 70.9 %; Platelet Count 232 10^3/uL (130-400); RBC 4.71 10^6/uL (4.36-5.78); RDW 13.1 % (11.8-14.1); RDW-SD 46.6 fL; WBC 10.57 10^3/uL (4.4-10.8)
[2025-03-23 14:36] LABS: Anion Gap 7.5 mmol/L (3-11); BUN 9 mg/dL (7-18); CO2 27.5 mmol/L (21.0-32.0); CREATININE 0.8 mg/dL (0.70-1.30); Calcium 9.5 mg/dL (8.5-10.1); Chloride 105 mmol/L (98-107); Estimated GFR 94.03 (mL/min/1.73m2); Glucose 98 mg/dL (74-106); Potassium 3.8 mmol/L (3.5-5.1); Sodium 140 mmol/L (136-145)
--- NOTE | 2025-03-23 15:00 | DI.RAD_ITS ---
Exam(s) XR RIBS LT W PA LAT CHEST CLINICAL HISTORY pain. COMPARISON: CT CT CHEST WO from 12/06/2024 TECHNIQUE:: PA and lateral views of the chest and four views of the left ribs were performed. FINDINGS: LUNGS: The right diaphragm is now mildly elevated. Mildly increased densities at right costophrenic angle. No acute rib fractures are identified. There no gross evidence of a destructive lesion. Und erlying interstitial changes. No pleural abnormality seen. HEART: Mildly enlarged. MEDIASTINUM: Normal. BONES: Old right 8th rib fracture. Old posterior left 9th rib fracture. No compression fractures ar e seen in the thoracic spine. No bony destructive lesion is seen. Degenerative changes are present in the spine and shoulders. OTHER FINDINGS: Port over right upper chest with tip in SVC. IMPRESSION: 1. No acute rib fracture or destructive lesion. Old bilateral rib fractures. 2. No acute pulmonary findings.
[2025-03-23 15:42] VITALS: BP 104/65; PULSE 89; RESP 19; TEMP 36.6; O2SAT 94
[2025-03-23] MEDS: Normal Saline - Diluent 50 ML VIAL IJ (15:54)
[2025-03-23] MEDS: Omnipaque 350 MG/ML 100 ML BTL IJ (15:55)
--- NOTE | 2025-03-23 16:27 | DI.CT_ITS ---
Exam(s) CT CHEST PE CTA EXAM: CT CHEST PE CTA CLINICAL HISTORY: left chest pain, h/o cancer. TECHNIQUE: Imaging Protocol: Axial CT angiography was performed with multi-slice acquisition and mu lti-planar and/or 3D reconstructions. Lung Computer Aided Detection (CAD) was utilized. CONTRAST MATERIAL: Intravenous: Omnipaque 350 contrast volume:60 mL COMPARISON: CT CT CHEST LUNG CANCER SCREEN from 05/12/[address] CHEST WO from 12/06/2024 CR XR RIBS LT W PA LAT CHEST from 03/23/2025 FINDINGS: The examination is limited due to patient motion artifact. Tracheobronchial tree: Patent where visualized. No bronchiectasis. There is mild bronchial wall thic kening which may reflect bronchitis. There is some mucous plugging seen in the right lower lobe. Pulmonary parenchyma: The lobulated nodule in the right lower lobe measures 2.1 x 1.5 cm. This appea rs similar compared to the earlier examination from 12/06/2024. (Series 11, image 79). There is again seen a 4 mm nodule in the lateral aspect of the right middle lobe (series 11, image 78). There are ground-glass opacities seen in the lungs which may represent atelectasis. Pneumonitis cannot be excl uded. Pulmonary Arteries: No evidence of filling defect to suggest pulmonary emboli. Mediastinum and Cindy: No dominant adenopathy or fluid collection. The esophagus is unremarkable. Visualized thyroid gland: Unremarkable. Pleura: No effusion or pneumothorax. Heart: Cardiomegaly. Coronary artery calcifications are present. No pericardial effusion. Aorta: The sending thoracic aorta measures 4.5 x 4.4 cm. Atherosclerotic calcification is present. There is significant calcification at the origin of the left subclavian artery resulting in 70-80 per cent stenosis. Upper abdomen: Unremarkable. Tubes, Catheters, and Lines: There is a right port in place. Soft tissues: Unremarkable. Bones: Within normal limits for the patient's age. IMPRESSION: 1. Evidence of a pulmonary embolism. 2. Stable size of the right lower lobe pulmonary nodule. 3. Scattered ground-glass opacities in the lungs. This may represent atelectasis or pneumonitis. Pl ease correlate clinically. No focal consolidating infiltrates are seen. 4. Significant calcification at the origin of the left subclavian artery resulting in 70-80 percent s tenosis. 5. Stable 4 mm right middle lobe pulmonary nodule. 6. Bronchial wall thickening which can be seen with bronchitis. RADIATION DOSE DELIVERED: 113.91mGy.cm Total DLP DATA REPOSITORY: All CT scans at this facility are submitted to the National Radiology Data Registry (NRDR) Dose Index Registry (DIR) with the [employer] (ACR). RADIATION OPTIMIZATION: All CT scans at this facility use at least one of these dose optimization te chniques: automated exposure control; mA and/or kV adjustment per patient size (includes targeted exa ms where dose is matched to clinical indication); or iterative reconstruction.
--- NOTE | 2025-03-23 16:41 | W.EDPROG ---
Date of service: 03/23/25 Time of Service: 16:42 Medical Decision Making In brief, this is a 74-year-old male patient who presented to the emergency department with left-sided chest/rib pain, and shortness of breath with a junky cough. At the time that I took over his care his disposition was pending CT pulmonary embolism study. He had received Tylenol for his pain to good effect. CT scan revealed no pulmonary embolism, no rib fractures (I was able to clarify with this patient and it seems that his fall was actually 30 or 40 years ago, not recently), but does show evidence of bronchitis and pneumonitis. He does have a few pulmonary nodules which are stable, the patient reports that he is working with his outpatient providers to schedule a biopsy of these areas. I started him on azithromycin for atypical pneumonia, and provided him with lidocaine patches for his ongoing left-sided pain. At this time, the patient has had a full medical evaluation and is safe for discharge to home. They are hemodynamically stable, ambulatory, and tolerating PO. They are understanding of the follow-up plan and return precautions. They left our facility without incident. Ava Salas MD Medical Records Medical records reviewed: Yes I reviewed the patient's medical records. Lab Data Lab results reviewed: Yes I reviewed the patient's lab results. Quality:SDOH Health Related Social Needs: Health related social needs details N/A Discharge Plan Disposition Patient Disposition: Home Condition: Stable Discharge Details Clinical Impression: Acute bronchitis Primary Care Provider: Celia Gresham ED Provider: Ava Salas Home Meds and New Rx's Prescriptions: New azithromycin 250 mg tablet 250 mg PO DAILY 4 Days Qty: 4 0RF Rx Instructions: start on day 2 of therapy (03/23/2025) lidocaine [Lidoderm] 5 % adhesive patch,medicated 1 patch topical DAILY Qty: 30 0RF Rx Instructions: leave on most painful area for up to 12 hrs No Action (DME) ostomy supplies 1 11/04 misc See Rx Instructions .Route Rx Instructions: As directed (DME) catheter bag 0 .Route .MEDSUPPLY Patient Comments: [facility] #[id number] (DME) [facility] Barrier Wipe 0 .Route .MEDSUPPLY Patient Comments: [facility] #[id number] (DME) [employer] Ring 0 .Route .MEDSUPPLY Patient Comments: [facility] [employer] RING #8756 aspirin 81 mg tablet,delayed release (DR/EC) 81 mg PO DAILY Qty: 90 1RF mecobalamin (vitamin B12) [B12 Active] 1,000 mcg tablet,chewable 1,000 mcg PO DAILY Qty: 90 3RF magnesium oxide 400 mg magnesium tablet 400 mg PO DAILY Qty: 90 3RF fluticasone propion-salmeterol [Advair Diskus] 250-50 mcg/dose blister with device 1 inh inhalation BID Qty: 60 11RF Rx Instructions: Chronic bronchitis; RINSE MOUTH AFTER USE albuterol sulfate 90 mcg/actuation HFA aerosol inhaler See Rx Instructions .ROUTE .COMPLEX Qty: 25.5 12RF Dose Instruction: INHALE TWO PUFFS BY MOUTH FOUR TIMES A DAY NEEDED FOR SHORNTESS OF BREATH OR WHEEZING Rx Instructions: INHALE TWO PUFFS BY MOUTH FOUR TIMES A DAY NEEDED FOR SHORNTESS OF BREATH OR WHEEZING (DME) Aerochamber MV Spacer See Rx Instructions .ROUTE .MEDSUPPLY Qty: 1 0RF Rx Instructions: As directed with [facility] (DME) Alisha Wafer, Cera Plus #[id number] 3/4 See Rx Instructions .Route .MEDSUPPLY Qty: 2 11RF Rx Instructions: 2 different Cera Plus #8805 components (DME) [employer] Adhesive Release [place] [phone] See Rx Instructions .Route .MEDSUPPLY Qty: 1 11RF Rx Instructions: As directed (DME) [employer] Night Drainage Container Set #[id number] See Rx Instructions .Route .MEDSUPPLY Qty: 1 11RF Rx Instructions: As directed (DME) [facility] Urostomy Drain Tube Adapter See Rx Instructions .Route .MEDSUPPLY Qty: 2 11RF Rx Instructions: for attachement of urostomy bag to wolf bag at night (DME) [facility] Wafer, Cera Plus #8805 3/4 See Rx Instructions .Route .MEDSUPPLY Qty: 1 5RF Rx Instructions: As directed (DME) [facility] [employer] Pouch #[id number] 1 inch See Rx Instructions .Route .MEDSUPPLY Qty: 5 11RF Rx Instructions: As directed duloxetine 60 mg capsule,delayed release(DR/EC) See Rx Instructions .ROUTE .COMPLEX Qty: 90 3RF Dose Instruction: TAKE ONE CAPSULE BY MOUTH EVERY DAY Rx Instructions: TAKE ONE CAPSULE BY MOUTH EVERY DAY (DME) Hearing aids See Rx Instructions .Route .MEDSUPPLY Qty: 2 0RF Rx Instructions: As directed multivitamin with minerals Tablet 1 tab PO DAILY Rx Instructions: With 9mg iron and 400mcg tablet rivaroxaban 20 mg tablet 20 mg PO DAILY Rx Instructions: must administer with evening meal metoprolol succinate 100 mg tablet extended release 24 hr See Rx Instructions .ROUTE .COMPLEX Qty: 90 3RF Dose Instruction: TAKE ONE TABLET BY MOUTH EVERY DAY FOR LIGHTHEADEDNESS AND SVT Rx Instructions: TAKE ONE TABLET BY MOUTH EVERY DAY FOR LIGHTHEADEDNESS AND SVT acetaminophen 650 mg tablet extended release See Rx Instructions .ROUTE .COMPLEX Qty: 120 11RF Dose Instruction: TAKE TWO TABLETS BY MOUTH TWICE A DAY NEEDED FOR PAIN - MAX DAILY DOSE OF 2600MG IN 24 HOURS Rx Instructions: TAKE TWO TABLETS BY MOUTH TWICE A DAY NEEDED FOR PAIN - MAX DAILY DOSE OF 2600MG IN 24 HOURS gabapentin 600 mg tablet See Rx Instructions .ROUTE .COMPLEX Qty: 90 11RF Dose Instruction: TAKE ONE TABLET BY MOUTH THREE TIMES A DAY Rx Instructions: TAKE ONE TABLET BY MOUTH THREE TIMES A DAY thiamine HCl (vitamin B1) 100 mg tablet See Rx Instructions .ROUTE .COMPLEX Qty: 90 3RF Dose Instruction: TAKE ONE TABLET BY MOUTH EVERY DAY Rx Instructions: TAKE ONE TABLET BY MOUTH EVERY DAY atorvastatin 40 mg tablet See Rx Instructions .ROUTE .COMPLEX Qty: 90 3RF Dose Instruction: TAKE ONE TABLET BY MOUTH EVERY DAY Rx Instructions: TAKE ONE TABLET BY MOUTH EVERY DAY folic acid 1 mg tablet See Rx Instructions .ROUTE .COMPLEX Qty: 90 3RF Dose Instruction: TAKE ONE TABLET BY MOUTH EVERY DAY Rx Instructions: TAKE ONE TABLET BY MOUTH EVERY DAY Discharge Instructions Instructions: Bronchitis, Adult ED Additional Instructions: You were seen in the emergency department today for evaluation of shortness of breath, left-sided chest and back pain, and were found to have acute bronchitis and possibly an atypical pneumonia. In our department a full physical examination performed and had imaging studies that did not show any blood clots in your lungs, you do have the pulmonary nodules that you are aware of, that have not changed since your last imaging study. I have provided you with an antibiotic, please take all this medication until it is gone, even if you start to feel better. You should continue your Tylenol, home medications, and use the lidocaine patches that I have prescribed for pain on the outside of your chest. Sometimes these are more affordable to buy [id number] them by prescription, please choose what ever is cheapest, they are equally effective. Please follow-up with your primary care provider in the next few days to discuss this visit and any symptoms that change, worsen, or persist. Thank you for allowing us to be part of your care.
[2025-03-23] MEDS: Acetaminophen 500 MG TAB 1000 MG PO (17:19)
[2025-03-23] MEDS: Azithromycin 250 MG TAB 500 MG PO (18:01)
[2025-03-23 18:02] VITALS: BP 108/62; PULSE 89; RESP 18; TEMP 36.6; O2SAT 94
== END 2025-03-23 18:03 | disposition home or self-care (01) ==
PROVIDERS: Student in an Organized Health Care Education/Training Program; Emergency Provider Emergency Medicine; PCP Nurse Practitioner Adult Health
DX: R07.81 Pleurodynia (principal); R06.02 Shortness of breath; R05.9 Cough, unspecified; I10 Essential (primary) hypertension; F17.210 Nicotine dependence, cigarettes, uncomplicated; Z79.82 Long term (current) use of aspirin; Z85.51 Personal history of malignant neoplasm of bladder
CPT/HCPCS: 00123; 71275; 80048; 86850; 86900; 86901; 93005; 99285; 71046; 71100; 85025; 93010; 99284; J3490

== ENCOUNTER 2025-03-27 02:41 | Outpatient (CLI) | payer MEDICARE, SELFPAY ==
[2025-03-27 12:20] LABS: Abs Immature Grans 0.05 10^3/uL (0.0-0.06); Absolute Basophil Count 0.09 10^3/uL (0.0-0.2); Absolute Eosinophil Count 0.23 10^3/uL (0.0-0.7); Absolute Lymphocyte Count 1.59 10^3/uL (1.2-3.4); Absolute Monocyte Count 1.13 10^3/uL (0.1-0.8); Absolute Neutrophil Count 6.81 10^3/uL (1.2-6.7); Basophils % 0.9 %; Eosinophils % 2.3 %; HCT 47.7 % (40.0-50.0); HGB 15.5 g/dL (13.5-17.5); Immature Grans % 0.5 %; Lymphocytes % 16.1 %; MCH 32.4 pg (27.0-33.0); MCHC 32.5 % (32.0-36.0); MCV 100 fL (80-95); MPV 11.3 fL (8.0-11.0); Monocytes % 11.4 %; Neutrophils % 68.8 %; Platelet Count 282 10^3/uL (130-400); RBC 4.78 10^6/uL (4.36-5.78); RDW 13.1 % (11.8-14.1); RDW-SD 48.1 fL
[2025-03-27 12:53] LABS: ALT 20 U/L (16-63); AST 33 U/L (15-37); Albumin 3.1 g/dL (3.4-5.0); Alkaline Phosphatase 118 U/L (46-116); Anion Gap 9.2 mmol/L (3-11); BUN 13 mg/dL (7-18); Bilirubin, Total 0.6 mg/dL (0.2-1.0); CO2 27.8 mmol/L (21.0-32.0); Calcium 9.3 mg/dL (8.5-10.1); Chloride 102 mmol/L (98-107); Estimated GFR 79.97 (mL/min/1.73m2); Glucose 111 mg/dL (74-106); Potassium 3.8 mmol/L (3.5-5.1); Sodium 139 mmol/L (136-145); Total Protein 7.7 g/dL (6.4-8.2)
== END 2025-03-27 02:42 | disposition home or self-care (01) ==
LOC: LBO 02:41
PROVIDERS: PCP Nurse Practitioner Adult Health; Visit Provider Nurse Practitioner
DX: C67.9 Malignant neoplasm of bladder, unspecified (principal)
CPT/HCPCS: 36415; 80053; 85025

== ENCOUNTER → 2025-04-09 14:06 | Outpatient (BNVA) | payer MEDICARE, SELFPAY | PROVIDERS: PCP Nurse Practitioner Adult Health; Visit Provider Psychiatry & Neurology Neurology | DX: R26.89 Other abnormalities of gait and mobility (principal); I95.1 Orthostatic hypotension; M48.00 Spinal stenosis, site unspecified; G62.9 Polyneuropathy, unspecified; F10.20 Alcohol dependence, uncomplicated; R41.3 Other amnesia; G43.109 Migraine with aura, not intractable, without status migrainosus; I10 Essential (primary) hypertension | CPT/HCPCS: 99214 ==

== ENCOUNTER 2025-06-01 11:45 | Emergency (ER) | payer MEDICARE, SELFPAY ==
[2025-06-01] VITALS (28 sets, daily range): BP systolic 114–147; BP diastolic 65–103; PULSE 61–98; RESP 8–25; TEMP 36.4; O2SAT 93–99
--- NOTE | 2025-06-01 11:45 | RT.EKG_ITS ---
APPROVED REPORT Exam: Resting ECG Reason for Exam: dizziness Patient Location: E HR:76 bpm ECG Measurements Heart Rate 76 AXIS RI 141 P 51 QRSd 105 QRS 37 QT 428 T 32 QTc 483 Conclusion Sinus rhythm...normal P axis, V-rate 60- 99
--- NOTE | 2025-06-01 12:30 | ED.GENADUL_ITS ---
Discharge Plan Discharge Details Chief Complaint: Dizzy/Sync Primary Care Provider: Celia Gresham ED Provider: Melva Mitchell Home Meds and New Rx's Prescriptions: No Action (DME) ostomy supplies 1 11/04 [facility] [place] See Rx Instructions .Route Rx Instructions: As directed (DME) catheter bag 0 .Route .MEDSUPPLY Patient Comments: BARD #[id number] (DME) Convatec Sensicare Barrier Wipe 0 .Route .MEDSUPPLY Patient Comments: [facility] #[id number] (DME) Adapt Ring 0 .Route .MEDSUPPLY Patient Comments: [place] Adapt RING #2818 mecobalamin (vitamin B12) [B12 Active] 1,000 mcg tablet,chewable 1,000 mcg PO DAILY Qty: 90 3RF fluticasone propion-salmeterol [Advair Diskus] 250-50 mcg/dose blister with device 1 inh inhalation BID Qty: 60 11RF Rx Instructions: Chronic bronchitis; RINSE MOUTH AFTER USE albuterol sulfate 90 mcg/actuation HFA aerosol inhaler See Rx Instructions .ROUTE .COMPLEX Qty: 25.5 12RF Dose Instruction: INHALE TWO PUFFS BY MOUTH FOUR TIMES A DAY NEEDED FOR SHORNTESS OF BREATH OR WHEEZING Rx Instructions: INHALE TWO PUFFS BY MOUTH FOUR TIMES A DAY NEEDED FOR SHORNTESS OF BREATH OR WHEEZING azithromycin 250 mg tablet See Rx Instructions PO .COMPLEX Qty: 6 0RF Rx Instructions: take 500 mg today (day 1), then 250 mg for 4 days (days 2-5) PO prednisone 20 mg tablet 40 mg PO .daily in AM Qty: 12 0RF Rx Instructions: COPD exacerbation (DME) Aerochamber MV Spacer See Rx Instructions .ROUTE .MEDSUPPLY Qty: 1 0RF Rx Instructions: As directed with [facility] (DME) [place] Wafer, Cera Plus #8805 01/02 See Rx Instructions .Route .MEDSUPPLY Qty: 2 11RF Rx Instructions: 2 different Cera Plus #[id number] components (DME) [facility] [place] [phone] See Rx Instructions .Route .MEDSUPPLY Qty: 1 11RF Rx Instructions: As directed (DME) Convate Night Drainage Container Set #[id number] See Rx Instructions .Route .MEDSUPPLY Qty: 1 11RF Rx Instructions: As directed (DME) Alisha Urostomy Drain Tube Adapter See Rx Instructions .Route .MEDSUPPLY Qty: 2 11RF Rx Instructions: for attachement of urostomy bag to wolf bag at night (DME) [place] Wafer, Cera Plus #8805 01/02 See Rx Instructions .Route .MEDSUPPLY Qty: 1 5RF Rx Instructions: As directed (DME) Alisha Appliance Pouch #[id number] 1 inch See Rx Instructions .Route .MEDSUPPLY Qty: 5 11RF Rx Instructions: As directed duloxetine 60 mg capsule,delayed release(DR/EC) See Rx Instructions .ROUTE .COMPLEX Qty: 90 3RF Dose Instruction: TAKE ONE CAPSULE BY MOUTH EVERY DAY Rx Instructions: TAKE ONE CAPSULE BY MOUTH EVERY DAY clopidogrel 75 mg tablet 75 mg PO DAILY terbinafine HCl 1 % cream See Rx Instructions .ROUTE .COMPLEX Qty: 30 2RF Dose Instruction: APPLY TOPICALLY TWO TIMES A DAY NEEDED FOR JOCK ITCH Rx Instructions: APPLY TOPICALLY TWO TIMES A DAY NEEDED FOR JOCK ITCH (DME) Hearing aids See Rx Instructions .Route .MEDSUPPLY Qty: 2 0RF Rx Instructions: As directed rivaroxaban 20 mg tablet 20 mg PO DAILY Rx Instructions: must administer with evening meal metoprolol succinate 100 mg tablet extended release 24 hr See Rx Instructions .ROUTE .COMPLEX Qty: 90 3RF Dose Instruction: TAKE ONE TABLET BY MOUTH EVERY DAY FOR LIGHTHEADEDNESS AND SVT Rx Instructions: TAKE ONE TABLET BY MOUTH EVERY DAY FOR LIGHTHEADEDNESS AND SVT gabapentin 600 mg tablet See Rx Instructions .ROUTE .COMPLEX Qty: 90 11RF Dose Instruction: TAKE ONE TABLET BY MOUTH THREE TIMES A DAY Rx Instructions: TAKE ONE TABLET BY MOUTH THREE TIMES A DAY thiamine HCl (vitamin B1) 100 mg tablet See Rx Instructions .ROUTE .COMPLEX Qty: 90 3RF Dose Instruction: TAKE ONE TABLET BY MOUTH EVERY DAY Rx Instructions: TAKE ONE TABLET BY MOUTH EVERY DAY atorvastatin 40 mg tablet See Rx Instructions .ROUTE .COMPLEX Qty: 90 3RF Dose Instruction: TAKE ONE TABLET BY MOUTH EVERY DAY Rx Instructions: TAKE ONE TABLET BY MOUTH EVERY DAY folic acid 1 mg tablet See Rx Instructions .ROUTE .COMPLEX Qty: 90 3RF Dose Instruction: TAKE ONE TABLET BY MOUTH EVERY DAY Rx Instructions: TAKE ONE TABLET BY MOUTH EVERY DAY aspirin 81 mg tablet,delayed release (DR/EC) See Rx Instructions .ROUTE .COMPLEX Qty: 90 3RF Dose Instruction: TAKE ONE TABLET BY MOUTH EVERY DAY Rx Instructions: TAKE ONE TABLET BY MOUTH EVERY DAY magnesium oxide 400 mg (241.3 mg magnesium) tablet See Rx Instructions .ROUTE .COMPLEX Qty: 90 3RF Dose Instruction: TAKE ONE TABLET BY MOUTH EVERY DAY Rx Instructions: TAKE ONE TABLET BY MOUTH EVERY DAY HPI General Date/Time Provider Initiated Documentation: 06/01/25 12:08 . HPI Narrative: Magalie is a 75-year-old male who presents to the emergency department today for evaluation of dizziness/not feeling well. He reports he has baseline dizziness since 1988 after a fall, has worsened over the last week, includes chills, dry mouth, and sensation of emptiness in his chest. Reports dyspnea, abdominal discomfort, and occipital headache is unchanged from baseline. Denies associated fever, congestion, sore throat, ear pain, vomiting, change in p.o. intake, numbness to extremities/weakness. He does have a history of frequent falls. He did drink heavily last night, 6 beers, says that alcohol helps alleviate his symptoms. Past medical history significant for bladder cancer (urothelial carcinoma) w metastases to lung, liver, bone; COPD, peripheral vascular disease/peripheral artery disease, alcohol use disorder, memory deficits, subclavian arterial stenosis and stenosis of both vertebral arteries, depression, HLD. Related Data Home Medications ?Medication ?Instructions ?Recorded ?Confirmed inhalational spacing device #1 ea 11/21/19 06/01/25 (Aerochamber MV spacer) Adapt Ring 12/17/21 06/01/25 Convatec Sensicare Barrier Wipe 12/17/21 06/01/25 catheter bag 12/17/21 06/01/25 ostomy supplies 1 11/0412/17/21 06/01/25 Hearing aids #2 ea 03/31/22 06/01/25 Convatec Adhesive Release [place] #1 ea 04/28/22 5 Convatec Night Drainage Container #1 ea 04/28/2206/01 Set #[id number] Alisha Urostomy Drain Tube #2 ea 04/28/22 06/01/25 Adapter [place] Wafer, Cera Plus #8805 #1 pkg 04/28/2206/01 Alisha Wafer, Cera Plus #8805 #2 pkgs 05/02/2211/25 [place] Appliance Pouch #[id number] #5 ea 05/17/24 mecobalamin (vitamin B12) 1,000 1,000 mcg PO DAILY #90 tabs 06/01/24 06/01/25 mcg chewable tablet (B12 Active) rivaroxaban 20 mg tablet 20 mg PO DAILY 07/17/2411/25 duloxetine 60 mg capsule,delayed See Rx Instructions . Route 08/03/24 06/01/25 release .COMPLEX #90 caps metoprolol succinate 100 mg See Rx Instructions .Route 09/07/24 06/01/25 tablet,extended release 24 hr .COMPLEX #90 tabs gabapentin 600 mg tablet See Rx Instructions .Route 0 12/25/24 06/01/25 .COMPLEX #90 tabs thiamine HCl (vitamin B1) 100 mg See Rx Instructions . Route 12/25/24 06/01/25 tablet .COMPLEX #90 tabs atorvastatin 40 mg tablet See Rx Instructions .Route 0 01/03/25 06/01/25 .COMPLEX #90 tabs folic acid 1 mg tablet See Rx Instructions .Route 0 01/04/25 06/01/25 .COMPLEX #90 tabs albuterol sulfate 90 mcg/actuation See Rx Instructions .Route 01/11/25 06/01/25 aerosol inhaler .COMPLEX #25.5 grams fluticasone 250 mcg-salmeterol 50 1 inh inhalation BID #60 ea 01/11/25 06/01/25 mcg/dose blistr powdr for inhalation (Advair Diskus) aspirin 81 mg tablet,delayed See Rx Instructions .Randy leo 03/28/25 06/01/25 release .COMPLEX #90 tabs magnesium oxide 400 mg (241.3 mg See Rx Instructions . Route 04/25/25 06/01/25 magnesium) tablet .COMPLEX #90 tabs clopidogrel 75 mg tablet 75 mg PO DAILY 04/27/2511/25 terbinafine HCl 1 % topical cream See Rx Instructions .Route 05/02/25 06/01/25 .COMPLEX #30 grams azithromycin 250 mg tablet See Rx Instructions PO .COM PLEX #6 05/21/25 06/01/25 tabs prednisone 20 mg tablet 40 mg (2 x 20 mg) PO .daily in AM 05/21/25 06/01/25 #12 tabs Previous Rx's ?Medication ?Instructions ?Recorded inhalational spacing device #1 ea 11/21/19 (Aerochamber MV spacer) Hearing aids #2 ea 03/31/22 Convatec Adhesive Release [place] #1 ea 04/28/22 Convatec Night Drainage Container #1 ea 04/28/22 Set #[id number] Alisha Urostomy Drain Tube #2 ea 04/28/22 Adapter Alisha Wafer, Cera Plus #8805 #1 pkg 04/28/22 Alisha Wafer, Cera Plus #8805 #2 pkgs 05/02/22 [place] Appliance Pouch #[id number] #5 ea 05/17/24 mecobalamin (vitamin B12) 1,000 1,000 mcg PO DAILY #90 tabs 06/01/24 mcg chewable tablet (B12 Active) duloxetine 60 mg capsule,delayed See Rx Instructions . Route 08/03/24 release .COMPLEX #90 caps metoprolol succinate 100 mg See Rx Instructions .Route 09/07/24 tablet,extended release 24 hr .COMPLEX #90 tabs gabapentin 600 mg tablet See Rx Instructions .Route 0 12/25/24 .COMPLEX #90 tabs thiamine HCl (vitamin B1) 100 mg See Rx Instructions . Route 12/25/24 tablet .COMPLEX #90 tabs atorvastatin 40 mg tablet See Rx Instructions .Route 0 01/03/25 .COMPLEX #90 tabs folic acid 1 mg tablet See Rx Instructions .Route 0 01/04/25 .COMPLEX #90 tabs albuterol sulfate 90 mcg/actuation See Rx Instructions .Route 01/11/25 aerosol inhaler .COMPLEX #25.5 grams fluticasone 250 mcg-salmeterol 50 1 inh inhalation BID #60 ea 01/11/25 mcg/dose blistr powdr for inhalation (Advair Diskus) aspirin 81 mg tablet,delayed See Rx Instructions .Rout e 03/28/25 release .COMPLEX #90 tabs magnesium oxide 400 mg (241.3 mg See Rx Instructions . Route 04/25/25 magnesium) tablet .COMPLEX #90 tabs terbinafine HCl 1 % topical cream See Rx Instructions .Route 05/02/25 .COMPLEX #30 grams azithromycin 250 mg tablet See Rx Instructions PO .COM PLEX #6 05/21/25 tabs prednisone 20 mg tablet 40 mg (2 x 20 mg) PO .daily in AM 05/21/25 #12 tabs Allergies Allergy/AdvReac Type Severity Reaction Status Date / Time aspirin AdvReac Intermediate GI Bleeding Verified 05/21/25 13:26 General Stated Complaint: Dizzy/Sync HOSSEIN: 3 Exam Narrative Exam Narrative: General Appearance: Normal. Vital signs: Within normal limits. HEENT: Moist mucous membranes. Respiratory: Easy work of breathing, lung sounds clear bilaterally. Cardiovascular: Normal heart sounds, regular rate and rhythm Gastrointestinal: Abdomen palpated, no tenderness. Urostomy bag in place, draining clear yellow urine. Back, Musculoskeletal: 5/5 muscle strength upper and lower extremities Neurological: Alert but disoriented to day. Cranial nerves II-XII intact, PERRL, EOMs intact, normal facial strength. Clear speech. Able to perform [id number] and rapid alternating movements. Normal visual mcdowell. Skin: Warm and dry, no rash. Psychiatric: Normal. Course Vital Signs Vital signs: Vital Signs Temperature 36.4 C L 06/01/25 11:53 Pulse 69 06/01/25 11:53 Respiratory Rate 18 06/01/25 11:53 Blood Pressure 147/77 H 06/01/25 11:53 Pulse Oximetry 99 06/01/25 11:53 Temperature 36.4 C L 06/01/25 11:53 Temperature Source Oral 06/01/25 11:53 Pulse 67 06/01/25 12:10 Pulse 73 06/01/25 12:20 Respiratory Rate 17 06/01/25 12:20 Respiratory Effort Normal, Non-Labored 06/01/25 12:19 Respiratory Depth Normal 06/01/25 12:19 Respiratory Pattern Normal 06/01/25 12:19 Blood Pressure 132/85 06/01/25 12:01 Blood Pressure Mean 100 06/01/25 12:01 Pulse Oximetry 98 06/01/25 12:10 Oxygen Delivery Method Room Air 06/01/25 11:53 Oxygen Flow Rate 0 06/01/25 11:53 Medical Decision Making Initial Assessment: 75-year-old male with COPD, metastatic bladder cancer, GI bleed, alcohol use disorder, SVT, carotid and subclavian artery stenosis, peripheral arterial disease, prostate cancer, presenting with worsening dizziness. Differential Diagnosis includes but is not limited to: Posterior CVA, brain mets, ACS/cardiac arrhythmia, dehydration, electrolyte imbalance, ETOH use disorder, occult infection such as pneumonia or UTI, thyroid dysfunction I independently interpreted the following tests: EKG shows normal sinus rhythm, rate 76, frequent PVCs noted. Normal intervals. CBC notable for elevated white cell count 13.99; this may be related to recent prednisone use. CMP notable for very elevated alkaline phosphatase, 229 today, increased from 118 on 03/27/2025. Chronic hypoalbuminemia relatively unchanged from baseline. Troponins flat 15 and 16. ETOH negative. Chest x-ray performed, port accessed and right chest, no obvious infiltrates noted. This was confirmed by radiologist, no acute abnormalities noted. I did review patient's most recent PCP visit on 05/21/2025, it appears patient had a hard time and had trouble providing a history as to whether he is feeling emotionally or physically unwell. He was diagnosed with a COPD exacerbation at that time, prescribed azithromycin and prednisone. Consulted with urology re: clean collection from patient with urostomy stoma; Dr Freitas recommends small straight cath to collect a clean sample rather than taking sample from bag. No acute abnormalities noted on CTA. MRI brain ordered to evaluate for posterior stroke versus space-occupying lesion versus other abnormalities; awaiting results. Handoff report given to XOCHITL Cintron, evening RYLEE. Patient consented to the use of [employer] Imaging Data Radiologic Study: Radiologist's impression: Exam(s) XR CHEST 2V PA LATERAL EXAM: XR CHEST 2V PA LATERAL CLINICAL HISTORY: cough, elevated WBC TECHNIQUE: 2D digital imaging was performed. Two views. COMPARISON: CR XR RIBS LT W PA LAT CHEST from 03/23/[address] CHEST PE CTA from 03/23/2025 FINDINGS: HEART: Normal size. Aorta: Not dilated. PULMONARY VASCULATURE: Normal. MEDIASTINUM: Unremarkable. LUNGS: Fibrotic changes, otherwise clear. PLEURAL SPACE: No pleural effusion or pneumothorax. BONE:Unremarkable for age. SOFT TISSUES: Port over right upper chest with tip in SVC. IMPRESSION: No acute abnormality. Radiologic Study #2: Radiologist's impression: Exam(s) CT BRAIN NECK CTA EXAM: CT BRAIN NECK CTA CLINICAL HISTORY: dizziness, h/o mets. TECHNIQUE: Imaging Protocol: Axial CT angiography was performed with multi- slice acquisition and multi-planar and MIP reconstructions. CONTRAST MATERIAL: Intravenous: Omnipaque 350 Contrast volume:70 ml COMPARISON: CT CT BRAIN NECK CTA from 12/08/2023 FINDINGS: CT Head W/O and W contrast: Ventricles and Extra axial spaces: Normal in size and morphology for the patient's age. Hemorrhage: None. Cerebral parenchyma: No evidence of acute infarct or mass. Mild atrophy. Small old lacunar infarct in the right caudate head. Midline shift: None. Brainstem/Cerebellum: No acute findings.. Calvarium: Normal. Visualized Paranasal sinuses/Mastoids: Clear. Soft Tissues: Unremarkable. Enhancement: Normal. Venous sinuses are patent. CTA Brain W: Internal Carotid Arteries: Right: No aneurysm, occlusion or significant stenosis. Left: No aneurysm, occlusion or significant stenosis. Middle Cerebral Arteries: Right: No aneurysm, occlusion or significant stenosis. Left: No aneurysm, occlusion or significant stenosis. Anterior Cerebral Arteries: Right: No aneurysm, occlusion or significant stenosis. Left: No aneurysm, occlusion or significant stenosis. Posterior cerebral Arteries: Right: No aneurysm, occlusion or significant stenosis. Left: No aneurysm, occlusion or significant stenosis. Vertebral Arteries: Right: No aneurysm, occlusion or significant stenosis. Left: No aneurysm, occlusion or significant stenosis. Basilar Artery: No aneurysm, occlusion or significant stenosis. CTA Neck W: Subclavian arteries: Heavy plaque noted at the origin of the left subclavian artery over a length of 2.2 cm. The vessel appears to be occluded. Mild plaque at the proximal right subclavian artery. Common Carotid: No significant plaque. Right: No dissection, occlusion or significant stenosis. Left: No dissection, occlusion or significant stenosis. External Carotid: Right: Heavy plaque at the origin with proximal occlusion. No dissection. Left: No dissection, occlusion or significant stenosis. Internal Carotid: Right: Plaque at origin causing approximate 60 percent stenosis. No dissection or occlusion. Left: Scattered mild plaque. No dissection, occlusion or significant stenosis. Vertebral Artery: Right: No dissection, occlusion or significant stenosis. Left: No dissection, occlusion or significant stenosis. Lung Apices: No acute findings. Bones: No acute abnormality. Severe degenerative disc changes. There are prominent endplate osteophytes anteriorly consistent with DISH. Soft Tissues: Port over right upper chest. IMPRESSION: 1. CTA brain: Normal CTA examination of the [place]. 2. Head CT: No acute abnormality. No evidence of metastatic lesions. 3. CTA neck: Stable appearance of calcified plaque at the right proximal internal carotid artery causing approximately 60 percent stenosis. Occlusion of the right proximal external carotid artery. 4. Occlusion again noted at the proximal left subclavian artery. Quality:SDOH Health Related Social Needs: Health related social needs details N/A PFSH All Active Problems (Updated 05/21/25 @ 18:08 by Celia Gresham NP) COPD (chronic obstructive pulmonary disease) (Chronic) Peripheral vascular disease (Chronic) Status post ileal conduit (Acute) Bladder cancer metastasized to lung (Acute) Bladder cancer metastasized to liver (Acute) Bladder carcinoma metastatic to bone (Acute) History of GI bleed (Acute) EtOH (chronic) Chronic total occlusion of artery of the extremities (Acute ~08/30/24) Nicotine use disorder (Chronic) Started in 1965 with avg 1.5 PPD (2023: ~60 pack year) Alcohol use disorder (Chronic) Supraventricular tachycardia (Chronic ~11/2021) 2021 & 2023 during hospitalizations at [facility] [place]-->candidate for ablation Critical limb ischemia of left lower extremity (Acute) Ocular migraine (Acute) Memory deficit (Acute) Peripheral neuropathy (Acute) Imbalance (Acute) Hyperglycemia (Acute) Carotid artery stenosis (Acute) Subclavian arterial stenosis (Acute ~12/2023) RIGHT [facility] [place] Vascular Surgery 02/23/24 Stenosis of both vertebral arteries (Acute ~12/2023) Left subclavian artery occlusion (Acute ~12/2023) Amaurosis fugax of right eye (Acute ~11/2023) PAD (peripheral artery disease) (Acute ~08/2023) CT Degenerative arthritis of cervical spine (Chronic ~2020) Impairment of speech discrimination (Acute) Prostate cancer (Chronic) Incidental finding on cystoprostatectomy spce [place] 3+3 stage T2 Rectal polyp (Acute ~08/20/22) hyperplastic Folate deficiency (Acute) Metastatic urothelial carcinoma (Acute ~2021) 05/19/22 Dr Murdock, pt proceeding with treatment and F/u in 4w 03/27/25 Pt continuing with treatments by Dr Matthews Bladder cancer (Acute ~04/2021) Stage 111A,node positive 10/2021: neoadjuvant chemotx 11/2021: S/P total cystectomy w/ ileal conduit 03/2022: adjuvant chemo tx Central stenosis of spinal canal (Chronic ~2018) Severe central canal stenosis L2-3, L3-4 [place] stenosis of lumbosacral region (Chronic) (B) L2-3 through L5-S1 Radicular pain (Acute) Depressive disorder, not elsewhere classified (Chronic 01/19/12) Major depressive disorder, recurrent episode, mild per [facility] [place] Hem Onc 09/16/21 note Neurodermatitis (Acute 11/12/15) Hypertensive retinopathy of both eyes (Chronic) Sensorineural hearing loss, bilateral (Acute) Abnormal liver function (Acute 09/14/13) Etoh? related Lichen simplex chronicus (Acute 11/26/16) Other and unspecified hyperlipidemia (Acute 02/03/13) PCEq 20% LDL baseline 181 Medical History Gangrene of toe of left foot (~06/2024) Impacted cerumen, bilateral Impacted cerumen, right ear Orthostatic hypotension Cellulitis DVT (deep venous thrombosis) Gangrene of left foot PSVT (paroxysmal supraventricular tachycardia) (~2018) Abnormal computed tomography angiography (CTA) of neck (~12/2023) Lightheadedness (~06/2022) Pre-syncope (~08/2022) Impacted cerumen, left ear Verbalizes suicidal thoughts (~09/2022) 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 Drug induced neutropenia (~10/07/21) 10/07/21 [facility] Hem/Onc Note Alcohol use disorder, moderate, in early remission drinking again Heel bone fracture with ORIF, and Hx of revision 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 Tongue cancer Has had tongue resection x 2015 Per patient they took about half the tongue Regional wall motion abnormality of heart Syncope 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 (01/19/12) Low back pain without sciatica (02/03/13) Lumbago (02/03/13) Essential hypertension (02/10/13) Surgical History S/P bronchoscopy with biopsy (12/26/24) [facility] [place]-Dr George-robotic assisted w/transbronchial cryobiopsies S/P femoral-popliteal bypass surgery (~07/2024) PAD--[facility] [place] Vasc Surg Amputation of fifth toe of left foot (~07/2024) PAD--[facility] [place] Vasc surg History of urostomy (~2021) History of colonoscopy with polypectomy (~08/20/22) H/O total cystectomy (~11/26/21) Cystectomy, complete with ileal conduit Status post surgical removal and fulguration of bladder neoplasm (~11/2020) 04/23/21 TURBT [facility] [place] Posterior subcapsular age-related cataract of left eye Nuclear sclerotic cataract of left eye Cortical cataract of left eye Hx of lumbosacral spine surgery x 2 per pt. date not known Hx of inguinal hernia surgery (~1969) 1969 History of right cataract surgery (~2012) 2012 Dr Argueta (per pt) History of back surgery (~1988) 1988 Family History Mother , Pt reports mother of Old Age Diabetes Lung cancer Father Diabetes Stroke Sister Diabetes Brother Diabetes Social History Smoking/Tobacco Use Status: Current every day Tobacco Type: cigarettes Years smoked: 53 Tobacco: How many years used: 53 Quit status: not considering quitting Counseling given: counseling >3 minutes (pre-contemplative) Smoking risk assessment performed?: Yes Alcohol Intake: current Alcohol Intake frequency: 3 or more drinks per day Alcohol type: beer Drug use: Daily Substance use type: marijuana Details: patient stated he drink eight 16oz beers a day BrodieRN 06/24/24 Adopted: No Caregiver/Support person: No Foster care: No Household members: none Housing: house Number of Children: 0 Communication Needs: Corrective Lenses Education Level: high school Do you need help understanding health information?: Always current occupation: disabled Pets and animals: Yes Pets and animals: cat(s) Sexually active: No Do you think of yourself as: straight/heterosexual Current gender identity: male What is your relationship status?: How often do you talk on the phone with friends or family?: once per week How often do you get together with friends or relatives?: once per week How often do you attend orthodox or methodist services?: decline to answer Do you belong to any clubs or organized social groups?: no Panel score (0-1 are the most socially isolated patients): 0 What type of physical activity do you participate in: decline to answer Duration: decline to answer Frequency: decline to answer Seatbelt use: always Helmet use: No (No need for it) Drive intox or ride w/intox freight delivery driver: No Working smoke detector in home: Yes Fire extinguisher in home: Yes Carbon monox detector in home: Yes Do you feel safe at home: Yes Do you feel safe in your relationship?: Yes Additional Social history: lives alone
[2025-06-01 12:37] LABS: Abs Immature Grans 0.12 10^3/uL (0.0-0.06); HCT 44.0 % (40.0-50.0); HGB 14.3 g/dL (13.5-17.5); Immature Grans % 0.9 %; MCH 32.1 pg (27.0-33.0); MCHC 32.5 % (32.0-36.0); MCV 99 fL (80-95); MPV 10.7 fL (8.0-11.0); Platelet Count 340 10^3/uL (130-400); RBC 4.46 10^6/uL (4.36-5.78); RDW 13.4 % (11.8-14.1); RDW-SD 49.4 fL; WBC 13.99 10^3/uL (4.4-10.8)
[2025-06-01] MEDS: Meclizine 12.5 MG TAB PO (12:59)
[2025-06-01 13:07] LABS: INR 1.3 (0.9-1.1); PTT Activated 32.1 sec (20.6-30.2); Prothrombin Time 12.6 sec (9.1-11.1)
[2025-06-01 13:16] LABS: ALT 40 U/L (16-63); AST 42 U/L (15-37); Albumin 2.8 g/dL (3.4-5.0); Alkaline Phosphatase 229 U/L (46-116); Anion Gap 6.7 mmol/L (3-11); BUN 10 mg/dL (7-18); Bilirubin, Total 0.5 mg/dL (0.2-1.0); CO2 30.3 mmol/L (21.0-32.0); Calcium 9.1 mg/dL (8.5-10.1); Chloride 103 mmol/L (98-107); Estimated GFR 97.29 (mL/min/1.73m2); Glucose 115 mg/dL (74-106); Magnesium 2.0 mg/dL (1.8-2.4); Potassium 4.0 mmol/L (3.5-5.1); Sodium 140 mmol/L (136-145); TSH 1.50 uIU/mL (0.36-3.74); Total Protein 7.3 g/dL (6.4-8.2); Troponin I 15 ng/L (<or=76)
[2025-06-01 14:00] LABS: Troponin I 16 ng/L (<or=76)
--- NOTE | 2025-06-01 14:00 | DI.CT_ITS ---
Exam(s) CT BRAIN NECK CTA EXAM: CT BRAIN NECK CTA CLINICAL HISTORY: dizziness, h/o mets. TECHNIQUE: Imaging Protocol: Axial CT angiography was performed with multi- slice acquisition and multi-planar and MIP reconstructions. CONTRAST MATERIAL: Intravenous: Omnipaque 350 Contrast volume:70 ml COMPARISON: CT CT BRAIN NECK CTA from 12/08/2023 FINDINGS: CT Head W/O and W contrast: Ventricles and Extra axial spaces: Normal in size and morphology for the patient's age. Hemorrhage: None. Cerebral parenchyma: No evidence of acute infarct or mass. Mild atrophy. Small old lacunar infarct in the right caudate head. Midline shift: None. Brainstem/Cerebellum: No acute findings.. Calvarium: Normal. Visualized Paranasal sinuses/Mastoids: Clear. Soft Tissues: Unremarkable. Enhancement: Normal. Venous sinuses are patent. CTA Brain W: Internal Carotid Arteries: Right: No aneurysm, occlusion or significant stenosis. Left: No aneurysm, occlusion or significant stenosis. Middle Cerebral Arteries: Right: No aneurysm, occlusion or significant stenosis. Left: No aneurysm, occlusion or significant stenosis. Anterior Cerebral Arteries: Right: No aneurysm, occlusion or significant stenosis. Left: No aneurysm, occlusion or significant stenosis. Posterior cerebral Arteries: Right: No aneurysm, occlusion or significant stenosis. Left: No aneurysm, occlusion or significant stenosis. Vertebral Arteries: Right: No aneurysm, occlusion or significant stenosis. Left: No aneurysm, occlusion or significant stenosis. Basilar Artery: No aneurysm, occlusion or significant stenosis. CTA Neck W: Subclavian arteries: Heavy plaque noted at the origin of the left subclavian artery over a length of 2.2 cm. The vessel appears to be occluded. Mild plaque at the proximal right subclavian artery. Common Carotid: No significant plaque. Right: No dissection, occlusion or significant stenosis. Left: No dissection, occlusion or significant stenosis. External Carotid: Right: Heavy plaque at the origin with proximal occlusion. No dissection. Left: No dissection, occlusion or significant stenosis. Internal Carotid: Right: Plaque at origin causing approximate 60 percent stenosis. No dissection or occlusion. Left: Scattered mild plaque. No dissection, occlusion or significant stenosis. Vertebral Artery: Right: No dissection, occlusion or significant stenosis. Left: No dissection, occlusion or significant stenosis. Lung Apices: No acute findings. Bones: No acute abnormality. Severe degenerative disc changes. There are prominent endplate osteophytes anteriorly consistent with DISH. Soft Tissues: Port over right upper chest. IMPRESSION: 1. CTA brain: Normal CTA examination of the [place]. 2. Head CT: No acute abnormality. No evidence of metastatic lesions. 3. CTA neck: Stable appearance of calcified plaque at the right proximal internal carotid artery causing approximately 60 percent stenosis. Occlusion of the right proximal external carotid artery. 4. Occlusion again noted at the proximal left subclavian artery. RADIATION DOSE DELIVERED: Total DLP DATA REPOSITORY: All CT scans at this facility are submitted to the National Radiology Data Registry (NRDR) Dose Index Registry (DIR) with the [employer] (ACR). RADIATION OPTIMIZATION: All CT scans at this facility use at least one of these dose optimization techniques: automated exposure control; mA and/or kV adjustment per patient size (includes targeted exams where dose is matched to clinical indication); or iterative reconstruction.
--- NOTE | 2025-06-01 14:11 | DI.MRI_ITS ---
Exam(s) MR BRAIN WO EXAM: MR BRAIN WO CLINICAL HISTORY: dizziness, concern for brain mets TECHNIQUE: Multiplanar multisequence MRI of the brain was performed. COMPARISON: CT CT BRAIN NECK CTA from 06/01/2025 FINDINGS: CEREBRAL PARENCHYMA: There is no evidence of intracranial hemorrhage, mass effect, or shift of midline structures. There are no extra-axial fluid collections. Ventricles are not enlarged or shifted. There is no significant focal signal abnormality in the cerebellar hemispheres nor within the john, midbrain, and thalami. There are multiple foci individual and confluent signal abnormality in the periventricular white matter consistent with chronic small vessel disease. These are not associated with hemorrhage nor surrounding edema. However, there is a solitary small focus of restricted diffusion seen in the left occipital lobe region in the para hippocampus region, consistent with acute nonhemorrhagic ischemic event PITUITARY GLAND: No mass nor parasellar abnormality. No obvious abnormality in the cavernous sinuses. FLOW VOIDS: The expected flow void are noted. No evidence of obvious aneurysm nor obvious vascular malformation. PARANASAL SINUSES: The visualized paranasal sinuses appear unremarkable. No obvious finding ORBITS: Evidence of previous cataract surgery. No other significant intra orbital findings. IMPRESSION: In addition to abundant bilateral periventricular signal abnormality consistent with chronic ischemic white matter disease there is a new solitary small focus of restricted diffusion in the posterior circulation left-side left occipital lobe region/para hippocampus region. Probably an acute nonhemorrhagic lacunar infarct, particularly given the vascular pathology on the left side here as previously documented. I note that this patient apparently is occlusion of the proximal left subclavian artery. Therefore there is possibility that there is retrograde flow in the left vertebral artery which can result in subclavian steal syndrome. Report called by myself to ER provider 06/01/2025 at 4:25 p.m. DATA REPOSITORY:
[2025-06-01] MEDS: Normal Saline - Diluent 50 ML VIAL IJ (14:32)
[2025-06-01] MEDS: Omnipaque 350 MG/ML 500 ML BTL-Imaging package IJ (14:33)
--- NOTE | 2025-06-01 15:13 | DI.RAD_ITS ---
Exam(s) XR CHEST 2V PA LATERAL EXAM: XR CHEST 2V PA LATERAL CLINICAL HISTORY: cough, elevated WBC TECHNIQUE: 2D digital imaging was performed. Two views. COMPARISON: CR XR RIBS LT W PA LAT CHEST from 03/23/[address] CHEST PE CTA from 03/23/2025 FINDINGS: HEART: Normal size. Aorta: Not dilated. PULMONARY VASCULATURE: Normal. MEDIASTINUM: Unremarkable. LUNGS: Fibrotic changes, otherwise clear. PLEURAL SPACE: No pleural effusion or pneumothorax. BONE:Unremarkable for age. SOFT TISSUES: Port over right upper chest with tip in SVC. IMPRESSION: No acute abnormality. DATA REPOSITORY: RADIATION DOSE DELIVERED:
[2025-06-01 16:36] LABS: Troponin I 13 ng/L (<or=76)
[2025-06-01 17:11] LABS: Ammonia < 10 umol/L (11-32)
--- NOTE | 2025-06-01 17:50 | W.MEDCONSULT ---
Date of service: 06/01/25 Time of Service: 17:50 Assessment and Plan Assessment and plan (1) Dizziness: Status: Acute Assessment and plan: This is dizziness has completely resolved. As mentioned in the HPI, do not see a reason to admit this gentleman to the hospital. Even if he did have atrial fibrillation he is on beta-china as well as blood thinners. My concern is that his hospitalization actually causing more distress does not seem necessary. He did have a CVA but there is significant question whether or not he has been taking his medications. The idea that the patient had occult A-fib, then had a CVA, and then presented to the ED with what is now a normal EKG does not seem likely. I think a much more likely scenario is that he did have some noncompliance with his blood thinners and that is what causes CVA. Once again, the patient states he he does have his medication he just has not been taking. History of Present Illness History of Present Illness Chief Complaint: dizziness Narrative: This is a 75-year-old gentleman who presented today to the ED with either 1 or 3-day history of dizziness. Patient tells me that he is only had dizziness for 1 day but other documentation in the ED indicates has been a bit longer. While he was in the ED he was noted that he did have a very small CVA. Patient states that he quit taking his medications including his blood thinners. This could certainly contribute to the fact that he had this incident. Patient states his dizziness is completely gone and is very anxious to be discharged home. The issue is that a consult to neurology was made via telemedicine. They did recommend that the patient stay overnight for telemetry. The patient does not have any history of atrial fibrillation. The patient is currently not in atrial fibrillation. It is my belief that the risks of coming into the hospital including hospital-acquired pneumonia, C. difficile exposure, worsening delirium in his age group, as well as potential medication issues outweigh the benefits. The patient does have a history of bladder cancer with multiple mets and does not want to spend time in the hospital. I did discuss my reasonings with XOCHITL Cintron and I will take responsibility for Mr. Shi. Patient does have a significant alcohol history and at one time was drinking 18 beers a day as well as 2 L of vodka. Patient states is now drinks to 6 beers a day but also uses marijuana. Patient states that he does have medication at home. Patient's home medication include Xarelto as well as thiamine. Once again, not sure what benefit would be to keep him in the hospital when he is already on Xarelto as well as Plavix. 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-->candidate for ablation Critical limb ischemia of left lower extremity (Acute) Ocular migraine (Acute) Memory deficit (Acute) Peripheral neuropathy (Acute) Imbalance (Acute) Hyperglycemia (Acute) Carotid artery stenosis (Acute) Subclavian arterial stenosis (Acute ~12/2023) RIGHT [facility] Vascular Surgery 02/23/24 Stenosis of both vertebral arteries (Acute ~12/2023) Left subclavian artery occlusion (Acute ~12/2023) Amaurosis fugax of right eye (Acute ~11/2023) PAD (peripheral artery disease) (Acute ~08/2023) CT Degenerative arthritis of cervical spine (Chronic ~2020) Impairment of speech discrimination (Acute) Prostate cancer (Chronic) Incidental finding on cystoprostatectomy spce Garrison 3+3 stage T2 Rectal polyp (Acute ~08/20/22) hyperplastic Folate deficiency (Acute) Metastatic urothelial carcinoma (Acute ~2021) 05/19/22 Dr Murdock, pt proceeding with treatment and F/u in 4w 03/27/25 Pt continuing with treatments by Dr Matthews Bladder cancer (Acute ~04/2021) Stage 111A,node positive 10/2021: neoadjuvant chemotx 11/2021: S/P total cystectomy w/ ileal conduit 03/2022: adjuvant chemo tx Central stenosis of spinal canal (Chronic ~2019) Severe central canal stenosis L2-3, L3-4 [place] stenosis of lumbosacral region (Chronic) (B) L2-3 through L5-S1 Radicular pain (Acute) Depressive disorder, not elsewhere classified (Chronic 01/19/12) Major depressive disorder, recurrent episode, mild per [facility] Hem Onc 09/16/21 note Neurodermatitis (Acute 11/12/15) Hypertensive retinopathy of both eyes (Chronic) Sensorineural hearing loss, bilateral (Acute) Abnormal liver function (Acute 09/14/13) Etoh? related Lichen simplex chronicus (Acute 11/26/16) Other and unspecified hyperlipidemia (Acute 02/03/13) PCEq 20% LDL baseline 181 Medical History Gangrene of toe of left foot (~06/2024) Impacted cerumen, bilateral Impacted cerumen, right ear Orthostatic hypotension Cellulitis DVT (deep venous thrombosis) Gangrene of left foot PSVT (paroxysmal supraventricular tachycardia) (~2018) Abnormal computed tomography angiography (CTA) of neck (~12/2023) Lightheadedness (~06/2022) Pre-syncope (~08/2022) Impacted cerumen, left ear Verbalizes suicidal thoughts (~09/2022) 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 Drug induced neutropenia (~10/07/21) 10/07/21 [facility]/Onc Note Alcohol use disorder, moderate, in early remission drinking again Heel bone fracture with ORIF, and Hx of revision 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 Tongue cancer Has had tongue resection x 2014 Per patient they took about half the tongue Regional wall motion abnormality of heart Syncope 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- Backer-robotic assisted w/transbronchial cryobiopsies S/P femoral-popliteal bypass surgery (~07/2024) PAD--[facility] Vasc Surg Amputation of fifth toe of left foot (~07/2024) PAD--[facility] Vasc surg History of urostomy (~2021) History of colonoscopy with polypectomy (~08/20/22) H/O total cystectomy (~11/26/21) Cystectomy, complete with ileal conduit Status post surgical removal and fulguration of bladder neoplasm (~11/2020) 04/23/21 TURBT [facility] Posterior subcapsular age-related cataract of left eye Nuclear sclerotic cataract of left eye Cortical cataract of left eye Hx of lumbosacral spine surgery x 2 per pt. date not known Hx of inguinal hernia surgery (~1969) 1969 History of right cataract surgery (~2012) 2012 Dr Argueta (per pt) History of back surgery (~1988) 1988 Family History Mother , Pt reports mother of Old Age Diabetes Lung cancer Father Diabetes Stroke Sister Diabetes Brother Diabetes Social History Smoking/Tobacco Use Status: Current every day Tobacco Type: cigarettes Years smoked: 53 Tobacco: How many years used: 53 Quit status: not considering quitting Counseling given: counseling >3 minutes (pre-contemplative) Smoking risk assessment performed?: Yes Alcohol Intake: current Alcohol Intake frequency: 3 or more drinks per day Alcohol type: beer Drug use: Daily Substance use type: marijuana Details: patient stated he drink eight 16oz beers a day BrodieRN 06/24/24 Adopted: No Caregiver/Support person: No Foster care: No Household members: none Housing: house Number of Children: 0 Communication Needs: Corrective Lenses Education Level: high school Do you need help understanding health information?: Always current occupation: disabled Pets and animals: Yes Pets and animals: cat(s) Sexually active: No Do you think of yourself as: straight/heterosexual Current gender identity: male What is your relationship status?: How often do you talk on the phone with friends or family?: once per week How often do you get together with friends or relatives?: once per week How often do you attend zoroastrianism or episcopal services?: decline to answer Do you belong to any clubs or organized social groups?: no Panel score (0-1 are the most socially isolated patients): 0 What type of physical activity do you participate in: decline to answer Duration: decline to answer Frequency: decline to answer Seatbelt use: always Helmet use: No (No need for it) Drive intox or ride w/intox driver starting gate: No Working smoke detector in home: Yes Fire extinguisher in home: Yes Carbon monox detector in home: Yes Do you feel safe at home: Yes Do you feel safe in your relationship?: Yes Additional Social history: lives alone Exam Narrative Exam Narrative: HEENT-NCAT MMM EOMI PERRLA NECK-NO LAD NO JVD CV-RRR NO MRG LUNGS-BILAT WHEEZE BUT NO AMU ABD-UROSTOMY BAG IN PLACE NEURO- CN2-12 INTACT REFLEXES IN UE/LE WNL NONFOCAL EXT-NO CCE BILAT Results Last Vital Signs Temp 36.4 C L 06/01/25 11:53 Pulse 72 06/01/25 17:10 Resp 15 06/01/25 17:10 BP 123/103 H 06/01/25 17:01 Pulse Ox 95 06/01/25 17:10 Labs 06/01/25 12:15 06/01/25 12:15 Labs: Laboratory Results - last 24 hr 06/01/25 06/01/25 06/01/25 12:15 13:33 16:12 WBC 13.99 H RBC 4.46 Hgb 14.3 Hct 44.0 MCV 99 H MCH 32.1 MCHC 32.5 RDW 13.4 Plt Count 340 MPV 10.7 Immature Gran % 0.9 Neutrophils % 73.6 Lymphocytes % 13.7 Monocytes % 9.1 Eosinophils % 2.3 Basophils % 0.4 Nucleated RBC % 0.0 Absolute Neutrophils 10.30 H Absolute Lymphocytes 1.92 Absolute Monocytes 1.27 H Absolute Eosinophils 0.32 Absolute Basophils 0.06 PT 12.6 H INR 1.3 H APTT 32.1 H Sodium 140 Potassium 4.0 Chloride 103 Carbon Dioxide 30.3 Anion Gap 6.7 BUN 10 Creatinine 0.7 Est GFR (CKD-EPI 2020) 97.29 Glucose 115 H Calcium 9.1 Magnesium 2.0 Total Bilirubin 0.5 AST 42 H ALT 40 Alkaline Phosphatase 229 H Ammonia Troponin I 15 16 13 Total Protein 7.3 Albumin 2.8 L Whole Bld Vitamin B1 TSH 1.50 Ethyl Alcohol < 3.0 06/01/25 06/01/25 16:15 16:48 WBC RBC Hgb Hct MCV MCH MCHC RDW Plt Count MPV Immature Gran % Neutrophils % Lymphocytes % Monocytes % Eosinophils % Basophils % Nucleated RBC % Absolute Neutrophils Absolute Lymphocytes Absolute Monocytes Absolute Eosinophils Absolute Basophils PT INR APTT Sodium Potassium Chloride Carbon Dioxide Anion Gap BUN Creatinine Est GFR (CKD-EPI 2020) Glucose Calcium Magnesium Total Bilirubin AST ALT Alkaline Phosphatase Ammonia < 10 L Troponin I Total Protein Albumin Whole Bld Vitamin B1 Cancelled TSH Ethyl Alcohol
== END 2025-06-01 19:01 | disposition home or self-care (01) ==
PROVIDERS: Nurse Practitioner Family; Emergency Provider Physician Assistant; PCP Nurse Practitioner Adult Health
DX: I63.532 Cerebral infarction due to unspecified occlusion or stenosis of left posterior cerebral artery (principal); R06.00 Dyspnea, unspecified; R42 Dizziness and giddiness; R51.9 Headache, unspecified; F10.90 Alcohol use, unspecified, uncomplicated; Z91.81 History of falling; Z85.51 Personal history of malignant neoplasm of bladder; Z85.46 Personal history of malignant neoplasm of prostate; Z86.79 Personal history of other diseases of the circulatory system
CPT/HCPCS: 99284; 99285; 36415; 36416; 82962; 00123; 70496; 70498; 80053; 93005; 99283; 70551; 71046; 80320; 82140; 83735; 84425; 84443; 84484; 85025; 85610; 85730; 93010

== ENCOUNTER 2025-06-15 15:14 | Emergency (ER) | payer MEDICARE, SELFPAY ==
[2025-06-15] VITALS (14 sets, daily range): BP systolic 78–141; BP diastolic 54–94; PULSE 59–144; RESP 11–33; TEMP 36.6; O2SAT 87–98
--- NOTE | 2025-06-15 15:00 | RT.EKG_ITS ---
APPROVED REPORT Exam: Resting ECG Reason for Exam: CP Patient Location: E HR:141 bpm ECG Measurements Heart Rate 141 AXIS ND [id number] P [id number] QRSd 98 QRS 41 QT 319 T -70 QTc 489 Conclusion Atrial fibrillation, rate 141 PVCs Borderline prolonged QTc at 489ms No STEMI, diffuse ST depressions/T-wave inversions Compared to priors, A-fib with RVR is new
--- NOTE | 2025-06-15 15:15 | DI.CT_ITS ---
Exam(s) CT CHEST PE ABD PELVIS W EXAM: CT CHEST PE ABD PELVIS W CLINICAL HISTORY: SOB, tachy, hx metastatic cancer. TECHNIQUE: Imaging Protocol: Axial CT angiography was performed with multi- slice acquisition and multi-planar and/or 3D reconstructions. Computer aided detection (CAD) was utilized. CONTRAST MATERIAL: Intravenous: Omnipaque 350contrast volume:100 mL COMPARISON: CT CT CHEST/ABD/PEL W from 03/22/[address] CHEST WO from 12/06/[address] CHEST PE CTA from 03/23/2025 FINDINGS: CHEST: Tracheobronchial tree: Patent where visualized. No evidence of bronchiectasis. Pulmonary parenchyma: There has been interval increase in size of the right lower lobe nodule which now measures 2.0 x 2.4 cm. This compares to 1.3 x 2.1 cm on the prior examination. Nodule in the lateral aspect of the right middle lobe is stable. There is stable interstitial prominence seen in the lung bases predominantly peripherally. There are no new focal consolidating infiltrates or nodule seen. Pulmonary Arteries: No evidence of filling defect to suggest pulmonary emboli. Mediastinum and Cindy: The mediastinum is unchanged compared to the prior examination. There are stable lymph nodes seen in the cindy bilaterally. The esophagus is unremarkable. Visualized thyroid gland: Unremarkable. Pleura: No effusion or pneumothorax. Heart: Cardiomegaly. Coronary artery calcifications are present. No pericardial effusion. Aorta: The ascending thoracic aorta measures 4.3 x 4.3 cm. Due to the timing of the bolus for the pulmonary artery, there is suboptimal opacification of the thoracic aorta limiting its evaluation. Bones: There has been interval development of a mildly displaced fracture involving the posterolateral aspect of the left 5th rib. There have also developed metastatic lesions of the left scapula the right 5th and 6th ribs laterally the left 9th and 10th ribs posterior laterally and the 5th vertebra. Soft tissues: Unremarkable. Tubes, Catheters, and Lines: ABDOMEN: Liver: Normal density. There are now multiple hepatic masses present consistent with metastatic disease. The largest is in the left lobe of the liver and measures 2.8 x 2.9 cm. Portal, Superior Mesenteric, and Splenic Veins: Unremarkable. Gallbladder and Biliary Tract: No radiodense calculus or dilation. Pancreas: Normal density, no abnormal calcifications or inflammatory process. Spleen: Normal. Adrenals: There has been interval development of a left adrenal mass measuring 2.9 x 2.2 cm. There is unchanged calcification of the right adrenal gland. Kidneys: Normal size, contour and axis. Calcifications are seen in the cindy bilaterally. These may be vascular or represent nonobstructing calculi. They are unchanged. There are few tiny densities seen in the right kidney. They are too small for further characterization but likely reflect small cysts. There is a stable small cyst on the left kidney. No follow-up is recommended. Abdominal Aorta: Abdominal portion non-dilated. Atherosclerotic calcification of the abdominal aorta is present. There is prominent calcification at the origins of the renal arteries bilaterally causing moderate stenosis. There is also atherosclerotic calcification at the origin of the superior mesenteric artery with moderate stenosis present. Extensive atherosclerotic calcification is seen in the iliac arteries bilaterally causing marked bilateral proximal external iliac artery stenosis. There is a question of occlusion of the left internal iliac artery. There is also extensive atherosclerotic calcification of the right common femoral artery causing near occlusion. Bowel: There is diverticulosis of the colon but no evidence of acute diverticulitis. There is no evidence of bowel obstruction or bowel wall thickening. There are now anastomotic changes seen in the small bowel. There is no evidence of appendicitis. Peritoneal Cavity: No ascites, collection or mesenteric inflammatory response. No free air. Lymph Nodes: Within normal limits. Bones: There are new lytic lesions seen in the left 9th and 10th ribs posterior laterally not present on the CT scan from 03/23/2025. There are lytic lesions seen in several vertebra, most notably L1, L3 and L4. There is a large lytic lesion seen in the left iliac bone. Lytic lesions are seen in the pelvis in the left superior pubic ramus and the right iliac bone. Soft Tissues: There is a fat containing right inguinal hernia. There is a 2.2 x 2.1 cm soft tissue enhancing mass in the right gluteus minimus muscle (series 25, image 75). PELVIS: Bladder: Status post cystectomy. There is an ileal diversion in the right abdomen. Reproductive Organs: The prostate appears surgically absent. Lymph Nodes: Within normal limits. Bones: Within normal limits. IMPRESSION: 1. Since the prior examinations, there has been extensive metastatic disease that has developed in the abdomen and pelvis. Findings include multiple hepatic metastases, left adrenal metastasis, osseous metastatic disease and probable metastatic focus in the right gluteus minimus muscle. 2. No acute abdominal or pelvic process is seen. 3. Status post urinary bladder resection with ileal conduit. 4. Interval increase in size of the right lower lobe pulmonary mass. 5. Interval development of osseous metastatic disease involving the ribs, left scapula and vertebra as described above. 6. There is no evidence of a pulmonary embolism. 7. There are stable interstitial findings seen in the lung bases. No new focal infiltrates are seen. 8. Interval mildly displaced fracture involving the posterolateral aspect of the left 5th rib. 9. Findings were discussed with Dr. Martini at 5:25 p.m. on 06/15/2025. RADIATION DOSE DELIVERED: 914.61mGy.cm Total DLP DATA REPOSITORY: All CT scans at this facility are submitted to the National Radiology Data Registry (NRDR) Dose Index Registry (DIR) with the [employer] ([employer]). RADIATION OPTIMIZATION: All CT scans at this facility use at least one of these dose optimization techniques: automated exposure control; mA and/or kV adjustment per patient size (includes targeted exams where dose is matched to clinical indication); or iterative reconstruction.
--- NOTE | 2025-06-15 15:15 | RT.EKG_ITS ---
APPROVED REPORT Exam: Resting ECG Reason for Exam: Repeat for rhythm change Patient Location: E HR:90 bpm ECG Measurements Heart Rate 90 AXIS NV 140 P 41 QRSd 105 QRS 39 QT 398 T 24 QTc 474 Conclusion Sinus rhythm, rate 90 No interval abnormalities PACs and PVCs No STEMI, T wave inversion III, V2, V3 Compared to priors, A-fib has resolved and rate has decreased
[2025-06-15] MEDS: Lactated Ringers 1,000 ML 1000 ML IV (15:30)
[2025-06-15 15:35] LABS: Abs Immature Grans 0.07 10^3/uL (0.0-0.06); HCT 43.8 % (40.0-50.0); HGB 14.3 g/dL (13.5-17.5); Immature Grans % 0.5 %; MCH 31.8 pg (27.0-33.0); MCHC 32.6 % (32.0-36.0); MCV 98 fL (80-95); MPV 10.7 fL (8.0-11.0); Platelet Count 351 10^3/uL (130-400); RBC 4.49 10^6/uL (4.36-5.78); RDW 13.2 % (11.8-14.1); RDW-SD 47.8 fL; WBC 13.63 10^3/uL (4.4-10.8)
--- NOTE | 2025-06-15 15:41 | ED.GENADUL_ITS ---
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, Bladder cancer metastasized to liver, Bladder cancer metastasized to lung Primary Care Provider: Celia Gresham ED Provider: Ava Salas Home Meds and New Rx's Prescriptions: New cephalexin 500 mg capsule 500 mg PO QID 8 Days Qty: 32 0RF No Action (DME) [facility] See Rx Instructions .Route Rx Instructions: As directed (DME) catheter bag 0 .Route .MEDSUPPLY Patient Comments: [facility] #[id number] (DME) Convate Sensicare Barrier Wipe 0 .Route .MEDSUPPLY Patient Comments: [facility] #[id number] (DME) Adapt Ring 0 .Route .MEDSUPPLY Patient Comments: [place] Adapt RING #[id number] mecobalamin (vitamin B12) [B12 Active] 1,000 mcg tablet,chewable 1,000 mcg PO DAILY Qty: 90 3RF fluticasone propion-salmeterol [Advair Diskus] 250-50 mcg/dose blister with device 1 inh inhalation BID Qty: 60 11RF Rx Instructions: Chronic bronchitis; RINSE MOUTH AFTER USE albuterol sulfate 90 mcg/actuation HFA aerosol inhaler See Rx Instructions .ROUTE .COMPLEX Qty: 25.5 12RF Dose Instruction: INHALE TWO PUFFS BY MOUTH FOUR TIMES A DAY NEEDED FOR SHORNTESS OF BREATH OR WHEEZING Rx Instructions: INHALE TWO PUFFS BY MOUTH FOUR TIMES A DAY NEEDED FOR SHORNTESS OF BREATH OR WHEEZING (DME) Aerochamber MV Spacer See Rx Instructions .ROUTE .MEDSUPPLY Qty: 1 0RF Rx Instructions: As directed with [facility] (DME) [place] Wafer, Cera Plus #[id number] 01/02 See Rx Instructions .Route .MEDSUPPLY Qty: 2 11RF Rx Instructions: 2 different Cera Plus #[id number] components (DME) Convatec Adhesive Release [place] [phone] See Rx Instructions .Route .MEDSUPPLY Qty: 1 11RF Rx Instructions: As directed (DME) Convatec Night Drainage Container Set #[id number] See Rx Instructions .Route .MEDSUPPLY Qty: 1 11RF Rx Instructions: As directed (DME) Alisha Urostomy Drain Tube Adapter See Rx Instructions .Route .MEDSUPPLY Qty: 2 11RF Rx Instructions: for attachement of urostomy bag to wolf bag at night (DME) [place] Wafer, Cera Plus #[id number] 01/02 See Rx Instructions .Route .MEDSUPPLY Qty: 1 5RF Rx Instructions: As directed (DME) [place] [employer] Pouch #[id number] 1 inch See Rx Instructions .Route .MEDSUPPLY Qty: 5 11RF Rx Instructions: As directed duloxetine 60 mg capsule,delayed release(DR/EC) See Rx Instructions .ROUTE .COMPLEX Qty: 90 3RF Dose Instruction: TAKE ONE CAPSULE BY MOUTH EVERY DAY Rx Instructions: TAKE ONE CAPSULE BY MOUTH EVERY DAY clopidogrel 75 mg tablet 75 mg PO DAILY terbinafine HCl 1 % cream See Rx Instructions .ROUTE .COMPLEX Qty: 30 2RF Dose Instruction: APPLY TOPICALLY TWO TIMES A DAY NEEDED FOR JOCK ITCH Rx Instructions: APPLY TOPICALLY TWO TIMES A DAY NEEDED FOR JOCK ITCH (DME) Hearing aids See Rx Instructions .Route .MEDSUPPLY Qty: 2 0RF Rx Instructions: As directed rivaroxaban 20 mg tablet 20 mg PO DAILY Rx Instructions: must administer with evening meal metoprolol succinate 100 mg tablet extended release 24 hr See Rx Instructions .ROUTE .COMPLEX Qty: 90 3RF Dose Instruction: TAKE ONE TABLET BY MOUTH EVERY DAY FOR LIGHTHEADEDNESS AND SVT Rx Instructions: TAKE ONE TABLET BY MOUTH EVERY DAY FOR LIGHTHEADEDNESS AND SVT gabapentin 600 mg tablet See Rx Instructions .ROUTE .COMPLEX Qty: 90 11RF Dose Instruction: TAKE ONE TABLET BY MOUTH THREE TIMES A DAY Rx Instructions: TAKE ONE TABLET BY MOUTH THREE TIMES A DAY thiamine HCl (vitamin B1) 100 mg tablet See Rx Instructions .ROUTE .COMPLEX Qty: 90 3RF Dose Instruction: TAKE ONE TABLET BY MOUTH EVERY DAY Rx Instructions: TAKE ONE TABLET BY MOUTH EVERY DAY atorvastatin 40 mg tablet See Rx Instructions .ROUTE .COMPLEX Qty: 90 3RF Dose Instruction: TAKE ONE TABLET BY MOUTH EVERY DAY Rx Instructions: TAKE ONE TABLET BY MOUTH EVERY DAY folic acid 1 mg tablet See Rx Instructions .ROUTE .COMPLEX Qty: 90 3RF Dose Instruction: TAKE ONE TABLET BY MOUTH EVERY DAY Rx Instructions: TAKE ONE TABLET BY MOUTH EVERY DAY aspirin 81 mg tablet,delayed release (DR/EC) See Rx Instructions .ROUTE .COMPLEX Qty: 90 3RF Dose Instruction: TAKE ONE TABLET BY MOUTH EVERY DAY Rx Instructions: TAKE ONE TABLET BY MOUTH EVERY DAY magnesium oxide 400 mg (241.3 mg magnesium) tablet See Rx Instructions .ROUTE .COMPLEX Qty: 90 3RF Dose Instruction: TAKE ONE TABLET BY MOUTH EVERY DAY Rx Instructions: TAKE ONE TABLET BY MOUTH EVERY DAY Discharge Instructions Instructions: Sepsis, Adult (DC) Additional Instructions: You were seen in the emergency department today for evaluation of shortness of breath and general fatigue, and had vital signs and laboratory studies concerning for sepsis and a urinary tract infection. You had a CT scan that showed extensive metastatic disease related to your bladder cancer, received your first dose of antibiotics and some fluid to rehydrate you. At this time, you are choosing to leave the hospital AGAINST MEDICAL ADVICE, we recommended admission for ongoing IV antibiotics treatment, and while awaiting results of your blood and urine cultures. I have provided you with a prescription for oral antibiotics which you should start tomorrow, and take until they are gone, even if you start to feel better. You are always welcome to return to the emergency department and should do so especially if you develop new or worsening symptoms, such as fever, inability to eat or drink, chest pain, abdominal pain, etc. You should follow-up with your outpatient providers including your palliative care team. Thank you for allowing us to be part of your care. HPI General Mode of arrival: EMS . Date/Time Provider Initiated Documentation: 06/15/25 15:27 . Limitations to Documentation: no limitations . Information obtained by: patient, EMS and old records reviewed . HPI Narrative: This is a 75-year-old male patient with a past medical history significant for bladder cancer metastatic to lung, bone, liver, and history of COPD, DVT/critical limb ischemia on rivaroxaban, a recent lacunar stroke on Plavix, with residual dizziness, presenting for evaluation of shortness of breath and fatigue. The patient was brought in by EMS, states that his symptoms have been chronic for some time but have worsened over the last few days to a week. He reports that he has a frequent cough productive of white sputum, which has not changed in consistency or quantity. He states that he has not had hematemesis but does have occasional chest pain. He reports no change in his urine output through his urostomy. He has chronic pain in his low back which he attributes to his known metastases. EMS noted the patient to be in a rapid A-fib with a rate in the 140s, patient reports that he is currently being worked up for A-fib in the setting of his lacunar stroke. Converted spontaneously to a sinus rhythm with frequent ectopic beats upon arrival to the emergency department without medical intervention. The patient reports ongoing use of nicotine and alcohol. States that he eats 1 meal a day. Related Data Home Medications ?Medication ?Instructions ?Recorded ?Confirmed inhalational spacing device #1 ea 11/21/19 06/15/25 (Aerochamber MV spacer) Adapt Ring 12/17/21 06/15/25 Convatec Sensicare Barrier Wipe 12/17/21 06/15/25 catheter bag 12/17/21 06/15/25 ostomy supplies 1 11/0412/17/21 06/15/25 Hearing aids #2 ea 03/31/22 06/15/25 Convatec Adhesive Release [place] #1 ea 04/28/22 5 Convatec Night Drainage Container #1 ea 04/28/2206/15 Set #[id number] Alisha Urostomy Drain Tube #2 ea 04/28/22 06/15/25 Adapter Alisha Wafer, Cera Plus #8805 #1 pkg 04/28/2206/15 [place] Wafer, Cera Plus #[id number] #2 pkgs 05/02/2206/01 [place] [employer] Pouch #[id number] #5 ea 05/17/24 mecobalamin (vitamin B12) 1,000 1,000 mcg PO DAILY #90 tabs 06/01/24 06/15/25 mcg chewable tablet (B12 Active) rivaroxaban 20 mg tablet 20 mg PO DAILY 07/17/2406/01 duloxetine 60 mg capsule,delayed See Rx Instructions . Route 08/03/24 06/15/25 release .COMPLEX #90 caps metoprolol succinate 100 mg See Rx Instructions .Route 09/07/24 06/15/25 tablet,extended release 24 hr .COMPLEX #90 tabs gabapentin 600 mg tablet See Rx Instructions .Route 0 12/25/24 06/15/25 .COMPLEX #90 tabs thiamine HCl (vitamin B1) 100 mg See Rx Instructions . Route 12/25/24 06/15/25 tablet .COMPLEX #90 tabs atorvastatin 40 mg tablet See Rx Instructions .Route 0 3/05/25 08/15/25 .COMPLEX #90 tabs folic acid 1 mg tablet See Rx Instructions .Route 0 01/04/25 06/15/25 .COMPLEX #90 tabs albuterol sulfate 90 mcg/actuation See Rx Instructions .Route 01/11/25 06/15/25 aerosol inhaler .COMPLEX #25.5 grams fluticasone 250 mcg-salmeterol 50 1 inh inhalation BID #60 ea 01/11/25 06/15/25 mcg/dose blistr powdr for inhalation (Advair Diskus) aspirin 81 mg tablet,delayed See Rx Instructions .Rout e 03/28/25 06/15/25 release .COMPLEX #90 tabs magnesium oxide 400 mg (241.3 mg See Rx Instructions . Route 04/25/25 06/15/25 magnesium) tablet .COMPLEX #90 tabs clopidogrel 75 mg tablet 75 mg PO DAILY 04/27/2506/01 terbinafine HCl 1 % topical cream See Rx Instructions .Route 05/02/25 06/15/25 .COMPLEX #30 grams cephalexin 500 mg capsule 500 mg PO QID 8 days #32 cap s 06/15/25 Previous Rx's ?Medication ?Instructions ?Recorded inhalational spacing device #1 ea 11/21/19 (Aerochamber MV spacer) Hearing aids #2 ea 03/31/22 Convatec Adhesive Release [place] #1 ea 04/28/22 Convatec Night Drainage Container #1 ea 04/28/22 Set #[id number] [place] Urostomy Drain Tube #2 ea 04/28/22 Adapter [place] Wafer, Cera Plus #8805 #1 pkg 04/28/22 Alisha Wafer, Cera Plus #8805 #2 pkgs 05/02/22 [place] [employer] Pouch #[id number] #5 ea 05/17/24 mecobalamin (vitamin B12) 1,000 1,000 mcg PO DAILY #90 tabs 06/01/24 mcg chewable tablet (B12 Active) duloxetine 60 mg capsule,delayed See Rx Instructions . Route 08/03/24 release .COMPLEX #90 caps metoprolol succinate 100 mg See Rx Instructions .Route 09/07/24 tablet,extended release 24 hr .COMPLEX #90 tabs gabapentin 600 mg tablet See Rx Instructions .Route 0 12/25/24 .COMPLEX #90 tabs thiamine HCl (vitamin B1) 100 mg See Rx Instructions . Route 12/25/24 tablet .COMPLEX #90 tabs atorvastatin 40 mg tablet See Rx Instructions .Route 0 01/03/25 .COMPLEX #90 tabs folic acid 1 mg tablet See Rx Instructions .Route 0 01/04/25 .COMPLEX #90 tabs albuterol sulfate 90 mcg/actuation See Rx Instructions .Route 01/11/25 aerosol inhaler .COMPLEX #25.5 grams fluticasone 250 mcg-salmeterol 50 1 inh inhalation BID #60 ea 01/11/25 mcg/dose blistr powdr for inhalation (Advair Diskus) aspirin 81 mg tablet,delayed See Rx Instructions .Rout e 03/28/25 release .COMPLEX #90 tabs magnesium oxide 400 mg (241.3 mg See Rx Instructions . Route 04/25/25 magnesium) tablet .COMPLEX #90 tabs terbinafine HCl 1 % topical cream See Rx Instructions .Route 05/02/25 .COMPLEX #30 grams cephalexin 500 mg capsule 500 mg PO QID 8 days #32 cap s 06/15/25 Allergies Allergy/AdvReac Type Severity Reaction Status Date / Time aspirin AdvReac Intermediate GI Bleeding Verified 06/15/25 15:14 General Stated Complaint: GenMedical HOSSEIN: 2 Exam Narrative Exam Narrative: Gen: awake and alert, in no apparent distress. Appears well nourished. HEENT: PERRL, EOMs full and without nystagmus. External ears and nose normal, mucous membranes moist. Neck: Supple, full range of motion, no observable masses Lungs: No increased work of breathing, lung sounds clear and equal bilaterally without wheezes, rhonchi, or rales. CV: Heart with regular rate and largely regular rhythm, no murmurs auscultated. Strong distal pulses Abdomen: Soft, nondistended, non-tender to palpation. No rigidity, rebound tenderness, or guarding. MSK: No joint swelling, no redness. Full ROM without limitation, no external traumatic findings.. No unilateral calf swelling, no peripheral edema Skin: No rashes or lesions to visualized skin. Normal color, warm, and dry. Neuro: Cranial nerves II-XII intact and symmetrical bilaterally. 5/5 strength in all muscle groups x4 extremities. No sensory deficits. Psych: Appropriate for situation. Course Vital Signs Vital signs: Vital Signs Temperature 36.6 C 06/15/25 15:03 Pulse 144 H 06/15/25 15:03 Respiratory Rate 26 H 06/15/25 15:03 Blood Pressure 113/94 H 06/15/25 15:03 Pulse Oximetry 98 06/15/25 15:03 Temperature 36.6 C 06/15/25 15:03 Temperature Source Tympanic 06/15/25 15:03 Pulse 144 H 06/15/25 15:03 Respiratory Rate 26 H 06/15/25 15:03 Respiratory Effort Short of Breath, Labored 06/15/25 15:08 Respiratory Pattern Tachypnea 06/15/25 15:08 Blood Pressure 113/94 H 06/15/25 15:03 Blood Pressure Position Supine 06/15/25 15:03 Pulse Oximetry 98 06/15/25 15:03 Oxygen Delivery Method Room Air 06/15/25 15:03 Oxygen Flow Rate 0 06/15/25 15:03 Pain Level 6 06/15/25 15:03 Lab/Test Results Lab/Test Results: 06/15/25 15:40 Blood Blood Culture - Pending 06/15/25 15:40 Blood Blood Culture - Pending Laboratory Tests Range/Units 06/15/25 15:13 WBC (4.4-10.8) 10^3/uL 13.63 H RBC (4.36-5.78) 10^6/uL 4.49 Hgb (13.5-17.5) g/dL 14.3 Hct (40.0-50.0) % 43.8 MCV (80-95) fL 98 H MCH (27.0-33.0) pg 31.8 MCHC (32.0-36.0) % 32.6 RDW (11.8-14.1) % 13.2 Plt Count (130-400) 10^3/uL 351 MPV (8.0-11.0) fL 10.7 Immature Gran % % 0.5 Neutrophils % % 75.0 Lymphocytes % % 12.3 Monocytes % % 9.8 Eosinophils % % 1.8 Basophils % % 0.6 Nucleated RBC % (0.0-0.3) % 0.0 Absolute Neutrophils (1.2-6.7) 10^3/uL 10.22 H Absolute Lymphocytes (1.2-3.4) 10^3/uL 1.68 Absolute Monocytes (0.1-0.8) 10^3/uL 1.34 H Absolute Eosinophils (0.0-0.7) 10^3/uL 0.25 Absolute Basophils (0.0-0.2) 10^3/uL 0.08 VBG Lactate (<or=2.0) mmol/L 2.4 H* Medical Decision Making This is a 75-year-old male patient presenting for evaluation of shortness of breath, fatigue, with atrial fibrillation with RVR appreciated by EMS. At the time of arrival at our facility the patient did have a low blood pressure reading in the 70s systolic, though he is reassuringly mentating at his baseline. My differential includes but is not limited to infectious abnorma lities including sepsis, bacteremia, pneumonia and bronchitis, urinary tract infection. Considered new arrhythmia and ACS. The patient is without new neurodeficit, nor recent trauma to suggest intracranial injury such as hemorrhage, CVA, and had an MRI performed within the last few weeks that decreases my concern for new brain metastases in the absence of new symptoms. Certainly considered dehydration, kidney injury, metabolic electrolyte derangement, anemia. Considered alcohol withdrawal in this patient who reports that he drinks beer quite frequently, though he reports no history of severe alcohol withdrawal. Given the low blood pressure and fast heart rate I will obtain blood cultures, and provide the patient with a liter of IV fluids. After cultures and urine are obtained we will provide him with ceftriaxone for initial antibiosis. I obtained and reviewed an initial EKG which shows an atrial fibrillation with RVR and a rate of 141, he spontaneously converted to a sinus rhythm with frequent PVCs and PACs, but no evidence of acute ischemia or interval abnormality. Will obtain labs to include CBC, CMP, magnesium, troponin, lactate, and urinalysis. Will obtain a CT of the chest abdomen and pelvis to evaluate for causes of the patient's symptoms. - I reviewed the patient's laboratory studies, which show a leukocytosis to 13.6 with no anemia or thrombocytopenia. Lactate is slightly elevated at 2.4, patient did complete his liter of fluids. INR 1.3. Chemistry panel without significant electrolyte derangements, evidence of kidney injury, alkaline phosphatase is quite elevated at 327 which is consistent with his known history of bony metastases. Ethanol 5.7, initial troponin 16, delta 14 with no evidence for ongoing active ischemia. Urinalysis with leukocyte esterase, pyuria and bacteriuria, and given his history of urostomy may represent the source of his presumed sepsis. I reviewed the patient's CT scans and discussed the results with the radiologist. They do redemonstrate extensive metastases in the lungs, bones, and liver. The patient has some chronic appearing interstitial changes in the lungs with no new lobar pneumonia is appreciated. The patient's blood pressure improved after fluids, and I had a discussion with the patient regarding admission for sepsis of a presumed urinary source. Unfortunately, at this time the patient states that he will not stay in the hospital as he desires to return home to care for his pets and manage some issues with a tenant. I did reach out to the patient's brother who will be able to take him home and is aware of the concern for ongoing infection. To minimize harm I did provide the patient with a prescription for cephalexin for outpatient antibiosis, presuming UTI is the source. The patient understands the risks of refusing hospitalization and the benefits of staying, which do include intravenous antibiosis, follow-up of urine and blood cultures, and the ability to discuss his long-term goals with palliative care. He understands that he can return to seek care immediately and should do so if he has any change or worsening of his symptoms. The patient remained hemodynamically improved while under my care, and left the hospital AGAINST MEDICAL ADVICE in the care of his brother. 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 (Acute) History of GI bleed (Acute) EtOH (chronic) Chronic total occlusion of artery of the extremities (Acute ~08/30/24) Nicotine use disorder (Chronic) Started in 1965 with avg 1.5 PPD (2023: ~60 pack year) Alcohol use disorder (Chronic) Supraventricular tachycardia (Chronic ~11/2021) 2021 & 2023 during hospitalizations at [facility]-->candidate for ablation Critical limb ischemia of left lower extremity (Acute) Ocular migraine (Acute) Memory deficit (Acute) Peripheral neuropathy (Acute) Imbalance (Acute) Hyperglycemia (Acute) Carotid artery stenosis (Acute) Subclavian arterial stenosis (Acute ~12/2023) RIGHT [facility] Vascular Surgery 02/23/24 Stenosis of both vertebral arteries (Acute ~12/2023) Left subclavian artery occlusion (Acute ~12/2023) Amaurosis fugax of right eye (Acute ~11/2023) PAD (peripheral artery disease) (Acute ~08/2023) CT Degenerative arthritis of cervical spine (Chronic ~2020) Impairment of speech discrimination (Acute) Prostate cancer (Chronic) Incidental finding on cystoprostatectomy spce Doris 3+3 stage T2 Rectal polyp (Acute ~08/20/22) hyperplastic Folate deficiency (Acute) Metastatic urothelial carcinoma (Acute ~2021) 05/19/22 Dr Murdock, pt proceeding with treatment and F/u in 4w 03/27/25 Pt continuing with treatments by Dr Matthews Bladder cancer (Acute ~04/2021) Stage 111A,node positive 10/2021: neoadjuvant chemotx 11/2021: S/P total cystectomy w/ ileal conduit 03/2022: adjuvant chemo tx Central stenosis of spinal canal (Chronic ~2018) Severe central canal stenosis L2-3, L3-4 [place]am[place] stenosis of lumbosacral region (Chronic) (B) L2-3 through L5-S1 Radicular pain (Acute) Depressive disorder, not elsewhere classified (Chronic 01/19/12) Major depressive disorder, recurrent episode, mild per [facility] Hem Onc 09/16/21 note Neurodermatitis (Acute 11/12/15) Hypertensive retinopathy of both eyes (Chronic) Sensorineural hearing loss, bilateral (Acute) Abnormal liver function (Acute 09/14/13) Etoh? related Lichen simplex chronicus (Acute 11/26/16) Other and unspecified hyperlipidemia (Acute 02/03/13) PCEq 20% LDL baseline 181 Medical History Gangrene of toe of left foot (~06/2024) Impacted cerumen, bilateral Impacted cerumen, right ear Orthostatic hypotension Cellulitis DVT (deep venous thrombosis) Gangrene of left foot PSVT (paroxysmal supraventricular tachycardia) (~2018) Abnormal computed tomography angiography (CTA) of neck (~12/2023) Lightheadedness (~06/2022) Pre-syncope (~08/2022) Impacted cerumen, left ear Verbalizes suicidal thoughts (~09/2022) 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 Drug induced neutropenia (~10/07/21) 10/07/21 [facility]/Onc Note Alcohol use disorder, moderate, in early remission drinking again Heel bone fracture with ORIF, and Hx of revision 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 Tongue cancer Has had tongue resection x 2015 Per patient they took about half the tongue Regional wall motion abnormality of heart Syncope 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 (01/19/12) Low back pain without sciatica (02/03/13) Lumbago (02/03/13) Essential hypertension (02/10/13) Surgical History S/P bronchoscopy with biopsy (12/26/24) [facility]-Dr George-robotic assisted w/transbronchial cryobiopsies S/P femoral-popliteal bypass surgery (~07/2024) PAD--[facility] Vasc Surg Amputation of fifth toe of left foot (~07/2024) PAD--[facility] Vasc surg History of urostomy (~2021) History of colonoscopy with polypectomy (~08/20/22) H/O total cystectomy (~11/26/21) Cystectomy, complete with ileal conduit Status post surgical removal and fulguration of bladder neoplasm (~11/2020) 04/23/21 TURBT [facility] Posterior subcapsular age-related cataract of left eye Nuclear sclerotic cataract of left eye Cortical cataract of left eye Hx of lumbosacral spine surgery x 2 per pt. date not known Hx of inguinal hernia surgery (~1969) 1969 History of right cataract surgery (~2012) 2012 Dr Argueta (per pt) History of back surgery (~1988) 1988 Family History Mother , Pt reports mother of Old Age Diabetes Lung cancer Father Diabetes Stroke Sister Diabetes Brother Diabetes Social History Smoking/Tobacco Use Status: Current every day Tobacco Type: cigarettes Years smoked: 53 Tobacco: How many years used: 53 Quit status: not considering quitting Counseling given: counseling >3 minutes (pre-contemplative) Smoking risk assessment performed?: Yes Alcohol Intake: current Alcohol Intake frequency: 3 or more drinks per day Alcohol type: beer Drug use: Daily Substance use type: marijuana Details: patient stated he drink eight 16oz beers a day BrodieRN 06/24/24 Adopted: No Caregiver/Support person: No Foster care: No Household members: none Housing: house Number of Children: 0 Communication Needs: Corrective Lenses Education Level: high school Do you need help understanding health information?: Always current occupation: disabled Pets and animals: Yes Pets and animals: cat(s) Sexually active: No Do you think of yourself as: straight/heterosexual Current gender identity: male What is your relationship status?: How often do you talk on the phone with friends or family?: once per week How often do you get together with friends or relatives?: once per week How often do you attend sabianism or advent services?: decline to answer Do you belong to any clubs or organized social groups?: no Panel score (0-1 are the most socially isolated patients): 0 What type of physical activity do you participate in: decline to answer Duration: decline to answer Frequency: decline to answer Seatbelt use: always Helmet use: No (No need for it) 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
[2025-06-15 15:45] LABS: Prothrombin Time 13.3 sec (9.1-11.1)
[2025-06-15 15:47] LABS: INR 1.3 (0.9-1.1)
[2025-06-15 15:59] LABS: ALT 30 U/L (16-63); AST 39 U/L (15-37); Albumin 2.7 g/dL (3.4-5.0); Alkaline Phosphatase 327 U/L (46-116); Anion Gap 12.7 mmol/L (3-11); BUN 8 mg/dL (7-18); Bilirubin, Total 0.5 mg/dL (0.2-1.0); CO2 26.3 mmol/L (21.0-32.0); Calcium 9.3 mg/dL (8.5-10.1); Chloride 102 mmol/L (98-107); Estimated GFR 97.29 (mL/min/1.73m2); Glucose 117 mg/dL (74-106); Magnesium 2.0 mg/dL (1.8-2.4); Potassium 4.0 mmol/L (3.5-5.1); Sodium 141 mmol/L (136-145); Total Protein 7.4 g/dL (6.4-8.2); Troponin I 16 ng/L (<or=76)
[2025-06-15] MEDS: Normal Saline Flush 10 ML SYR IVP (16:33)
[2025-06-15] MEDS: Omnipaque 350 MG/ML 100 ML BTL IJ (16:33)
[2025-06-15] MEDS: Normal Saline - Diluent 50 ML VIAL IJ (16:33)
[2025-06-15 17:02] LABS: Glucose Negative (Negative)
[2025-06-15 17:07] LABS: Troponin I 14 ng/L (<or=76)
[2025-06-15 17:11] LABS: C & S Indicated? Yes; WBC 20-50 HPF (0-5)
[2025-06-15] MEDS: cefTRIAXone 1 GM/50 ML BAG IVPB (17:45)
[2025-06-15] MEDS: Cephalexin 500 MG CAP, 4 CAPS/BTL PO (18:04)
== END 2025-06-15 18:23 | disposition left against medical advice (07) ==
PROVIDERS: Emergency Provider Emergency Medicine; PCP Nurse Practitioner Adult Health
DX: C67.9 Malignant neoplasm of bladder, unspecified (principal); C78.00 Secondary malignant neoplasm of unspecified lung; C78.7 Secondary malignant neoplasm of liver and intrahepatic bile duct; C79.51 Secondary malignant neoplasm of bone; N39.0 Urinary tract infection, site not specified; A41.9 Sepsis, unspecified organism
CPT/HCPCS: 36415; 71275; 74177; 80053; 87040; 87077; 93005; 96361; 96365; 99285; 80320; 81003; 81015; 83605; 83735; 84484; 85025; 85610; 87086; 87186; 93010; 99284; J0696; J3490